=== PATIENT | female | born 1960 | race Two or more races ===

== ENCOUNTER 2020-05-02 11:48 | Outpatient (REF) | payer MEDICAID, SELFPAY ==
--- NOTE | ~2020-05-02 | MM_ITS ---
EXAMINATION: MM SCREENING DIGITAL BREAST TOMOSYNTHESIS, BILATERAL CLINICAL INFORMATION: Screening. Asymptomatic. The lifetime risk of breast cancer based on the Tyrer-Cuzick Model is 3.8%. COMPARISON: Mammography: February 24, 2018 and studies dating back to April 14, 2012 TECHNIQUE: Digital breast tomosynthesis is performed in both the craniocaudal and mediolateral oblique views along with computer-aided detection (CAD). Synthesized 2D images are generated from the tomosynthesis. Additional right exaggerated craniocaudal view performed. FINDINGS: There are scattered areas of fibroglandular density (ACR BI-RADS breast composition Category b). There are no significant masses, abnormal calcifications, or other abnormalities. MM/MM tomosynthesis screening BI IMPRESSION: There are no significant changes from prior study. ASSESSMENT: BI-RADS 1: Negative RECOMMENDATION: Routine annual mammography screening. This patient's information was entered into a reminder system with a target due date for their next mammogram.
== END 2020-05-02 11:49 | disposition home or self-care (01) ==
LOC: HO.MAMMO 11:48
PROVIDERS: PCP Family Medicine; Visit Provider Family Medicine
DX: Z12.31 Encounter for screening mammogram for malignant neoplasm of breast (principal)
CPT/HCPCS: 77063; 77067

== ENCOUNTER 2020-07-04 12:38 | Outpatient (REF) | payer MEDICAID, SELFPAY ==
--- NOTE | ~2020-07-04 | XR_ITS ---
EXAMINATION: XR KNEE, LEFT CLINICAL INFORMATION: Left knee pain COMPARISON: Radiographs left knee 12/11/2011 TECHNIQUE: Four views of the left knee. FINDINGS: There is normal bony mineralization. No fracture, dislocation, destructive process. No focal joint narrowing or erosive change or chondrocalcinosis. No overt effusion appreciated. Bony mineralization is normal. XR/XR knee LT 4V IMPRESSION: Unremarkable left knee.
== END 2020-07-04 12:39 | disposition home or self-care (01) ==
LOC: HO.XRAY 12:38
PROVIDERS: PCP Family Medicine; Visit Provider Family Medicine
DX: M25.562 Pain in left knee (principal)
CPT/HCPCS: 73564

== ENCOUNTER 2021-05-08 14:18 | Outpatient (REF) | payer MEDICAID, SELFPAY ==
--- NOTE | ~2021-05-08 | MM_ITS ---
EXAMINATION: MM SCREENING DIGITAL BREAST TOMOSYNTHESIS, BILATERAL CLINICAL INFORMATION: Screening. Asymptomatic. The lifetime risk of breast cancer based on the Tyrer-Cuzick Model is 3%. COMPARISON: Mammography: 05/02/2020, 02/24/2018, 02/20/2017 TECHNIQUE: Digital breast tomosynthesis is performed in both the craniocaudal and mediolateral oblique views along with computer-aided detection (CAD). Synthesized 2D images are generated from the tomosynthesis. FINDINGS: There are scattered areas of fibroglandular density (ACR BI-RADS breast composition Category b). There are no significant masses, abnormal calcifications, or other abnormalities. No developing density. There are incidental vascular calcifications again seen. MM/MM tomosynthesis screening BI IMPRESSION: No mammographic evidence of malignancy. ASSESSMENT: BI-RADS 1: Negative RECOMMENDATION: Routine annual mammography screening. This patient's information was entered into a reminder system with a target due date for their next mammogram.
== END 2021-05-08 14:19 | disposition home or self-care (01) ==
LOC: HO.MAMMO 14:18
PROVIDERS: PCP Family Medicine; Visit Provider Family Medicine
DX: Z12.31 Encounter for screening mammogram for malignant neoplasm of breast (principal)
CPT/HCPCS: 77063; 77067

== ENCOUNTER 2021-11-19 10:52 | Emergency (ER) | payer MEDICAID, SELFPAY ==
--- NOTE | ~2021-11-19 | CT_ITS ---
EXAMINATION: CT ABDOMEN AND PELVIS WITHOUT CONTRAST CLINICAL INFORMATION: Left-sided flank pain COMPARISON: None TECHNIQUE: Multidetector volumetric imaging was performed from the superior aspect of the liver through the pubic symphysis. Sagittal and coronal reformatted images were obtained on the technologist's workstation. This CT examination was performed using dose optimization techniques as appropriate, variously including the following: *Automated exposure control *Adjustment of mA and/or kV according to patient size (this includes techniques or standardized protocols for targeted exams where dose is matched to indication/reason for exam; i.e. extremities or head) *Use of iterative reconstruction technique DLP: 826 mGy-cm FINDINGS: LUNG BASES: The visualized lung bases are unremarkable. LIVER, GALLBLADDER, AND BILIARY TREE: Moderate hepatic steatosis. Liver is prominent, with the right lobe measuring 20 cm cephalocaudad. No focal masses. No intrahepatic biliary dilatation. The gallbladder is surgically absent. PANCREAS: Unremarkable. SPLEEN: Unremarkable. ADRENAL GLANDS: Unremarkable. KIDNEYS AND URETERS: Right kidney surgically absent. There is a small probable hyperdense cyst off the mid left kidney at 4 mm. There is slight distention of the left collecting system. The left ureter is slightly prominent although an obstructing calculus at this time is not seen. Perhaps the patient has recently passed a stone on the left. There are no perinephric collections. BLADDER: Unremarkable. GASTROINTESTINAL TRACT: There is no bowel obstruction or right or left lower quadrant inflammatory change. ABDOMINAL WALL: Very small fat-containing umbilical hernia. Bowel does not participate. LYMPH NODES: Normal. VASCULAR: Unremarkable. PELVIC VISCERA: Unremarkable. OSSEOUS STRUCTURES: Spondylitic change observed in the lower thoracic spine. CT/CT abdomen pelvis wo IV con IMPRESSION: Slight distention of the left ureter and left collecting system. This may reflect a recently passed stone. Fleischner guidelines were followed.
[2021-11-19 11:27] VITALS: BP 130/79; PULSE 85; RESP 18; TEMP 36.9; O2SAT 98; BMI 49.6
--- NOTE | 2021-11-19 11:52 | ED.ABDPAIN ---
HPI - Abdominal Pain General Chief Complaint: Back Pain/Injury Stated Complaint: lower back pain Time Seen by Provider: 11/19/21 11:47 Source: patient Mode of arrival: ambulatory Limitations: no limitations History of Present Illness HPI narrative: 61 yo female presents to the ER for evaluation of left sided flank pain for the last 1 week. She reports the pain is in her back and intermittently radiates to her left lower quadrant. She reports intermittent nausea but no vomiting or diarrhea. She denies urinary symptoms including frequency, urgency or pain. No blood in her urine. She states she has history of RCC and is s/p right nephrectomy many years ago. She is worried about the pain being in her left kidney. MD elicited complaint: flank pain Pertinent past history: none Onset (ago): week(s) (1) Pain Consistency: constant Location: L flank Severity: moderate Quality: aching Radiation: LLQ Exacerbating factors: movement Relieving factors: nothing Associated symptoms: nausea Related Data Allergies Allergy/AdvReac Type Severity Reaction Status Date / Time chlorthalidone Allergy Unknown Verified 03/24/14 00:00 lisinopril Allergy Unknown Verified 03/24/14 00:00 No Known Allergies Allergy Unverified 12/08/19 17:51 Review of Systems Review of Systems Constitutional: No Fever, No Chills ENT/Mouth: No sore throat, No Rhinorrhea, No Swallowing Difficulty Eyes: No Eye Pain, No Swelling, No Redness Cardiovascular: No Chest Pain, No SOB, No Orthopnea, No Edema Respiratory: No Cough, No Sputum, No Wheezing, No dyspnea Gastrointestinal: + Nausea, No Vomiting, No Diarrhea, + abdominal Pain, No Hematochezia, No Melena Genitourinary: No Dysuria, No Urinary Frequency, No Hematuria Musculoskeletal: No joint pain, No Myalgias Skin: No Skin Lesions, No rash Neuro: No Weakness, No Numbness, No Dizziness, No Headache Psych: + Anxiety/Panic, No Depression Heme/Lymph: No Bruising, No Lymphadenopathy Endocrine: No Polyuria, No Polydipsia PMFSH Social History Social History Advance Directives: No Advance Directives Information Provided: Yes Physical Exam ED Vital Signs: Vital Signs - 24 hr 11/19/21 11:27 11/19/21 14:19 Temperature 98.5 F 97.8 F Pulse Rate 85 83 Respiratory Rate 18 14 Blood Pressure 130/79 141/90 H Pulse Oximetry 98 100 Oxygen Delivery Method Room Air Room Air BMI result Body Mass Index 49.6 Appearance: Alert. Oriented X3. No acute distress. Eyes: Pupils equal, round and reactive to light. ENT: Pharynx normal. Neck: Normal inspection. Neck supple. CVS: Normal heart rate and rhythm. Pulses normal. Respiratory: No respiratory distress. Breath sounds normal. Abdomen: Obese, soft and nontender. + CVA tenderness on the left. +BS x4 Skin: Skin warm and dry. Normal skin color. Normal skin turgor. No rashes. Extremities: 1+ lower extremity edema. Neuro: Oriented X 3. No motor deficit. No sensory deficit. Steady gait Course Course Course Narrative: 61-year-old female with history of nephrectomy in the past presents to the ER with left-sided flank pain for 1 week. Mild nausea but no vomiting or diarrhea. No urinary symptoms. Her U/A is normal. She does have CVA tenderness on examination. She is afebrile. Will get CT scan for further evaluation of her pain. Reevaluation(s) Reevaluation #1: Lab showing mild dilatation of the left collecting system, possibly a recently passed stone. Patient advised of these results with cruise staff member. She was encouraged to increase oral fluids and follow-up with her primary care doctor. She is stable for discharge home. MDM - Abdominal Pain Lab Data Result diagrams: 11/19/21 12:40 11/19/21 12:14 Labs: Lab Results 11/19/21 11/19/21 11/19/21 Range/Units 12:14 12:14 12:40 WBC 6.2 (4.8-10.8) X10*3/uL RBC 5.22 (4.20-5.50) X10*6/uL Hgb 14.4 (12.0-16.0) g/dl Hct 43.5 (37.0-47.0) % MCV 83.3 (80.0-98.0) fL MCH 27.6 (27.0-33.0) pg MCHC 33.1 (31.0-35.0) g/dl RDW 13.7 (11.0-16.0) % Plt Count 263 (160-400) X10*3/uL MPV 9.4 (9.4-12.3) fL Immature Gran % (Auto) 0.7 H (0.0-0.4) % Neut % (Auto) 63.5 (45-73) % Lymph % (Auto) 26.3 (20-40) % [place] % (Auto) 8.1 (2-11) % Eos % (Auto) 1.1 (0-4) % Baso % (Auto) 0.3 (0-2) % Lymph # (Auto) 1.6 (1.2-4.9) X10*3/uL [place] # (Auto) 0.5 (0.1-1.2) X10*3/uL Eos # (Auto) 0.1 (0.0-0.4) X10*3/uL Baso # (Auto) 0.0 (0.0-0.2) X10*3/uL Abs Immat Gran (auto) 0.04 H (0.00-0.03) X10*3/uL Absolute Neuts (auto) 3.9 (2.0-8.3) x10*3/uL Absolute Nucleated RBC 0.000 (0.0-0.012) X10*3/uL Nucleated RBC % (auto) 0.0 (0.0-0.2) /100WBC Sodium 140 (135-145) mmol/L Potassium 4.2 (3.3-5.1) mmol/L Chloride 102 (96-108) mmol/L Carbon Dioxide 30 H (22-29) mmol/L Anion Gap 12 (12-20) BUN 20 H (9-16) mg/dL Creatinine 0.94 (0.5-1.4) mg/dL Estim Creat Clear Calc 74.6 Estimated GFR > 60 Random Glucose 109 (60-115) mg/dL Calcium 9.3 (8.4-10.2) mg/dL Urine Color Yellow Urine Appearance Clear Urine pH 7.5 (5.0-9.0) Ur Specific [place] 1.010 (1.005-1.025) Urine Protein Negative (Neg-Trace) mg/dL Urine Glucose (UA) Negative (Negative) mg/dL Urine Ketones Negative (Negative) mg/dL Urine Blood Negative (Negative) Urine Nitrite Negative (Negative) Ur Leukocyte Esterase Negative (Negative) COVID-19 (MICHAEL) (Negative) COVID-19 Clin Com 11/19/21 Range/Units 13:02 WBC (4.8-10.8) X10*3/uL RBC (4.20-5.50) X10*6/uL Hgb (12.0-16.0) g/dl Hct (37.0-47.0) % MCV (80.0-98.0) fL MCH (27.0-33.0) pg MCHC (31.0-35.0) g/dl RDW (11.0-16.0) % Plt Count (160-400) X10*3/uL MPV (9.4-12.3) fL Immature Gran % (Auto) (0.0-0.4) % Neut % (Auto) (45-73) % Lymph % (Auto) (20-40) % [place] % (Auto) (2-11) % Eos % (Auto) (0-4) % Baso % (Auto) (0-2) % Lymph # (Auto) (1.2-4.9) X10*3/uL [place] # (Auto) (0.1-1.2) X10*3/uL Eos # (Auto) (0.0-0.4) X10*3/uL Baso # (Auto) (0.0-0.2) X10*3/uL Abs Immat Gran (auto) (0.00-0.03) X10*3/uL Absolute Neuts (auto) (2.0-8.3) x10*3/uL Absolute Nucleated RBC (0.0-0.012) X10*3/uL Nucleated RBC % (auto) (0.0-0.2) /100WBC Sodium (135-145) mmol/L Potassium (3.3-5.1) mmol/L Chloride (96-108) mmol/L Carbon Dioxide (22-29) mmol/L Anion Gap (12-20) BUN (9-16) mg/dL Creatinine (0.5-1.4) mg/dL Estim Creat Clear Calc Estimated GFR Random Glucose (60-115) mg/dL Calcium (8.4-10.2) mg/dL Urine Color Urine Appearance Urine pH (5.0-9.0) Ur Specific [place] (1.005-1.025) Urine Protein (Neg-Trace) mg/dL Urine Glucose (UA) (Negative) mg/dL Urine Ketones (Negative) mg/dL Urine Blood (Negative) Urine Nitrite (Negative) Ur Leukocyte Esterase (Negative) COVID-19 (MICHAEL) Negative (Negative) COVID-19 Clin Com See Note Critical Care Time Critical Care Time Critical Care Time: No Discharge Plan Discharge Clinical Impression: Kidney stone Patient Disposition: Home, Self-Care Instructions: Kidney Stones (ED) Additional Instructions: Your lab workup today was normal. You are negative for COVID-19. Your urine test was normal and negative for infection. Your CT scan showed slight distention of the left ureter and left collecting system, this may reflect a recently passed kidney stone. Your pain will get better with time. Recommend taking Tylenol around the clock. Rest and drink plenty of fluids. Follow-up with your doctor. If you develop new or worsening symptoms call 911 or come back to the ER for further evaluation. Interventions: ED Discharge Assessment Last Done: 11/19/21 14:32 Discharge Date/Time: 11/19/21 14:33 Print Language: Chinese
[2021-11-19 12:23] LABS: Appearance Urine Clear; Color Urine Yellow; Glucose Urine UA Negative (Negative); Leukocyte Esterase Urine Negative (Negative); Nitrite Urine Negative (Negative); PH 7.5 (5.0-9.0); Urine Blood Negative (Negative); Urine Ketones Negative (Negative); Urine Protein Negative (Neg-Trace)
[2021-11-19 12:40] LABS: Anion Gap 12 (12-20); Blood Urea Nitrogen 20 mg/dL (9-16); Calcium 9.3 mg/dL (8.4-10.2); Carbon Dioxide 30 mmol/L (22-29); Chloride 102 mmol/L (96-108); Creatinine Clr Calc Pharmacy 74.6; Estimated Glomerular Filt Rate > 60; Glucose Random 109 mg/dL (60-115); Potassium 4.2 mmol/L (3.3-5.1); Sodium 140 mmol/L (135-145)
[2021-11-19 12:46] LABS: MANUAL DIFF FLAG NO
[2021-11-19 12:57] LABS: Basophils Percent Auto 0.3 % (0-2); Eosinophils Absolute Auto 0.1 X10*3/uL (0.0-0.4); Eosinophils Percent Auto 1.1 % (0-4); Hematocrit 43.5 % (37.0-47.0); Hemoglobin 14.4 g/dl (12.0-16.0); Imm Gran Abs Auto 0.04 X10*3/uL (0.00-0.03); Imm Gran Pct Auto 0.7 % (0.0-0.4); Lymphocytes Absolute Auto 1.6 X10*3/uL (1.2-4.9); Lymphocytes Percent Auto 26.3 % (20-40); Mean Corpuscular HGB Conc 33.1 g/dl (31.0-35.0); Mean Corpuscular Hemoglobin 27.6 pg (27.0-33.0); Mean Corpuscular Volume 83.3 fL (80.0-98.0); Mean Platelet Volume 9.4 fL (9.4-12.3); Monocytes Absolute Auto 0.5 X10*3/uL (0.1-1.2); Monocytes Percent Auto 8.1 % (2-11); Neutrophils Absolute Auto 3.9 x10*3/uL (2.0-8.3); Neutrophils Percent Auto 63.5 % (45-73); Platelet Count 263 X10*3/uL (160-400); Red Blood Count 5.22 X10*6/uL (4.20-5.50); Red Cell Distribution Width 13.7 % (11.0-16.0); White Blood Count 6.2 X10*3/uL (4.8-10.8)
[2021-11-19 13:24] LABS: COVID-19 Test Negative (Negative)
[2021-11-19 14:19] VITALS: BP 141/90; PULSE 83; RESP 14; TEMP 36.6; O2SAT 100
== END 2021-11-19 14:33 | disposition home or self-care (01) ==
PROVIDERS: Physician Assistant; Emergency Provider Emergency Medicine; PCP Family Medicine
DX: N20.0 Calculus of kidney (principal); R60.0 Localized edema; Z20.822 Contact with and (suspected) exposure to COVID-19
CPT/HCPCS: 36415; 74176; 80048; 81003; 85025; 87635; 99283; 99284

== ENCOUNTER 2022-02-04 15:51 | Emergency (ER) | payer MEDICAID, SELFPAY ==
--- NOTE | ~2022-02-04 | XR_ITS ---
EXAMINATION: CHEST RADIOGRAPH, RIGHT SHOULDER, LEFT KNEE CLINICAL INFORMATION: Syncope and fall with right shoulder and left knee pain COMPARISON: Chest radiograph 03/14/2014, left knee 07/04/2020 TECHNIQUE: Single view chest, 4 views left knee, 4 views right shoulder FINDINGS: Chest: No significant abnormality is seen involving the heart, lungs, mediastinum or bony thorax. Shoulder: No fracture or dislocation. Some tiny sclerotic changes are present at the greater tubercle which can be seen with chronic rotator cuff disease. Knee: There is mild degenerative changes with some mild narrowing of the medial compartment and some lateral tibial osteophytes. No fractures or dislocations are seen. No chondrocalcinosis. XR/XR chest 1V IMPRESSION: 1. No acute intrathoracic disease. 2. No shoulder fracture or dislocation with possible rotator cuff disease. 3. Mild degenerative changes in the knee.
--- NOTE | ~2022-02-04 | XR_ITS ---
EXAMINATION: CHEST RADIOGRAPH, RIGHT SHOULDER, LEFT KNEE CLINICAL INFORMATION: Syncope and fall with right shoulder and left knee pain COMPARISON: Chest radiograph 03/14/2014, left knee 07/04/2020 TECHNIQUE: Single view chest, 4 views left knee, 4 views right shoulder FINDINGS: Chest: No significant abnormality is seen involving the heart, lungs, mediastinum or bony thorax. Shoulder: No fracture or dislocation. Some tiny sclerotic changes are present at the greater tubercle which can be seen with chronic rotator cuff disease. Knee: There is mild degenerative changes with some mild narrowing of the medial compartment and some lateral tibial osteophytes. No fractures or dislocations are seen. No chondrocalcinosis. XR/XR knee LT 2V IMPRESSION: 1. No acute intrathoracic disease. 2. No shoulder fracture or dislocation with possible rotator cuff disease. 3. Mild degenerative changes in the knee.
--- NOTE | ~2022-02-04 | XR_ITS ---
EXAMINATION: CHEST RADIOGRAPH, RIGHT SHOULDER, LEFT KNEE CLINICAL INFORMATION: Syncope and fall with right shoulder and left knee pain COMPARISON: Chest radiograph 03/14/2014, left knee 07/04/2020 TECHNIQUE: Single view chest, 4 views left knee, 4 views right shoulder FINDINGS: Chest: No significant abnormality is seen involving the heart, lungs, mediastinum or bony thorax. Shoulder: No fracture or dislocation. Some tiny sclerotic changes are present at the greater tubercle which can be seen with chronic rotator cuff disease. Knee: There is mild degenerative changes with some mild narrowing of the medial compartment and some lateral tibial osteophytes. No fractures or dislocations are seen. No chondrocalcinosis. XR/XR shoulder RT min 2V IMPRESSION: 1. No acute intrathoracic disease. 2. No shoulder fracture or dislocation with possible rotator cuff disease. 3. Mild degenerative changes in the knee.
--- NOTE | ~2022-02-04 | CT_ITS ---
EXAMINATION: CT ANGIOGRAM OF THE CHEST WITH AND WITHOUT CONTRAST (CT PULMONARY ANGIOGRAM FOR PE) CLINICAL INFORMATION: Reason for Exam syncope, HX renal/uterine CA not on thinners COMPARISON: Chest radiograph 02/04/2022 TECHNIQUE: Prior to contrast administration, noncontrast localization images were obtained. Subsequently, multidetector volumetric imaging was performed from the thoracic inlet to below the diaphragms following the administration of 65 mL Omnipaque 350 intravenous contrast. No contrast reaction reported Sagittal, coronal, and MIP oblique sagittal reformatted images were obtained on the CT workstation, uploaded to PACS, and reviewed. This CT examination was performed using dose optimization techniques as appropriate, variously including the following: *Automated exposure control *Adjustment of mA and/or kV according to patient size (this includes techniques or standardized protocols for targeted exams where dose is matched to indication/reason for exam; i.e. extremities or head) *Use of iterative reconstruction technique Total exam dose-length product 541 mGy-cm FINDINGS: QUALITY OF STUDY/CONTRAST BOLUS: Satisfactory. PULMONARY ARTERIES: No central or segmental pulmonary emboli. THORACIC AORTA: No aneurysm or dissection. LUNG: No focal consolidation, nodules or masses. The central airways are patent. PLEURA: No pleural effusion or pneumothorax. MEDIASTINUM: Normal heart size. No pericardial effusion. No hilar or mediastinal lymphadenopathy. No evidence of septal bowing or right heart strain. CHEST WALL/AXILLA: No axillary or internal mammary lymphadenopathy. There is a 1 cm nodular density at the right medial chest wall versus the upper inner aspect of the right breast. This could be a sebaceous cyst. OSSEOUS STRUCTURES: No acute or suspicious osseous abnormality. Multilevel degenerative change throughout the spine. UPPER ABDOMEN: Cholecystectomy. No reflux of contrast into the hepatic veins to suggest elevated right heart pressures. CT/CT angio chest PE protocol IMPRESSION: No pulmonary embolism or other acute intrathoracic abnormality. VTE: negative
--- NOTE | ~2022-02-04 | CT_ITS ---
EXAMINATION: CT HEAD WITHOUT CONTRAST CLINICAL INFORMATION: Fall, syncope, hepatic. COMPARISON: CT head 11/05/2013. TECHNIQUE: Contiguous axial imaging was performed from the skull base to vertex without intravenous administration of contrast. This CT examination was performed using dose optimization techniques as appropriate, variously including the following: *Automated exposure control *Adjustment of mA and/or kV according to patient size (this includes techniques or standardized protocols for targeted exams where dose is matched to indication/reason for exam; i.e. extremities or head) *Use of iterative reconstruction technique DLP: 736 mGy-cm FINDINGS: There is no evidence of acute intracranial hemorrhage or edematous territorial infarction. A few foci of hypoattenuation in the periventricular and deep white matter are consistent with mild microangiopathy. Rod-white matter differentiation is preserved. Mineralization of the basal ganglia. The ventricles are normal in size and configuration. No evidence for obstructive hydrocephalus. No abnormal mass effect or midline shift. No extra-axial fluid collections. Right frontal scalp hematoma. No displaced calvarial fracture. Complete opacification of the left sphenoidal sinus. Large mucus retention cyst in the right maxillary sinus. The mastoids and middle ear cavities are clear. CT/CT head/brain wo IV con IMPRESSION: 1. Right frontal scalp hematoma. 2. No acute intracranial abnormality. 3. Paranasal sinus disease. Correlate clinically for acute sinusitis.
[2022-02-04 18:46] VITALS: BP 153/97; PULSE 90; RESP 20; TEMP 36.4; O2SAT 100; BMI 47.6
--- NOTE | 2022-02-04 18:51 | ECG_ITS ---
Test Reason : FALLING Blood Pressure : / mmHG Vent. Rate : 086 BPM Atrial Rate : 086 BPM P-R Int : 154 ms QRS Dur : 066 ms QT Int : 392 ms P-R-T Axes : 029 058 013 degrees QTc Int : 469 ms Normal sinus rhythm Low voltage QRS RSR' or QR pattern in V1 suggests right ventricular conduction delay Borderline ECG When compared with ECG of 27-OCT-2018 12:42, No significant change was found Referred By: Michael Amin Electronically Signed By:VICKY BENJAMIN MD
--- NOTE | 2022-02-04 18:52 | ED_ITS ---
HPI - Syncope General Chief Complaint: Syncope <Michael Amin MD - Last Filed: 02/04/22 18:54> Stated Complaint: Fall/Head and neck pain <Michael Amin MD - Last Filed: 02/04/22 18:54> Time Seen by Provider: 02/05/22 00:06 <Michael Amin MD - Last Filed: 02/04/22 18:54> Source: eye technician <Michael Amin MD - Last Filed: 02/04/22 18:54> patient <Vivien Bower MD - Last Filed: 02/05/22 05:33> Mode of arrival: ambulatory <Vivien Bower MD - Last Filed: 02/05/22 05:33> Limitations: no limitations <Vivien Bower MD - Last Filed: 02/05/22 05:33> History of Present Illness HPI narrative: Patient comes to the emergency room complaining of a syncopal episode. Patient states that she was about to get into the bathtub, she does not remember if she slipped or if she passed out before falling. Patient complaining of pain in her forehead, knee, ribs bilaterally, shoulder, and a large bruise on the left thigh. Patient states that at this time she feels achy, no headache, only localized pain in the forehead. Of note, patient states that she has history of uterine and renal cancer with metastasis. Patient states that 2 years ago she had radiation and chemo and then went into remission. Patient is not on blood thinners. <Vivien Bower MD - Last Filed: 02/05/22 05:33> Related Data Allergies/Adverse Reactions: Allergies Allergy/AdvReac Type Severity Reaction Status Date / Time chlorthalidone Allergy Unknown Verified 03/24/14 00:00 lisinopril Allergy Unknown Verified 03/24/14 00:00 No Known Allergies Allergy Unverified 12/08/19 17:51 <Michael Amin MD - Last Filed: 02/04/22 18:54> Review of Systems Review of Systems: Constitutional : No Weight loss, No Fever, No Chills, No Night Sweats, No Fatigue, No Malaise ENT/Mouth : No Hearing loss, No Ear Pain, No Nasal Congestion, No Sinus Pain, No Hoarseness, No sore throat, No Rhinorrhea, No Swallowing Difficulty Eyes: No Eye Pain, No Swelling, No Redness, No Foreign Body, No Discharge, No Vision Changes Cardiovascular : No Chest Pain, No SOB, No Dyspnea on Exertion, No Orthopnea, No Edema, No Palpitations Respiratory : No Cough, No Sputum, No Wheezing, No Smoke Exposure, No Dyspnea Gastrointestinal : No Nausea, No Vomiting, No Diarrhea, No Constipation, No abdominal Pain, No Hematochezia, No Melena Genitourinary : no irregular bleeding, No Dysuria, No Urinary Frequency, No Hematuria, No Urinary Incontinence, No Urgency, No Flank Pain, No Urinary Flow Changes, No Hesitancy Musculoskeletal : Complaining of pain in the shoulders, knee, left thigh, ribs, forehead Skin : Complaining of ecchymosis in the forehead and left thigh Neuro : No Weakness, No Numbness, No Paresthesias, complaining of syncopal episode Psych : No Anxiety/Panic, No Depression, No SI/HI/AH/VH, No Social Issues, Heme/Lymph: No Bruising, No Bleeding,No Lymphadenopathy Endocrine : No Polyuria, No Polydipsia, No Temperature Intolerance <Vivien Bower MD - Last Filed: 02/05/22 05:33> [facility] Past Medical History Medical History: Medical History Hyperlipidemia Hypertension Hypothyroidism Renal cancer Type 2 diabetes Uterine cancer <Michael Amin MD - Last Filed: 02/04/22 18:54> Social History Social History: Social History Advance Directives: No Advance Directives Information Provided: No <Michael Amin MD - Last Filed: 02/04/22 18:54> Physical Exam Vital Signs: Vital Signs: Last Vital Signs Temp 98.3 F 02/05/22 05:26 Pulse 95 02/05/22 05:26 Resp 16 02/05/22 05:26 BP 107/52 L 02/05/22 05:26 Pulse Ox 98 02/05/22 05:26 O2 Del Method 02/05/22 05:26 BMI result Body Mass Index 47.6 <Michael Amin MD - Last Filed: 02/04/22 18:54> Vital Signs: Last Vital Signs Temp 98.3 F 02/05/22 05:26 Pulse 95 02/05/22 05:26 Resp 16 02/05/22 05:26 BP 107/52 L 02/05/22 05:26 Pulse Ox 98 02/05/22 05:26 O2 Del Method 02/05/22 05:26 BMI result Body Mass Index 47.6 <Vivien Bower MD - Last Filed: 02/05/22 05:33> Const: Other: Appearance: Alert. Oriented X3. No acute distress. Eyes: Pupils equal, round and reactive to light. ENT: Pharynx normal. Neck: Normal inspection. Neck supple. No lymph nodes noted. No crepitus CVS: Normal heart rate and rhythm. Pulses normal. Normal S1 and S2 Respiratory: No respiratory distress. Breath sounds normal. No Wheezing. No rales Abdomen: Soft and nontender. No rigidity. No distention. Skin: Multiple ecchymoses including right side of the forehead, left thigh, shoulders, upper back Extremities: No lower extremity edema. No Lacerations. No Rash Neuro: Oriented X 3. No motor deficit. No sensory deficit. Moving all extremities. No slurred speech. CN 2 through 12 grossly intact Psych: calm, cooperative, normal affect <Vivien Bower MD - Last Filed: 05:33> Course Course Course Narrative: Patient's CT scans and x-rays do not show any acute abnormality. There is a large ecchymosis on the left side of the thigh, does not seem to be expanding Patient has history of uterine and renal cancer. Patient is not on blood thinners. Regardless of the D-dimer level we will go ahead and scan the patient to rule out pulmonary embolism given the history of possible syncopal episode White blood cell count, hemoglobin within normal limits, chemistry/electrolyte are unremarkable, glucose slightly bumped at 125. Urinalysis negative Patient's urine toxicology an ethanol levels are pending. At this time, I do not suspect the patient uses drugs/alcohol D-dimer, CTA to rule out pulmonary embolism pending, orthostatic vital signs pending as well 01:10: I was informed by the CT scan text that the patient is a bit hesitant to get the CT scan done. Patient states that when she has had contrast in the past, she feels a very warm sensation on the inside and feels like she is going to pee on herself. I discussed with the patient that this is normal sensation that a lot of people have when they get contrast. This is not an allergic reaction. Patient remains hesitant, patient states that she has never had any allergic reaction, no hives, no swelling, no difficulty breathing. Patient is agreeable to get the CT scan with contrast if we premedicate her with Solu- Medrol, Pepcid and Benadryl. Dose medications have been ordered. Patient tolerated well the CT scan. CT scan for pulmonary embolism is negative, troponin negative. I discussed with the patient herself, patient will likely benefit from a Holter monitor evaluation. <Vivien Bower MD - Last Filed: 02/05/22 05:33> Reevaluation(s) Reevaluation #1: 61-year-old female came in for evaluation of syncope while she was in the bathroom, had NG complaining of headache complaint ankle ulcer of right shoulder pain and left knee pain with left thigh hematoma. Labs and x-ray and head CT was ordered from triage. <Michael Amin MD - Last Filed: 02/04/22 18:54> Time: 18:54 <Michael Amin MD - Last Filed: 02/04/22 18:54> Medications Administered Discontinued Medications Generic Name Dose Route Start Last Admin Trade Name Manasa PRN Reason Stop Dose Admin Diphenhydramine HCl 50 mg 02/05/22 01:09 02/05/22 01:24 Diphenhydramine Hcl 50 Mg/Ml Vial IVPUSH 02/05/22 01:10 50 mg ONCE ONE Administration Famotidine 20 mg 02/05/22 01:09 02/05/22 01:24 Famotidine/Pf 20 Mg/2 Ml Vial IVPUSH 02/05/22 01:10 20 mg ONCE ONE Administration Iohexol 100 ml 02/05/22 05:03 02/05/22 05:05 Iohexol 350 Mg/Ml 100 Ml Infus..Btl IV 02/05/22 05:04 65 ml ONCE ONE Administration Methylprednisolone Sodium Succinate 125 mg 02/05/22 01:09 02/05/22 01:24 Methylprednisolone Sod Succ 125 Mg/2 Ml Vial IVPUSH 02/05/22 01:10 125 mg ONCE ONE Administration <Michael Amin MD - Last Filed: 02/04/22 18:54> Medications Administered Discontinued Medications Generic Name Dose Route Start Last Admin Trade Name Manasa PRN Reason Stop Dose Admin Diphenhydramine HCl 50 mg 02/05/22 01:09 02/05/22 01:24 Diphenhydramine Hcl 50 Mg/Ml Vial IVPUSH 02/05/22 01:10 50 mg ONCE ONE Administration Famotidine 20 mg 02/05/22 01:09 02/05/22 01:24 Famotidine/Pf 20 Mg/2 Ml Vial IVPUSH 02/05/22 01:10 20 mg ONCE ONE Administration Iohexol 100 ml 02/05/22 05:03 02/05/22 05:05 Iohexol 350 Mg/Ml 100 Ml Infus..Btl IV 02/05/22 05:04 65 ml ONCE ONE Administration Methylprednisolone Sodium Succinate 125 mg 02/05/22 01:09 02/05/22 01:24 Methylprednisolone Sod Succ 125 Mg/2 Ml Vial IVPUSH 02/05/22 01:10 125 mg ONCE ONE Administration <Vivien Bower MD - Last Filed: 02/05/22 05:33> MDM - Syncope Lab Data Result diagrams: : 02/04/22 23:23 02/04/22 23:23 <Michael Amin MD - Last Filed: 02/04/22 18:54> Labs: Lab Results 02/04/22 02/04/22 02/04/22 Range/Units 23:22 23:23 23:23 WBC 6.1 (4.8-10.8) X10*3/uL RBC 5.97 H (4.20-5.50) X10*6/uL Hgb 15.9 (12.0-16.0) g/dl Hct 49.4 H (37.0-47.0) % MCV 82.7 (80.0-98.0) fL MCH 26.6 L (27.0-33.0) pg MCHC 32.2 (31.0-35.0) g/dl RDW 13.3 (11.0-16.0) % Plt Count 245 (160-400) X10*3/uL MPV 9.5 (9.4-12.3) fL Immature Gran % (Auto) 0.3 (0.0-0.4) % Neut % (Auto) 62.0 (45-73) % Lymph % (Auto) 27.3 (20-40) % [place] % (Auto) 8.5 (2-11) % Eos % (Auto) 1.6 (0-4) % Baso % (Auto) 0.3 (0-2) % Lymph # (Auto) 1.7 (1.2-4.9) X10*3/uL [place] # (Auto) 0.5 (0.1-1.2) X10*3/uL Eos # (Auto) 0.1 (0.0-0.4) X10*3/uL Baso # (Auto) 0.0 (0.0-0.2) X10*3/uL Abs Immat Gran (auto) 0.02 (0.00-0.03) X10*3/uL Absolute Neuts (auto) 3.8 (2.0-8.3) x10*3/uL Absolute Nucleated RBC 0.000 (0.0-0.012) X10*3/uL Nucleated RBC % (auto) 0.0 (0.0-0.2) /100WBC Sodium 140 (135-145) mmol/L Potassium 4.2 (3.3-5.1) mmol/L Chloride 102 (96-108) mmol/L Carbon Dioxide 25 (22-29) mmol/L Anion Gap 17 (12-20) BUN 16 (9-16) mg/dL Creatinine 0.88 (0.5-1.4) mg/dL Estim Creat Clear Calc 77.7 Estimated GFR > 60 Random Glucose 125 H (60-115) mg/dL Calcium 9.7 (8.4-10.2) mg/dL Total Bilirubin 0.4 (0.0-1.0) mg/dL Direct Bilirubin 0.2 (0.0-0.5) mg/dL AST 25 (5-31) U/L ALT 33 H (0-31) U/L Alkaline Phosphatase 140 H (39-117) U/L Troponin I High Sens < 3.5 (<3.5-17.0) ng/L Total Protein 7.9 (6.5-8.0) g/dL Albumin 4.5 (3.5-5.0) g/dL Lipase 27 (8-78) U/L Urine Color Urine Appearance Urine pH (5.0-9.0) Ur Specific [place] (1.005-1.025) Urine Protein (Neg-Trace) mg/dL Urine Glucose (UA) (Negative) mg/dL Urine Ketones (Negative) mg/dL Urine Blood (Negative) Urine Nitrite (Negative) Ur Leukocyte Esterase (Negative) Urine Opiates Screen (Not Detect) Urine Fentanyl Screen (Not Detect) Ur Barbiturates Screen (Not Detect) Ur Phencyclidine Scrn (Not Detect) Ur Amphetamines Screen (Not Detect) U Benzodiazepines Scrn (Not Detect) Urine Cocaine Screen (Not Detect) U Marijuana (THC) Screen (Not Detect) Ethyl Alcohol mg/dL COVID-19 (MICHAEL) (Negative) COVID-19 Clin Com 02/05/22 02/05/22 02/05/22 Range/Units 00:02 00:02 00:29 WBC (4.8-10.8) X10*3/uL RBC (4.20-5.50) X10*6/uL Hgb (12.0-16.0) g/dl Hct (37.0-47.0) % MCV (80.0-98.0) fL MCH (27.0-33.0) pg MCHC (31.0-35.0) g/dl RDW (11.0-16.0) % Plt Count (160-400) X10*3/uL MPV (9.4-12.3) fL Immature Gran % (Auto) (0.0-0.4) % Neut % (Auto) (45-73) % Lymph % (Auto) (20-40) % [place] % (Auto) (2-11) % Eos % (Auto) (0-4) % Baso % (Auto) (0-2) % Lymph # (Auto) (1.2-4.9) X10*3/uL [place] # (Auto) (0.1-1.2) X10*3/uL Eos # (Auto) (0.0-0.4) X10*3/uL Baso # (Auto) (0.0-0.2) X10*3/uL Abs Immat Gran (auto) (0.00-0.03) X10*3/uL Absolute Neuts (auto) (2.0-8.3) x10*3/uL Absolute Nucleated RBC (0.0-0.012) X10*3/uL Nucleated RBC % (auto) (0.0-0.2) /100WBC Sodium (135-145) mmol/L Potassium (3.3-5.1) mmol/L Chloride (96-108) mmol/L Carbon Dioxide (22-29) mmol/L Anion Gap (12-20) BUN (9-16) mg/dL Creatinine (0.5-1.4) mg/dL Estim Creat Clear Calc Estimated GFR Random Glucose (60-115) mg/dL Calcium (8.4-10.2) mg/dL Total Bilirubin (0.0-1.0) mg/dL Direct Bilirubin (0.0-0.5) mg/dL AST (5-31) U/L ALT (0-31) U/L Alkaline Phosphatase (39-117) U/L Troponin I High Sens (<3.5-17.0) ng/L Total Protein (6.5-8.0) g/dL Albumin (3.5-5.0) g/dL Lipase (8-78) U/L Urine Color Yellow Urine Appearance Clear Urine pH 7.0 (5.0-9.0) Ur Specific [place] 1.010 (1.005-1.025) Urine Protein Negative (Neg-Trace) mg/dL Urine Glucose (UA) Negative (Negative) mg/dL Urine Ketones Negative (Negative) mg/dL Urine Blood Negative (Negative) Urine Nitrite Negative (Negative) Ur Leukocyte Esterase Negative (Negative) Urine Opiates Screen Not Detected (Not Detect) Urine Fentanyl Screen Not Detected (Not Detect) Ur Barbiturates Screen Not Detected (Not Detect) Ur Phencyclidine Scrn Not Detected (Not Detect) Ur Amphetamines Screen Not Detected (Not Detect) U Benzodiazepines Scrn Not Detected (Not Detect) Urine Cocaine Screen Not Detected (Not Detect) U Marijuana (THC) Screen Not Detected (Not Detect) Ethyl Alcohol mg/dL COVID-19 (MICHAEL) Negative (Negative) COVID-19 Clin Com See Note 02/05/22 Range/Units 01:40 WBC (4.8-10.8) X10*3/uL RBC (4.20-5.50) X10*6/uL Hgb (12.0-16.0) g/dl Hct (37.0-47.0) % MCV (80.0-98.0) fL MCH (27.0-33.0) pg MCHC (31.0-35.0) g/dl RDW (11.0-16.0) % Plt Count (160-400) X10*3/uL MPV (9.4-12.3) fL Immature Gran % (Auto) (0.0-0.4) % Neut % (Auto) (45-73) % Lymph % (Auto) (20-40) % [place] % (Auto) (2-11) % Eos % (Auto) (0-4) % Baso % (Auto) (0-2) % Lymph # (Auto) (1.2-4.9) X10*3/uL [place] # (Auto) (0.1-1.2) X10*3/uL Eos # (Auto) (0.0-0.4) X10*3/uL Baso # (Auto) (0.0-0.2) X10*3/uL Abs Immat Gran (auto) (0.00-0.03) X10*3/uL Absolute Neuts (auto) (2.0-8.3) x10*3/uL Absolute Nucleated RBC (0.0-0.012) X10*3/uL Nucleated RBC % (auto) (0.0-0.2) /100WBC Sodium (135-145) mmol/L Potassium (3.3-5.1) mmol/L Chloride (96-108) mmol/L Carbon Dioxide (22-29) mmol/L Anion Gap (12-20) BUN (9-16) mg/dL Creatinine (0.5-1.4) mg/dL Estim Creat Clear Calc Estimated GFR Random Glucose (60-115) mg/dL Calcium (8.4-10.2) mg/dL Total Bilirubin (0.0-1.0) mg/dL Direct Bilirubin (0.0-0.5) mg/dL AST (5-31) U/L ALT (0-31) U/L Alkaline Phosphatase (39-117) U/L Troponin I High Sens (<3.5-17.0) ng/L Total Protein (6.5-8.0) g/dL Albumin (3.5-5.0) g/dL Lipase (8-78) U/L Urine Color Urine Appearance Urine pH (5.0-9.0) Ur Specific [place] (1.005-1.025) Urine Protein (Neg-Trace) mg/dL Urine Glucose (UA) (Negative) mg/dL Urine Ketones (Negative) mg/dL Urine Blood (Negative) Urine Nitrite (Negative) Ur Leukocyte Esterase (Negative) Urine Opiates Screen (Not Detect) Urine Fentanyl Screen (Not Detect) Ur Barbiturates Screen (Not Detect) Ur Phencyclidine Scrn (Not Detect) Ur Amphetamines Screen (Not Detect) U Benzodiazepines Scrn (Not Detect) Urine Cocaine Screen (Not Detect) U Marijuana (THC) Screen (Not Detect) Ethyl Alcohol < 10 mg/dL COVID-19 (MICHAEL) (Negative) COVID-19 Clin Com <Michael Amin MD - Last Filed: 02/04/22 18:54> Lab Results 02/04/22 02/04/22 02/04/22 Range/Units 23:22 23:23 23:23 WBC 6.1 (4.8-10.8) X10*3/uL RBC 5.97 H (4.20-5.50) X10*6/uL Hgb 15.9 (12.0-16.0) g/dl Hct 49.4 H (37.0-47.0) % MCV 82.7 (80.0-98.0) fL MCH 26.6 L (27.0-33.0) pg MCHC 32.2 (31.0-35.0) g/dl RDW 13.3 (11.0-16.0) % Plt Count 245 (160-400) X10*3/uL MPV 9.5 (9.4-12.3) fL Immature Gran % (Auto) 0.3 (0.0-0.4) % Neut % (Auto) 62.0 (45-73) % Lymph % (Auto) 27.3 (20-40) % [place] % (Auto) 8.5 (2-11) % Eos % (Auto) 1.6 (0-4) % Baso % (Auto) 0.3 (0-2) % Lymph # (Auto) 1.7 (1.2-4.9) X10*3/uL [place] # (Auto) 0.5 (0.1-1.2) X10*3/uL Eos # (Auto) 0.1 (0.0-0.4) X10*3/uL Baso # (Auto) 0.0 (0.0-0.2) X10*3/uL Abs Immat Gran (auto) 0.02 (0.00-0.03) X10*3/uL Absolute Neuts (auto) 3.8 (2.0-8.3) x10*3/uL Absolute Nucleated RBC 0.000 (0.0-0.012) X10*3/uL Nucleated RBC % (auto) 0.0 (0.0-0.2) /100WBC Sodium 140 (135-145) mmol/L Potassium 4.2 (3.3-5.1) mmol/L Chloride 102 (96-108) mmol/L Carbon Dioxide 25 (22-29) mmol/L Anion Gap 17 (12-20) BUN 16 (9-16) mg/dL Creatinine 0.88 (0.5-1.4) mg/dL Estim Creat Clear Calc 77.7 Estimated GFR > 60 Random Glucose 125 H (60-115) mg/dL Calcium 9.7 (8.4-10.2) mg/dL Total Bilirubin 0.4 (0.0-1.0) mg/dL Direct Bilirubin 0.2 (0.0-0.5) mg/dL AST 25 (5-31) U/L ALT 33 H (0-31) U/L Alkaline Phosphatase 140 H (39-117) U/L Troponin I High Sens < 3.5 (<3.5-17.0) ng/L Total Protein 7.9 (6.5-8.0) g/dL Albumin 4.5 (3.5-5.0) g/dL Lipase 27 (8-78) U/L Urine Color Urine Appearance Urine pH (5.0-9.0) Ur Specific [place] (1.005-1.025) Urine Protein (Neg-Trace) mg/dL Urine Glucose (UA) (Negative) mg/dL Urine Ketones (Negative) mg/dL Urine Blood (Negative) Urine Nitrite (Negative) Ur Leukocyte Esterase (Negative) Urine Opiates Screen (Not Detect) Urine Fentanyl Screen (Not Detect) Ur Barbiturates Screen (Not Detect) Ur Phencyclidine Scrn (Not Detect) Ur Amphetamines Screen (Not Detect) U Benzodiazepines Scrn (Not Detect) Urine Cocaine Screen (Not Detect) U Marijuana (THC) Screen (Not Detect) Ethyl Alcohol mg/dL COVID-19 (MICHAEL) (Negative) COVID-19 Clin Com 02/05/22 02/05/22 02/05/22 Range/Units 00:02 00:02 00:29 WBC (4.8-10.8) X10*3/uL RBC (4.20-5.50) X10*6/uL Hgb (12.0-16.0) g/dl Hct (37.0-47.0) % MCV (80.0-98.0) fL MCH (27.0-33.0) pg MCHC (31.0-35.0) g/dl RDW (11.0-16.0) % Plt Count (160-400) X10*3/uL MPV (9.4-12.3) fL Immature Gran % (Auto) (0.0-0.4) % Neut % (Auto) (45-73) % Lymph % (Auto) (20-40) % [place] % (Auto) (2-11) % Eos % (Auto) (0-4) % Baso % (Auto) (0-2) % Lymph # (Auto) (1.2-4.9) X10*3/uL [place] # (Auto) (0.1-1.2) X10*3/uL Eos # (Auto) (0.0-0.4) X10*3/uL Baso # (Auto) (0.0-0.2) X10*3/uL Abs Immat Gran (auto) (0.00-0.03) X10*3/uL Absolute Neuts (auto) (2.0-8.3) x10*3/uL Absolute Nucleated RBC (0.0-0.012) X10*3/uL Nucleated RBC % (auto) (0.0-0.2) /100WBC Sodium (135-145) mmol/L Potassium (3.3-5.1) mmol/L Chloride (96-108) mmol/L Carbon Dioxide (22-29) mmol/L Anion Gap (12-20) BUN (9-16) mg/dL Creatinine (0.5-1.4) mg/dL Estim Creat Clear Calc Estimated GFR Random Glucose (60-115) mg/dL Calcium (8.4-10.2) mg/dL Total Bilirubin (0.0-1.0) mg/dL Direct Bilirubin (0.0-0.5) mg/dL AST (5-31) U/L ALT (0-31) U/L Alkaline Phosphatase (39-117) U/L Troponin I High Sens (<3.5-17.0) ng/L Total Protein (6.5-8.0) g/dL Albumin (3.5-5.0) g/dL Lipase (8-78) U/L Urine Color Yellow Urine Appearance Clear Urine pH 7.0 (5.0-9.0) Ur Specific [place] 1.010 (1.005-1.025) Urine Protein Negative (Neg-Trace) mg/dL Urine Glucose (UA) Negative (Negative) mg/dL Urine Ketones Negative (Negative) mg/dL Urine Blood Negative (Negative) Urine Nitrite Negative (Negative) Ur Leukocyte Esterase Negative (Negative) Urine Opiates Screen Not Detected (Not Detect) Urine Fentanyl Screen Not Detected (Not Detect) Ur Barbiturates Screen Not Detected (Not Detect) Ur Phencyclidine Scrn Not Detected (Not Detect) Ur Amphetamines Screen Not Detected (Not Detect) U Benzodiazepines Scrn Not Detected (Not Detect) Urine Cocaine Screen Not Detected (Not Detect) U Marijuana (THC) Screen Not Detected (Not Detect) Ethyl Alcohol mg/dL COVID-19 (MICHAEL) Negative (Negative) COVID-19 Clin Com See Note 02/05/22 Range/Units 01:40 WBC (4.8-10.8) X10*3/uL RBC (4.20-5.50) X10*6/uL Hgb (12.0-16.0) g/dl Hct (37.0-47.0) % MCV (80.0-98.0) fL MCH (27.0-33.0) pg MCHC (31.0-35.0) g/dl RDW (11.0-16.0) % Plt Count (160-400) X10*3/uL MPV (9.4-12.3) fL Immature Gran % (Auto) (0.0-0.4) % Neut % (Auto) (45-73) % Lymph % (Auto) (20-40) % [place] % (Auto) (2-11) % Eos % (Auto) (0-4) % Baso % (Auto) (0-2) % Lymph # (Auto) (1.2-4.9) X10*3/uL [place] # (Auto) (0.1-1.2) X10*3/uL Eos # (Auto) (0.0-0.4) X10*3/uL Baso # (Auto) (0.0-0.2) X10*3/uL Abs Immat Gran (auto) (0.00-0.03) X10*3/uL Absolute Neuts (auto) (2.0-8.3) x10*3/uL Absolute Nucleated RBC (0.0-0.012) X10*3/uL Nucleated RBC % (auto) (0.0-0.2) /100WBC Sodium (135-145) mmol/L Potassium (3.3-5.1) mmol/L Chloride (96-108) mmol/L Carbon Dioxide (22-29) mmol/L Anion Gap (12-20) BUN (9-16) mg/dL Creatinine (0.5-1.4) mg/dL Estim Creat Clear Calc Estimated GFR Random Glucose (60-115) mg/dL Calcium (8.4-10.2) mg/dL Total Bilirubin (0.0-1.0) mg/dL Direct Bilirubin (0.0-0.5) mg/dL AST (5-31) U/L ALT (0-31) U/L Alkaline Phosphatase (39-117) U/L Troponin I High Sens (<3.5-17.0) ng/L Total Protein (6.5-8.0) g/dL Albumin (3.5-5.0) g/dL Lipase (8-78) U/L Urine Color Urine Appearance Urine pH (5.0-9.0) Ur Specific [place] (1.005-1.025) Urine Protein (Neg-Trace) mg/dL Urine Glucose (UA) (Negative) mg/dL Urine Ketones (Negative) mg/dL Urine Blood (Negative) Urine Nitrite (Negative) Ur Leukocyte Esterase (Negative) Urine Opiates Screen (Not Detect) Urine Fentanyl Screen (Not Detect) Ur Barbiturates Screen (Not Detect) Ur Phencyclidine Scrn (Not Detect) Ur Amphetamines Screen (Not Detect) U Benzodiazepines Scrn (Not Detect) Urine Cocaine Screen (Not Detect) U Marijuana (THC) Screen (Not Detect) Ethyl Alcohol < 10 mg/dL COVID-19 (MICHAEL) (Negative) COVID-19 Clin Com <Vivien Bower MD - Last Filed: 02/05/22 05:33> Imaging Data CTA lungs: Radiologist's impression: FINDINGS: QUALITY OF STUDY/CONTRAST BOLUS: Satisfactory. PULMONARY ARTERIES: No central or segmental pulmonary emboli.? THORACIC AORTA: No aneurysm or dissection. LUNG: No focal consolidation, nodules or masses. The central airways are patent. PLEURA: No pleural effusion or pneumothorax. MEDIASTINUM: Normal heart size.? No pericardial effusion.? No hilar or mediastinal lymphadenopathy.? No evidence of septal bowing or right heart strain. CHEST WALL/AXILLA: No axillary or internal mammary lymphadenopathy. There is a 1 cm nodular density at the right medial chest wall versus the upper inner aspect of the right breast. This could be a sebaceous cyst. OSSEOUS STRUCTURES: No acute or suspicious osseous abnormality. Multilevel degenerative change throughout the spine. UPPER ABDOMEN: Cholecystectomy.? No reflux of contrast into the hepatic veins to suggest elevated right heart pressures. CT/CT angio chest PE protocol IMPRESSION: No pulmonary embolism or other acute intrathoracic abnormality. ? VTE: negative <Vivien Bower MD - Last Filed: 02/05/22 05:33> Discharge Plan Discharge Clinical Impression: Fall, Multiple contusions <Michael Amin MD - Last Filed: 02/04/22 18:54> Patient Disposition: Home, Self-Care <Michael Amin MD - Last Filed: 02/04/22 18:54> Instructions: Fall Prevention (ED), Contusion in Adults (ED) <Michael Amin MD - Last Filed: 02/04/22 18:54> Additional Instructions: Please follow-up with your primary care physician tomorrow. If you have any worsening or new symptoms, please return to the emergency room or call 911 <Michael Amin MD - Last Filed: 02/04/22 18:54>
[2022-02-04 23:34] LABS: MANUAL DIFF FLAG NO
[2022-02-04 23:35] LABS: Basophils Percent Auto 0.3 % (0-2); Eosinophils Absolute Auto 0.1 X10*3/uL (0.0-0.4); Eosinophils Percent Auto 1.6 % (0-4); Hematocrit 49.4 % (37.0-47.0); Hemoglobin 15.9 g/dl (12.0-16.0); Imm Gran Abs Auto 0.02 X10*3/uL (0.00-0.03); Imm Gran Pct Auto 0.3 % (0.0-0.4); Lymphocytes Absolute Auto 1.7 X10*3/uL (1.2-4.9); Lymphocytes Percent Auto 27.3 % (20-40); Mean Corpuscular HGB Conc 32.2 g/dl (31.0-35.0); Mean Corpuscular Hemoglobin 26.6 pg (27.0-33.0); Mean Corpuscular Volume 82.7 fL (80.0-98.0); Mean Platelet Volume 9.5 fL (9.4-12.3); Monocytes Absolute Auto 0.5 X10*3/uL (0.1-1.2); Monocytes Percent Auto 8.5 % (2-11); Neutrophils Absolute Auto 3.8 x10*3/uL (2.0-8.3); Platelet Count 245 X10*3/uL (160-400); Red Blood Count 5.97 X10*6/uL (4.20-5.50); Red Cell Distribution Width 13.3 % (11.0-16.0); White Blood Count 6.1 X10*3/uL (4.8-10.8)
[2022-02-04 23:51] VITALS: BP 140/65; PULSE 90; RESP 16; TEMP 36.5; O2SAT 100
[2022-02-04 23:54] LABS: Troponin-I High Sensitivity < 3.5 ng/L (<3.5-17.0)
[2022-02-05 00:02] LABS: Alanine Aminotransferase 33 U/L (0-31); Albumin Level 4.5 g/dL (3.5-5.0); Alkaline Phosphatase 140 U/L (39-117); Anion Gap 17 (12-20); Aspartate Amino Transferase 25 U/L (5-31); Bilirubin Direct 0.2 mg/dL (0.0-0.5); Bilirubin Total 0.4 mg/dL (0.0-1.0); Blood Urea Nitrogen 16 mg/dL (9-16); Calcium 9.7 mg/dL (8.4-10.2); Carbon Dioxide 25 mmol/L (22-29); Chloride 102 mmol/L (96-108); Creatinine Clr Calc Pharmacy 77.7; Estimated Glomerular Filt Rate > 60; Glucose Random 125 mg/dL (60-115); Lipase 27 U/L (8-78); Potassium 4.2 mmol/L (3.3-5.1); Sodium 140 mmol/L (135-145); Total Protein 7.9 g/dL (6.5-8.0)
[2022-02-05 00:08] LABS: Appearance Urine Clear; Color Urine Yellow; Glucose Urine UA Negative (Negative); Leukocyte Esterase Urine Negative (Negative); Nitrite Urine Negative (Negative); Urine Blood Negative (Negative); Urine Ketones Negative (Negative); Urine Protein Negative (Neg-Trace)
[2022-02-05 00:51] LABS: COVID-19 Test Negative (Negative)
[2022-02-05 01:07] LABS: Amphetamine Screen Urine Not Detected (Not Detect); Barbiturates, Urine Not Detected (Not Detect); Benzodiazepines Screen Urine Not Detected (Not Detect); Cannabinoid Screen Urine Not Detected (Not Detect); Cocaine Screen Urine Not Detected (Not Detect); Fentanyl, urine Not Detected (Not Detect); Opiate Screen Urine Not Detected (Not Detect); Phencyclidine Screen Urine Not Detected (Not Detect)
[2022-02-05 01:11] VITALS: BP 133/68; PULSE 86
[2022-02-05 01:20] VITALS: BP 146/74; PULSE 90
[2022-02-05 01:21] VITALS: BP 164/89; PULSE 93
[2022-02-05] MEDS: methylPREDNISolone Sod Succ 125 MG/2 ML VIAL IVPUSH (01:24)
[2022-02-05] MEDS: diphenhydrAMINE HCL 50 MG/ML VIAL IVPUSH (01:24)
[2022-02-05] MEDS: Famotidine/PF 20 MG/2 ML VIAL IVPUSH (01:24)
[2022-02-05 02:13] LABS: Ethanol < 10 mg/dL
[2022-02-05 02:19] VITALS: BP 123/84; PULSE 99; RESP 14; TEMP 37.1; O2SAT 100
[2022-02-05 04:03] VITALS: BP 139/71; PULSE 89; RESP 17; TEMP 36.8; O2SAT 99
[2022-02-05] MEDS: iohexoL 350 MG/ML 100 ML INFUS..BTL IV (05:05)
[2022-02-05 05:26] VITALS: BP 107/52; PULSE 95; RESP 16; TEMP 36.8; O2SAT 98
[2022-02-05 06:27] LABS: Glucose, Whole Blood 156 mg/dL (60-115)
== END 2022-02-05 06:11 | disposition home or self-care (01) ==
PROVIDERS: Internal Medicine; Emergency Provider Emergency Medicine; PCP Family Medicine
DX: R55 Syncope and collapse (principal); R51.9 Headache, unspecified; M54.2 Cervicalgia; M25.511 Pain in right shoulder; R07.89 Other chest pain; M25.562 Pain in left knee; Z20.822 Contact with and (suspected) exposure to COVID-19; Z79.899 Other long term (current) drug therapy
CPT/HCPCS: 36415; 70450; 71045; 71275; 73030; 73560; 80048; 80076; 80307; 81003; 82077; 82947; 83690; 84484; 85025; 87635; 93005; 96374; 96375; 99285; J1200; J2930; Q9967

== ENCOUNTER 2022-05-13 11:40 | Outpatient (REF) | payer MEDICAID, SELFPAY ==
--- NOTE | ~2022-05-13 | MM_ITS ---
EXAMINATION: MM SCREENING DIGITAL BREAST TOMOSYNTHESIS, BILATERAL CLINICAL INFORMATION: Screening. Asymptomatic. The lifetime risk of breast cancer based on the Tyrer-Cuzick Model is 3.6%. COMPARISON: Mammography: May 08, 2021 and studies dating back to July 10, 2014 TECHNIQUE: Digital breast tomosynthesis is performed in both the craniocaudal and mediolateral oblique views along with computer-aided detection (CAD). Synthesized 2D images are generated from the tomosynthesis. FINDINGS: There are scattered areas of fibroglandular density (ACR BI-RADS breast composition Category b). There are no significant masses, abnormal calcifications, or other abnormalities. MM/MM tomosynthesis screening BI IMPRESSION: No significant changes ASSESSMENT: BI-RADS 1: Negative RECOMMENDATION: Routine annual mammography screening. This patient's information was entered into a reminder system with a target due date for their next mammogram.
== END 2022-05-13 11:41 | disposition home or self-care (01) ==
LOC: HO.MAMMO 11:40
PROVIDERS: PCP Family Medicine; Visit Provider Family Medicine
DX: Z12.31 Encounter for screening mammogram for malignant neoplasm of breast (principal)
CPT/HCPCS: 77063; 77067

== ENCOUNTER 2023-06-03 10:57 | Outpatient (REF) | payer MEDICAID, SELFPAY | END 2023-06-03 10:58 | disposition home or self-care (01) | LOC: HO.MAMMO 10:57 | PROVIDERS: PCP Family Medicine; Visit Provider Family Medicine | DX: Z12.31 Encounter for screening mammogram for malignant neoplasm of breast (principal) | CPT/HCPCS: 77063; 77067 ==

== ENCOUNTER → 2023-06-03 11:00 | Outpatient (BNV) | payer MEDICAID, SELFPAY | PROVIDERS: PCP Family Medicine; Visit Provider Radiology Diagnostic Radiology | DX: Z12.31 Encounter for screening mammogram for malignant neoplasm of breast (principal) | CPT/HCPCS: 77063; 77067 ==

== ENCOUNTER 2023-07-14 12:25 | Outpatient (REF) | payer MEDICAID, SELFPAY ==
[2023-07-14 14:06] LABS: Alanine Aminotransferase 30 U/L (0-31); Albumin Level 4.5 g/dL (3.5-5.0); Alkaline Phosphatase 150 U/L (39-117); Anion Gap 12 (12-20); Aspartate Amino Transferase 22 U/L (5-31); Bilirubin Total 0.3 mg/dL (0.0-1.0); Blood Urea Nitrogen 18 mg/dL (9-16); Calcium 9.7 mg/dL (8.4-10.2); Carbon Dioxide 30 mmol/L (22-29); Chloride 102 mmol/L (96-108); Cholesterol 167 mg/dL (<200); Estimated Glomerular Filt Rate 58; Glucose Random 157 mg/dL (60-115); HDL Cholesterol 50 mg/dL (>40); LDL Cholesterol Calculated 82 mg/dL (<100); Potassium 3.7 mmol/L (3.3-5.1); Sodium 140 mmol/L (135-145); Total Protein 8.1 g/dL (6.5-8.0); Triglycerides 178 mg/dL (<150)
[2023-07-14 14:24] LABS: TSH reflex Free T4 41.61 uIU/mL (0.32-4.0)
[2023-07-14 14:32] LABS: Folate 9.9 ng/mL (> or = 4.0); Vitamin B12 677 pg/mL (200-900)
[2023-07-14 17:19] LABS: Free T4 (Free Thyroxine) 0.88 ng/dL (0.71-1.85)
[2023-07-14 18:56] LABS: Reflex LDLD? No
== END 2023-07-14 12:26 | disposition home or self-care (01) ==
LOC: HO.HHCL 12:25
PROVIDERS: Visit Provider Family Medicine
DX: E11.42 Type 2 diabetes mellitus with diabetic polyneuropathy (principal); E03.2 Hypothyroidism due to medicaments and other exogenous substances
CPT/HCPCS: 36415; 80053; 80061; 82607; 82746; 84439; 84443

== ENCOUNTER 2023-07-23 | Outpatient (REF) | payer MEDICAID, SELFPAY ==
[2023-07-23 14:00] LABS: Creatinine Urine 62.51 mg/dL; Microalbum/Creatinine Ratio Ur 31.9 ug/mg cr (<30)
== END 2023-07-23 00:01 | disposition home or self-care (01) ==
LOC: HO.HHCL
PROVIDERS: Visit Provider Family Medicine
DX: Z13.89 Encounter for screening for other disorder (principal)
CPT/HCPCS: 82043; 82570

== ENCOUNTER 2023-08-11 10:55 | Outpatient (REF) | payer MEDICAID, SELFPAY ==
[2023-08-11 14:16] LABS: Free T4 (Free Thyroxine) 1.43 ng/dL (0.71-1.85); Thyroid Stimulating Hormone 0.58 uIU/mL (0.32-4.0)
== END 2023-08-11 10:56 | disposition home or self-care (01) ==
LOC: HO.HHCL 10:55
PROVIDERS: Visit Provider Family Medicine
DX: E03.2 Hypothyroidism due to medicaments and other exogenous substances (principal)
CPT/HCPCS: 36415; 84439; 84443

== ENCOUNTER 2023-08-12 11:00 | Outpatient (AMB) | payer MEDICAID, SELFPAY ==
--- NOTE | 2023-08-12 11:03 | MHC.OFFVIS ---
Vital Signs 08/12/23 11:10 Height 5 ft 5 in Weight 241 lb 6 oz BMI 40.2 Intake Visit Reasons: Recall colonoscopy screening Intake Note: This patient presents for a recall colonoscopy screening. Patient c/o; reports no rectal bleeding or pain. Last colonoscopy: 10/06/2012 Heating Technician Required: Yes Heating Technician Language: Security Messenger Name: Chava Information Interpreted: non-clinical & clinical Accompanied by: Self / Same As Patient Allergies chlorthalidone Allergy (Unknown, Verified 08/12/23 11:11) Unknown lisinopril Allergy (Unknown, Verified 08/12/23 11:11) Unknown No Known Allergies Allergy (Unverified 08/12/23 11:11) Medication List - Last Reconciled 08/12/23 by Uziel Farmer MD amlodipine 10 mg PO DAILY atorvastatin 20 mg PO BEDTIME ergocalciferol (vitamin D2) 1,250 mcg PO QWEEK levothyroxine 150 mcg PO QAM loratadine 10 mg PO DAILY metformin 500 mg PO QAM omeprazole 20 mg PO DAILY HPI HPI Recall colonoscopy screening: Details: [age] year old female here for a screening colonoscopy. Her last colonoscopy was in 2012. At that time, I was unable to intubate the cecum and I had recommended a follow-up colonoscopy within 5 years. She says she was unable to do this as she was diagnosed to have kidney cancer at that time and needed to have nephrectomy. She also says she had a tumor removed from her brain last year. She denies any significant GI complaints. She denies any family history of colon cancer. She denies GI complaints. [facility] Medical History (Updated 08/12/23 @ 11:25 by Uziel Farmer MD) Morbid obesity Colon cancer screening Hypothyroidism Type 2 diabetes Hyperlipidemia Hypertension Uterine cancer Renal cancer Family History Other Cancer Social History Alcohol intake: never Patient Tobacco Use Status: Never used Tobacco Review of Systems Const Denies chills, Denies fever(s) and Reports weight gain Card Denies chest pain, Denies dyspnea and Denies dyspnea on exertion Resp Denies cough, Denies dyspnea and Denies dyspnea on exertion GI Denies hematochezia and Denies change in bowel habits Denies hematuria Musc Reports back pain, Reports arthralgias and Reports limited range of motion Neuro Denies focal weakness and Denies convulsions Psych Denies depression and Denies mood swings Physical Exam Vital Signs: BMI result Body Mass Index 40.2 Const Other: Morbidly obese General: comfortable and no acute distress Orientation/consciousness: patient oriented x3 Neck Neck: Yes no lymphadenopathy Resp Auscultation: clear to auscultation bilaterally Cardio Rhythm: regular rhythm GI Palpation (GI): Soft to palpation, nontender and no guarding Neuro General: patient oriented x3 Assessment & Plan Assessment & Plan (1) Colon cancer screening: Code(s): Z12.11 - Encounter for screening for malignant neoplasm of colon Category: Medical Plan: I reviewed with the technique of colonoscopy for screening. I explained the risks including but not limited to bleeding, infections, perforation, as well as the benefits and alternatives. She understands what to expect. She has given consent. Coding Level of Care Code New Pt Level 3 (71486) Diagnoses Colon cancer screening Z12.11
[2023-08-12 11:10] VITALS: BMI 40.2
== END 2023-08-12 11:24 | disposition home or self-care (01) ==
PROVIDERS: PCP Family Medicine; Visit Provider Surgery
DX: Z01.818 Encounter for other preprocedural examination (principal); Z12.11 Encounter for screening for malignant neoplasm of colon
CPT/HCPCS: 99203

== ENCOUNTER → 2023-08-12 11:00 | Outpatient (BNVA) | payer MEDICAID, SELFPAY | PROVIDERS: PCP Family Medicine; Visit Provider Surgery | DX: Z12.11 Encounter for screening for malignant neoplasm of colon (principal) | CPT/HCPCS: 99202 ==

== ENCOUNTER 2023-10-12 10:51 | Outpatient (AMB) | payer MEDICAID, SELFPAY ==
--- NOTE | 2023-10-12 10:55 | A.OFFVIS_ITS ---
Vital Signs 10/12/23 10:56 Height 5 ft Intake Visit Reasons: S/P colonoscopy Allergies chlorthalidone Allergy (Intermediate, Verified 09/25/23 14:17) hyperglycemia lisinopril Allergy (Unknown, Verified 08/12/23 11:11) Unknown Medication List - Last Reconciled 10/12/23 by Uziel Farmer MD acetazolamide 250 mg PO TID amlodipine 10 mg PO DAILY atorvastatin 20 mg PO BEDTIME ergocalciferol (vitamin D2) 1,250 mcg PO QWEEK levothyroxine 150 mcg PO QAM loratadine 10 mg PO DAILY metformin 500 mg PO QAM omeprazole 20 mg PO DAILY oxycodone 5 mg PO Q6H PRN sodium,potassium,mag sulfates 17.5-3.13-1.6 gram (Suprep Bowel Prep Kit) DILUTE; drink full amount early evening before AND next morning at least 2 hr before procedure; follow w 960 mL water PO HPI HPI S/P colonoscopy: Details: [age] year old female here for a screening colonoscopy. I had seen her last Jul, 2023 and schedule her for colonoscopy. She was unable to do this as she says she lost her bowel prep. Her last colonoscopy was in 2012. At that time, I was unable to intubate the ce cum and I had recommended a follow-up colonoscopy within 5 years. She says she was unable to do this as she was diagnosed to have kidney cancer at that time and needed to have nephrectomy. She also says she had a tumor removed from her brain last year. She denies any significant GI complaints. She denies any family history of colon cancer. She denies GI complaints. [facility] Medical History (Updated 09/25/23 @ 14:20 by Renata Torres RN) Brain tumor Morbid obesity Colon cancer screening Hypothyroidism Type 2 diabetes Hyperlipidemia Hypertension Uterine cancer Renal cancer Surgical History (Updated 09/25/23 @ 14:24 by Renata Torres RN) History of surgery Hx of craniotomy History of nephrectomy H/O colonoscopy Family History Other Cancer Social History Alcohol intake: never Patient Tobacco Use Status: Never used Tobacco Review of Systems Const Denies chills and Denies fever(s) Card Denies chest pain, Denies dyspnea and Denies dyspnea on exertion Resp Denies cough, Denies dyspnea and Denies dyspnea on exertion GI Denies hematochezia and Denies change in bowel habits Denies hematuria Musc Denies back pain and Denies limited range of motion Neuro Denies focal weakness and Denies convulsions Psych Denies depression and Denies mood swings Physical Exam Const Other: Morbidly obese General: comfortable and no acute distress Orientation/consciousness: patient oriented x3 Neck Neck: Yes no lymphadenopathy Resp Auscultation: clear to auscultation bilaterally Cardio Rhythm: regular rhythm GI Palpation (GI): Soft to palpation, nontender and no guarding Neuro General: patient oriented x3 Assessment & Plan Assessment & Plan (1) Colon cancer screening: Code(s): Z12.11 - Encounter for screening for malignant neoplasm of colon Category: Medical Plan: I reviewed with her the technique of colonoscopy. I explained the risks including but not limited to bleeding and perforation, as well as the benefits and alternatives She understands and we will reschedule for her colonoscopy. I had sent her prescription for bowel prep again. Coding Level of Care Code Est Pt Level 3 (67713) Diagnoses Colon cancer screening Z12.11
== END 2023-10-12 11:06 | disposition home or self-care (01) ==
PROVIDERS: PCP Family Medicine; Visit Provider Surgery
DX: Z01.818 Encounter for other preprocedural examination (principal); Z12.11 Encounter for screening for malignant neoplasm of colon
CPT/HCPCS: 99212

== ENCOUNTER → 2023-10-12 10:51 | Outpatient (BNVA) | payer MEDICAID, SELFPAY | PROVIDERS: PCP Family Medicine; Visit Provider Surgery | DX: Z12.11 Encounter for screening for malignant neoplasm of colon (principal) | CPT/HCPCS: 99212 ==

== ENCOUNTER 2023-10-27 06:19 | Day surgery (SDC) | payer MEDICAID, SELFPAY ==
[2023-09-25 14:13] VITALS: BMI 40.1
--- NOTE | 2023-09-28 10:04 | HO.ANESPROP2 ---
HPI - Anesthesia Eval Consult details Narrative: 63yo F for Colonoscopy,possible Polypectomy PMFSH Active Problems Active Problems: All Active Problems Morbid obesity (Acute) Colon cancer screening (Acute) Past Medical History Medical History (Updated 09/25/23 @ 14:20 by Renata Torres RN) Brain tumor Morbid obesity Colon cancer screening Hypothyroidism Type 2 diabetes Hyperlipidemia Hypertension Uterine cancer Renal cancer Family History Family History Other Cancer Surgical History Surgical History (Updated 09/25/23 @ 14:24 by Renata Torres RN) History of surgery Hx of craniotomy History of nephrectomy H/O colonoscopy Social History Social History Alcohol intake: never Patient Tobacco Use Status: Never used Tobacco Meds Allergies Allergy/AdvReac Type Severity Reaction Status Date / Time chlorthalidone Allergy Intermediate hyperglycem Verified 09/25/23 14:17 ia lisinopril Allergy Unknown Unknown Verified 08/12/23 11:11 Home Medications ?Medication ?Instructions ?Recorded ?Confirmed ?Last Taken ?Type amlodipine 10 mg tablet 10 mg PO DAILY 08/12/23 09/25/23 Unknown History atorvastatin 20 mg tablet 20 mg PO BEDTIME 08/12/23 09/25/23 Unknown History ergocalciferol (vitamin D2) 1,250 1,250 mcg PO QWEEK 08/12/23 09/25/23 Unknown History mcg (50,000 unit) capsule levothyroxine 150 mcg tablet 150 mcg PO QAM 08/12/23 09/25/23 Unknown History loratadine 10 mg tablet 10 mg PO DAILY 08/12/23 09/25/23 Unknown History metformin 500 mg tablet 500 mg PO QAM 08/12/23 09/25/23 Unknown History omeprazole 20 mg capsule,delayed 20 mg PO DAILY 08/12/23 09/25/23 Unknown History release acetazolamide 250 mg tablet 250 mg PO TID 09/25/23 09/25/23 Unknown History oxycodone 5 mg tablet 5 mg PO Q6H PRN pain 09/25/23 09/25/23 Unknown History Exam Height,Weight and Vital Signs: Height 5 ft 5 in Weight 109.316 kg Pertinent Lab Results Pertinent Lab Results: Laboratory Tests 07/14/23 12:26 Sodium 140 Potassium 3.7 Chloride 102 Carbon Dioxide 30 H BUN 18 H Creatinine 0.97 Assessment and Plan Assessment Anesthesia Assessment: Chart Reviewed
[2023-10-20 12:22] VITALS: BMI 39.1
--- NOTE | 2023-10-23 14:37 | HO.ANESPROP2 ---
Documented by User: Tanya Cash NP 10/23/23 14:39 HPI - Anesthesia Eval Consult details Narrative: 63yo F for Colonoscopy,possible Polypectomy hx Meningoencephalocele s/p ENT excision Renal CA s/p nephrectomy Hx chemo PMFSH Active Problems Active Problems: All Active Problems Morbid obesity (Acute) Colon cancer screening (Acute) Past Medical History Medical History GERD (gastroesophageal reflux disease) Anxiety Bilateral knee pain Meningoencephalocele Hx of radiation therapy History of chemotherapy Brain tumor Morbid obesity Colon cancer screening Hypothyroidism Type 2 diabetes Hyperlipidemia Hypertension Uterine cancer Renal cancer Family History Family History Other Cancer Surgical History Surgical History History of surgery Hx of craniotomy History of nephrectomy H/O colonoscopy Social History Social History Are you a primary patient care coordinator to a significant other at home: No Do you presently have visiting nurse or other home services: No Alcohol intake: never Patient Tobacco Use Status: Never used Tobacco Use of substances other than those prescribed or required for medical reasons: No Have you been hit, kicked, punched, or otherwise hurt by someone within the past year? If so, by whom?: No Are you DNR?: No Advance Directives: No Advance Directives Information Provided: Yes Advance Directives on File: No Recently lost weight without trying: No Nutrition Risks: No Nutritional Risk Patient : No : No Poor oral hygiene: Yes (full upper and lower dentures) Meds Allergies Allergy/AdvReac Type Severity Reaction Status Date / Time chlorthalidone Allergy Intermediate hyperglycem Verified 10/27/23 06:39 ia lisinopril Allergy Unknown Unknown Verified 10/27/23 06:39 Home Medications ?Medication ?Instructions ?Recorded ?Confirmed ?Last Taken ?Type amlodipine 10 mg tablet 10 mg PO DAILY 08/12/23 10/12/23 Unknown History atorvastatin 20 mg tablet 20 mg PO BEDTIME 08/12/23 10/12/23 Unknown History ergocalciferol (vitamin D2) 1,250 1,250 mcg PO QWEEK 08/12/23 10/12/23 Unknown History mcg (50,000 unit) capsule levothyroxine 150 mcg tablet 150 mcg PO QAM 08/12/23 10/12/23 Unknown History omeprazole 20 mg capsule,delayed 20 mg PO DAILY 08/12/23 10/12/23 Unknown History release acetazolamide 250 mg tablet 250 mg PO TID 09/25/23 10/12/23 Unknown History oxycodone 5 mg tablet 5 mg PO Q6H PRN pain 09/25/23 10/12/23 Unknown History acetaminophen 500 mg tablet 500 mg PO Q6H PRN Pain 10/20/23 10/20/23 Unknown History biotin 5 mg tablet 5 mg PO DAILY 10/20/23 10/20/23 Unknown History econazole 1 % topical cream 1 appl topical DAILY 10/20/23 10/20/23 Unknown History empagliflozin 10 mg tablet 10 mg PO QAM 10/20/23 10/20/23 Unknown History (Jardiance) famotidine 20 mg tablet 20 mg PO BEDTIME PRN Acid Reflux 10/20/23 10/20/23 Unknown History fluticasone propionate 50 1 spray intranasal DAILY 10/20/23 10/20/23 Unknown History mcg/actuation nasal spray,suspension hydrocortisone 2.5 % topical cream 1 appl topical BID 10/20/23 10/20/23 Unknown History lidocaine 5 % topical patch 1 patch topical DAILY 10/20/23 10/20/23 Unknown History ondansetron HCl 8 mg tablet 8 mg PO Q8H PRN nausea/vomiting 10/20/23 10/20/23 Unknown History polyvinyl alcohol 1.4 % eye drops 1 drp ophthalmic (eye) TID 10/20/23 10/20/23 Unknown History sodium chloride 0.65 % nasal spray 1 spray intranasal BID PRN Allergy 10/20/23 10/20/23 Unknown History aerosol Symptoms Exam Height,Weight and Vital Signs: Height 5 ft 5 in Weight 106.594 kg Pertinent Lab Results Pertinent Lab Results: Laboratory Tests 02/04/22 07/14/23 23:23 12:26 WBC 6.1 Hgb 15.9 Hct 49.4 H Plt Count 245 Sodium 140 Potassium 3.7 Chloride 102 Carbon Dioxide 30 H BUN 18 H Creatinine 0.97 Assessment and Plan Assessment Anesthesia Assessment: Chart Reviewed Documented by User: Michelle Carroll MD 10/27/23 07:28 HPI - Anesthesia Eval Anesthesia Pre-Procedure Meds Is the patient on any of the following meds?: GLP1/DPP4 If yes to any meds - educate patient: Pt education - increased risk of aspiration and/or euvolemic DKA [facility] Past Medical History Medical History GERD (gastroesophageal reflux disease) Anxiety Bilateral knee pain Meningoencephalocele Hx of radiation therapy History of chemotherapy Brain tumor Morbid obesity Colon cancer screening Hypothyroidism Type 2 diabetes Hyperlipidemia Hypertension Uterine cancer Renal cancer Family History Family History Other Cancer Surgical History Surgical History History of surgery Hx of craniotomy History of nephrectomy H/O colonoscopy History of Problems with Anesthesia: No Social History Social History Are you a primary patient care coordinator to a significant other at home: No Do you presently have visiting nurse or other home services: No Alcohol intake: never Patient Tobacco Use Status: Never used Tobacco Use of substances other than those prescribed or required for medical reasons: No Have you been hit, kicked, punched, or otherwise hurt by someone within the past year? If so, by whom?: No Are you DNR?: No Advance Directives: No Advance Directives Information Provided: Yes Advance Directives on File: No Recently lost weight without trying: No Nutrition Risks: No Nutritional Risk Patient : No : No Poor oral hygiene: Yes (full upper and lower dentures) Meds Allergies Allergy/AdvReac Type Severity Reaction Status Date / Time chlorthalidone Allergy Intermediate hyperglycem Verified 10/27/23 06:39 ia lisinopril Allergy Unknown Unknown Verified 10/27/23 06:39 Home Medications ?Medication ?Instructions ?Recorded ?Confirmed ?Last Taken ?Type amlodipine 10 mg tablet 10 mg PO DAILY 08/12/23 10/12/23 Unknown History atorvastatin 20 mg tablet 20 mg PO BEDTIME 08/12/23 10/12/23 Unknown History ergocalciferol (vitamin D2) 1,250 1,250 mcg PO QWEEK 08/12/23 10/12/23 Unknown History mcg (50,000 unit) capsule levothyroxine 150 mcg tablet 150 mcg PO QAM 08/12/23 10/12/23 Unknown History omeprazole 20 mg capsule,delayed 20 mg PO DAILY 08/12/23 10/12/23 Unknown History release acetazolamide 250 mg tablet 250 mg PO TID 09/25/23 10/12/23 Unknown History oxycodone 5 mg tablet 5 mg PO Q6H PRN pain 09/25/23 10/12/23 Unknown History acetaminophen 500 mg tablet 500 mg PO Q6H PRN Pain 10/20/23 10/20/23 Unknown History biotin 5 mg tablet 5 mg PO DAILY 10/20/23 10/20/23 Unknown History econazole 1 % topical cream 1 appl topical DAILY 10/20/23 10/20/23 Unknown History empagliflozin 10 mg tablet 10 mg PO QAM 10/20/23 10/20/23 Unknown History (Jardiance) famotidine 20 mg tablet 20 mg PO BEDTIME PRN Acid Reflux 10/20/23 10/20/23 Unknown History fluticasone propionate 50 1 spray intranasal DAILY 10/20/23 10/20/23 Unknown History mcg/actuation nasal spray,suspension hydrocortisone 2.5 % topical cream 1 appl topical BID 10/20/23 10/20/23 Unknown History lidocaine 5 % topical patch 1 patch topical DAILY 10/20/23 10/20/23 Unknown History ondansetron HCl 8 mg tablet 8 mg PO Q8H PRN nausea/vomiting 10/20/23 10/20/23 Unknown History polyvinyl alcohol 1.4 % eye drops 1 drp ophthalmic (eye) TID 10/20/23 10/20/23 Unknown History sodium chloride 0.65 % nasal spray 1 spray intranasal BID PRN Allergy 10/20/23 10/20/23 Unknown History aerosol Symptoms Exam Airway Mallampati Class: III TM Dist: >3cm Neck ROM: Limited Partial: Upper and Lower Loose/Missing/Broken Teeth: Yes, Upper and Lower Heart: RRR Lungs: CTA Assessment and Plan Assessment Anesthesia Assessment: Anesthesia Plan Discussed Final Anesthetic Review History of Problems with Anesthesia: No NPO: Yes ASA Class: III Final Preanesthetic Review: Meds/Allgs Chart Reviewed, Consent Obtained/Reviewed and Anes Risks/Benef Reviewed Patient Risk: Intermediate Procedure Risk: Low Anesthetic Plan Anesthetic Plan: MAC: Disposition: Standard PACU
[2023-10-27 06:54] VITALS: BP 147/84; PULSE 84; RESP 16; TEMP 36.4; O2SAT 99
[2023-10-27 07:11] LABS: Glucose, Whole Blood 118 mg/dL (60-115)
--- NOTE | 2023-10-27 07:18 | MHC.SHP ---
Pre-Procedural Eval Section A - 24 Hr Update-Section A only Date of Service: 10/27/23 The patient is an INPATIENT: No Changes since office visit: No Cold of Flu in the past 2 weeks, No New Medical Problems, No Changes in Medication and No Patient answered all questions The patient has been examined within 24 hours of the surgical procedure. The History & Physical has been completed within 30 days and I have reviewed it.: Yes Section B - Complete if H&P > 30 days Chief Complaint: screening Allergies: Allergies Allergy/AdvReac Type Severity Reaction Status Date / Time chlorthalidone Allergy Intermediate hyperglycem Verified 10/27/23 06:39 ia lisinopril Allergy Unknown Unknown Verified 10/27/23 06:39 Plan I have reviewed the history and physical and performed a pertinent physical examination on my patient. No changes have occurred unless specified. Time Spent With Patient Time: Total time managing care of this patient today ____ minutes.
[2023-10-27] MEDS: Lactated Ringers 1,000 ML 100 ML IVCONT (07:26)
--- NOTE | 2023-10-27 08:00 | W.PM.OPN ---
Operative Note Operative Note Date of Service: 10/27/23 Narrative: Preop diagnosis: Colon cancer screening Postop diagnosis: Normal colonoscopy findings Procedure: Colonoscopy Surgeon: Uziel Farmer MD The patient is a 63 year old female here for screening colonoscopy. Her last colonoscopy was in 2012. She was supposed to have a follow-up in 5 years because of suboptimal bowel prep. She understood the technique of the planned procedure. She was aware of the risks, benefits, and alternatives. The patient was brought to the operating room and placed in left lateral decubitus position under monitored anesthesia care. A surgical time-out was done. A full digital rectal exam was done and this did not reveal any significant anal lesions. The tip of the Olympus colonoscope was gently introduced through the anal orifice advanced with insufflation all the way to the cecum. The cecum was intubated. The cecum was identified by visualization of the ileocecal valve as well as the appendiceal orifice. The cecal mucosa was unremarkable. The scope was gradually withdrawn with careful examination of the entire colonic mucosa being done with scope withdrawal. The patient had adequate bowel prep so it was unlikely that any lesion may have been missed. The rectum was reached and there were no lesions seen. The anal canal was unremarkable. The scope was then withdrawn completely with desufflation. The patient tolerated the procedure well. There were no immediate complications. Her next colonoscopy may be in the next 10 years.
[2023-10-27 08:07] VITALS: BP 122/65; PULSE 78; RESP 16; TEMP 36.3; O2SAT 100
[2023-10-27 08:22] VITALS: BP 128/70; PULSE 80; RESP 16; TEMP 36.3; O2SAT 100
== END 2023-10-27 09:03 | disposition home or self-care (01) ==
PROVIDERS: PCP Family Medicine; Visit Provider Surgery
PROC: 0DBE8ZZ Excision of Large Intestine, Via Natural or Artificial Opening Endoscopic (ICD-10-PCS; CPT 45378; principal; 2023-10-27 07:30)
DX: Z12.11 Encounter for screening for malignant neoplasm of colon (principal); Z85.528 Personal history of other malignant neoplasm of kidney; Z90.5 Acquired absence of kidney; Z85.42 Personal history of malignant neoplasm of other parts of uterus; Q01.0 Frontal encephalocele; I10 Essential (primary) hypertension; E78.5 Hyperlipidemia, unspecified; E03.9 Hypothyroidism, unspecified; E11.9 Type 2 diabetes mellitus without complications; Z92.21 Personal history of antineoplastic chemotherapy; Z92.3 Personal history of irradiation; Z79.84 Long term (current) use of oral hypoglycemic drugs; Z79.899 Other long term (current) drug therapy; Z88.8 Allergy status to other drugs, medicaments and biological substances; Z98.890 Other specified postprocedural states
CPT/HCPCS: 45378; 82947; J2250; J2704

== ENCOUNTER → 2023-10-27 06:19 | Outpatient (BNV) | payer MEDICAID, SELFPAY | PROVIDERS: PCP Family Medicine; Visit Provider Surgery | DX: Z12.11 Encounter for screening for malignant neoplasm of colon (principal) | CPT/HCPCS: 45378 ==

== ENCOUNTER 2023-11-09 10:29 | Outpatient (AMB) | payer MEDICAID, SELFPAY ==
--- NOTE | 2023-11-09 10:29 | A.OFFVIS_ITS ---
Intake Visit Reasons: S/P colonoscopy Intake Note: S/P colonoscopy. Pt c/o; reports no complaints pertaining to colonoscopy. Torque Tester Required: Yes Torque Tester Language: Transitions Rn Care Coordinator Services: Torque Tester Present Torque Tester Name: AngyJOSÉSarahi Information Interpreted: non-clinical & clinical Accompanied by: Self / Same As Patient Allergies chlorthalidone Allergy (Intermediate, Verified 11/09/23 10:30) hyperglycemia lisinopril Allergy (Unknown, Verified 11/09/23 10:30) Unknown HPI HPI S/P colonoscopy: Details: She underwent colonoscopy for screening last 10/27/2023. She says she tolerated procedure well. She denies any complaints thereafter. [facility] Medical History GERD (gastroesophageal reflux disease) Anxiety Bilateral knee pain Meningoencephalocele Hx of radiation therapy History of chemotherapy Brain tumor Morbid obesity Colon cancer screening Hypothyroidism Type 2 diabetes Hyperlipidemia Hypertension Uterine cancer Renal cancer Surgical History H/O colonoscopy (~10/27/23) History of surgery Hx of craniotomy History of nephrectomy H/O colonoscopy Family History Other Cancer Social History Are you a primary childbirth and infant care teacher to a significant other at home: No Do you presently have visiting nurse or other home services: No Alcohol intake: never Patient Tobacco Use Status: Never used Tobacco Review of Systems Const Denies chills and Denies fever(s) Card Denies chest pain, Denies dyspnea and Denies dyspnea on exertion Resp Denies cough, Denies dyspnea and Denies dyspnea on exertion GI Denies hematochezia and Denies change in bowel habits Denies hematuria Musc Denies back pain and Denies limited range of motion Neuro Denies focal weakness and Denies convulsions Psych Denies depression and Denies mood swings Telehealth Telehealth Telehealth Platform: Telephone Location of provider rendering services: practice address Location of patient: address on file Patient Identification confirmed using: Name, : Yes Telehealth method: voice only Patient verbally consented to treatment: Yes Patient verbally consented to billing insurance company: Yes Patient informed of any privacy concerns related to visit: Yes Assessment & Plan Assessment & Plan (1) Colon cancer screening: Code(s): Z12.11 - Encounter for screening for malignant neoplasm of colon Category: Medical Plan: Status post colonoscopy. I explained to her the findings. I did not find any polyps or any lesions. She had good bowel prep. She is at average risk for colon cancer so her next colonoscopy may be in the next 10 years. She understands the plan well. Coding Level of Care Code Global (84481) Diagnoses Colon cancer screening Z12.11
== END 2023-11-09 10:38 | disposition home or self-care (01) ==
LOC: HO.HGS 10:29
PROVIDERS: PCP Family Medicine; Visit Provider Surgery
DX: Z12.11 Encounter for screening for malignant neoplasm of colon (principal)
CPT/HCPCS: 99024

== ENCOUNTER → 2023-11-09 10:29 | Outpatient (BNVA) | payer MEDICAID, SELFPAY | PROVIDERS: PCP Family Medicine; Visit Provider Surgery | DX: Z01.818 Encounter for other preprocedural examination (principal) | CPT/HCPCS: 99212 ==

== ENCOUNTER 2023-12-16 11:19 | Outpatient (REF) | payer MEDICAID, SELFPAY ==
[2023-12-16 14:09] LABS: Anion Gap 13 (12-20); Blood Urea Nitrogen 23 mg/dL (9-16); Calcium 9.7 mg/dL (8.4-10.2); Carbon Dioxide 29 mmol/L (22-29); Chloride 103 mmol/L (96-108); Estimated Glomerular Filt Rate > 60; Glucose Random 125 mg/dL (60-115); Potassium 4.4 mmol/L (3.3-5.1); Sodium 141 mmol/L (135-145)
== END 2023-12-16 11:20 | disposition home or self-care (01) ==
LOC: HO.HHCL 11:19
PROVIDERS: Visit Provider Family Medicine
DX: I10 Essential (primary) hypertension (principal)
CPT/HCPCS: 36415; 80048

== ENCOUNTER 2024-02-09 12:46 | Outpatient (REF) | payer MEDICAID, SELFPAY ==
--- NOTE | ~2024-02-09 | US_ITS ---
EXAMINATION: US PELVIS CLINICAL INFORMATION: History of renal cancer with metastasis. COMPARISON: None available. TECHNIQUE: Ultrasound of the pelvis is performed using both transabdominal and transvaginal transducers along with Doppler. Transvaginal imaging is performed due to inadequate visualization transabdominally. FINDINGS: Uterus: The uterus is anteverted, anteflexed and measures 1.2 x 2.4 x 3.9 cm. The double wall endometrial thickness is 0.4 cm. The uterus is smooth in contour and has normal myometrial echogenicity. No visible fibroid. There are small nabothian cyst and trace free fluid seen in the cervix. Adnexa: Both ovaries are not visualized. There is no free fluid in the cul-de-sac US/US pelvic and transvaginal IMPRESSION: Unremarkable uterus. Nabothian cysts in the cervix with trace free fluid in cervix as well. Electronically signed by: Jonatan Cruz MD 04/08/2024 11:35 AM [facility]
== END 2024-02-09 12:47 | disposition home or self-care (01) ==
LOC: HO.US 12:46
PROVIDERS: PCP Family Medicine; Visit Provider Family Medicine
DX: R10.2 Pelvic and perineal pain (principal); C79.82 Secondary malignant neoplasm of genital organs
CPT/HCPCS: 76830; 76856

== ENCOUNTER → 2024-02-09 12:48 | Outpatient (BNV) | payer MEDICAID, SELFPAY | PROVIDERS: PCP Family Medicine; Visit Provider Radiology Diagnostic Radiology | DX: N88.8 Other specified noninflammatory disorders of cervix uteri (principal); Z85.528 Personal history of other malignant neoplasm of kidney | CPT/HCPCS: 76830; 76856 ==

== ENCOUNTER → 2024-03-21 13:54 | Outpatient (REF) | payer MEDICAID, SELFPAY | LOC: HO.SL 13:54 | PROVIDERS: PCP Family Medicine; Visit Provider Family Medicine | DX: R53.83 Other fatigue (principal); G47.9 Sleep disorder, unspecified | CPT/HCPCS: 95806 ==

== ENCOUNTER → 2024-03-21 19:00 | Outpatient (BNV) | payer MEDICAID, SELFPAY | PROVIDERS: PCP Family Medicine; Visit Provider Internal Medicine | DX: G47.33 Obstructive sleep apnea (adult) (pediatric) (principal) | CPT/HCPCS: 95806 ==

== ENCOUNTER 2024-04-25 14:14 | Outpatient (REF) | payer MEDICAID, SELFPAY ==
--- OUTSIDE RECORDS SUMMARY | 2024-04-25 15:54 | XMS_ITS | Encounter Summary ---
Author Organization [employer] Address [address] [facility] 7t [place] [address] Care Team Providers Care Jig Bore Tool Maker Name Role Phone Deedee Mc MD Primary Care Provider [phone] Daniel Clancy PharmD Unavailable [phone] Encounter Details Date Type Department Care Team (Late st Contact Info) Description 09/02/2023 Orders Only [facility] [address] [place], [place] [phone] Deedee Mc MD [address] [place], [place] [phone] Social History Tobacco Use Types Packs/Day Years Used Date Smoking Tobacco: Never Alcohol Answer Date Recorded How often do you have a drink containing alcohol ? 0 03/11/2022 How many drinks containing a lcohol do you have on a typical day when you are drinking? 0 03/11/2022 How often do you have six or more drinks on one occasion? 0 03/11/2022 Depression Answer Date Recorded Patient Health Questionnaire-9 Score 12 07/08/2023 Patient Health Questionnaire-9 Score 12 07/08/2023 Last PHQ-9: Questionnaire Data Not on file 0 07/08/2023 Housing Stability Answer Date Recorded What is your housing situation today? I have kunal arredondo 01/08/[address] you li ve. Do you have problems with any of the following? None of the above 01/08/2023 Food Insecurity Answer Date Recorded Within the past 12 months, y ou worried that your food would run out before you got money to buy more: Often true 05/04/2023 Within the past 12 months,th e food you bought just didn't last and you didn't have enough money to get more: Often true 02/2024 Transportation Answer Date Recorded In the past 12 months, has l ack of transportation kept you from medical appts, meetings, work or from getting things needed for daily living? No 01/08/2023 Utilities Answer Date Recorded In the past 12 months, has t he electric, gas, oil or water company threatened to shut off services in your home? No 01/08/2023 Depression Answer Date Recorded Patient Health Questionnaire-2 Score 2 07/08/2023 Comments Unknown Sex and Gender Information Value Date Recorded Sex Assigned at Female 01/20/2022 10:20 AM EDT Legal Sex Female 10:20 AM EDT Gender Identity Choose not to disclose 10:20 AM EDT Sexual Orientation Choose not to disclose 2021 10:20 AM EDT documented as of this encounter Plan of Treatment Upcoming Encounters Date Type Department Care Team (Late st Contact Info) Description 06/15/2024 10:00 AM EDT Medication Management [facility] [address] [place] [phone] Daniel Clancy, PharmD [address] [place] [phone] documented as of this encounter Goals Goal Patient Goal Type Associated Problems Recent Progress Patient-Stated? Author Blood Pressure < 140/90 Blood Pressure 131/82(2024 1:43 PM EST) Benito Kilpatrick Hemoglobin A1c < 7 Result Component 6.6( 1:46 PM EST) No Benito Padron documented as of this encounter Visit Diagnoses Not on filedocumented in this encounter Additional Health Concerns Assessment Noted Time PHQ-9 Depression Total Score: 12 024 11:13 AM EDT documented as of this encounter Care Teams Jig Bore Tool Maker Relationship Specialty Start Date End Date Deedee Mc MD [address] [place] [phone] PCP - General Family Medicine 09/09/19 Daniel Clancy, PharmD [address] [place] [phone] Pharmacist Internal Medicine 10/14/23 documented as of this encounter
--- OUTSIDE RECORDS SUMMARY | 2024-04-25 15:54 | XMS_ITS | Encounter Summary ---
Author Organization [employer] Address 75 [facility] 7t [place] [address] Care Team Providers Care Trucking Manager Name Role Phone Deedee Mc MD Primary Care Provider [phone] Daniel Clancy PharmD Unavailable [phone] Reason for Visit * Reason Comments Med Refill Encounter Details Date Type Department Care Team (Late st Contact Info) Description 10/13/2023 Refill [facility] [address] [place], [place] [phone] Deedee Mc MD [address] [place], [place] [phone] Hypothyroidism due to medication Social History Tobacco Use Types Packs/Day Years [...] Description 06/15/2024 10:00 AM EDT Medication Management [facility] [address] [place] [phone] Daniel Clancy PharmD [address] [place] [phone] documented as of this encounter Goals Goal Patient Goal Type Associated Problems Recent Progress Patient-Stated? Author Blood Pressure < 140/90 Blood Pressure 131/82(2024 1:43 PM EST) No Benito Padron Hemoglobin A1c < 7 Result Component 6.6( 1:46 PM EST) No Benito Padron documented as of this encounter Visit Diagnoses Diagnosis Hypothyroidism due to medication documented in this encounter Additional Health Concerns Assessment Noted Time PHQ-9 Depression Total Score: 12 024 11:13 AM EDT documented as of this encounter Care Teams Trucking Manager Relationship Specialty Start Date End Date Deedee Mc MD [address] [place] [address] PCP - General Family Medicine 09/09/19 Daniel Clancy, PharmD [address] [place] [address] Pharmacist Internal Medicine 10/14/23 documented as of this encounter
--- OUTSIDE RECORDS SUMMARY | 2024-04-25 15:54 | XMS_ITS | Encounter Summary ---
Author Organization [employer] Address 75 [facility] 7t [place] [address] Care Team Providers Care Donor Services Manager Name Role Phone Deedee Mc MD Primary Care Provider [phone] Daniel Clancy PharmD Unavailable [phone] Reason for Visit * Reason Comments Med Refill Encounter Details Date Type Department Care Team (Late st Contact Info) Description 09/24/2023 Refill [facility] [address] [place], [place] [phone] Andrae Murillo MD [address] [place], [place] [phone] Primary hypertension Social History Tobacco Use Types Packs/Day Years [...] Description 06/15/2024 10:00 AM EDT Medication Management [facility] [address] [place] [address] Daniel Clancy PharmD [address] [place] [address] documented as of this encounter Goals Goal Patient Goal Type Associated Problems Recent Progress Patient-Stated? Author Blood Pressure < 140/90 Blood Pressure 131/82(2024 1:43 PM EST) No Benito Padron Hemoglobin A1c < 7 Result Component 6.6( 1:46 PM EST) No Benito Padron documented as of this encounter Visit Diagnoses Diagnosis Primary hypertension Unspecified essential hypertension documented in this encounter Additional Health Concerns Assessment Noted Time PHQ-9 Depression Total Score: 12 024 11:13 AM EDT documented as of this encounter Care Teams Donor Services Manager Relationship Specialty Start Date End Date Deedee Mc MD [address] [place] [address] PCP - General Family Medicine 09/09/19 Daniel Clancy, PharmD [address] [place] [address] Pharmacist Internal Medicine 10/14/23 documented as of this encounter
--- OUTSIDE RECORDS SUMMARY | 2024-04-25 15:54 | XMS_ITS | Encounter Summary ---
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 Please reconcile her medications. She was receiving medications from specialists in [facility] after her head surgery, (Levetiracetam and acetazolamide). Thank you. Encounter Details Date Type Department Care Team (Late st Contact Info) Description 07/14/2023 Orders Only [facility] [address] [place], [place] [phone] Deedee Mc MD [address] [place], [place] [phone] Hypothyroidism due to medication (Primary Dx); Meningoencephalocele (CMS/HCC); Type 2 diabetes mellitus with diabetic polyneuropathy, without long-term current use of insulin (CMS/HCC); Renal cell carcinoma of right kidney (CMS/HCC) Social History Tobacco Use Types Packs/Day Years [...] Description 06/15/2024 10:00 AM EDT Medication Management [facility] [address] [place] [address] Daniel Clancy, PharmD [address] [place] [address] Scheduled Orders Name Type Priority Associated Diagnoses Orde r Schedule TSH Lab Routine Hypothyroidism due to medication Expected: 08/25/2023 (Approximate), Expires: 07/13/2024 Scheduled Referrals Name Type Priority Associated Diagnoses Orde r Schedule Referral to Pharmacy MTM Outpatient Referral Routine 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) Type 2 diabetes mellitus with diabetic polyneuropathy, without long-term current use of insulin (CMS/HCC) Renal cell carcinoma of right kidney (CMS/HCC) Ordered: 07/14/2023 documented as of this encounter Procedures Procedure Name Priority Date/Time Associated Diagnosis Comments T4, FREE Routine 07/14/2023 12:26 PM EDT Hypothyroidism due to medication documented in this encounter Results * T4, Free (07/14/2023 12:26 PM EDT) Free T4 (Free Thyroxine) 0.88 0.71 - 1.85 ng/dL [facility] Blood Venous blood specimen / Unknown 07/14/2023 12:26 PM EDT 07/14/2023 1:10 PM EDT us Deedee Mc MD LAB BLOOD ORDERABLES Final Resul t [facility] [address] [place] [address] [phone] documented in this encounter Visit Diagnoses Diagnosis Hypothyroidism due to medication- Primary Meningoencephalocele (CMS/HCC) 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
--- OUTSIDE RECORDS SUMMARY | 2024-04-25 15:54 | XMS_ITS | Clinical Summary ---
Author Organization [facility] Address [address] [place] [address] Phone Care Team Providers Care Clerk Travel Reservations Name Role Phone Yunier Sprague MD Primary Care Provi kaushik Allergies No known active allergies Medications Medication Sig Dispensed Refills Start Date End Date Status amLODIPine (NORVASC) 10 mg tablet Take 1 tablet (10 mg total) by mouth 1 (one) time each day. Active atorvastatin (LIPITOR) 20 mg tablet Take 1 tablet (20 mg total) by mouth 1 (one) time each day. Active buPROPion (WELLBUTRIN) 100 mg tablet Take 1 tablet (100 mg total) by mouth 2 (two) times a day. Active diclofenac (VOLTAREN) 1 % topical gel Apply 4 g topically 2 (two) times a day. 11/27/2021 Active docusate sodium (COLACE) 100 mg capsule Take 1 capsule (100 mg total) by mouth 2 (two) times a day. Active levothyroxine sodium (TIROSINT) 100 mcg capsule Take by mouth. Activ e metFORMIN (GLUCOPHAGE) 500 mg tablet Take 1 tablet (500 mg total) by mouth 2 (two) times a day with meals. Active omeprazole (PRILOSEC) 20 mg tablet,delayed release (DR/EC) Take by mouth. Activ e ondansetron (ZOFRAN) 8 mg tablet Take 1 tablet (8 mg total) by mouth every 8 (eight) hours if needed. Active traMADoL (ULTRAM) 50 mg tablet Take 1 tablet (50 mg total) by mouth every 6 (six) hours if needed. Active oxyCODONE (OXY-IR) 5 mg immediate release capsule Take 1 capsule (5 mg total) by mouth every 6 (six) hours if needed for severe pain. Max Daily Amount: 20 mg 60 capsule 03/09/2024 Active Active Problems Problem Noted Date Diagnosed Date Acid reflux 12/21/2023 Anemia 12/21/2023 Essential hypertension 12/21/2023 Malignant neoplasm metastatic to bone 12/21/2023 Malignant neoplasm metastatic to liver Renal cell cancer 12/21/2023 Overview (12/21/2023): Last Assessment & Plan: No evidence of recurrent Coal Cager metastatic disease. Will return to Dr. Fleming for follow up imaging and treatment as planned. 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 No other obvious Coal Cager cause by imaging or limited exam today. Rectocele 09/03/2020 Overview (12/21/2023): Last Assessment & Plan: Likely cause of pelvic pressure. Reviewed options for pelvic organ prolapse including observation, as long as not having difficulty emptying or significant discomfort, pessary fitting, vs surgical intervention. Given she is minimally symptomatic and has no difficulty emptying bladder, she desires to observe for now, but will call if she desires pessary fitting in the future. Ventral hernia 10/21/2018 Encounters Date Type Department Care Team Description 02/23/2024 1:00 PM EST Office Visit [facility] Hematology Oncology [address] [place] [phone] Braeden Galarza MD Renal cell carcinoma of right kidney (CMS/HCC) (Primary Dx); Malignant neoplasm metastatic to liver (CMS/HCC); Malignant neoplasm metastatic to bone (CMS/HCC); Thyroid disease; Hypothyroidism due to drugs from Last 3 Months Immunizations Name Administration Dates Next Due [facility] [employer] SARS-CoV-2 COVID -19, vector-nr, [id number], preservative free 06/06/2020 [employer] SARS-CoV-2 COVID-19, mRNA, LNP-S, preservative free 07/31/2021,03/13/2021 Surgical History Surgery Date Site/Laterality Comments NEPHRECTOMY PROCEDURE:NEPHRECTOMY;COMMENT:right kidney HERNIA REPAIR PROCEDURE:HERNIA REPAIR Medical History Medical History Date Comments Malignant neoplasm of right kidney, except renal pelvis (CMS/HCC) DX:Malignant neoplasm of right kidney, except renal pelvis (HCC) Anemia due to chemotherapy DX:An emia due to chemotherapy Anemia in neoplastic disease DX: Anemia in neoplastic disease Bone metastasis DX:Bone metastas is Disease of thyroid gland DX:Dise ase of thyroid gland Social History Tobacco Use Types Packs/Day Years Used Date Smoking Tobacco: Never Smokeless Tobacco: Never Tobacco Cessation:Counseling Given: Not Answered Alcohol Use Standard Drinks/Week Comments No 0 (1 standard drink = 0.6 oz pur e alcohol) Sex and Gender Information Value Date Recorded Sex Assigned at Not on file Gender Identity Not on file Sexual Orientation Not on file Job Start Date Occupation Industry Not on file Not on file Not on file Obstetrics History Last Filed Vital Signs Vital Sign Reading Time Taken Comments Blood Pressure 142/79 02/23/2024 1:07 PM EST Pulse 94 02/23/2024 1:07 PM EST Temperature 36.9 ??C (98.5 ??F) 02/23/2024 1:07 PM ES T Respiratory Rate - - Oxygen Saturation 100% 02/23/2024 1:07 PM EST Inhaled Oxygen Concentration - - Weight 108 kg (237 lb 3.2 oz) 02/23/2024 1:07 PM EST Height 157.5 cm (5' 2 ) 11/17/2023 11:23 AM EDT Body Mass Index 43.38 11/17/2023 11:23 AM EDT Plan of Treatment Upcoming Encounters Date Type Department Care Team (Late st Contact Info) Description 05/23/2024 2:30 PM EST Office Visit [facility] Hematology Oncology [address] [place] [phone] Braeden Galarza MD [address] [place] [phone] Health Maintenance Due Date Last Done Comments Breast Cancer Screening 1962 Diabetes: Annual Foot Exam 1972 Diabetes: Annual Retina Eye Exam 1972 Cholesterol Screening (Lipid Panel) 02/27/2022 Colorectal Cancer Screening: Colonoscopy 02/27/2022 Hepatitis C Screening 02/27/2022 Social Influencers of Health Screening 02/27/2022 Diabetes: Annual Urine Albumin-Creatinine Ratio (uACR) 03/02/2022 Depression Screening 07/07/2024 07/08/2023 Diabetes: Blood Sugar Control Test (HGBA1C) 07/25/2024 01/26/2024 Diabetes: Annual GFR (Glomerular Filtration Rate) 01/28/2025 01/29/2024, 12/16/2023 Hypertension/CHF/CAD Annual BMP Blood Test 01/28/2025 01/29/2024, 12/16/2023 Cervical Cancer Screening: HPV 08/31/2025 08/31/2020 DTaP,Tdap,and Td Vaccines (3 - Td or Tdap) 09/13/2033 09/14/2023, 05/30/2011 MMR Vaccines Aged Out 05/30/2011 No longer eligi ble based on patient's age to complete this topic Hepatitis A Vaccines Completed 12/01/2011, 04/17/19 HIV Screening Completed 08/15/2020 RSV Immunization Patients 60+ Years Old Completed 09/02/2023 Hepatitis B Vaccines Completed 09/14/2023, 05/30/2011, 05/22/2011, Additional history exists Pneumococcal Vaccine: Pediatrics (0 to 5 Years) and At-Risk Patients (6 to 64 Years) Completed 09/14/2023, 03/06/2014 Zoster Vaccines Completed 11/11/2023, 09/02/2023 COVID-19 Vaccine Completed 12/16/2023, 05/2022, 03/11/2022, Additional history exists Influenza Vaccine Completed 12/16/2023, , 03/11/2022, Additional history exists HIB Vaccines Aged Out No longer eligi ble based on patient's age to complete this topic HPV Vaccines Aged Out No longer eligi ble based on patient's age to complete this topic IPV Vaccines Aged Out No longer eligi ble based on patient's age to complete this topic Meningococcal ACWY Vaccine Aged Out N o longer eligible based on patient's age to complete this topic RSV Immunization Patients Under 20 months Aged Out No longer eligible based on patient's age to complete this topic Varicella Vaccines Aged Out No longer eligible based on patient's age to complete this topic Procedures Procedure Name Priority Date/Time Associated Diagnosis Comments CBC WITH AUTO DIFFERENTIAL Routine 01/29/2024 10:47 AM EST Adenocarcinoma, renal cell (CMS/HCC) CBC AND DIFFERENTIAL Routine 01/29/2024 10:47 AM EST Adenocarcinoma, renal cell (CMS/HCC) LACTATE DEHYDROGENASE Routine 01/29/2024 10:47 AM EST Adenocarcinoma, renal cell (CMS/HCC) COMPREHENSIVE METABOLIC PANEL Routine 01/29/2024 10:47 AM EST Adenocarcinoma, renal cell (CMS/HCC) HM HPV Routine 08/31/2020 from Last 3 Months or Most Recently Relevant to Health Maintenance Results * (ABNORMAL) CBC auto differential (01/29/2024 10:47 AM EST) WBC 6.7 4.8 - 10.8 K/mcL LAB HEMETOLOGY METHOD 01/29/2024 11:38 AM [facility] RBC 5.60(H) 3.80 - 4.80 M/mcL LAB HEMETOLOGY METHOD 01/29/2024 11:38 AM [facility] Hemoglobin 15.3 11.5 - 16.0 g/dL LAB HEMETOLOGY METHOD 01/29/2024 11:38 AM [facility] Hematocrit 46.9 35.0 - 47.0 % LAB HEMETOLOGY METHOD 01/29/2024 11:38 AM [facility] MCV 83.2 79.0 - 98.0 FL LAB HEMETOLOGY METHOD 01/29/2024 11:38 AM [facility] MCH 27.1 27.0 - 32.0 pcg LAB HEMETOLOGY METHOD 01/29/2024 11:38 AM [facility] MCHC 32.6 32.0 - 37.0 g/dL LAB HEMETOLOGY METHOD 01/29/2024 11:38 AM [facility] RDW 14.1 11.0 - 15.0 % LAB HEMETOLOGY METHOD 01/29/2024 11:38 AM [facility] Platelets 261 130 - 400 K/mcL LAB HEMETOLOGY METHOD 01/29/2024 11:38 AM [facility] MPV 10.2 7.0 - 11.0 FL LAB HEMETOLOGY METHOD 01/29/2024 11:38 AM [facility] NRBC 0.0 <1.0 % LAB HEMETOLOGY METHOD 01/29/2024 11:38 AM [facility] NRBC Absolute 0.00 <0.10 K/mcL LAB HEMETOLOGY METHOD 01/29/2024 11:38 AM [facility] Neutrophils Relative 68.2 % LAB HEMETOLOGY METHOD 01/29/2024 11:38 AM [facility] Lymphocytes Relative 21.0 % LAB HEMETOLOGY METHOD 01/29/2024 11:38 AM [facility] Monocytes Relative 9.4 % LAB HEMETOLOGY METHOD 01/29/2024 11:38 AM [facility] Eosinophils Relative 0.7 % LAB HEMETOLOGY METHOD 01/29/2024 11:38 AM [facility] Basophils Relative 0.3 % LAB HEMETOLOGY METHOD 01/29/2024 11:38 AM [facility] Immature Granulocytes Relative 0.4 % LAB HEMETOLOGY METHOD 01/29/2024 11:38 AM [facility] Neutrophils Absolute 4.54 1.50 - 7.00 K/mcL LAB HEMETOLOGY METHOD 01/29/2024 11:38 AM [facility] Lymphocytes Absolute 1.40 1.00 - 5.00 K/mcL LAB HEMETOLOGY METHOD 01/29/2024 11:38 AM [facility] Monocytes Absolute 0.63 0.20 - 1.00 K/[facility] LAB HEMETOLOGY METHOD 01/29/2024 11:38 AM EST [facility] Eosinophils Absolute 0.05 0.00 - 0.50 K/[facility] HEMETOLOGY METHOD 01/29/2024 11:38 AM EST [facility] Basophils Absolute 0.02 0.00 - 0.20 K/[facility] HEMETOLOGY METHOD 01/29/2024 11:38 AM EST [facility] Immature Granulocytes Absolute 0.03 0.00 - 0.03 K/[facility] HEMETOLOGY METHOD 01/29/2024 11:38 AM EST [facility] Blood Venous blood specimen / Unknown Venipuncture / Unknown 01/29/2024 10:47 AM EST 01/29/2024 11:27 AM EST Subramalphonso Galarza MD LAB BLOOD O BRUNILDA Performing Organization Address City/[facility]/ZIP Co de Phone Number [facility] [address] [place] [address], [place] [phone] * (ABNORMAL) Lactate dehydrogenase (01/29/2024 10:47 AM EST) Pathologist [facility] LDH 103(L) 120 - 246 unit/L LAB CHEMISTRY METHOD 01/29/2024 12:08 PM EST [facility] Blood Venous blood specimen / Unknown Venipuncture / Unknown 01/29/2024 10:47 AM EST 01/29/2024 11:27 AM EST Subramalphonso Galarza MD LAB BLOOD O BRUNILDA [facility] [address] [place] [address], [place] [phone] * (ABNORMAL) Comprehensive metabolic panel (01/29/2024 10:47 AM EST) Sodium 138 133 - 145 mmol/L LAB CHEMISTRY METHOD 01/29/2024 12:10 PM [facility] Potassium 4.4 3.5 - 5.5 mmol/L LAB CHEMISTRY METHOD 01/29/2024 12:10 PM [facility] Chloride 106 96 - 110 mmol/L LAB CHEMISTRY METHOD 01/29/2024 12:10 PM [facility] CO2 27 21 - 32 mmol/L LAB CHEMISTRY METHOD 01/29/2024 12:10 PM [facility] Anion Gap 5 3 - 11 LAB CHEMISTRY METHOD 01/29/2024 12:10 PM [facility] Glucose 106(H) 70 - 100 mg/dL LAB CHEMISTRY METHOD 01/29/2024 12:10 PM [facility] BUN 18 5 - 25 mg/dL LAB CHEMISTRY METHOD 01/29/2024 12:10 PM [facility] Creatinine 0.96 0.50 - 1.10 mg/dL LAB CHEMISTRY METHOD 01/29/2024 12:10 PM [facility] eGFR 67 >=60 mL/min/1. 73m2 LAB CHEMISTRY METHOD 01/29/2024 12:10 PM [facility] Comment:Calculation based on the??Chronic Kidney Disease Epidemiology Collaboration (CKD-EPI) equation refit??without adjustment for race. BUN/Creatinine Ratio 18.8 LAB CHEMISTRY METHOD 01/29/2024 12:10 PM [facility] Calcium 9.6 8.5 - 10.5 mg/dL LAB CHEMISTRY METHOD 01/29/2024 12:10 PM [facility] AST (SGOT) 24 10 - 42 unit/L LAB CHEMISTRY METHOD 01/29/2024 12:10 PM [facility] ALT (SGPT) 44 10 - 60 unit/L LAB CHEMISTRY METHOD 01/29/2024 12:10 PM [facility] Alkaline Phosphatase 154(H) 42 - 121 unit/L LAB CHEMISTRY METHOD 01/29/2024 12:10 PM EST [facility] Total Protein 7.2 6.0 - 8.0 g/dL LAB CHEMISTRY METHOD 01/29/2024 12:10 PM EST [facility] Albumin 3.8 3.2 - 5.0 g/dL LAB CHEMISTRY METHOD 01/29/2024 12:10 PM EST [facility] Total Bilirubin 0.4 0.0 - 1.4 mg/dL LAB CHEMISTRY METHOD 01/29/2024 12:10 PM EST [facility] Blood Venous blood specimen / Unknown Venipuncture / Unknown 01/29/2024 10:47 AM EST 01/29/2024 11:27 AM EST Subramony Geovanni PONCE LAB BLOOD O RDERABLES [facility] [address] [place] [address], * Cervical Cancer Screening: HPV (08/31/2020) Pathologist [facility] Cervical Cancer Screening: HPV Negative, abstracted Historical Provider MD MEME Allen from Last 3 Months or Most Recently Relevant to Health Maintenance Care Teams Clerk Travel Reservations Relationship Specialty Start Date End Date Yunier Sprague MD [address] [place] [address] [place] [phone] PCP - General Internal Medicine 12/05/13
--- OUTSIDE RECORDS SUMMARY | 2024-04-25 15:54 | XMS_ITS | Encounter Summary ---
Author Organization [employer] Address 75 [facility] 7t [place] [address] Care Team Providers Care Page Technician Name Role Phone Deedee Mc MD Primary Care Provider Daniel Clancy PharmD Unavailable [phone] Encounter Details Date Type Department Care Team (Late st Contact Info) Description 08/03/2023 Orders Only [facility] MEDICINE [address] [place], [place] [phone] Deedee Mc MD 230 [place], [place] [phone] Social History Tobacco Use Types Packs/Day Years [...] Description 06/15/2024 10:00 AM EDT Medication Management [facility] MEDICINE [address] [place] [address] Daniel Clancy, PharmD [address] [place] [address] documented as of this encounter Goals Goal [...] documented as of this encounter Care Teams Page Technician Relationship Specialty Start Date End Date Deedee Mc MD [address] [place] [address] PCP - General Family Medicine 09/09/19 Daniel Clancy, PharmD [address] [place] [address] Pharmacist Internal Medicine 10/14/23 documented as of this encounter
--- OUTSIDE RECORDS SUMMARY | 2024-04-25 15:54 | XMS_ITS | Encounter Summary ---
Author Organization [employer] Address 75 [facility] 7t [place] [address] Care Team Providers Care Ship Loader Name Role Phone Deedee Mc MD Primary Care Provider [phone] Daniel Clancy PharmD Unavailable [phone] Reason for Visit * Reason Comments Med Refill Encounter Details Date Type Department Care Team (Late st Contact Info) Description 04/11/2024 Refill [facility] MEDICINE 230 [place], [place] [phone] Daniel Clancy, PharmD [address] [place], [place] [phone] Type 2 diabetes mellitus with diabetic polyneuropathy, without long-term current use of insulin ([facility]) Social History Tobacco Use Types Packs/Day Years [...] Patient Health Questionnaire-2 Score 2 07/08/2023 Comments No Sex and Gender Information Value Date Recorded Sex Assigned at Female 01/20/2022 10:20 AM EDT Legal Sex Female 10:20 AM EDT Gender Identity Choose not to disclose 10:20 AM EDT Sexual Orientation Choose not to disclose 2021 10:20 AM EDT documented as of this encounter Miscellaneous Notes * Telephone Encounter - Daniel Clancy PharmD - 04/12/2024 3:17 PM EST Pharmacist will renew losartan 25 mg po daily. Last CDTM 03/09/2024. PCP FU scheduled 04/25/24 and CDTM FU in 8 weeks. documented in this encounter Plan of Treatment Upcoming Encounters Date Type Department Care Team (Late st Contact Info) Description 06/15/2024 10:00 AM EDT Medication Management [facility] MEDICINE [address] [place] [address] Daniel Clancy, Tanika [address] [place] [address] documented as of this encounter Goals Goal Patient Goal Type Associated Problems Recent Progress Patient-Stated? Author Blood Pressure < 140/90 Blood Pressure 131/82(2024 1:43 PM EST) Benito Kilpatrick Hemoglobin A1c < 7 Result Component 6.6( 1:46 PM EST) Benito Kilpatrick documented as of this encounter Visit Diagnoses Diagnosis Type 2 diabetes mellitus with diabetic polyneuropathy, without long-term current use of insulin ([facility]) documented in this encounter Additional Health Concerns Assessment Noted Time PHQ-9 Depression Total Score: 12 024 11:13 AM EDT documented as of this encounter Care Teams Ship Loader Relationship Specialty Start Date End Date Deedee Mc MD [address] [place] [address] PCP - General Family Medicine 09/09/19 Daniel Clancy, MassimoD [address] [place] [address] Pharmacist Internal Medicine 10/14/23 documented as of this encounter
--- OUTSIDE RECORDS SUMMARY | 2024-04-25 15:54 | XMS_ITS | Clinical Summary ---
Author Organization [facility] Address [address] [place] [address] Care Team Providers Care School Laboratory Technician Name Role Phone Yunier Sprague MD Primary Care Provide r Allergies No known active allergies Medications Medication Sig Dispensed Refills Start Date End Date Status amLODIPine (NORVASC) tablet 10 mg Take 1 tablet (10 mg total) by mouth daily. 0 Active metFORMIN (GLUCOPHAGE) tablet 500 mg Take 1 tablet (500 mg total) by mouth 2 (two) times a day with meals. 0 Active lidocaine-prilocaine (EMLA) cream Apply topically as needed. 30 g 0 04/07/2018 Active glycerin-hypromellose -PEG (ARTIFICIAL TEARS) 0.2-0.2-1 % SOLN ophthalmic soln Place 1 drop into both eyes as needed. 1 Bottle 3 03/09/2019 Active terbinafine (LamiSIL) 250 MG tablet TAKE 1 TABLET BY MOUTH EVERY DAY FOR 12 WEEKS 0 07/03/2020 Active ondansetron (ZOFRAN-ODT) 8 MG disintegrating tablet Take 1 tablet (8 mg total) by mouth every 8 (eight) hours as needed for nausea. 15 tablet 11 08/28/2021 Active LORazepam (ATIVAN) 0.5 MG tablet Take 1 tablet (0.5 mg total) by mouth every 8 (eight) hours as needed. 60 tablet 2 04/09/2022 Active omeprazole (PriLOSEC) 20 MG capsule TAKE 1 CAPSULE BY MOUTH EVERY DAY 90 capsule 1 11/10/2022 Active acetaZOLAMIDE (DIAMOX) 250 MG tablet Take 1 tablet (250 mg total) by mouth 3 (three) times a day. 0 Active levothyroxine (SYNTHROID) tablet 150 mcg TAKE 1 TABLET (150 MCG TOTAL) BY MOUTH EVERY MORNING. ON AN EMPTY STOMACH 90 tablet 1 03/13/2023 Active loratadine (Claritin) 10 MG tablet Take 1 tablet (10 mg total) by mouth daily. 90 tablet 1 05/20/2023 Active losartan (COZAAR) tablet 25 mg Take 1 tablet (25 mg total) by mouth daily. 0 Active oxyCODONE (ROXICODONE) 5 MG immediate release tablet Take 1 tablet (5 mg total) by mouth every 6 (six) hours as needed for pain. 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 Acute post-traumatic headache, not intractable 1 04/07/2021 Vasovagal syncope 02/05/2022 Intractable pain 12/21/2019 Anxiety 04/06/2019 Other insomnia 04/06/2019 Hernia of anterior abdominal wall 10/06/2018 Gastroesophageal reflux disease with esophagitis 2018 Acute renal failure 06/02/2018 RUQ pain 10/28/2017 Diabetic autonomic neuropath y associated with type 2 diabetes mellitus 07/08/2017 Transaminitis 05/20/2017 Cholecystitis, chronic 04/08/2017 Calculus of gallbladder with out cholecystitis without obstruction 02/25/2017 Renal cell carcinoma of right kidney 01/14/2017 Anemia due to antineoplastic chemotherapy 2016 Malignant neoplasm metastatic to liver 7 Malignant neoplasm metastatic to lung 11/18/2016 Renal cell cancer 09/06/2016 Cancer Staging:Clinical stage from 02/09/2015:Stage IV(M1) - Signed by Braeden Elliott MD on 09/09/2016 Hypothyroidism due to medication 09/06/2016 Essential hypertension 09/06/2016 Non morbid obesity due to excess calories 2016 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 09/06 Anemia 09/06/2016 Social History Tobacco Use Types Packs/Day Years Used Date Smoking Tobacco: Never Smokeless Tobacco: Never Alcohol Use Standard Drinks/Week Comments No 0 (1 standard drink = 0.6 oz pur e alcohol) Sex and Gender Information Value Date Recorded Sex Assigned at Not on file Gender Identity Not on file Sexual Orientation Not on file Job Start Date Occupation Industry Not on file Not on file Not on file Last Filed Vital Signs Vital Sign Reading Time Taken Comments Blood Pressure 139/81 11/17/2023 11:23 AM EDT Pulse 87 11/17/2023 11:23 AM EDT Temperature 36.8 ??C (98.2 ??F) 11/17/2023 1 1:23 AM EDT Respiratory Rate 12 08/24/2019 9:15 AM EDT Oxygen Saturation 100% 11/17/2023 11: 23 AM EDT Inhaled Oxygen Concentration - - Weight 105.1 kg (231 lb 9.6 oz) 024 11:23 AM EDT Height 157.5 cm (5' 2 ) 11/17/2023 11:2 3 AM EDT Body Mass Index 42.36 11/17/2023 11:23 AM EDT Plan of Treatment Health Maintenance Due Date Last Done Comments Hepatitis C Screening 1962 Depression Screening 1974 BMI Counseling 1980 Preventative Health Evaluation 1980 Cervical Cancer Screening (Pap Smear) 06/17/1983 Colon Cancer Screening (Colonoscopy) 06/17/2007 Breast Cancer Screening (Mammogram) 2012 COVID-19 Vaccine ( season) 2023 12/23/2022, 03/11/2022, 07/31/2021, Additional history exists Influenza Vaccine (#1) 2023 , 03/11/2022, 03/13/2021, Additional history exists DTap / Tdap / Td (3 - Td or Tdap) 09/13/2033 09/14/2023, 05/30/2011 RSV Adult > 60+ Yrs or Completed 09/02/2023 Hepatitis B Vaccines Completed 09/14/2023, 05/30/2011, 05/22/2011, Additional history exists Pneumococcal Vaccine Completed 09/14/2023, 03/06/20 14 Shingrix-Zoster Vaccine Completed 11/11/2023, 09/01 RSV Ped < 20 months Aged Out No longe r eligible based on patient's age to complete this topic Care Teams School Laboratory Technician Relationship Specialty Start Date End Date Yunier Sprague MD [address] [place] [phone] PCP - General Internal Medicine 08/14/21
--- OUTSIDE RECORDS SUMMARY | 2024-04-25 15:54 | XMS_ITS | Encounter Summary ---
Author Organization [employer] [facility] Address 75 [facility] 7t [place] [address] Care Team Providers Care Social Service Worker Name Role Phone Deedee Mc MD Primary Care Provider [phone] Daniel Clancy PharmD Unavailable [phone] Reason for Visit * Reason Onset Date Comments Results 06/13/2022 Encounter Details Date Type Department Care Team ([facility] st Contact Info) Description 06/13/2022 Telephone [facility] MEDICINE 230 [place], [place] [phone] Deedee Mc MD 230 [place], [place] [phone] Results Social History Tobacco Use Types Packs/Day Years [...] 03/11/2022 Depression Answer Date Recorded Patient Health Questionnaire-2 Score 0 03/11/2022 Comments Unknown Sex and Gender Information Value Date Recorded Sex Assigned at Female 01/20/2022 10:20 AM EDT Legal Sex Female 10:20 AM EDT Gender Identity Choose not to disclose 10:20 AM EDT Sexual Orientation Choose not to disclose 2021 10:20 AM EDT COVID-19 Exposure Response Date Recorded In the last 10 days, have yo u been in contact with someone who was confirmed or suspected to have Coronavirus/COVID-19? No / Unsure 06/10/2022 1:10 PM EDT documented as of this encounter Miscellaneous Notes * Telephone Encounter - Jenn Cordoba RN - 06/13/2022 9:49 AM EDT Awaiting provider's review. * Telephone Encounter - Stepan Mike - 06/13/2022 9:43 AM EDT Tc from pt requesting results from urine example. Please contact pt st [phone] Bahamian Speaker documented in this encounter Plan of Treatment Upcoming Encounters Date Type Department Care Team (Late st Contact Info) Description 06/15/2024 10:00 AM EDT Medication Management [facility] MEDICINE [address] [place] [address] Daniel Clancy, Tanika [address] [place] [address] documented as of this encounter Visit Diagnoses Not on filedocumented in this encounter Care Teams Social Service Worker Relationship Specialty Start Date End Date Deedee Mc MD [address] [place] [address] PCP - General Family Medicine 09/09/19 Daniel Clancy PharmD [address] [place] [address] Pharmacist Internal Medicine 10/14/23 documented as of this encounter
--- OUTSIDE RECORDS SUMMARY | 2024-04-25 15:54 | XMS_ITS | Encounter Summary ---
Author Organization [employer] Address [address] [facility] 7t [place] [address] Care Team Providers Care Sanitation Supervisor Name Role Phone Deedee Mc MD Primary Care Provider [phone] Daniel Clancy PharmD Unavailable [phone] Reason for Visit * Reason Onset Date Comments Nurse Triage 11/17/2022 Encounter Details Date Type Department Care Team ([facility] st Contact Info) Description 11/17/2022 Telephone [facility] MEDICINE 230 [place], [place] [phone] Deedee Mc MD 230 [place], [place] [phone] Nurse Triage Social History Tobacco Use Types Packs/Day Years [...] encounter Miscellaneous Notes * Telephone Encounter - Sylvia Emerson RN - 11/17/2022 10:58 AM EDT Triage call with Leroy Anesthesiology Teacher [phone] Pt reports has had Covid symptoms for 3 days today is the 4th day. Home tested positive for Covid 11/16/22. Pt reports mild symptoms of cough, chest pain, headache, bodyaches, back pain and fever. Pt wasn't able to measure fever just tactile warmth. Pt denies difficulty breathing. Pt is advised symptoms of chest pain/ pressure, difficulty breathing and or fever over 103 should go to ED for evaluation. Pt agrees but, denies these symptoms. Advised Pt though this is Covid treatment is similar to treatment for the flu. Increase liquids to 6-8 glasses daily especially warm drinks, decaf tea with honey/lemon, broth. Pt advised to use OTC cough suppressant cough syrup for dry cough, cough drops or2 tsp of honey for the cough. Pt is advised to use warm steamy air from hot shower to help coughingspells. Pt is advised to use tylenol 650mg po q4-6hrs and / or ibuprofen 400mg q6-8hrs for body aches, fever, headaches. Wash hands well. isolation for at least 5 days until symptoms better and no fever. Home care reviewed thoroughly. Pt is requesting paxlovid. Tele visit with Dr. Figueredo 11/17/22 @ 1130am Pt is advised to be aware registration call may come first. Pt agrees with disposition and will be ready for tele visit. Protocol Used: COVID-19 - Diagnosed or Suspected (Adult) Protocol-Based Disposition: Home Care Positive Triage Question: * [1] COVID-19 diagnosed by positive lab test (e.g., PCR, rapid self-test kit) AND [2] mild symptoms (e.g., cough, fever, others) AND [3] no complications or SOB * All higher-acuity triage questions were negative Care Advice Discussed: * Reassurance and Education - Positive COVID-19 Lab Test and Mild Symptoms * General Care Advice for COVID-19 Symptoms * Cough Medicines * Cough Syrup With Dextromethorphan * Humidifier * Coughing Spells * Pain and Fever Medicines * Reasons To Call Back - Fever over 103 F (39.4 C) - Fever lasts over 3 days - Fever returns after being gone for 24 hours - You become worse * COVID-19 - How to Protect Others - When You Are Sick With COVID-19 * Telephone Encounter - Angel Luis Tinsley - 11/17/2022 9:39 AM EDT Patient calling to report positive for Covid 3x days, pt is requesting paxlovid. Patient speaks Gambian. Advised triage nurse will call patient back. Please contact at [phone] documented in this encounter Plan of Treatment Upcoming Encounters Date Type Department Care Team (Late st Contact Info) Description 06/15/2024 10:00 AM EDT Medication Management [facility] MEDICINE [address] [place] [address] Daniel Clancy, PharmD [address] [place] [address] documented as of this encounter Goals Goal Patient Goal Type Associated Problems Recent Progress Patient-Stated? Author Blood Pressure < 140/90 Blood Pressure 131/82(2024 1:43 PM EST) No Benito Padron Hemoglobin A1c < 7 Result Component 6.6( 1:46 PM EST) No Benito Padron documented as of this encounter Visit Diagnoses Not on filedocumented in this encounter Care Teams Sanitation Supervisor Relationship Specialty Start Date End Date Deedee Mc MD [address] [place] [address] PCP - General Family Medicine 09/09/19 Daniel Clancy, MassimoD [address] [place] [address] Pharmacist Internal Medicine 10/14/23 documented as of this encounter
--- OUTSIDE RECORDS SUMMARY | 2024-04-25 15:54 | XMS_ITS | Encounter Summary ---
Author Organization [employer] Address 75 [facility] 7t [place] [address] Care Team Providers Care Combine Mechanic Name Role Phone Deedee Mc MD Primary Care Provider [phone] Daniel Clancy PharmD Unavailable [phone] Reason for Visit * Reason Comments Med Refill Encounter Details Date Type Department Care Team (Late st Contact Info) Description 09/14/2023 Refill [facility] MEDICINE 230 [place], [place] [phone] Deedee Mc MD 230 [place], [place] [phone] Social History Tobacco Use Types Packs/Day Years [...] Description 06/15/2024 10:00 AM EDT Medication Management [facility] MEDICINE 230 [place] [address] Daniel Clancy, Tanika [address] [place] [address] documented as of this encounter Goals Goal [...] documented as of this encounter Care Teams Combine Mechanic Relationship Specialty Start Date End Date Deedee Mc MD [address] [place] [address] PCP - General Family Medicine 09/09/19 Daniel Clacny, PharmD [address] [place] [address] Pharmacist Internal Medicine 10/14/23 documented as of this encounter
--- OUTSIDE RECORDS SUMMARY | 2024-04-25 15:54 | XMS_ITS | Encounter Summary ---
Author Organization [employer] Address 75 [facility] 7t [place] [address] Care Team Providers Care Acid Conditioning Worker Name Role Phone Deedee Mc MD Primary Care Provider [phone] Daniel Clancy PharmD Unavailable [phone] Reason for Visit * Reason Comments Pre-visit Planning Pre-visit planning - LVM Encounter Details Date Type Department Care Team ([facility] st Contact Info) Description 04/12/2024 Patient Outreach [facility] MEDICINE [address] [place], [place] [phone] Deedee Mc MD [address] [place], [place] [phone] Pre-visit Planning (Pre-visit planning - LVM ) Social History Tobacco Use Types Packs/Day Years [...] AM EDT documented as of this encounter Progress Notes * Yahaira Ramirez - 04/12/2024 1:06 PM EST ANA Askew placed outbound call to patient to complete pre-visit planning. No answer at this time. Patient name and were not confirmed. CC left voicemail requesting return call. Direct contact information provided. documented in this encounter Plan of Treatment Upcoming Encounters Date Type Department Care Team (Late st Contact Info) Description 06/15/2024 10:00 AM EDT Medication Management [facility] MEDICINE [address] [place] [address] Daniel Clancy, PharmD [address] [place] [address] documented as of this encounter Goals Goal [...] documented as of this encounter Care Teams Acid Conditioning Worker Relationship Specialty Start Date End Date Deedee Mc MD [address] [place] [address] PCP - General Family Medicine 09/09/19 Daniel Clancy, MassimoD [address] [place] [address] Pharmacist Internal Medicine 10/14/23 documented as of this encounter
--- OUTSIDE RECORDS SUMMARY | 2024-04-25 15:54 | XMS_ITS | Clinical Summary ---
Author Organization [employer] Address [address] [facility] [address] [place] [address] Care Team Providers Care Radio/Tv Technician Name Role Phone Deedee Arthur MD Primary Care Provider [phone] Daniel Clancy PharmD Unavailable [phone] Allergies Active Allergy Reactions Criticality Noted Date Comments Chlorthalidone High 07/31/2011 Other reaction(s): Hyperglycemia Other Reaction(s): hyperglycemia Lisinopril Other 07/30/2010 Scratchy/irritated throat Medications * This document contains information received from the source organization and may not represent a complete record from that organization. loratadine (Claritin) 10 MG tabletIndication s:Allergic rhinitis due to other allergic trigger, unspecified seasonality Take 1 tablet (10 mg) by mouth in the morning. 30 tablet 5 03/04/20 22 Active oxyCODONE (Roxicodone) 5 MG immediate release tablet Take 5 mg by mouth every 6 (six) hours if needed. 02/20/20 22 Active econazole nitrate 1 % creamIndications :Palmar erythema,Intertr igo,Onychodystro phy Apply topically in the morning. 85 g 2 03/27/19 24 Active Blood Pressure Monitor kit Check blood pressure once daily and as needed 1 kit 08/03/19 24 Active ergocalciferol (Vitamin D2) 1.25 MG (21517 UT) capsule Take 1 capsule (1.25 mg) by mouth 1 (one) time per week. 12 capsule 3 08/05/19 24 Active polyvinyl alcohol (Liquifilm Tears) 1.4 % ophthalmic solution INSTILL 1 DROP IN EACH EYE 3 TIMES A DAY 30 mL 1 08/05/19 24 Active FreeStyle lancetsIndicatio ns:Diabetic autonomic neuropathy associated with type 2 diabetes mellitus (CMS/HCC) 1 each by Other route before breakfast. TEST BLOOD SUGAR ONCE A DAY 100 each 08/07/19 24 025 Active Blood Glucose Monitoring Suppl (FreeStyle Lite) w/Device kitIndications:D iabetic autonomic neuropathy associated with type 2 diabetes mellitus (CMS/HCC) 1 Dose before breakfast. TEST BLOOD SUGAR ONCE A DAY 1 kit 08/07/19 24 Active glucose blood (FREESTYLE LITE) test stripIndications :Diabetic autonomic neuropathy associated with type 2 diabetes mellitus (CMS/HCC) 1 each by Other route before breakfast. TEST BLOOD SUGAR ONCE A DAY 100 each 11 08/07/19 24 Active empagliflozin (Jardiance) 10 MG Take 1 tablet (10 mg) by mouth Once per day. 30 tablet 09/02/19 24 025 Active topiramate (Topamax) 25 MG tablet Take 1 tablet (25 mg) by mouth Once per day. 90 tablet 3 09/04/19 24 025 Active metFORMIN XR (Glucophage-XR) 500 MG 24 hr tabletIndication s:Type 2 diabetes mellitus with diabetic polyneuropathy, without long-term current use of insulin ([facility]) Take 1 tablet (500 mg) by mouth with evening meal. Do not crush, chew, or split. 90 tablet 3 10/14/19 24 Active omeprazole (PriLOSEC) [address] capsule Take 1 capsule (20 mg) by mouth Once per day. 90 capsule 1 01/26/20 24 Active lidocaine (Lidoderm) 5 % patch APPLY 1 PATCH TOPICALLY TO SKIN, LEAVE ON FOR 12 HOURS AND OFF FOR 12 HOURS DIRECTED 30 patch 1 02/11/20 24 Active famotidine (Pepcid) 20 MG tablet TAKE 1 TABLET BY MOUTH AT BEDTIME (HEARTBURN) 90 tablet 02/16/20 24 Active fluticasone (Flonase) 50 MCG/ACT nasal spray INSTILL 1 SPRAY IN EACH NOSTRIL ONCE DAILY 48 g 02/16/20 24 Active atorvastatin (Lipitor) 20 MG tablet TAKE 1 TABLET BY MOUTH AT BEDTIME 90 tablet 1 03/14/20 24 Active levothyroxine (Synthroid, Levoxyl) 175 MCG tabletIndication s:Hypothyroidism due to medication TAKE 1 TABLET EVERY MORNING 90 tablet 03/15/20 24 Active amLODIPine (Norvasc) 10 MG tabletIndication s:Primary hypertension TAKE 1 TABLET BY MOUTH EVERYDAY AT NOON 90 tablet 03/15/20 24 Active losartan (Cozaar) 25 MG tabletIndication s:Type 2 diabetes mellitus with diabetic polyneuropathy, without long-term current use of insulin (CMS/HCC) TAKE 1 TABLET BY MOUTH EVERY MORNING 90 tablet 1 04/12/19 25 Active losartan (Cozaar) 25 MG tabletIndication s:Type 2 diabetes mellitus with diabetic polyneuropathy, without long-term current use of insulin (CMS/HCC) Take 1 tablet (25 mg) by mouth Once per day. 90 tablet 1 11/11/19 24 025 Discontinued Active Problems Problem Noted Date Diagnosed Date Bilateral knee pain 07/14/2023 Assessment & Plan (07/14/2023 12:13 PM EDT): - patient states she received a steroid injection on the right knee 6 mos. Ago, recommended to contact her orthopedist for left knee evaluation and management Depression 07/09/2023 Dyslipidemia 04/12/2023 Assessment & Plan (04/25/2024 1:43 PM EST): - current medication atorvastatin 20 mg at bedtime - continue working on lifestyle modifications Assessment & Plan (07/19/2023 6:18 PM EDT): - current medication atorvastatin 20 mg at bedtime - continue working on lifestyle modifications Assessment & Plan (04/12/2023 12:38 PM EST): - current medication atorvastatin 20 mg at bedtime - continue working on lifestyle modifications Varicose veins of both lower extremities 023 Assessment & Plan (04/12/2023 12:32 PM EST): - continue compression stocking - elevate legs and adequate physical activity - low sodium diet - follow up with vascular specialist for possible microphlebectomy Assessment & Plan (12/29/2022 5:59 PM EDT): - continue compression stocking - elevate legs and adequate physical activity - low sodium diet - follow up with vascular specialist for possible microphlebectomy Plantar fasciitis 12/23/2022 Assessment & Plan (12/29/2022 6:02 PM EDT): - following with barley steeper - received steroid injection to right heel in October 2022 - continue wearing diabetic footwear - continue stretching exercise 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 Rod [facility] on 12/03/22 - follow the treatment plan per ENT - previously on acetazolamide 250 mg bid (decreased from tid in Jan 2023), for intracranial hypertension. Patient attributed her diarrhea to acetazolamide. It was switched to topiramate. Will confirm with ENT and neurologist for optimal treatment. 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 Rod [facility] on 12/03/22 - follow the treatment plan per ENT - previously on acetazolamide 250 mg bid (decreased from tid in Jan 2023), for intracranial hypertension. Patient attributed her diarrhea to acetazolamide. It was switched to topiramate. Will confirm with ENT and neurologist for optimal treatment. 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 Marcel [facility] on 12/03/22 - follow the treatment plan per ENT - upcoming appt with neurologist and neurosurgeon - continue acetazolamide Assessment & Plan (09/02/2022 4:06 PM EDT): - left lateral sphenoid sinus menignoencephalocele and history of CSF leak - Following with ENT and neurosurgery at [facility] - Scheduled for endonasal repair in Nov 2022 Urinary incontinence 09/02/2022 Assessment & Plan (09/02/2022 4:34 PM EDT): - check UA and Urine culture - Hx Onychomycosis 09/02/2022 Assessment & Plan (04/25/2024 1:43 PM EST): - pt was hesitant to take oral antifungal - continue topical antifungal - referred to Derm clinicl Assessment & Plan (09/09/2022 5:59 PM EDT): - pt was hesitant to take oral antifungal - continue topical antifungal - referred to Derm clinicl Skin lesion of hand 09/02/2022 Assessment & Plan (04/12/2023 12:35 PM EST): - evaluated by Dr. Murillo on 03/27/23 Rx hydrocortisone 2.5 % Chronic bilateral low back pain 06/15/2022 Assessment & Plan (06/15/2022 6:54 AM EDT): Pt requests Lidoderm; will prescribe Encourage home back exercise everyday Judicious use of APAP (pt is receiving opioids from her oncologist) Hypothyroidism 03/11/2022 Assessment & Plan (04/25/2024 1:43 PM EST): Reviewing her record, it is documented that it was due to chemotherapy Current thyroid replacement: levothyroxine 150 mcg daily 08/11/23 TSH 0.58 Periodic lab and adjust accordingly Assessment & Plan (01/26/2024 12:29 PM EST): Reviewing her record, it is documented that it was due to chemotherapy Current thyroid replacement: levothyroxine 150 mcg daily 08/11/23 TSH 0.58 Periodic lab and adjust accordingly Assessment & Plan (07/14/2023 12:09 PM EDT): Reviewing her record, it is documented that it was due to chemotherapy Current thyroid replacement: levothyroxine 150 mcg daily 09/02/22 TSH 3.34 Periodic lab and adjust accordingly -patient has gained weight and her glycemic control is worsening, will check labs Assessment & Plan (04/12/2023 12:35 PM EST): Reviewing her record, it is documented that it was due to chemotherapy Current thyroid replacement: levothyroxine 150 mcg daily 09/02/22 TSH 3.34 Periodic lab and adjust accordingly Assessment & Plan (12/29/2022 6:05 PM EDT): Reviewing her record, it is documented that it was due to chemotherapy Current thyroid replacement: levothyroxine 150 mcg daily 09/02/22 TSH 3.34 Periodic lab and adjust accordingly Assessment & Plan (09/02/2022 4:45 PM EDT): Reviewing her record, it is documented that it was due to chemotherapy Current thyroid replacement: levothyroxine 150 mcg daily Last TSH 0.68 on 08/07/21 Periodic lab and adjust accordingly Assessment & Plan (06/10/2022 2:16 PM EDT): Reviewing her record, it is documented that it was due to chemotherapy Current thyroid replacement: levothyroxine 150 mcg daily Last TSH 0.68 on 08/07/21 Periodic lab and adjust accordingly Assessment & Plan (03/11/2022 2:26 PM EST): Reviewing her record, it is documented that it was due to chemotherapy Current thyroid replacement: levothyroxine 150 mcg daily Last TSH 0.68 on 08/07/21 Periodic lab and adjust accordingly Type 2 diabetes mellitus 03/11/2022 Assessment & Plan (04/25/2024 2:12 PM EST): -A1C 6.4% on 01/26/24. No recent knee steroid injection. -A1C 6.6% on 04/25/24 -Current medication: metformin 500 mg daily, empagliflozin 10 mg daily -Continue SMBG and working on lifestyle modifications -Microalbumin test: 07/23/23 UACR 31.9 -Lipid profile: 07/14/23 TC 167; TG 178; HDL 50; LDL 82 -Comprehensive foot exam: 07/23/21 onychomycosis and decreased sensation; following with barley steeper -Diabetic Dilated Eye Exam: 05/19/23 at [facility] No diabetic retinopathy, age-related cataract, presbyopia, dry eye Assessment & Plan (01/26/2024 10:39 AM EST): -A1C 6.4% on 01/26/24. No recent knee steroid injection. -Current medication: metformin 500 mg daily, empagliflozin 10 mg daily -Continue SMBG and working on lifestyle modifications -Microalbumin test: 07/23/23 UACR 31.9 -Lipid profile: 07/14/23 TC 167; TG 178; HDL 50; LDL 82 -Comprehensive foot exam: 07/23/21 onychomycosis and decreased sensation; following with barley steeper -Diabetic Dilated Eye Exam: 05/19/23 at [facility] No diabetic retinopathy, age-related cataract, presbyopia, dry eye Assessment & Plan (07/19/2023 6:24 PM EDT): -A1C 7.2% on 07/14/23, increased from 6.8%. She has gained weight. No recent knee steroid injection. -Current medication: metformin 500 mg daily, will consider intensifying medication if worsening glycemic control -Continue SMBG and working on lifestyle modifications -Microalbumin test: 08/07/21 UACR 29 -Lipid profile: 09/02/22 TC 190; TG 273; HDL 41; LDL 110 -Comprehensive foot exam: 07/23/21 onychomycosis and decreased sensation; following with barley steeper -Diabetic Dilated Eye Exam: 05/19/23 at [facility] No diabetic retinopathy, age-related cataract, presbyopia, dry eye Assessment & Plan (04/12/2023 12:37 PM EST): -A1C 6.5% on 09/02/22, stable from 6.5% on 03/11/22 -Current medication: metformin 500 mg daily -Continue SMBG and working on lifestyle modifications -Microalbumin test: 08/07/21 UACR 29 -Lipid profile: 09/02/22 TC 190; TG 273; HDL 41; LDL 110 -Comprehensive foot exam: 07/23/21 onychomycosis and decreased sensation; following with barley steeper -Diabetic Dilated Eye Exam: 04/22/22 at [facility] No diabetic retinopathy, age-related cataract, presbyopia, dry eye Assessment & Plan (12/29/2022 6:04 PM EDT): -A1C 6.5% on 09/02/22, stable from 6.5% on 03/11/22 -Current medication: metformin 500 mg daily -Continue SMBG and working on lifestyle modifications -Microalbumin test: 08/07/21 UACR 29 -Lipid profile: 09/02/22 TC 190; TG 273; HDL 41; LDL 110 -Comprehensive foot exam: 07/23/21 onychomycosis and decreased sensation; following with barley steeper -Diabetic Dilated Eye Exam: 04/22/22 at [facility] No diabetic retinopathy, age-related cataract, presbyopia, dry eye Assessment & Plan (09/02/2022 4:47 PM EDT): -A1C 6.5% on 09/02/22, stable from 6.5% on 03/11/22 -Current medication: metformin 500 mg daily -Continue SMBG and working on lifestyle modifications -Microalbumin test: 08/07/21 UACR 29 -Lipid profile: 08/07/21 TC 185; TG 100; HDL 48; LDL 116 -Comprehensive foot exam: 07/23/21 onychomycosis and decreased sensation; following with barley steeper -Diabetic Dilated Eye Exam: 04/22/22 at [facility] No diabetic retinopathy, age-related cataract, presbyopia, dry eye Assessment & Plan (06/15/2022 6:47 AM EDT): -A1C 6.5% on 03/11/22, stable from 6.4% on 11/05/21 -Current medication: metformin 500 mg daily -Continue SMBG and working on lifestyle modifications -Microalbumin test: 08/07/21 UACR 29 -Lipid profile: 08/07/21 TC 185; TG 100; HDL 48; LDL 116 -Comprehensive foot exam: 07/23/21 onychomycosis and decreased sensation; referred to barley steeper -Diabetic Dilated Eye Exam: 04/22/22 at [facility] No diabetic retinopathy, age-related cataract, presbyopia, dry eye Assessment & Plan (03/11/2022 2:17 PM EST): -A1C 6.5% today 03/11/22, stable from 6.4% on 11/05/21 -Current medication: metformin 500 mg daily -Continue SMBG and working on lifestyle modifications -Microalbumin test: 08/07/21 UACR 29 -Lipid profile: 08/07/21 TC 185; TG 100; HDL 48; LDL 116 -Comprehensive foot exam: 07/23/21 onychomycosis and decreased sensation; referred to barley steeper -Diabetic Dilated Eye Exam: 04/27/20 at [facility]; early cataract; requested an appt with [facility] eye care. Chronic rhinosinusitis 03/11/2022 Assessment & Plan (06/15/2022 6:50 AM EDT): Following with ENT, Dr. Brandon Rod, last seen on 06/04/[address] scan available from Dec 2021 shows extensive sinus disease Continue loratadine and fluticasone nasal Consider adding montelukast Recently had CT scan; will request result and call pt about the result Assessment & Plan (03/11/2022 2:24 PM EST): Recent CT scan showed sinus disease Continue omeprazole Follow up with ENT as scheduled Rectocele 09/03/2020 Overview (03/11/2022): Last Assessment & Plan: Likely cause of pelvic pressure. Reviewed options for pelvic organ prolapse including observation, as long as not having difficulty emptying or significant discomfort, pessary fitting, vs surgical intervention. Given she is minimally symptomatic and has no difficulty emptying bladder, she desires to observe for now, but will call if she desires pessary fitting in the future. Generalized anxiety disorder 04/06/2019 Assessment & Plan (07/14/2023 12:12 PM EDT): - patient spoke with behavioral health clinician 07/08/23, patient declined service because she is unable to attend in-person visit, she is willing to have televisit -will request telephone therapy session Hernia of anterior abdominal wall 10/06/2018 Gastroesophageal reflux disease with esophagitis 2018 Diabetic autonomic neuropath y associated with type 2 diabetes mellitus 07/08/2017 Assessment & Plan (06/10/2022 2:18 PM EDT): Seen by barley steeper Diligent foot care Assessment & Plan (03/11/2022 2:16 PM EST): Seen by barley steeper [facility] foot care Transaminitis 05/20/2017 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 Patient did not keep appointment. - will request all the medical records from her previous direct marketing intern and refer her back to gynecology teacher-onc. Assessment & Plan (01/26/2024 12:28 PM EST): - previously referred to gynecology teacher-onc at [facility]. Patient did not keep appointment. - will request all the medical records from her previous direct marketing intern and refer her back to gynecology teacher-onc. Renal cell carcinoma of right kidney 09/06/2016 Overview (07/19/2023): >>OVERVIEW FOR RENAL CELL CANCER (CMS/HCC) WRITTEN ON 03/11/2022 5:22 AM BY DEEDEE ARTHUR MD Last Assessment & Plan: No evidence of recurrent [employer] Actor metastatic disease. Will return to Dr. Fleming for follow up imaging and treatment as planned. Assessment & Plan (04/25/2024 1:42 PM EST): Dx 2014 Oncologist: Dr. 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 Fleming Pt is receiving oxycodone [address] Fleming Assessment & Plan (01/26/2024 10:36 AM EST): Dx 2014 Oncologist: Dr. 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 Fleming Pt is receiving oxycodone [address] Fleming Assessment & Plan (07/19/2023 6:13 PM EDT): >>ASSESSMENT AND PLAN FOR RENAL CELL CANCER (CMS/HCC) WRITTEN ON 09/02/2022 4:46 PM BY SISSY ROA Dx 2013 Oncologist: Dr. 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 Fleming Pt is receiving oxycodone [address] Fleming Assessment & Plan (07/14/2023 11:52 AM EDT): Dx 2013 Oncologist: Dr. 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 Fleming Pt is receiving oxycodone [address] Fleming Assessment & Plan (07/19/2023 6:13 PM EDT): >>ASSESSMENT AND PLAN FOR RENAL CELL CARCINOMA OF RIGHT KIDNEY (CMS/HCC) WRITTEN ON 04/12/2023 12:34 PM BY DEEDEE ARTHUR MD Dx 2013 Oncologist: Dr. 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 Fleming Pt is receiving oxycodone [address] Fleming >>ASSESSMENT AND PLAN FOR RENAL CELL CANCER (CMS/HCC) WRITTEN ON 04/12/2023 12:34 PM BY DEEDEE ARTHUR MD Dx 2013 Oncologist: Dr. 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 Fleming Pt is receiving oxycodone [address] Fleming Assessment & Plan (12/29/2022 6:01 PM EDT): Dx 2013 Oncologist: Dr. 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 Fleming Pt is receiving oxycodone [address] Fleming Assessment & Plan (07/19/2023 6:13 PM EDT): >>ASSESSMENT AND PLAN FOR RENAL CELL CARCINOMA OF RIGHT KIDNEY (CMS/HCC) WRITTEN ON 06/15/2022 6:43 AM BY DEEDEE ARTHUR MD Dx 2013 Oncologist: Dr. 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 Fleming Pt is receiving oxycodone [address] Fleming >>ASSESSMENT AND PLAN FOR RENAL CELL CANCER (CMS/HCC) WRITTEN ON 06/15/2022 6:45 AM BY DEEDEE ARTHUR MD Dx 2013 Oncologist: Dr. 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 Fleming Pt is receiving oxycodone [address] Fleming Assessment & Plan (03/11/2022 2:19 PM EST): Dx 2013 Oncologist: Dr. 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 Fleming Pt is receiving oxycodone [address] Fleming Metastatic renal cell carcinoma 02/21/2015 Assessment & Plan (04/25/2024 1:43 PM EST): Refer to C64.1 Assessment & Plan (01/26/2024 10:39 AM EST): Refer to C64.1 Assessment & Plan (07/19/2023 6:17 PM EDT): Refer to C64.1 Constipation 07/26/2012 Hypertension 09/04/2011 Assessment & Plan (04/25/2024 1:42 PM EST): -Goal BP < 140/90 per JNC-8, <130/80 per ACC/AHA guideline, Tx threshold 130/80 -BP not at goal today, slightly elevated on second BP check -Continue working on lifestyle modification -check home BP -continue amlodipine 10 mg daily -f/u in 3-4 months Assessment & Plan (01/26/2024 12:27 PM EST): -Goal BP < 140/90 per JNC-8, <130/80 per ACC/AHA guideline, Tx threshold 130/80 -BP not at goal today, slightly elevated on second BP check -Continue working on lifestyle modification -check home BP -continue amlodipine 10 mg daily -f/u in 3-4 months Assessment & Plan (07/14/2023 11:51 AM EDT): -Goal BP < 140/90 per JNC-8, <130/80 per ACC/AHA guideline, Tx threshold 130/80 -Continue working on lifestyle modification -check home BP -continue amlodipine 10 mg daily -f/u in 3-4 months Assessment & Plan (04/12/2023 12:32 PM EST): -Goal BP < 140/90 per JNC-8, <130/80 per ACC/AHA guideline, Tx threshold 130/80 -Continue working on lifestyle modification -check home BP -continue amlodipine 10 mg daily -f/u in 3-4 months Assessment & Plan (12/29/2022 6:00 PM EDT): -Goal BP < 140/90 per JNC-8, <130/80 per ACC/AHA guideline, Tx threshold 130/80 -Continue working on lifestyle modification -check home BP -continue amlodipine 10 mg daily -f/u in 3-4 months Assessment & Plan (09/02/2022 4:45 PM EDT): -Goal BP < 140/90 per JNC-8, <130/80 per ACC/AHA guideline, Tx threshold 130/80 -Continue working on lifestyle modification -check home BP -continue amlodipine 10 mg daily -f/u in 3-4 months Assessment & Plan (06/10/2022 2:16 PM EDT): -Goal BP < 140/90 per JNC-8, <130/80 per ACC/AHA guideline, Tx threshold 130/80 -Continue working on lifestyle modification -check home BP -continue amlodipine 10 mg daily -f/u in 3-4 months Assessment & Plan (03/11/2022 2:23 PM EST): -Goal BP < 140/90 per JNC-8, <130/80 per ACC/AHA guideline, Tx threshold 130/80 -Continue working on lifestyle modification -check home BP -continue amlodipine 10 mg daily -f/u in 3-4 months Morbid obesity 09/04/2011 Assessment & Plan (01/26/2024 10:37 AM EST): -Continue working on lifestyle modifications -Consider GLP-1 RA Assessment & Plan (07/19/2023 6:16 PM EDT): -Continue working on lifestyle modifications -Consider GLP-1 RA Assessment & Plan (06/10/2022 2:15 PM EDT): -Continue working on lifestyle modifications Assessment & Plan (03/16/2022 6:03 AM EST): -Continue working on lifestyle modifications Resolved Problems Problem Noted Date Diagnosed Date Resolved Date Gastroesophageal reflux dise ase without esophagitis 03/11/2022 06/15/2022 Acute post-traumatic headach e, not intractable 02/05/2022 03/11/2022 Acute renal failure 06/02/2018 06/16/19 23 Cholecystitis, chronic 04/08/201707/18 Calculus of gallbladder with out cholecystitis without obstruction 02/25/2017 07/19/2023 Anemia due to antineoplastic chemotherapy 11/18/2016 12/23/2022 Malignant neoplasm metastatic to liver 11/18/2016 06/15/2022 Malignant neoplasm metastatic to lung 11/18/2016 06/15/2022 Anemia of chronic disease 12/19/2015 Encounters Date Type Department Care Team Description 04/25/2024 1:15 PM EST Office Visit [address] [address] Deedee Arthur MD 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); Primary hypertension; Renal cell carcinoma of right kidney ([facility]); 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[facility]); Type 2 diabetes mellitus with diabetic polyneuropathy, without long-term current use of insulin ([facility]); Hypothyroidism due to medication; 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 ([facility]); Dyslipidemia; Depression, unspecified depression type; Onychomycosis; Gastroesophageal reflux disease with esophagitis, unspecified whether hemorrhage; Dietary counseling; Exercise counseling; Class 3 severe obesity due to excess calories with serious comorbidity and body mass index (BMI) of 45.0 to 49.9 in adult ([facility]) 04/25/2024 Travel 04/21/2024 Telephone [facility] [address] [place] [phone] Kristal Hurst MA chart prep 04/12/2024 Patient Outreach [facility] [address] [place] [phone] Deedee Arthur MD Pre-visit Planning (Pre-visit planning - LVM ) 04/11/2024 Refill [facility] [address] [place] [phone] Daniel Clancy, PharmD Type 2 diabetes mellitus with diabetic polyneuropathy, without long-term current use of insulin ([facility]) 03/21/2024 Telephone [facility] [address] [place] [phone] Deedee Arthur MD 03/15/2024 Refill [facility] [address] [place] [address] Deedee Arthur MD Hypothyroidism due to medication; Primary hypertension 03/14/2024 Refill [facility] [address] [place] [address] Deedee Arthur MD 03/09/2024 10:00 AM EST Telemedicine [facility] [address] [place] [phone] Daniel Clancy, PharmD Primary hypertension (Primary Dx); Type 2 diabetes mellitus with diabetic polyneuropathy, without long-term current use of insulin ([facility]) 02/15/2024 Refill [facility] [address] [place] [address] Deedee Arthur MD 02/11/2024 Refill [facility] [address] [place] [address] Deedee Arthur MD 02/01/2024 Abstract [facility] [address] [place] [address] Kristal Hurst MA 01/26/2024 10:30 AM EST Office Visit [facility] [address] [place] [address] Deedee Arthur MD 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); Type 2 diabetes mellitus with diabetic polyneuropathy, without long-term current use of insulin (CMS/HCC); Hypothyroidism due to medication; 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 (CMS/HCC); Morbid obesity (CMS/HCC); Primary hypertension; Renal cell carcinoma of right kidney (CMS/HCC); Palpitation; Fatigue, unspecified type; Sleep disturbance; Transaminitis; 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 shavonne fied surface antigen) 12/06/2012,12/01/2011 Influenza, seasonal, injecta ble, preservative free 12/16/2023 Rosa SARS-CoV-2 Vaccination 06/06/2020 MMR 05/30/2011 Pfizer Covid-19 Vaccine 12+ 12/16/2023,1 ,07/31/2021,03/13 Pfizer Covid-19 Vaccine 12+ Bivalent 03/11/2022 Pfizer Covid-19 Vaccine 12+ medina-sucrose (Rod Cap) 07/31/2021 Pneumococcal Conjugate PCV 20 09/14/2023 Pneumococcal Polysaccharide PPSV23 03/06/2014 RSV Bivalent 09/02/2023 Tdap 09/14/2023,05/30/2011 Zoster, Recombinant 11/11/2023,09/02/2023 Family History Medical History Relation Name Comments Cataracts Mother Glaucoma Mother Relation Name Status Comments Mother Social History Tobacco Use Types Packs/Day Years Used Date Smoking Tobacco: Never Tobacco Cessation:Counseling Given: Not Answered Alcohol Answer Date Recorded How often do you have a drink containing alcohol ? 0 03/11/2022 How many drinks containing a lcohol do you have on a typical day when you are drinking? 0 03/11/2022 How often do you have six or more drinks on one occasion? 0 03/11/2022 Depression Answer Date Recorded Patient Health Questionnaire-9 Score 13 04/25/2024 Patient Health Questionnaire-9 Score 13 04/25/2024 Last PHQ-9: Questionnaire Data Not on file 0 04/25/2024 Housing Stability Answer Date Recorded What is [...] Answer Date Recorded Patient Health Questionnaire-2 Score 6 04/25/2024 Comments No Sex and Gender Information Value Date Recorded Sex Assigned at Female 01/20/2022 10:20 AM EDT Legal Sex Female 10:20 AM EDT Gender Identity Choose not to disclose 10:20 AM EDT Sexual Orientation Choose not to disclose 2021 10:20 AM EDT Last Filed Vital Signs Vital Sign Reading Time Taken Comments Blood Pressure 131/82 04/25/2024 1:43 PM EST Pulse 90 04/25/2024 1:43 PM EST Temperature 35.6 ??C (96 ??F) 04/25/2024 1:43 PM EST Respiratory Rate 22 04/25/2024 1:43 PM EST Oxygen Saturation 99% 04/25/2024 1:43 PM EST Inhaled Oxygen Concentration - - Weight 107 kg (235 lb) 04/25/2024 1:43 PM EST Height 152.9 cm (5' 0.19 ) 04/25/2024 1:43 PM ES T Body Mass Index 45.61 04/25/2024 1:43 PM EST Plan of Treatment Upcoming Encounters Date Type Department Care Team (Late st Contact Info) Description 06/15/2024 10:00 AM EDT Medication Management [facility] [address] [place] [phone] Daniel Clancy, PharmD [address] [place] [address] Health Maintenance Due Date Last Done Comments CT Colonography 1962 FIT DNA/Cologuard 1962 FIT 1962 FOBT 1960 Sigmoidoscopy 1960 Derm Melanoma Skin Check 1960 SDOH Screening 05/04/2024 05/04/2023 Lipid Panel 07/13/2024 07/14/2023, 08/21, 08/07/2021, Additional history exists Diabetes: Urine Protein Screening 07/22/2024 07/23/2023, 08/07/2021, 04/11/2020 Depression Monitoring (PHQ-9) 10/23/2024 04/25/2024, 04/25/2024 Diabetes: Hemoglobin A1C 10/23/2024 025, 01/26/2024, 10/14/2023, Additional history exists Alcohol/Substance Use Screening 04/25/2025 04/25/2024 Depression Screening 04/25/2025 04/25/2024, 04/25/19 Diabetes: Foot Exam 04/25/2025 04/25/2024, 04/07/2023, 04/07/2023, Additional history exists Tobacco Screening 04/25/2025 04/25/2024 Eye Exam 05/19/2025 05/19/2023, 04/24, 05/19/2023, Additional history exists Mammogram 06/02/2025 06/03/2023, 04/24, 05/13/2022, Additional history exists Cervical Cancer Screening 08/31/2025 HPV/Cotest 08/31/2025 08/31/2020 Pap Smear 08/31/2025 08/31/2020 DTaP/Tdap/Td Vaccines (3 - Td or Tdap) 09/13/2033 09/14/2023, 05/30/2011 Colonoscopy 11/13/2033 11/14/2023 Colorectal Cancer Screening 11/13/2033 Hepatitis A Vaccines Completed 12/01/2011, 04/17/19 HIV Screening Completed 08/15/2020 Hepatitis C Screening Completed 08/15/2020 RSV Patients and Patients Aged 60 years or older Completed 09/02/2023 Hepatitis B Vaccines Completed 09/14/2023, 05/30/2011, 05/22/2011, Additional history exists Pneumococcal Vaccine: 50+ Years Completed 09/14/2023, 03/06/2014 Zoster Vaccines Completed 11/11/2023, [...] patient's age to complete this topic Meningococcal Vaccine Aged Out No jamie natalya eligible based on patient's age to complete this topic RSV under 20 months Aged Out No longe r eligible based on patient's age to complete this topic Rotavirus Vaccines Aged Out No longer eligible based on patient's age to complete this topic Goals Goal Patient Goal Type Associated Problems Recent Progress Patient-Stated? Author Blood Pressure < 140/90 Blood Pressure 131/82(2024 1:43 PM EST) Benito Kilpatrick Hemoglobin A1c < 7 Result Component 6.6( 1:46 PM EST) No Benito Padron Procedures Procedure Name Priority Date/Time Associated Diagnosis Comments POCT GLUCOSE Routine 04/25/2024 2:13 PM EST Type 2 diabetes mellitus with diabetic polyneuropathy, without long-term current use of insulin (CMS/HCC) POCT GLYCOSYLATED HEMOGLOBIN (HGB A1C) Routine 04/25/2024 1:46 PM EST Type 2 diabetes mellitus with diabetic polyneuropathy, without long-term current use of insulin (CMS/HCC) US PELVIS TRANSVAGINAL Urgent 4 12:53 PM EST 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CMS/HCC) Pelvic pain POCT GLYCATED HEMOGLOBIN, TOTAL Routine 01/26/2024 10:27 AM EST Type 2 diabetes mellitus with diabetic polyneuropathy, without long-term current use of insulin (CMS/HCC) POCT GLUCOSE Routine 01/26/2024 10:26 AM EST Type 2 diabetes mellitus with diabetic polyneuropathy, without long-term current use of insulin (CMS/HCC) HM COLONOSCOPY Routine 11/14/2023 ALBUMIN, RANDOM URINE W/CREATININE Routine 07/23/2023 11:18 AM EDT Type 2 diabetes mellitus with diabetic polyneuropathy, without long-term current use of insulin (CMS/HCC) LIPID PANEL WITH REFLEX TO DIRECT LDL Routine 07/14/2023 12:26 PM EDT Type 2 diabetes mellitus with diabetic polyneuropathy, without long-term current use of insulin (CMS/HCC) BI MAMMOGRAM SCREENING TOMOSYNTHESIS BILATERAL Routine 06/03/2023 11:20 AM EDT HM PAP/HPV Routine 08/31/2020 ZZZ HISTORICAL HEPATITIS C AB W/REFL TO HCV RNA, QN, PCR Routine 08/15/2020 3:03 PM EDT HIV 1/2 ANTIGEN/ANTIBODY, FOURTH GENERATION W/RFL Routine 08/15/2020 3:03 PM EDT from Last 3 Months or Most Recently Relevant to Health Maintenance Results * (ABNORMAL) POCT glucose manually resulted (04/25/2024 2:13 PM EST) Only the most recent of2 resultswithin the time period is included. Glucose Blood, POC 156(A) 60 - 200 mg/dL QC Media Lot # [id number] Lot# Expiration Date Blood Capillary blood specimen / Unknown 04/25/2024 2:13 PM EST us Deedee Arthur MD POINT OF CARE TEST ENTER/EDIT OR DERABLES Final Result * (ABNORMAL) POCT glycosylated hemoglobin (Hgb A1c) (04/25/2024 1:46 PM EST) Hemoglobin A1C 6.6(A) 4.0 - 6.0 % QC Media Lot # [id number] Lot# Expiration Date [id number] Blood Capillary blood specimen / Unknown 04/25/2024 1:46 PM EST us Deedee Arthur MD POINT OF CARE TEST ENTER/EDIT OR DERABLES Final Result * US Pelvis Transvaginal (02/09/2024 12:53 PM EST) Anatomical Region Laterality Modality Pelvis Ultrasound 02/09/2024 12:5 3 PM EST Narrative 04/08/2024 11:38 AM EST ? [facility] ?[address] ?[place] [address] ? Ultrasound Report ? Signed ? Patient: Douglas,Vanessa ?MR#: [id number] ?? 2 ? : 1960 ?Acct:[id number] ? Age/Sex: 63 / F ?ADM Date: 02/09/24 ? Loc: HO.US ? Attending Dr: Deedee Arthur MD ? Ordering Physician: Deedee Arthur MD ?? Date of Service: 02/09/24 ?? Procedure(s): US pelvic and transvaginal ?? Accession Number(s): [id number] ? cc: Deedee Arthur MD ? EXAMINATION: ? US PELVIS ? CLINICAL INFORMATION: ? History of renal cancer with metastasis. ? COMPARISON: ?? None available. ? TECHNIQUE: ?? Ultrasound of the pelvis is performed using both transabdominal and ?? transvaginal transducers along with Doppler. Transvaginal imaging is ?? performed due to inadequate visualization transabdominally. ? FINDINGS: ?? Uterus: ?? The uterus is anteverted, anteflexed and measures 1.2 x 2.4 x 3.9 cm. ? The double wall endometrial thickness is 0.4 cm. ? The uterus is smooth in contour and has normal myometrial echogenicity. ?No visible fibroid. There are small nabothian cyst and trace free ?? fluid seen in the cervix. ? Adnexa: ?? Both ovaries are not visualized. ? There is no free fluid in the cul-de-sac ? US/US pelvic and transvaginal ?? IMPRESSION: ?? Unremarkable uterus. ? Nabothian cysts in the cervix with trace free fluid in cervix as well. ? Electronically signed by: ??Jonatan Cruz MD ??04/08/2024 11:35 AM EST RP ? Dictated By: ?Nancy,Jonatan S MD ? Signed By: ?<Electronically signed by Jonatan S Nancy MD in OV> ?04/08/24 1135 ? DD/ 1253 ? TD/TT: 02/08/ 1302 ? Building Attendant: MSM ? Procedure Note Donotuseinterpreter, Image - 04/08/[address] [address] Ultrasound Report Signed Patient: Mariella Douglas#: [id number] 2 : 1960Acct:[id number] Age/Sex: 63 / FADM Date: 02/09/24 Loc: HO.US Attending Dr: Deedee Arthur MD Ordering Physician: Deedee Arthur MD Date of Service: 02/09/24 Procedure(s): US pelvic and transvaginal Accession Number(s): [id number] cc: Deedee Arthur MD EXAMINATION: US PELVIS CLINICAL INFORMATION: History of renal cancer with metastasis. COMPARISON: None available. TECHNIQUE: Ultrasound of the pelvis is performed using both transabdominal and transvaginal transducers along with Doppler. Transvaginal imaging is performed due to inadequate visualization transabdominally. FINDINGS: Uterus: The uterus is anteverted, anteflexed and measures 1.2 x 2.4 x 3.9 cm. The double wall endometrial thickness is 0.4 cm. The uterus is smooth in contour and has normal myometrial echogenicity. No visible fibroid. There are small nabothian cyst and trace free fluid seen in the cervix. Adnexa: Both ovaries are not visualized. There is no free fluid in the cul-de-sac US/US pelvic and transvaginal IMPRESSION: Unremarkable uterus. Nabothian cysts in the cervix with trace free fluid in cervix as well. Electronically signed by: Jonatan Cruz MD 04/08/2024 11:35 AM EST Dictated By: Jonatan Cruz MD Signed By: <Electronically signed by Jonatan Cruz MD in OV> 04/08/24 1135 DD/ 1253 TD/TT: 02/09/24 1302 Building Attendant: RAHEEM us Deedee Arthur MD IMG US PROCEDURES Edited Result - Final * (ABNORMAL) POCT HGB A1C (01/26/2024 10:27 AM EST) Hemoglobin A1C 6.4(A) 4.0 - 6.0 % QC Media Lot # [id number] Lot# Expiration Date Blood 01/26/2024 10:2 7 AM EST Deedee Arthur MD POINT OF CARE TEST ENTER/EDIT OR DERABLES Final Result * Hm Colonoscopy (11/14/2023) Colonoscopy Normal Normal Minerva Henderson MD HEALTH MAINTENANCE Final Result * (ABNORMAL) Albumin, Random Urine W/Creatinine (07/23/2023 11:18 AM EDT) Creatinine, Urine 62.51 mg/dL [facility] Microalbumin Urine 20.0 mg/L [facility] Microalbum Creatinine Ratio Ur 31.9(H) <30 ug/mg cr [facility] Comment:Albumin/Creatinine R atio Reference Ranges: Normal: < 30 ug/mg creatinine Microalbuminuria: 30 - 300 ug/mg creatinineClinical Albuminuria: > 300 ug/mg creatinine Urine 07/23/2023 11:1 8 AM EDT 07/23/2023 12:59 PM EDT Deedee Arthur MD LAB URINE ORDERABLES Final Resul t [facility] [address] [place] [phone] * (ABNORMAL) Lipid Panel with Reflex to Direct LDL (07/14/2023 12:26 PM EDT) Triglycerides 178(H) <150 mg/dL [facility] Comment:Desirable Triglyceri de: less than 150 mg/dLBorderline High Triglyceride 150-199 mg/dLHigh Triglyceride: 200-499 mg/dLVery High Triglyceride: greater than or equal to 5OO mg/dL Cholesterol 167 <200 mg/dL [facility] Comment:Desirable Cholestero l: less than 200 mg/dLBorderline High Cholesterol: 200-239 mg/dLHigh Cholesterol: greater than 239 mg/dL LDL Cholesterol Calculated 82 <100 mg/dL [facility] Comment:Desirable LDL: less than 100 mg/dLNear Optimal/Above Optimal LDL: 110- 129 mg/dLBorderline High LDL: 130-159 mg/dLHigh LDL: 160-189 mg/dLVery High LDL: greater than or equal to 190 mg/dL HDL Cholesterol 50 >40 mg/dL [facility] Comment:Desirable HDL: great er than 40 mg/dL Note: This HDL assay may give artificially low results in patients with liver disease. Blood 07/14/2023 12:2 6 PM EDT 07/14/2023 1:10 PM EDT us Deedee Arthur MD LAB BLOOD ORDERABLES Final Resul t [facility] [address] [place] [address] [phone] * BI Mammogram Screening Tomosynthesis Bilateral (06/03/2023 11:20 AM EDT) Anatomical Region Laterality Modality Breast Bilateral Mammography 06/03/2023 11:2 0 AM EDT Narrative 06/08/2023 5:56 AM EDT ? [facility] ? [address] ?[place] [address] ? Mammography Report ? Signed ? Patient: Douglas,Vanessa ?MR#: [id number] ?? 2 ? : 1960 ?Acct:[id number] ? Age/Sex: 62 / F ?ADM Date: 03/13/24 ? Loc: HO.MAMMO ? Attending Dr: Deedee Arthur MD ? Ordering Physician: Deedee Arthur MD ?Results: 1Negative ? Date of Service: 06/03/23 ?Follow Up: 1 Year From Orig ?? inal Mammogram ? Procedure(s): MM tomosynthesis screening BI ?? Accession Number(s): [id number] ? cc: Deedee Arthur MD ? EXAMINATION: ?? MM SCREENING DIGITAL BREAST TOMOSYNTHESIS, BILATERAL ? CLINICAL INFORMATION: ? Screening. Asymptomatic. ? COMPARISON: ?? Mammography: This study is compared with prior exams dating back to ?? 2017. ? TECHNIQUE: ?? Digital breast tomosynthesis is performed in both the craniocaudal and ?? mediolateral oblique views along with computer-aided detection (CAD). ?? Synthesized 2D images are generated from the tomosynthesis. ? FINDINGS: ?? There are scattered areas of fibroglandular density (ACR BI-RADS breast ?? composition Category b). ? There are no significant masses, abnormal calcifications, or other ?? abnormalities. ? MM/MM tomosynthesis screening BI ?? IMPRESSION: ?? No mammographic evidence of malignancy. ? ASSESSMENT: ? BI-RADS BI-RADS 1 - Negative ? RECOMMENDATION: ?? Routine annual mammography screening. ? 1 year F/U ? This examination should not preclude the clinical evaluation of a ?? suspicious palpable abnormality. ? This patient's information was entered into a reminder system with a ?? target due date for their next mammogram. ? Dictated By: ?Torie Kilgore MD ? Signed By: ?<Electronically signed by Torie Kilgore MD in OV> ? 06/08/23 0553 ? DD/ 1120 ? TD/TT: ? Building Attendant: ? Procedure Note Donotuseinterpreter, Image - 06/08/2023 [facility] [address] [place] [address] Mammography Report Signed Patient: Mariella Douglas#: [id number] 2 : 1960Acct:[id number] Age/Sex: 62 / FADM Date: 06/03/23 Loc: HO.MAMMO Attending Dr: Deedee Arthur MD Ordering Physician: Deedee Arthuresults: 1Negative Date of Service: 06/03/23Follow Up: 1 Year From Orig inal Mammogram Procedure(s): MM tomosynthesis screening BI Accession Number(s): [id number] cc: Deedee Arthur MD EXAMINATION: MM SCREENING DIGITAL BREAST TOMOSYNTHESIS, BILATERAL CLINICAL INFORMATION: Screening. Asymptomatic. COMPARISON: Mammography: This study is compared with prior exams dating back to 2018. TECHNIQUE: Digital breast tomosynthesis is performed in both the craniocaudal and mediolateral oblique views along with computer-aided detection (CAD). Synthesized 2D images are generated from the tomosynthesis. FINDINGS: There are scattered areas of fibroglandular density (ACR BI-RADS breast composition Category b). There are no significant masses, abnormal calcifications, or other abnormalities. MM/MM tomosynthesis screening BI IMPRESSION: No mammographic evidence of malignancy. ASSESSMENT: BI-RADS BI-RADS 1 - Negative RECOMMENDATION: Routine annual mammography screening. 1 year F/U This examination should not preclude the clinical evaluation of a suspicious palpable abnormality. This patient's information was entered into a reminder system with a target due date for their next mammogram. Dictated By: Torie Kilgore MD Signed By: <Electronically signed by Torie Kilgore MD in OV> 06/08/23 0553 DD/ 1120 TD/TT: Building Attendant: Deedee Arthur MD IMG BI PROCEDURES Final Result * Hm Pap Smear (08/31/2020) Pathologist [facility] Pap Negative for intraephithelial lesion or malignancy Negative for intraephithelial lesion or malignancy, Other HPV Undetected Undetected, Indeterminate, Quantitative, Not Detected Historical Provider MD HEALTH MAINTENANCE Final Result * HEPATITIS C AB W/REFL TO HCV RNA, QN, PCR (08/15/2020 3:03 PM EDT) Pathologist [facility] HEPATITIS C ANTIBODY NON-REACT MALVIN NON-REACT MALVIN [facility] INDEX 0.05 <1.00 [facility] Comment: ?? HCV antibody was non-reactive. There is no laboratory ?? evidence of HCV infection. ?? In most cases, no further action is required. However, if recent HCV exposure is suspected, a test for HCV RNA (test code 72331) is suggested. ?? For additional information please refer to http://education.[employer]/faq/TSX71m5 (This link is being provided for informational/ educational purposes only.) ?? 08/15/2020 3:03 PM EDT [facility] HISTORICAL/NON ORDERABLE LABS Final Result [facility] [address] * HIV 1/2 ANTIGEN/ANTIBODY,FOURTH GENERATION W/RFL (08/15/2020 3:03 PM EDT) Pathologist [facility] HIV-1/2 ANTIGEN AND ANTIBODIES, 4TH GENERATION W/ REFLEX NON-REACT MALVIN NON-REACT MALVIN [facility] Comment: HIV-1 antigen and HIV-1/HIV-2 antibodies were not detected. There is no laboratory evidence of HIV infection. ?? PLEASE NOTE: This information has been disclosed to you from records whose confidentiality may be protected by state law. ??If your state requires such protection, then the state law prohibits you from making any further disclosure of the information without the specific written consent of the person to whom it pertains, or as otherwise permitted by law. A general authorization for the release of medical or other information is NOT sufficient for this purpose. ? For additional information please refer to [email or web address]/JVH892 (This link is being provided for informational/ educational purposes only.) ? The performance of this assay has not been clinically validated in patients less than 2 years old. ?? 08/15/2020 3:03 PM EDT us [facility] [facility] [employer] LAB BLOOD ORDERABLES Final Res ult [facility] [address] from Last 3 Months or Most Recently Relevant to Health Maintenance [facility] Care Teams Radio/Tv Technician Relationship Specialty Start Date End Date Deedee Arthur MD [address] [place] [address] PCP - General Family Medicine 09/09/19 Daniel Clancy, PharmD [address] [place] [address] Pharmacist Internal Medicine 10/14/23
--- OUTSIDE RECORDS SUMMARY | 2024-04-25 15:54 | XMS_ITS | Clinical Summary ---
Author Organization Formerly [facility] Address [address] [place] [address] Care Team Providers Care Licensed Funeral Director And Embalmer Name Role Phone Unavailable Primary Care Provider Unavailabl e Social History Tobacco Use Types Packs/Day Years Used Date Smoking Tobacco: Never Assessed Sex and Gender Information Value Date Recorded Sex Assigned at Not on file Gender Identity Not on file Sexual Orientation Not on file Plan of Treatment Health Maintenance Due Date Last Done Comments Hepatitis C Virus Screening 1962 HIV Screening 06/17/1975 DTaP/Tdap/Td Vaccines (1 - Tdap) 1981 Pneumococcal Vaccines 50+ (1 of 1 - PCV) 2012 Zoster (Shingles) Vaccine (1 of 2) 2012 COVID-19 Vaccine ( - 2023-2 5 season) 2023 RSV Vaccine 60 years and old er and Patients (1 - 1-dose 75+ series) 2037 Hepatitis B Vaccines Aged Out No long er eligible based on patient's age to complete this topic Pneumococcal Vaccine: Pediat karlene (0-5 Years) and At-Risk Patients (6 to 49 Years) Aged Out No longer eligible b ased on patient's age to complete this topic
--- OUTSIDE RECORDS SUMMARY | 2024-04-25 15:54 | XMS_ITS | Encounter Summary ---
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); Type 2 diabetes mellitus with diabetic polyneuropathy, without long-term current use of insulin (CMS/HCC); Hypothyroidism due to medication; 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 (CMS/HCC); Dyslipidemia; Depression, unspecified depression type; Onychomycosis; Gastroesophageal reflux disease with esophagitis, unspecified whether hemorrhage; Dietary counseling; Exercise counseling; Class 3 severe obesity due to excess calories with serious comorbidity and body mass index (BMI) of 45.0 to 49.9 in adult (CMS/HCC) Social History Tobacco Use Types Packs/Day [...] AM EDT documented as of this encounter Last Filed Vital Signs Vital Sign Reading [...] Mass Index 45.61 04/25/2024 1:43 PM EST documented in this encounter Miscellaneous Notes * Assessment & Plan Note - Julien Delgado - 04/25/2024 1:43 PM ESTAssociated Problem(s): Metastatic renal cell carcinoma (CMS/HCC) Refer to C64.1 * Assessment & Plan Note - Julien Delgado - 04/25/2024 1:43 PM ESTAssociated Problem(s): Dyslipidemia - current medication atorvastatin 20 mg at bedtime - continue working on lifestyle modifications * Assessment & Plan Note - Julien Delgado - 04/25/2024 1:43 PM ESTAssociated Problem(s): Type 2 diabetes mellitus (CMS/HCC) -A1C 6.4% on 01/26/24. No recent knee steroid injection. -A1C 6.6% on 04/25/24 -Current medication: metformin 500 mg daily, empagliflozin 10 mg daily -Continue SMBG and working on lifestyle modifications -Microalbumin test: 07/23/23 UACR 31.9 -Lipid profile: 07/14/23 TC 167; TG 178; HDL 50; LDL 82 -Comprehensive foot exam: 07/23/21 onychomycosis and decreased sensation; following with wooden furniture polisher -Diabetic Dilated Eye Exam: 05/19/23 at [facility] No diabetic retinopathy, age-related cataract, presbyopia, dry eye * Assessment & Plan Note - Julien Delgado - 04/25/2024 1:43 PM ESTAssociated Problem(s): Hypothyroidism Reviewing her record, it is documented that it was due to chemotherapy Current thyroid replacement: levothyroxine 150 mcg daily 08/11/23 TSH 0.58 Periodic lab and adjust accordingly * Assessment & Plan Note - Julien Delgado - 04/25/2024 1:43 PM ESTAssociated Problem(s): Onychomycosis - pt was hesitant to take oral antifungal - continue topical antifungal - referred to Derm clinic[facility] * Assessment & Plan Note - Julien Delgado - 04/25/2024 1:42 PM ESTAssociated Problem(s): Renal cell carcinoma of right kidney (CMS/HCC) Dx 2014 Oncologist: Dr. 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 Fleming Pt is receiving oxycodone [address] 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 Patient did not keep appointment. - will request all the medical records from her previous mortgage processing manager and refer her back to end stapler-onc. 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 Rod [facility] on 12/03/22 - follow the treatment plan per ENT - previously on acetazolamide 250 mg bid (decreased from tid in Jan 2023), for intracranial hypertension. Patient attributed her diarrhea to acetazolamide. It was switched to topiramate. Will confirmwith ENT and neurologist for optimal treatment. - continue nasal saline irrigation in the morning - continue applying mupirocin ointment to nose - follow up with ENT as scheduled documented in this encounter Plan of Treatment Upcoming Encounters Date Type Department Care Team (Late st Contact Info) Description 06/15/2024 10:00 AM EDT Medication Management [facility] [address] [place] [address] Daniel Clancy, PharmD [address] [place] [address] Scheduled Orders Name Type Priority Associated Diagnoses Orde r Schedule Lipid Panel with Reflex to Direct LDL Lab Routine Dyslipidemia Ordered: 04/25/2024 documented as of this encounter Goals Goal Patient Goal Type Associated Problems Recent Progress Patient-Stated? Author Blood Pressure < 140/90 Blood Pressure 131/82(2024 1:43 PM EST) No Benito Padron Hemoglobin A1c < 7 Result Component 6.6( 1:46 PM EST) No Benito Padron documented as of this encounter Procedures Procedure Name Priority Date/Time Associated Diagnosis Comments POCT GLUCOSE Routine 04/25/2024 2:13 PM EST Type 2 diabetes mellitus with diabetic polyneuropathy, without long-term current use of insulin ([facility]) POCT GLYCOSYLATED HEMOGLOBIN (HGB A1C) Routine 04/25/2024 1:46 PM EST Type 2 diabetes mellitus with diabetic polyneuropathy, without long-term current use of insulin ([facility]) documented in this encounter Results * (ABNORMAL) POCT glucose manually resulted (04/25/2024 2:13 PM EST) Glucose Blood, POC 156(A) 60 - 200 mg/dL QC Media Lot # [id number] Lot# Expiration Date Blood Capillary blood specimen / Unknown 04/25/2024 2:13 PM EST Deedee Mc MD POINT OF CARE TEST ENTER/EDIT OR DERABLES Final Result * (ABNORMAL) POCT glycosylated hemoglobin (Hgb A1c) (04/25/2024 1:46 PM EST) Hemoglobin A1C 6.6(A) 4.0 - 6.0 % QC Media Lot # [id number] Lot# Expiration Date Blood Capillary blood specimen / Unknown 04/25/2024 1:46 PM EST Result [facility] Deedee Mc MD POINT OF CARE TEST ENTER/EDIT OR DERABLES Final Result documented in this encounter Visit Diagnoses Diagnosis Meningoencephalocele ([facility])- Primary Encephalocele Primary hypertension Unspecified essential hypertension Renal cell carcinoma of right kidney ([facility]) 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[facility]) Type 2 diabetes mellitus with diabetic polyneuropathy, without long-term current use of insulin ([facility]) Hypothyroidism due to medication 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 ([facility]) Dyslipidemia Other and unspecified hyperlipidemia Depression, unspecified depression type Onychomycosis Dermatophytosis of nail Gastroesophageal reflux disease with esophagitis, unspecified whether hemorrhage Dietary counseling Dietary surveillance and counseling Exercise counseling Class 3 severe obesity due to excess calories with serious comorbidity and body mass index (BMI) of 45.0 to 49.9 in adult ([facility]) documented in this encounter Additional Health Concerns Assessment Noted Time PHQ-9 Depression Total Score: 13 025 1:35 PM EST documented as of this encounter Care Teams Damage Assessor Relationship Specialty Start Date End Date Deedee Mc MD [address] [place] [address] PCP - General Family Medicine 09/09/19 Daniel Clancy, MassimoD [address] [place] [address] Pharmacist Internal Medicine 10/14/23 documented as of this encounter
--- OUTSIDE RECORDS SUMMARY | 2024-04-25 15:54 | XMS_ITS | Encounter Summary ---
Author Organization [employer] Address 75 [facility] 7t [place] [address] Care Team Providers Care Oven Stripper Name Role Phone Deedee Mc MD Primary Care Provider [phone] Daniel Clancy PharmD Unavailable [phone] Encounter Details Date Type Department Care Team (Late st Contact Info) Description 09/04/2023 Orders Only [facility] [address] [place], [place] [phone] Deedee Mc MD [address] [place], [place] [phone] Social History Tobacco Use Types Packs/Day Years [...] Description 06/15/2024 10:00 AM EDT Medication Management [facility] [address] [place] [phone] Daniel Clancy, PharmD [address] [place] [address] documented as of this encounter Goals Goal [...] documented as of this encounter Care Teams Oven Stripper Relationship Specialty Start Date End Date Deedee Mc MD [address] [place] [address] PCP - General Family Medicine 09/09/19 Daniel Clancy, PharmD [address] [place] [address] Pharmacist Internal Medicine 10/14/23 documented as of this encounter
--- OUTSIDE RECORDS SUMMARY | 2024-04-25 15:54 | XMS_ITS | Encounter Summary ---
Author Organization [facility] Address [address] [facility] 7t [place] [address] Care Team Providers Care Diesel Stationary Engineer Name Role Phone Deedee Mc MD Primary Care Provider [phone] Daniel Clancy PharmD Unavailable [phone] Encounter Details Date Type Department Care Team ([facility] Contact Info) Description 03/11/2022 Abstract [facility] [address] [place], [place] [phone] Deedee Mc MD [address] [place], [place] [phone] Social History Tobacco Use Types Packs/Day Years Used Date Smoking Tobacco: Never Assessed Alcohol Answer Date Recorded How often do [...] suspected to have Coronavirus/COVID-19? No / Unsure 03/11/2022 1:12 PM EST documented as of this encounter Plan of Treatment Upcoming Encounters Date Type Department Care Team (Late Contact Info) Description 06/15/2024 10:00 AM EDT Medication Management [facility] [address] [place] [address] Daniel Clancy, Tanika [address] [place] [address] documented as of this encounter Visit Diagnoses Not on filedocumented in this encounter Care Teams Diesel Stationary Engineer Relationship Specialty Start Date End Date Deedee Mc MD [address] [place] [address] PCP - General Family Medicine 09/09/19 Daniel Clancy, Tanika [address] [place] [address] Pharmacist Internal Medicine 10/14/23 documented as of this encounter
--- OUTSIDE RECORDS SUMMARY | 2024-04-25 15:54 | XMS_ITS | Encounter Summary ---
Author Organization [employer] Address [address] [facility] 7t [place] [address] Care Team Providers Care Coremaker Floor Name Role Phone Deedee Mc MD Primary Care Provider [phone] Daniel Clancy PharmD Unavailable [phone] Reason for Visit * Reason Onset Date Comments chart prep 04/21/2024 Encounter Details Date Type Department Care Team ([facility] st Contact Info) Description 04/21/2024 Telephone [facility] [address] [place], [place] [phone] Kristal Hurst MA chart prep Social History Tobacco Use Types Packs/Day Years [...] encounter Miscellaneous Notes * Telephone Encounter - Kristal Hurst MA - 04/21/2024 2:12 PM EST .Chart Prep Labs: not done 01/26/24 Images: done Vaccines due: Updated Referrals: Completed Screenings: Not Applicable Overdue care gaps: A1C, Glucose, Sbirt, PHQ-9, and Oral Health documented in this encounter Plan of Treatment Upcoming Encounters Date Type Department Care Team (Late st Contact Info) Description 06/15/2024 10:00 AM EDT Medication Management [facility] [address] [place] [address] Daniel Clancy, PharmD [address] [place] [address] documented as of this encounter Goals Goal [...] documented as of this encounter Care Teams Coremaker Floor Relationship Specialty Start Date End Date eDedee Mc MD [address] [place], [place] [phone] PCP - General Family Medicine 09/09/19 Daniel Clancy, Tanika [address] [place] [address] Pharmacist Internal Medicine 10/14/23 documented as of this encounter
--- OUTSIDE RECORDS SUMMARY | 2024-04-25 15:55 | XMS_ITS | Encounter Summary ---
Author Organization [employer] Address 75 [facility] 7t [place] [address] Care Team Providers Care Tumor Registrar Name Role Phone Deedee Mc MD Primary Care Provider [phone] Daniel Clancy PharmD Unavailable [phone] Encounter Details Date Type Department Care Team (Latest Contact Info) Description 04/25/2024 Travel Social History Tobacco Use Types Packs/Day Years [...] is your housing situation today? I have kunalallen arredondo 01/08/[address] you [...] Description 06/15/2024 10:00 AM EDT Medication Management [facility] [address] [place], [place] [phone] Daniel Clancy, PharmD [address] [place] [address] documented as of this encounter Goals Goal [...] documented as of this encounter Care Teams Tumor Registrar Relationship Specialty Start Date End Date Deedee Mc MD [address] [place] [address] [phone] PCP - General Family Medicine 09/09/19 Daniel Clancy, PharmD [address] [place] [address] [phone] Pharmacist Internal Medicine 10/14/23 documented as of this encounter
[2024-04-25 16:05] LABS: MANUAL DIFF FLAG NO
[2024-04-25 16:08] LABS: Basophils Percent Auto 0.5 % (0-2); Eosinophils Absolute Auto 0.1 X10*3/uL (0.0-0.4); Eosinophils Percent Auto 1.5 % (0-4); Hematocrit 46.4 % (37.0-47.0); Imm Gran Abs Auto 0.04 X10*3/uL (0.00-0.03); Imm Gran Pct Auto 0.6 % (0.0-0.4); Lymphocytes Absolute Auto 1.6 X10*3/uL (1.2-4.9); Lymphocytes Percent Auto 26.2 % (20-40); Mean Corpuscular HGB Conc 32.3 g/dl (31.0-35.0); Mean Corpuscular Hemoglobin 27.4 pg (27.0-33.0); Mean Corpuscular Volume 84.8 fL (80.0-98.0); Mean Platelet Volume 9.9 fL (9.4-12.3); Monocytes Absolute Auto 0.6 X10*3/uL (0.1-1.2); Monocytes Percent Auto 9.7 % (2-11); Neutrophils Absolute Auto 3.8 x10*3/uL (2.0-8.3); Neutrophils Percent Auto 61.5 % (45-73); Platelet Count 266 X10*3/uL (160-400); Red Blood Count 5.47 X10*6/uL (4.20-5.50); Red Cell Distribution Width 14.1 % (11.0-16.0); White Blood Count 6.2 X10*3/uL (4.8-10.8)
[2024-04-25 16:37] LABS: Alanine Aminotransferase 47 U/L (0-31); Alkaline Phosphatase 137 U/L (39-117); Anion Gap 9 (12-20); Aspartate Amino Transferase 27 U/L (5-31); Bilirubin Direct 0.1 mg/dL (0.0-0.5); Bilirubin Total 0.4 mg/dL (0.0-1.0); Blood Urea Nitrogen 13 mg/dL (9-16); Calcium 9.1 mg/dL (8.4-10.2); Carbon Dioxide 28 mmol/L (22-29); Chloride 106 mmol/L (96-108); Cholesterol 187 mg/dL (<200); Estimated Glomerular Filt Rate > 60; Glucose Random 121 mg/dL (60-115); HDL Cholesterol 43 mg/dL (>40); LDL Cholesterol Calculated 117 mg/dL (<100); Potassium 4.3 mmol/L (3.3-5.1); Sodium 139 mmol/L (135-145); Total Protein 7.4 g/dL (6.5-8.0); Triglycerides 135 mg/dL (<150)
[2024-04-25 16:48] LABS: Reflex LDLD? No
[2024-04-25 16:54] LABS: TSH reflex Free T4 0.07 uIU/mL (0.32-4.0)
== END 2024-04-25 14:15 | disposition home or self-care (01) ==
LOC: HO.HHCL 14:14
PROVIDERS: Visit Provider Family Medicine
DX: R74.01 Elevation of levels of liver transaminase levels (principal); I10 Essential (primary) hypertension; E78.5 Hyperlipidemia, unspecified; E03.2 Hypothyroidism due to medicaments and other exogenous substances; R53.83 Other fatigue
CPT/HCPCS: 36415; 80048; 80061; 80076; 84439; 84443; 85025

== ENCOUNTER 2024-06-08 11:02 | Outpatient (REF) | payer MEDICAID, SELFPAY ==
--- OUTSIDE RECORDS SUMMARY | 2024-06-08 13:20 | XMS_ITS | Encounter Summary ---
Author Organization [employer] Address 75 [facility] 7t [place] [address] Care Team Providers Care Splicer Apprentice Name Role Phone Deedee Mc MD Primary Care Provider [phone] Daniel Clancy PharmD Unavailable [phone] Encounter Details Date Type Department Care Team (Late st Contact Info) Description 04/26/2024 Orders Only [facility] [address] [place], [place] [phone] Deedee Mc MD [address] [place], [place] [phone] Social History Tobacco Use Types Packs/Day Years [...] 10:00 AM EDT Medication Management [facility] [address] [place] [address] Daniel Clancy, MassimoD [address] [place] [address] documented as of this encounter Goals Goal [...] documented as of this encounter Care Teams Splicer Apprentice Relationship Specialty Start Date End Date Deedee Mc MD [address] [place] [address] [phone] PCP - General Family Medicine 09/09/19 Daniel Clancy, PharmD [address] [place] [address] [phone] Pharmacist Internal Medicine 10/14/23 documented as of this encounter
--- OUTSIDE RECORDS SUMMARY | 2024-06-08 13:20 | XMS_ITS | Encounter Summary ---
Author Organization [facility] Address [address] [place] [address] Care Team Providers Care Ice Cream Server Name Role Phone Yunier Sprague MD Primary Care [facility] Encounter Details Date Type Department Care Team (Late st Contact Info) Description 05/11/2024 Telephone [facility] Hematology Oncology [address] [place] [phone] Braeden Galarza MD [address] [place] [phone] Social History Tobacco Use Types Packs/Day Years Used Date Smoking Tobacco: Never Smokeless Tobacco: Never Alcohol Use Standard Drinks/Week Comments No 0 (1 standard drink = 0.6 oz pur e alcohol) Comments Unknown Sex and Gender Information Value Date Recorded Sex Assigned at Female 05/24/2024 8:35 AM EST Legal Sex Female 2:19 AM EST Gender Identity Female 05/24/2024 8:35 AM EST Sexual Orientation Straight 05/24/2024 8: 35 AM EST documented as of this encounter Progress Notes * Shari Solis MA - 05/11/2024 12:15 PM EST Patient was contacted regarding results (Irma spoke to pt - pt ukrainian speaking) I faxed note to PCP Deedee Mc with test results. * Irma Jo MA - 05/11/2024 12:10 PM EST Patient advised. * Braeden Galarza MD - 05/11/2024 7:02 AM EST TSH quite low at 0.05 Will need dose reduction of levothyroixine Ask pt to take half tablet ( currently listed 100 mcg) - she can take 50 mcg daily And follow up with PCP Fax results to PCP with this note documented in this encounter Plan of Treatment Upcoming Encounters Date Type Department Care Team (Late st Contact Info) Description 06/28/2024 11:15 AM EDT Appointment [facility] CT Scan [address] [place] [address] 08/02/2024 11:15 AM EDT Office Visit [facility] Hematology Oncology [address] [place] [address] Braeden Galarza MD [address] [place] [address] documented as of this encounter Visit Diagnoses Not on filedocumented in this encounter Care Teams Ice Cream Server Relationship Specialty Start Date End Date Yunier Sprague MD [address] [place] [address] [place] [address] PCP - General Internal Medicine 12/05/13 documented as of this encounter
--- OUTSIDE RECORDS SUMMARY | 2024-06-08 13:20 | XMS_ITS | Encounter Summary ---
Author Organization [facility] Address [address] [place] [address] Care Team Providers Care Teleservices Representative Name Role Phone Yunier Sprague MD Primary Care [facility] Encounter Details Date Type Department Care Team (Late st Contact Info) Description 05/23/2024 Telephone [facility] Hematology Oncology [address] [place] [phone] Irma Jo MA Social History Tobacco Use Types Packs/Day Years [...] as of this encounter Progress Notes * Irma Jo MA - 05/23/2024 2:39 PM EST Patient prefers a Thursday afternoon for ct scan appt. documented in this encounter Plan of Treatment Upcoming Encounters Date Type Department Care Team (Late st Contact Info) Description 06/28/2024 11:15 AM EDT Appointment [facility] CT Scan [address] [place] [phone] 08/02/2024 11:15 AM EDT Office Visit [facility] Hematology Oncology [address] [place] [phone] Radha-Braeden Fleming MD [address] [place] [address] documented as of this encounter Visit Diagnoses Not on filedocumented in this encounter Care Teams Teleservices Representative Relationship Specialty Start Date End Date Yunier Sprague MD [address] [place] [address] [place] [address] PCP - General Internal Medicine 12/05/13 documented as of this encounter
--- OUTSIDE RECORDS SUMMARY | 2024-06-08 13:20 | XMS_ITS | Encounter Summary ---
Author Organization [employer] Address 75 [facility] 7t [place] [address] Care Team Providers Care Corporate Account Executive Name Role Phone Deedee Mc MD Primary Care Provider Daniel Clancy PharmD Unavailable Reason for Visit * Reason Onset Date Comments may recall 05/13/2024 Encounter Details Date Type Department Care Team ([facility] st Contact Info) Description 05/13/2024 Telephone [facility]INE [address] [place], [place] [phone] Kristal Hurst MA may recall Social History Tobacco Use Types Packs/Day Years [...] Telephone Encounter - Kristal Hurst MA - 05/13/2024 11:48 AM EST ..Telephone call to patient to schedule a recall appointment. No answer, unable to leave voicemail (number out of service).. Recall letter sent. Visit type: Follow up Appointment notes: RV DM / HTN / . Month due: July With: Alexandro Please schedule appointment above if patient returns call documented in this encounter Plan of Treatment Upcoming Encounters Date Type Department Care Team (Late st Contact Info) Description 06/15/2024 10:00 AM EDT Medication Management [facility] [address] [place] [address] Daniel Clancy, PharmD [address] [place] [address] documented as of this encounter Goals Goal [...] documented as of this encounter Care Teams Corporate Account Executive Relationship Specialty Start Date End Date Deedee Mc MD [address] [place] [address] PCP - General Family Medicine 09/09/19 Daniel Clancy, MassimoD [address] [place] [address] Pharmacist Internal Medicine 10/14/23 documented as of this encounter
--- OUTSIDE RECORDS SUMMARY | 2024-06-08 13:20 | XMS_ITS | Encounter Summary ---
Author Organization [employer] [facility] Address [address] [place] [address] Care Team Providers Care Gold Letterer Name Role Phone Deedee Mc MD Primary Care Provider Daniel Clancy PharmD Unavailable [phone] Reason for Visit * Reason Onset Date Comments Results 06/13/2022 Encounter Details Date Type Department Care Team ([facility] st Contact Info) Description 06/13/2022 Telephone [facility] MEDICINE [address] [place], [place] [phone] Deedee Mc MD [address] [place], [place] [phone] Results Social History Tobacco Use Types Packs/Day [...] from urine example. Please contact pt st [phone] Hungarian Speaker documented in this encounter Plan of Treatment Upcoming Encounters Date Type Department Care Team (Late st Contact Info) Description 06/15/2024 10:00 AM EDT Medication Management [facility]INE [address] [place] [id number] Daniel Clancy, Tanika [address] [place] [address] documented as of this encounter Visit Diagnoses Not on filedocumented in this encounter Care Teams Gold Letterer Relationship Specialty Start Date End Date Deedee Mc MD [address] [place] [phone] PCP - General Family Medicine 09/09/19 Daniel Clancy PharmD [address] [place] [phone] Pharmacist Internal Medicine 10/14/23 documented as of this encounter
--- OUTSIDE RECORDS SUMMARY | 2024-06-08 13:20 | XMS_ITS | Encounter Summary ---
Author Organization [employer] Address [address] [place] [address] Care Team Providers Care Bilingual Teacher Aide Name Role Phone Deedee Mc MD Primary Care Provider [phone] Daniel Clancy PharmD Unavailable Reason for Visit * Reason Onset Date Comments Nurse Triage 05/11/2024 Encounter Details Date Type Department Care Team ([facility] st Contact Info) Description 05/11/2024 Telephone [facility] MEDICINE [address] [place], [place] [phone] Deedee Mc MD [address] [place], [place] [phone] Nurse Triage Social History Tobacco Use Types [...] encounter Miscellaneous Notes * Telephone Encounter - Geri Rosales RN - 05/12/2024 2:37 PM EST TC placed to pt with BLS interpreter translator Malu #[id number] Mc's instructions regarding Levothyroxine dose. Pt advised to continue on both the 88 and 75 MCG dose of the Levothyroxine andto have thyroid levels checked in six weeks. Pt also educated and advised that the TSH levels will be abnormal for some time and PCP will reassess medications after repeat labs done in six weeks. Pt stated understanding of this plan and had no further questions or concerns. * Telephone Encounter - Geri Rosales RN - 05/11/2024 4:25 PM EST TC placed to pt with BLS interpreter translator Austin #[id number] to inquire about thyroid medication dosage andconcerns related to blood work done yesterday. Pt is currently on Levothyroxine 88 mcg and 75 mcg as ordered and instructed by PCP Dr. Mc. (See call from 04/26/2024). Pt recent blood work ordered by Dr. Bui for TSH came back low at 0.05. Pt is concerned that this may be related to her ongoing dizziness. Pt was advised that if dizziness continues or worsens she can be seen at the [facility] at [facility]. Hours of operation given and pt also advised that the TSH lab results will be reviewed by Dr. Mc and if any medications are adjusted the pt will be contacted. * Telephone Encounter - Demetra Licona RN - 05/11/2024 3:12 PM EST called pt to triage, spoke to pt through [employer]. pt states her Thyroid medicationwas recently adjusted and had the labs done again yesterday. pt states got a call from the team nurse today that her medication dose was too high and her labs showed that her thyroid tests came back too low which means she needs to be adjusted. however, pt states was not told what to do with her dose and i see no notation in the chart of a recent phone call regarding this. the last TC was back on04/26 and was to adjust her thyroid medication to 88+75 mcgs to equal dose of 163 mcgs daily down from 175 mcgs daily. will task to team nurses to follow up per PCP and call pt back with specific instructions. pt understands and agrees with plan. Protocol Used: Medication Question Call (Adult) Protocol-Based Disposition: Home Care Positive Triage Question: * Pharmacy calling with prescription question and triager answers question * All higher-acuity triage questions were negative Care Advice Discussed: * Note to Triager - Answer the Question * Reasons To Call Back - You have any more questions - You become worse * Telephone Encounter - Thuy Duron - 05/11/2024 2:29 PM EST Symptoms: Medication Reaction, Dizziness Outcome: Schedule an urgent appointment (within 1 hour) or talk to a nurse or provider soon Reason: Caller denied all higher acuity questions The caller accepted this outcome. Medication :levothyroxine (Synthroid) 88 MCG tablet Contact pt at [phone] (occitan) documented in this encounter Plan of Treatment Upcoming Encounters Date Type Department Care Team (Late st Contact Info) Description 06/15/2024 10:00 AM EDT Medication Management [facility] MEDICINE [address] [place] [address] Daniel Clancy, MassimoD [address] [place] [address] documented as of this encounter Goals Goal [...] documented as of this encounter Care Teams Bilingual Teacher Aide Relationship Specialty Start Date End Date Deedee Mc MD [address] [place] [id number] PCP - General Family Medicine 09/09/19 Daniel Clancy, PharmD [address] [place] [phone] Pharmacist Internal Medicine 10/14/23 documented as of this encounter
--- OUTSIDE RECORDS SUMMARY | 2024-06-08 13:20 | XMS_ITS | Encounter Summary ---
Author Organization [employer] [facility] Address [address] [place] [address] Care Team Providers Care Supervisor Special Effects Name Role Phone Deedee Mc MD Primary Care Provider [phone] Daniel Clancy PharmD Unavailable [phone] Encounter Details Date Type Department Care Team ([facility] Contact Info) Description 03/11/2022 Abstract [facility] MEDICINE [address] [place], [place] [phone] Deedee Mc MD [address] [place], [place] [phone] Social History Tobacco Use Types Packs/Day Years [...] 10:00 AM EDT Medication Management [facility] MEDICINE [address] [place] [address] Dainel Clancy, Tanika [address] [place] [address] documented as of this encounter Visit Diagnoses Not on filedocumented in this encounter Care Teams Supervisor Special Effects Relationship Specialty Start Date End Date Deedee Mc MD [address] [place] [phone] PCP - General Family Medicine 09/09/19 Daniel Clancy, Tanika [address] [place] [phone] Pharmacist Internal Medicine 10/14/23 documented as of this encounter
--- OUTSIDE RECORDS SUMMARY | 2024-06-08 13:20 | XMS_ITS | Encounter Summary ---
Author Organization [facility] Address [address] [place] [address] Care Team Providers Care Network Consultant Name Role Phone Yunier Sprague MD Primary Care Provi kaushik Reason for Referral * Imaging (Routine) - Authorized Specialty Diagnoses / Procedures Referred By Contac t Referred To Contact Radiology Diagnoses Renal cell carcinoma of right kidney (CMS/HCC) Malignant neoplasm metastatic to liver (CMS/HCC) Procedures CT Chest/Abdomen/Pelvis wo Contrast Braeden Galarza MD [address] [place] [phone] Phone: tel: fax: [address] [phone] Phone: tel: Referral ID Status Reason Start Date Expiration Date V isits Requested Visits Authorized [id number] Authorized 05/23/2024 05/23/2025 1 1 Reason for Visit * Reason Comments Follow-up Encounter Details Date Type Department Care Team (Late st Contact Info) Description 05/23/2024 2:30 PM EST Office Visit [facility] Hematology Oncology [address] [place] [phone] Braeden Galarza MD [address] [place] [phone] Renal cell carcinoma of right kidney (CMS/HCC) (Primary Dx); Malignant neoplasm metastatic to liver (CMS/HCC); Anemia, unspecified type Social History Tobacco Use Types Packs/Day Years [...] AM EST documented as of this encounter Last Filed Vital Signs Vital Sign Reading Time Taken Comments Blood Pressure 156/90 05/23/2024 2:16 PM EST patient has taken BP medication Pulse 76 05/23/2024 2:16 PM EST Temperature 36.4 ??C (97.6 ??F) 05/23/2024 2 :16 PM EST Respiratory Rate - - Oxygen Saturation 100% 05/23/2024 2:1 6 PM EST Inhaled Oxygen Concentration - - Weight 106 kg (233 lb) 05/23/2024 2:16 PM EST Height 157.5 cm (5' 2 ) 05/23/2024 2:16 PM EST Body Mass Index 42.62 05/23/2024 2:16 PM EST documented in this encounter Ordered Prescriptions Prescription Sig Dispense Quantity Refills Last Filled Start Date End Date oxyCODONE (OXY-IR) 5 mg immediate release capsule Take 1 capsule (5 mg total) by mouth every 6 (six) hours if needed for severe pain. Max Daily Amount: 20 mg 90 capsule 05/23/2024 documented in this encounter Progress Notes * Braeden Galarza MD - 05/23/2024 2:30 PM EST CHIEF COMPLAINT: No chief complaint on file. Renal cell carcinoma Latest regimen #[id number]-9/2017-09/2019, stopped due to stable disease surveillance IDENTIFIER:Vanessa Douglas is a 63 y.o. female. HPI: The patient returns for follow up of renal cell carcinoma, on surveillance For details of initial diagnosis and follow up until JAN 22, 2024- please refer to notes from prior [facility] EMR last note dated 11/17/2023 The patient returns for follow up of renal cell carcinoma , Translation by [employer] health and physical education professor on the video phone Patient is currently off systemic therapy with Opdivo, for More than 4.5 years since September 2019 Nearly 18 months ago, she had an appointment at [facility] with neurosurgeon regarding consideration of surgery. left lateral sphenoid sinus menignoencephalocele , surgery completed in November 2022 In 2023, she had normal lymph MRI surveillance, negative for brain mets stasis No evidence of metastatic disease, persistent encephalomalacia, likely secondary to surgery Renal ultrasound did not reveal any solid lesion due for lab work, will monitor She was seen in clinic 3 months previously. Today she returns accompanied by her son, and [id number] who is a physicians assistant produce manager. Patient reports that she is feeling pain in bilateral shoulders and knees. She feels depressed. At the previous visit her thyroid medication dose was decreased todue to concerns for hypothyroidism. Latest TSH level still less than 0.05 She is due for restaging imaging, I will order Other lab work is reviewed, in the normal range The following is copied, reviewed and edited Cancer Staging No matching staging information was found for the patient. Oncology History No history exists. 11/21/2013 Initial Diagnosis Renal cell cancer (HCC) 05/21/2016 - Targeted Therapy nivolumab , 200 MG, every 2 weeks Previous treatments, include Votrient/pazopanib and temsirolimus. 12/05/[address] chest abdomen and pelvis Chest CT: Further interval decrease in size in right lower lobe pulmonary nodule with residual 3 mmnoncalcified nodule. No thoracic lymphadenopathy. 11/2020 - Patient had received imaging and is here for review. Patient reports new onset left-sided flank pain. She has been caring for her mother, who has dementia, and has been lifting and moving her. She had more pain after helping her mother yesterday. Patient has lost about 3 pounds in weight. She denies any nausea. Upper abdominal and flank pain is well controlled with Percocet. she continues on thyroid supplementation She will be due for restaging imaging in 4 to 6 months lab work is reviewed, normal TSH level, due for recheck, will order She had evaluation with decorating instructor on 08/31, Dr. Ramesh, was found to have rectocele, as the likely cause of pelvic pressure. There was no evidence of recurrent gynecological metastatic disease. ROS: GENERAL: No malaise, significant weight loss or fever NECK: No lumps, goiter, pain or significant neck swelling RESPIRATORY: No cough, wheezing or shortness of breath CARDIOVASCULAR: No chest pain, leg swelling or palpitations GI: No abdominal discomfort, blood in stools or black stools MUSCULOSKELETAL: No joint pain or swelling, back pain, or muscle pain. HEMATOLOGY/LYMPHOLOGY No prolonged bleeding, easy bruisability or swollen nodes Other Systems review is non contributory PAST MEDICAL HISTORY: Active Ambulatory Problems Diagnosis Date Noted Acid reflux 12/21/2023 Anemia 12/21/2023 Essential hypertension 12/21/2023 Ventral hernia 10/21/2018 Malignant neoplasm metastatic to bone (CMS/HCC) 12/21/2023 Malignant neoplasm metastatic to liver (CMS/HCC) 12/21/2023 Pelvic pressure in female 09/03/2020 Rectocele 09/03/2020 Renal cell cancer (CMS/HCC) 12/21/2023 Thyroid disease 12/21/2023 Resolved Ambulatory Problems Diagnosis Date Noted No Resolved Ambulatory Problems Past Medical History: Diagnosis Date Anemia due to chemotherapy Anemia in neoplastic disease Bone metastasis Disease of thyroid gland Malignant neoplasm of right kidney, except renal pelvis (CMS/HCC) SOCIAL HISTORY: Social History Tobacco Use Smoking status: Never Smokeless tobacco: Never Substance Use Topics Alcohol use: No FAMILY HISTORY: No family history on file. Current Outpatient Medications: amLODIPine (NORVASC) 10 mg tablet, Take 1 tablet (10 mg total) by mouth 1 (one) time each day., Disp: , Rfl: atorvastatin (LIPITOR) 20 mg tablet, Take 1 tablet (20 mg total) by mouth 1 (one) time each day., Disp: , Rfl: buPROPion (WELLBUTRIN) 100 mg tablet, Take 1 tablet (100 mg total) by mouth 2 (two) times a day., Disp: , Rfl: diclofenac (VOLTAREN) 1 % topical gel, Apply 4 g topically 2 (two) times a day., Disp: , Rfl: docusate sodium (COLACE) 100 mg capsule, Take 1 capsule (100 mg total) by mouth 2 (two) times a day., Disp: , Rfl: levothyroxine sodium (TIROSINT) 100 mcg capsule, Take by mouth., Disp: , Rfl: metFORMIN (GLUCOPHAGE) 500 mg tablet, Take 1 tablet (500 mg total) by mouth 2 (two) times a day with meals., Disp: , Rfl: omeprazole (PRILOSEC) 20 mg tablet,delayed release (DR/EC), Take by mouth., Disp: , Rfl: ondansetron (ZOFRAN) 8 mg tablet, Take 1 tablet (8 mg total) by mouth every 8 (eight) hours if needed., Disp: , Rfl: oxyCODONE (OXY-IR) 5 mg immediate release capsule, Take 1 capsule (5 mg total) by mouth every 6 (six) hours if needed for severe pain. Max Daily Amount: 20 mg, Disp: 60 capsule, Rfl: 0 traMADoL (ULTRAM) 50 mg tablet, Take 1 tablet (50 mg total) by mouth every 6 (six) hours if needed., Disp: , Rfl: No Known Allergies PHYSICAL EXAM: Visit Vitals Smoking Status Never APPEARANCE: Alert and in no acute distress EYES: PERRL, conjunctiva pink and sclera are Normal without icterus ORAL CAVITY: No erythema or exudates NECK: Neck supple, no adenopathy, HEART: RRR with normal S1 and S2, no murmurs, no gallops, no JVD appreciated LUNG: clear to auscultation bilaterally Percussion note normal LYMPH NODES: No palpable superficial adenopathy ABDOMEN: Bowel sounds normoactive, no bruits, soft, non-tender, without organomegaly or palpable masses EXTREMITIES: Extremities warm and well perfused without clubbing, cyanosis, rash or edema NEURO: Oriented X 3, no focal weakness; sensation is normal LABS: Review of Lab results , interpreted Lab Results Component Value Date WBC 5.7 05/10/2024 HGB 14.8 05/10/2024 HCT 46.4 05/10/2024 MCV 85.8 05/10/2024 PLT 244 05/10/2024 Lab Results Component Value Date NA 139 05/10/2024 K 4.0 05/10/2024 CL 106 05/10/2024 CO2 26 05/10/2024 GLUCOSE 103 (H) 05/10/2024 BUN 25 05/10/2024 CREATININE 0.96 05/10/2024 CALCIUM 9.3 05/10/2024 PROT 6.7 05/10/2024 ALBUMIN 3.4 05/10/2024 BILITOT 0.4 05/10/2024 AST 17 05/10/2024 ALT 42 05/10/2024 ALKPHOS 170 (H) 05/10/2024 EGFR 67 05/10/2024 Review of Imaging, interpreted CT Chest WO - 10/16/23 - 1007 Report Status:Signed History: Restaging renal carcinoma. Comparison: 04/08/23 Technique: Helical volumetric imaging of the chest, abdomen and pelvis was performed without intravenous or oral contrast. DLP: 2428.86 mGy/cm Left of the [employer] VCT Iterative reconstruction technique Findings: Chest: The trachea and central bronchial tree remain patent. Diffuse bronchial wall thickening is again seen, reported previously. No airspace consolidations are suspicious developing pulmonary nodules are seen. No pleural or pericardial effusions are identified. Mild atherosclerotic calcification of the thoracic aorta is seen. The heart remains normal in size.The thyroid gland is diminutive. No thoracic lymphadenopathy is seen. Abdomen/pelvis: The unenhanced liver exhibits heterogeneous parenchymal attenuation suggesting geographic fatty infiltration. This limits evaluation for masses. No significant change is seen. Cholecystectomy sequelae are noted. No evidence of biliary obstruction is seen. The spleen, pancreas and adrenal glands are unremarkable. Right nephrectomy sequelae are again noted. No abnormal mass or fluid collection is seen in the nephrectomy bed. The left kidney is normal in position and size. There is no hydronephrosis. An 11 mm circumscribed round mass arises from the posterior interpolar aspect of the left kidney, similar to the most recent study and without significant change dating back to 05/07/22, increased in size from ea rlier studies. Targeted renal ultrasound from 06/18/22 suggests a minimally complicated cyst. No ascites or lymphadenopathy is seen. The uterus and adnexa are grossly unremarkable for age. The urinary bladder appears normal. No evidence of bowel obstruction is seen. The appendix is normal in caliber in the right lower quadrant. No abnormal perienteric or pericolonic fat stranding is identified. Musculoskeletal: No suspicious osseous destructive lesion is identified. Impression: 1. No evidence of metastatic disease in the chest, abdomen and pelvis. 2. Stable 11 mm left renal mass since 05/07/22, possibly a complicated cyst based on prior ultrasound findings. 3. Stable right nephrectomy sequelae. MR BRAIN W WO [facility] Diagnostic Imaging Department [address] [place] [id number] Patient: VANESSA DOUGLAS /Age/Sex: 1960 - 63 - F Unit#: [id number] Location/Status: SPDIMRI/REG CLI Mnemonic/Ordering Site: BRAINWWO/SPMAIN Ordering Physician: BRAEDEN LOVE MD MR Brain W WO - 11/24/23 - Report Status:Signed PROCEDURE: Brain MRI INDICATION: Headaches, left sphenoid encephalocele TECHNIQUE: Multiplanar, multisequence MRI of the brain without and with contrast. 20 mL Dotarem injected intravenously from a 20 mL vial with the remainder discarded COMPARISON: 09/17/2022 FINDINGS: No acute infarct, mass effect, or intracranial hemorrhage. Encephalomalacia and surrounding gliosis in the left anterior temporal lobe is stable compared to prior. Brain parenchyma is otherwise normal in signal. No abnormal intracranial enhancement or susceptibility artifact. Sella and foramen magnum are within normal limits. Ventricles, sulci, and cisterns are normal in size and configuration. No hydrocephalus. Major intracranial arterial flow voids are normal. Major dural venous sinuses enhance normally with contrast. Scattered mucosal thickening seen throughout the sinuses with maxillary sinus retention cysts. Improved aeration of the left sphenoid sinus compared to the prior MRI. Previously visualized left middle cranial fossa meningoencephalocele has resolved. Orbits and extracranial soft tissues are normal. Calvarium is normal. IMPRESSION: No acute findings or abnormal intracranial enhancement. No intracranial metastatic disease. Unchanged encephalomalacia and gliosis in the left anterior temporal lobe with interval repair of left middle cranial fossa meningoencephalocele. Dictating Physician: DARIO ELDER MD Electronically Signed by: DARIO ELDER MD Dic Date/Time: 11/24/23 1218 Sign date/Time: 11/24/23 1229 Review of External Documentation Tests ordered -lab work, every 3 months IMPRESSION: 1. Renal cell carcinoma of right kidney (CMS/HCC) 2. Malignant neoplasm metastatic to liver (CMS/HCC) 3. Anemia, unspecified type PLAN: 63 -year-old lady with renal cell carcinoma currently on active surveillance, with high risk disease with 50% risk of recurrence in the next 3 to 5 years. Initial diagnosis was in 2013, completed 10 years on treatment and surveillance Recent diagnosis of sphenoid encephalocele/encephalomalacia-- completed Surgery Recurrent headache is concerning, will request MRI without and with contrast #1 renal cell carcinoma-- With metastatic disease,in the nephrectomy bed, liver and lung lesions Patient had excellent response to opdivo, completed nearly 3 years of therapy from July 2016 till September 2019 and has been off treatment for nearly 4 years at this time Restaging imaging from September 2023 reviewed-no recurrence of disease, reassured We will plan at 4 to 6-month intervals --reviewed imaging, no metastatic disease, reassured, copy provided Restaging imaging requested at the 6-month interval, CT chest, abdomen, pelvis noncontrast We will continue close clinical surveillance, and imaging and may reinstate immunotherapy if there is any tumor progression. Otherwise TKI therapy with cabozantinib is an option. Also recently in clinical trials there is HIF 1 alpha inhibitors, that may be available in the next couple of years as standard of care patient agrees with plan #2 upper abdominal pain, more on the left side continue oxycodone 5 mg, increase frequency up to 3 times a day, prescription sent in today #3 hypothyroidism, - stable on Levothyroxine 150 mcg, for a long time, however due to patient's concern dose was reduced, previously 100 mcg, latest TSH at 0.05, dose further reduced to 50 mcg daily #4 GERD, continue omeprazole 20 mg daily, new prescription is provided at the last visit #5 history of vaginal meta stasis,-had follow-up with Dr. Ortega Reviewed documentation, no evidence of recurrence of metastasis, #6 memory changes-reviewed MRI negative for metastatic disease, reassured Follow-up in 3 months and sooner if any new issues arise In the interim I will contact her with results of restage imaging. Patient and son agree with this plan [facility] Care Proxy-- her son Jv Braeden Galarza MD Yunier Sprague MD documented in this encounter Plan of Treatment Upcoming Encounters Date Type Department Care Team (Late st Contact Info) Description 06/28/2024 11:15 AM EDT Appointment [facility] CT Scan [address] [place] [phone] 08/02/2024 11:15 AM EDT Office Visit [facility] Hematology Oncology [address] [place] [phone] Braeden Galarza MD [address] [place] [phone] Scheduled Orders Name Type Priority Associated Diagnoses Orde r Schedule CT Chest/Abdomen/Pelvis wo Contrast Imaging Routine Renal cell carcinoma of right kidney (CMS/HCC) Malignant neoplasm metastatic to liver (CMS/HCC) Expected: 06/23/2024, Expires: 05/23/2025 documented as of this encounter Visit Diagnoses Diagnosis Renal cell carcinoma of right kidney (CMS/HCC)- Primary Malignant neoplasm metastatic to liver (CMS/HCC) Anemia, unspecified type documented in this encounter Discontinued Medications Medication Sig Discontinue Reason Start Date End Da te traMADoL (ULTRAM) 50 mg tablet Take 1 tablet (50 mg total) by mouth every 6 (six) hours if needed. 05/23/2024 diclofenac (VOLTAREN) 1 % topical gel Apply 4 g topically 2 (two) times a day. 11/27/2021 05/23/2024 oxyCODONE (OXY-IR) 5 mg immediate release capsule Take 1 capsule (5 mg total) by mouth every 6 (six) hours if needed for severe pain. Max Daily Amount: 20 mg Reorder 05/03/2024 05/23/2024 documented as of this encounter Care Teams Network Consultant Relationship Specialty Start Date End Date Yunier Sprague MD [address] [place] [address] [place] [phone] PCP - General Internal Medicine 12/05/13 documented as of this encounter
--- OUTSIDE RECORDS SUMMARY | 2024-06-08 13:20 | XMS_ITS | Clinical Summary ---
Author Organization [facility] Address [address] [place] [address] Care Team Providers Care Distillery Miller Name Role Phone Unavailable Primary Care Provider [...]
--- OUTSIDE RECORDS SUMMARY | 2024-06-08 13:20 | XMS_ITS | Encounter Summary ---
Author Organization [employer] Address [address] [facility] [address] [place] [address] Care Team Providers Care Supervisor Lending Activities Name Role Phone Deedee Mc MD Primary Care Provider [phone] Daniel Clancy PharmD Unavailable [phone] Encounter Details Date Type Department Care Team (Late st Contact Info) Description 05/12/2024 Orders Only [facility] MEDICINE [address] [place], [place] [phone] Deedee Mc MD [address] [place], [place] [phone] Social History Tobacco Use Types Packs/Day Years [...] Description 06/15/2024 10:00 AM EDT Medication Management [facility] MEDICINE [address] [place] [phone] Daniel Clancy, MassimoD [address] [place] [phone] documented as of this encounter Goals Goal [...] documented as of this encounter Care Teams Supervisor Lending Activities Relationship Specialty Start Date End Date Deedee Mc MD [address] [place] [phone] PCP - General Family Medicine 09/09/19 Daniel Clancy, PharmD [address] [place] [phone] Pharmacist Internal Medicine 10/14/23 documented as of this encounter
--- OUTSIDE RECORDS SUMMARY | 2024-06-08 13:20 | XMS_ITS | Clinical Summary ---
Author Organization [facility] Address [address] [place] [address] Care Team Providers Care Financial Intern Name Role Phone Yunier Sprague MD Primary [...] age to complete this topic Care Teams Financial Intern Relationship Specialty Start Date End Date Yunier Sprague MD [address] [place] [phone] PCP - General Internal Medicine 08/14/21
--- OUTSIDE RECORDS SUMMARY | 2024-06-08 13:20 | XMS_ITS | Encounter Summary ---
Author Organization [facility] Address [address] [facility] [address] [place] [address] Care Team Providers Care Anthropology Professor Name Role Phone Deedee Mc MD Primary Care Provider [phone] Daniel Clancy PharmD Unavailable [phone] Encounter Details Date Type Department Care Team ([facility] st Contact Info) Description 06/03/2024 Population Health Risk Score [facility] (C[facility]) Department [address] [phone] Provider, Population Health Generic Social History Tobacco Use Types Packs/Day Years [...] Description 06/15/2024 10:00 AM EDT Medication Management [facility] MEDICINE [address] [place] [address] Daniel Clancy, Tanika [address] [place] [address] documented as of this encounter Goals Goal [...] documented as of this encounter Care Teams Anthropology Professor Relationship Specialty Start Date End Date Deedee Mc MD [address] [place], [place] [phone] PCP - General Family Medicine 09/09/19 Daniel Clancy, PharmD [address] [place] [phone] Pharmacist Internal Medicine 10/14/23 documented as of this encounter
--- OUTSIDE RECORDS SUMMARY | 2024-06-08 13:21 | XMS_ITS | Clinical Summary ---
Author Organization [employer] Address [address] [facility] [address] [place] [address] Care Team Providers Care Repairer General Name Role Phone Deedee Arthur MD Primary Care Provider [phone] Daniel Clancy PharmD Unavailable [phone] Allergies Active Allergy Reactions Criticality Noted Date Comments Chlorthalidone High 07/31/2011 Other reaction(s): Hyperglycemia Other Reaction(s): hyperglycemia Lisinopril Other 07/30/2010 Scratchy/irritated throat Medications * This document contains information received from the source organization and may not represent a complete record from that organization. loratadine (Claritin) 10 MG tabletIndications :Allergic rhinitis due to other allergic trigger, unspecified seasonality Take 1 tablet (10 mg) by mouth in the morning. 30 tablet 5 2 Active oxyCODONE (Roxicodone) 5 MG immediate release tablet Take 5 mg by mouth every 6 (six) hours if needed. 2 Active econazole nitrate 1 % creamIndications: Palmar erythema,Intertri go,Onychodystroph y Apply topically in the morning. 85 g 2 4 Active Blood Pressure Monitor kit Check blood pressure once daily and as needed 1 kit 4 Active ergocalciferol (Vitamin D2) 1.25 MG (74639 UT) capsule Take 1 capsule (1.25 mg) by mouth 1 (one) time per week. 12 capsule 3 4 Active polyvinyl alcohol (Liquifilm Tears) 1.4 % ophthalmic solution INSTILL 1 DROP IN EACH EYE 3 TIMES A DAY 30 mL 1 4 Active FreeStyle lancetsIndication s:Diabetic autonomic neuropathy associated with type 2 diabetes mellitus (CMS/HCC) 1 each by Other route before breakfast. TEST BLOOD SUGAR ONCE A DAY 100 each 4 08/07/19 25 Active Blood Glucose Monitoring Suppl (FreeStyle Lite) w/Device kitIndications:Di abetic autonomic neuropathy associated with type 2 diabetes mellitus (CMS/HCC) 1 Dose before breakfast. TEST BLOOD SUGAR ONCE A DAY 1 kit 4 Active glucose blood (FREESTYLE LITE) test stripIndications: Diabetic autonomic neuropathy associated with type 2 diabetes mellitus (CMS/HCC) 1 each by Other route before breakfast. TEST BLOOD SUGAR ONCE A DAY 100 each 4 Active empagliflozin (Jardiance) 10 MG Take 1 tablet (10 mg) by mouth Once per day. 30 tablet 11 4 09/02/19 25 Active topiramate (Topamax) 25 MG tablet Take 1 tablet (25 mg) by mouth Once per day. 90 tablet 3 4 09/04/19 25 Active metFORMIN XR (Glucophage-XR) 500 MG 24 hr tabletIndications :Type 2 diabetes mellitus with diabetic polyneuropathy, without long-term current use of insulin (CMS/HCC) Take 1 tablet (500 mg) by mouth with evening meal. Do not crush, chew, or split. 90 tablet 3 4 Active omeprazole (PriLOSEC) [address] capsule Take 1 capsule (20 mg) by mouth Once per day. 90 capsule 1 4 Active lidocaine (Lidoderm) 5 % patch APPLY 1 PATCH TOPICALLY TO SKIN, LEAVE ON FOR 12 HOURS AND OFF FOR 12 HOURS DIRECTED 30 patch 1 4 Active famotidine (Pepcid) 20 MG tablet TAKE 1 TABLET BY MOUTH AT BEDTIME (HEARTBURN) 90 tablet 4 Active fluticasone (Flonase) 50 MCG/ACT nasal spray INSTILL 1 SPRAY IN EACH NOSTRIL ONCE DAILY 48 g 4 Active atorvastatin (Lipitor) 20 MG tablet TAKE 1 TABLET BY MOUTH AT BEDTIME 90 tablet 1 4 Active amLODIPine (Norvasc) 10 MG tabletIndications :Primary hypertension TAKE 1 TABLET BY MOUTH EVERYDAY AT NOON 90 tablet 4 Active losartan (Cozaar) 25 MG tabletIndications :Type 2 diabetes mellitus with diabetic polyneuropathy, without long-term current use of insulin ([facility]) TAKE 1 TABLET BY MOUTH EVERY MORNING 90 tablet 1 5 Active levothyroxine (Synthroid) 88 MCG tablet Take 1 tablet (88 mcg) by mouth before breakfast. Take with 75 mcg daily to make total of 163 mcg daily. 90 tablet 3 5 Active levothyroxine (Synthroid) 75 MCG tablet Take 1 tablet (75 mcg) by mouth before breakfast. 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 Rod [facility] on 12/03/22 - follow the treatment plan [...] via endoscopic transpterygoid approach by Dr. Marcel [facility] on 12/03/22 - follow the treatment plan [...] via endoscopic transpterygoid approach by Dr. Marcel [facility] on 12/03/22 - follow the treatment plan [...] via endoscopic transpterygoid approach by Dr. 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 Rod [facility] on 12/03/22 - follow the treatment plan per ENT - upcoming appt with neurologist and neurosurgeon - continue acetazolamide Assessment & Plan (09/02/2022 4:06 PM EDT): - left lateral sphenoid sinus menignoencephalocele and history of CSF leak - Following with ENT and neurosurgery at [facility] - Scheduled for endonasal repair in Nov [...] 07/23/21 onychomycosis and decreased sensation; following with general superintendent -Diabetic Dilated Eye Exam: 05/19/23 at [facility] No diabetic retinopathy, age-related cataract, presbyopia, [...] 07/23/21 onychomycosis and decreased sensation; following with general superintendent -Diabetic Dilated Eye Exam: 05/19/23 at [facility] No diabetic retinopathy, age-related cataract, presbyopia, [...] 07/23/21 onychomycosis and decreased sensation; following with general superintendent -Diabetic Dilated Eye Exam: 05/19/23 at [facility] No diabetic retinopathy, age-related cataract, presbyopia, [...] 07/23/21 onychomycosis and decreased sensation; following with general superintendent -Diabetic Dilated Eye Exam: 04/22/22 at [facility] No diabetic retinopathy, age-related cataract, presbyopia, [...] 07/23/21 onychomycosis and decreased sensation; following with general superintendent -Diabetic Dilated Eye Exam: 04/22/22 at [facility] No diabetic retinopathy, age-related cataract, presbyopia, [...] 07/23/21 onychomycosis and decreased sensation; following with general superintendent -Diabetic Dilated Eye Exam: 04/22/22 at [facility] No diabetic retinopathy, age-related cataract, presbyopia, [...] 07/23/21 onychomycosis and decreased sensation; referred to general superintendent -Diabetic Dilated Eye Exam: 04/22/22 at [facility] No diabetic retinopathy, age-related cataract, presbyopia, [...] 07/23/21 onychomycosis and decreased sensation; referred to general superintendent -Diabetic Dilated Eye Exam: 04/27/20 at [facility]; early cataract; requested an appt with [facility] eye care. 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 Patient did not keep appointment. 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 Assessment & Plan (01/26/2024 12:28 PM EST): - previously referred to drum sander setter-onc at [facility]. Patient did not keep appointment. 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 Renal cell carcinoma of right kidney 09/06/2016 Overview (07/19/2023): >>OVERVIEW FOR RENAL CELL CANCER (CMS/HCC) WRITTEN ON 03/11/2022 5:22 AM BY DEEDEE ARTHUR MD Last Assessment & Plan: No evidence of recurrent Site Supervisor metastatic disease. Will return to Dr. Fleming for follow up imaging and treatment as planned. Assessment & Plan (04/25/2024 1:42 PM EST): Shi 2013 Oncologist: Dr. 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 Fleming Pt is receiving oxycodone [address] Fleming Assessment & Plan (01/26/2024 10:36 AM EST): Shi 2013 Oncologist: Dr. 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 Recurrence in Nov 2014 s/p chemotherapy (pazomanib, cabzanitnib, nivolumab) and XRT [id number] Recurrence 2017 s/p excision of vaginal metastasis [...] s/p chemotherapy (pazomanib, cabzanitnib, nivolumab) and XRT [id number] Recurrence 2017 s/p excision of vaginal metastasis [...] s/p chemotherapy (pazomanib, cabzanitnib, nivolumab) and XRT [id number] Recurrence 2017 s/p excision of vaginal metastasis [...] s/p chemotherapy (pazomanib, cabzanitnib, nivolumab) and XRT [id number] Recurrence 2017 s/p excision of vaginal metastasis [...] s/p chemotherapy (pazomanib, cabzanitnib, nivolumab) and XRT [id number] Recurrence 2017 s/p excision of vaginal metastasis [...] Encounters Date Type Department Care Team Description 06/03/2024 Population Health Risk Score Community Care [facility] (C[facility]) Department [address] [place] [address] Provider, Population Health Generic 05/13/2024 Telephone [facility] MEDICINE [address] [place] [address] Kristal Hurst MA may recall 05/12/2024 Orders Only [facility] [place] [address] Deedee Arthur MD 05/11/2024 Telephone [facility] [place] [address] Deedee Arthur MD Nurse Triage 04/26/2024 Telephone [facility] [place] [address] Pamela Howard RN 04/26/2024 Orders Only [facility] [place] [address] Deedee Arthur MD 04/25/2024 1:15 PM EST Office Visit [facility] [place] [address] Deedee Arthur MD Meningoencephalocele ([facility]) (Primary Dx); Primary hypertension; Renal cell carcinoma of right kidney ([facility]/HCC); 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[facility]/HCC); Type 2 diabetes mellitus with diabetic polyneuropathy, without long-term current use of insulin ([facility]); Hypothyroidism due to medication; 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 ([facility]/HCC); Dyslipidemia; Depression, unspecified depression type; Onychomycosis; Gastroesophageal reflux disease with esophagitis, unspecified whether hemorrhage; Dietary counseling; Exercise counseling; Class 3 severe obesity due to excess calories with serious comorbidity and body mass index (BMI) of 45.0 to 49.9 in adult ([facility]/HCC) 04/25/2024 Orders Only [facility] MEDICINE [facility] [place] [address] Deedee Arthur MD 04/25/2024 Travel 04/21/2024 Telephone [facility] [place] [address] Kristal Hurst MA chart prep 04/12/2024 Patient Outreach [facility] [place] [address] Deedee Arthur MD Pre-visit Planning (Pre-visit planning - LVM ) 04/11/2024 Refill [facility] [address] [place] [address] Daniel Clancy, PharmD Type 2 diabetes mellitus with diabetic polyneuropathy, without long-term current use of insulin ([facility]) 03/21/2024 Telephone [facility] MEDICINE [address] [place] [address] Deedee Arthur MD 03/15/2024 Refill [facility] [address] [place], [place] [phone] Deedee Arthur MD Hypothyroidism due to medication; Primary hypertension 03/14/2024 Refill [facility] [address] [place], [place] [phone] Deedee Arthur MD from Last 3 Months [...] Description 06/15/2024 10:00 AM EDT Medication Management [facility] MEDICINE [address] [place], [place] [phone] Daniel Clancy, PharmD [address] [place] [address] Health Maintenance Due Date Last Done Comments CT Colonography 1960 FIT DNA/Cologuard 1960 FIT 1960 FOBT 1960 Sigmoidoscopy 1960 Derm Melanoma Skin Check 1960 SDOH Screening 05/04/2024 05/04/2023 Diabetes: Urine Protein Screening 07/22/2024 07/23/2023, 08/07/2021, 04/11/2020 Depression Monitoring (PHQ-9) 10/23/2024 04/25/2024, 04/25/2024 Diabetes: Hemoglobin A1C 10/23/2024 025, 01/26/2024, 10/14/2023, Additional history exists Alcohol/Substance Use Screening 04/25/2025 04/25/2024 Depression Screening 04/25/2025 04/25/2024, 04/25/19 25 Diabetes: Foot Exam 04/25/2025 04/25/2024, 04/07/2023, 04/07/2023, Additional history exists Lipid Panel 04/25/2025 04/25/2024, 06/22, 09/02/2022, Additional history exists Tobacco Screening 04/25/2025 04/25/2024 [...] Date/Time Associated Diagnosis Comments T4, FREE Routine 04/25/2024 2:16 PM EST LIPID PANEL WITH REFLEX TO DIRECT LDL Routine 04/25/2024 2:16 PM EST Dyslipidemia BASIC METABOLIC PANEL Routine 04/25/2024 2:16 PM EST Primary hypertension HEPATIC FUNCTION PANEL Routine 04/25/2024 2:16 PM EST Transaminitis TSH W/REFLEX TO FT4 Routine 04/25/2024 2 :16 PM EST Hypothyroidism due to medication Fatigue, unspecified type CBC WITH AUTO DIFFERENTIAL Routine 04/25/2024 2:16 PM EST Fatigue, unspecified type POCT GLUCOSE Routine 04/25/2024 2:13 PM EST [...] Relevant to Health Maintenance Results * (ABNORMAL) TSH with Reflex to Free T4 (04/25/2024 2:16 PM EST) TSH reflex Free T4 0.07(L) 0.32 - 4.0 uIU/mL [facility] Blood 04/25/2024 2:16 PM EST 04/25/2024 4:00 PM EST Deedee Arthur MD LAB BLOOD ORDERABLES Final Resul t [facility] [address] [place] [phone] * (ABNORMAL) Lipid Panel with Reflex to Direct LDL (04/25/2024 2:16 PM EST) Triglycerides 135 <150 mg/dL [facility] Comment:Desirable Triglyceri de: less than 150 mg/dLBorderline High Triglyceride 150-199 mg/dLHigh Triglyceride: 200-499 mg/dLVery High Triglyceride: greater than or equal to 5OO mg/dL Cholesterol 187 <200 mg/dL [facility] Comment:Desirable Cholestero l: less than 200 mg/dLBorderline High Cholesterol: 200-239 mg/dLHigh Cholesterol: greater than 239 mg/dL LDL Cholesterol Calculated 117(H) <100 mg/dL [facility] Comment:Desirable LDL: less than 100 mg/dLNear Optimal/Above Optimal LDL: 110- 129 mg/dLBorderline High LDL: 130-159 mg/dLHigh LDL: 160-189 mg/dLVery High LDL: greater than or equal to 190 mg/dL HDL Cholesterol 43 >40 mg/dL [facility] Comment:Desirable HDL: great er than 40 mg/dL Note: This HDL assay may give artificially low results in patients with liver disease. Blood 04/25/2024 2:16 PM EST 04/25/2024 4:00 PM EST us Deedee Arthur MD LAB BLOOD ORDERABLES Final Resul t [facility] [address] [place], [place] [phone] * (ABNORMAL) CBC auto differential (04/25/2024 2:16 PM EST) White Blood Count 6.2 4.8 - 10.8 X10*3/uL [facility] Red Blood Count 5.47 4.20 - 5.50 X10*6/uL [facility] Hemoglobin 15.0 12.0 - 16.0 g/dl [facility] Hematocrit 46.4 37.0 - 47.0 % [facility] Mean Corpuscular Volume 84.8 80.0 - 98.0 fL [facility] Mean Corpuscular Hemoglobin 27.4 27.0 - 33.0 pg [facility] Mean Corpuscular HGB Conc 32.3 31.0 - 35.0 g/dl [facility] Red Cell Distribution Width 14.1 11.0 - 16.0 % [facility] Platelet Count 266 160 - 400 X10*3/uL [facility] Mean Platelet Volume 9.9 9.4 - 12.3 fL [facility] Neutrophils Percent Auto 61.5 45 - 73 % [facility] Imm Gran Pct Auto 0.6(H) 0.0 - 0.4 % [facility] Lymphocytes Percent Auto 26.2 20 - 40 % [facility] Monocytes Percent Auto 9.7 2 - 11 % [facility] Eosinophils Percent Auto 1.5 0 - 4 % [facility] Basophils Percent Auto 0.5 0 - 2 % [facility] NRBC Pct Auto 0.0 0.0 - 0.2 /100WBC [facility] Neutrophils Absolute Auto 3.8 2.0 - 8.3 x10*3/uL [facility] Imm Gran Abs Auto 0.04(H) 0.00 - 0.03 X10*3/uL [facility] Lymphocytes Absolute Auto 1.6 1.2 - 4.9 X10*3/uL [facility] Monocytes Absolute Auto 0.6 0.1 - 1.2 X10*3/uL [facility] Eosinophils Absolute Auto 0.1 0.0 - 0.4 X10*3/uL [facility] Basophils Absolute Auto 0.0 0.0 - 0.2 X10*3/uL [facility] NRBC Abs Auto 0.000 0.0 - 0.012 X10*3/uL [facility] Blood Venous blood specimen / Unknown 04/25/2024 2:16 PM EST 04/25/2024 4:00 PM EST us Deedee Arthur MD LAB BLOOD ORDERABLES Final Resul t Performing Organization Address City/[facility]/ZIP Co de Phone Number [facility] [address] [place] [phone] * T4, Free (04/25/2024 2:16 PM EST) Free T4 (Free Thyroxine) 1.50 0.71 - 1.85 ng/dL [facility] 04/25/2024 2:16 PM EST 04/25/2024 4:00 PM EST us Deedee Arthur MD LAB BLOOD ORDERABLES Final Resul t Performing Organization Address City/[facility]/ZIP Co de Phone Number [facility] [address] [place] [phone] * (ABNORMAL) Hepatic Function Panel (04/25/2024 2:16 PM EST) Bilirubin, Total 0.4 0.0 - 1.0 mg/dL [facility] Bilirubin, Direct 0.1 0.0 - 0.5 mg/dL [facility] Aspartate Amino Transferase 27 5 - 31 U/L [facility] Alanine Aminotransferase 47(H) 0 - 31 U/L [facility] Total Protein 7.4 6.5 - 8.0 g/dL [facility] Albumin Level 4.0 3.5 - 5.0 g/dL [facility] Alkaline Phosphatase 137(H) 39 - 117 U/L [facility] Blood Venous blood specimen / Unknown 04/25/2024 2:16 PM EST 04/25/2024 4:00 PM EST us Deedee Arthur MD LAB BLOOD ORDERABLES Final Resul t Performing Organization Address [facility] Co de Phone Number [facility] [address] [place] [phone] * (ABNORMAL) Basic Metabolic Panel (04/25/2024 2:16 PM EST) Sodium 139 135 - 145 mmol/L [facility] Potassium 4.3 3.3 - 5.1 mmol/L [facility] Chloride 106 96 - 108 mmol/L [facility] Carbon Dioxide 28 22 - 29 mmol/L [facility] Anion Gap 9(L) 12 - 20 [facility] Urea Nitrogen (BUN) 13 9 - 16 mg/dL [facility] Creatinine, Serum 0.82 0.5 - 1.4 mg/dL [facility] Estimated Glomerular Filt Rate >60 [facility] Comment:Chronic Kidney Disea se: Estimated GFR < 60 mL/min/[id number] Kidney Disease: Estimated GFR < 15 mL/min/1.73m2 Glucose 121(H) 60 - 115 mg/dL [facility] Calcium 9.1 8.4 - 10.2 mg/dL [facility] Blood Venous blood specimen / Unknown 04/25/2024 2:16 PM EST 04/25/2024 4:00 PM EST us Deedee Arthur MD LAB BLOOD ORDERABLES Final Resul t Performing Organization Address [facility] Co de Phone Number [facility] [address] [place] [phone] * (ABNORMAL) POCT glucose manually resulted (04/25/2024 [...] / Unknown 04/25/2024 1:46 PM EST Result [facility] Deedee Arthur MD POINT OF CARE TEST ENTER/EDIT OR DERABLES Final Result * Hm Colonoscopy (11/14/2023) Colonoscopy Normal Normal Result [facility] Minerva Henderson MD HEALTH MAINTENANCE Final Result * (ABNORMAL) Albumin, Random Urine W/Creatinine (07/23/2023 11:18 AM EDT) Creatinine, Urine 62.51 mg/dL [facility] Microalbumin Urine 20.0 mg/L [facility] Microalbum Creatinine Ratio Ur 31.9(H) <30 ug/mg cr [facility] Comment:Albumin/Creatinine R at Reference Ranges: Normal: < 30 ug/mg creatinine Microalbuminuria: 30 - 300 ug/mg creatinineClinical Albuminuria: > 300 ug/mg creatinine Urine 07/23/2023 11:1 8 AM EDT 07/23/2023 12:59 PM EDT Result [facility] Deedee Arthur MD LAB URINE ORDERABLES Final Resul t [facility] [address] [place] [phone] * BI Mammogram Screening Tomosynthesis Bilateral (06/03/2023 11:20 AM EDT) Anatomical Region Laterality Modality Breast Bilateral Mammography 06/03/2023 11:2 0 AM EDT Narrative 06/08/2023 5:56 AM EDT ? [facility] [place] ? [address] ?[place] [phone] ? Mammography Report ? Signed ? Patient: Douglas,Vanessa ?MR#: [id number] ?? 2 ? : 1960 ?Acct:[id number] ? Age/Sex: 62 / F ?ADM Date: 06/03/23 ? Loc: HO.MAMMO ? Attending Dr: Deedee Arthur MD ? Ordering Physician: Deedee Arthur MD ?Results: 1Negative ? Date of Service: 06/03/23 ?Follow Up: 1 Year From Orig ?? inal Mammogram ? Procedure(s): MM tomosynthesis screening BI ?? Accession Number(s): [id number] ? cc: Deedee Arthur MD ? EXAMINATION: ?? MM SCREENING DIGITAL BREAST TOMOSYNTHESIS, BILATERAL ? CLINICAL INFORMATION: ? Screening. Asymptomatic. ? COMPARISON: ?? Mammography: This study is compared with prior exams dating back to ?? 2018. ? TECHNIQUE: ?? Digital breast tomosynthesis is [...] 0553 ? DD/ 1120 ? TD/TT: ? Automatic Washer Mechanic: ? Procedure Note Aarti, Image - 06/08/2023 Cam[facility] [address] [place] [address] Mammography Report Signed Patient: Mariella Douglas#: [id number] 2 : 1960Acct:[id number] Age/Sex: 62 / FADM Date: 06/03/23 Loc: [facility] Attending Dr: Deedee Arthur MD Ordering Physician: Deedee Arthuresults: 1Negative Date of Service: 06/03/23Follow Up: 1 Year From Orig inal Mammogram Procedure(s): MM tomosynthesis screening BI Accession Number(s): [id number] cc: Sakurai,Deedee MD EXAMINATION: MM SCREENING DIGITAL BREAST TOMOSYNTHESIS, [...] in OV> 06/08/23 0553 DD/ 1120 TD/TT: Automatic Washer Mechanic: Deedee Arthur MD IMG BI PROCEDURES Final Result * Hm Pap Smear (08/31/2020) Pap Negative for intraephithelial lesion or malignancy Negative for intraephithelial lesion or malignancy, Other HPV Undetected Undetected, Indeterminate, Quantitative, Not Detected Historical Provider [facility] Final Result * HEPATITIS C AB W/REFL TO HCV RNA, QN, PCR (08/15/2020 3:03 PM EDT) HEPATITIS C ANTIBODY NON-REACT [facility] NON-REACT [facility] INDEX 0.05 <1.00 [facility] Comment: ?? HCV antibody was non-reactive. There is no laboratory ?? evidence of HCV infection. ?? In most cases, no further action is required. However, if recent HCV exposure is suspected, a test for HCV RNA (test code 73168) is suggested. ?? For additional information please refer to http://education.iPeen/faq/JGH63n4 (This link is being provided for informational/ educational purposes only.) ?? 08/15/2020 3:03 PM EDT [employer] HISTORICAL/NON ORDERABLE LABS Final Result Performing Organization Address [facility] de Phone Number [facility] [address] * HIV 1/2 ANTIGEN/ANTIBODY,FOURTH GENERATION W/RFL (08/15/2020 3:03 PM EDT) HIV-1/2 ANTIGEN AND ANTIBODIES, 4TH GENERATION W/ REFLEX NON-REACT [facility] NON-REACT [facility] Comment: HIV-1 antigen and HIV-1/HIV-2 [...] ? For additional information please refer to http://education.iPeen/faq/LDE123 (This link is being provided for informational/ educational purposes only.) ? The performance of this assay has not been clinically validated in patients less than 2 years old. ?? 08/15/2020 3:03 PM EDT Hiwot Jackie [facility] LAB BLOOD ORDERABLES Final Res ult Performing Organization Address [facility] de Phone Number [facility] [address] from Last 3 Months or Most Recently Relevant to Health Maintenance Insurance [facility] C3 Care Teams Repairer General Relationship Specialty Start Date End Date Deedee Arthur MD [address] [place] [address] PCP - General Family Medicine 09/09/19 Daniel Clancy, MassimoD [address] [place] [address] Pharmacist Internal Medicine 10/14/23
--- OUTSIDE RECORDS SUMMARY | 2024-06-08 13:21 | XMS_ITS | Encounter Summary ---
Author Organization [employer] Address [address] [facility] 7t [place] [address] Care Team Providers Care Merchandiser Retail Representative Name Role Phone Deedee Mc MD Primary Care Provider [phone] Daniel Clancy PharmD Unavailable [phone] Reason for Visit * Reason Comments Med Refill Encounter Details Date Type Department Care Team (Late st Contact Info) Description 10/13/2023 Refill [facility] [address] [place], [place] [phone] Deedee Mc MD [address] [place], [place] [phone] Hypothyroidism due to medication Social History Tobacco [...] Description 06/15/2024 10:00 AM EDT Medication Management [facility] [address] [place] [phone] Daniel Clancy PharmD [address] [place] [address] documented as of this encounter Goals Goal [...] documented as of this encounter Care Teams Merchandiser Retail Representative Relationship Specialty Start Date End Date Deedee Mc MD [address] [place] [phone] PCP - General Family Medicine 09/09/19 Daniel Clancy, PharmD [address] [place] [phone] Pharmacist Internal Medicine 10/14/23 documented as of this encounter
--- OUTSIDE RECORDS SUMMARY | 2024-06-08 13:21 | XMS_ITS | Encounter Summary ---
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 Please reconcile her medications. She was receiving medications from specialists in [place] [facility] after her head surgery, (Levetiracetam and acetazolamide). Thank you. Encounter Details Date Type Department Care Team (Late st Contact Info) Description 07/14/2023 Orders Only [facility] [address] [place], [place] [phone] Deedee Mc MD [address] [place], [place] [phone] Hypothyroidism due to medication (Primary Dx); Meningoencephalocele [...] Description 06/15/2024 10:00 AM EDT Medication Management [facility] [address] [place] [address] Daniel Clancy, PharmD [address] [place] [address] Scheduled Orders Name Type Priority Associated Diagnoses [...] (Free Thyroxine) 0.88 0.71 - 1.85 ng/dL [facility] Blood Venous blood specimen / Unknown 07/14/2023 12:26 PM EDT 07/14/2023 1:10 PM EDT us Deedee Mc MD LAB BLOOD ORDERABLES Final Resul t [facility] [address] [place] [phone] [phone] documented in this encounter Visit Diagnoses Diagnosis Hypothyroidism due to medication- Primary Meningoencephalocele (CMS/HCC) Encephalocele Type 2 diabetes mellitus with diabetic polyneuropathy, without long-term current use of insulin ([facility]/HCC) Renal cell carcinoma of right kidney ([facility]/HCC) documented in this encounter Additional Health Concerns Assessment Noted Time PHQ-9 Depression Total Score: 12 024 11:13 AM EDT documented as of this encounter Care Teams International Account Executive Relationship Specialty Start Date End Date Deedee Mc MD [address] [place] [address] PCP - General Family Medicine 09/09/19 Daniel Clancy, PharmD [address] [place] [address] [place] [address] Pharmacist Internal Medicine 10/14/23 documented as of this encounter
--- OUTSIDE RECORDS SUMMARY | 2024-06-08 13:21 | XMS_ITS | Encounter Summary ---
Author Organization [employer] Address [address] [facility] 7t [place] [address] Care Team Providers Care Lap Grinder Name Role Phone Deedee Mc MD Primary Care Provider [phone] Daniel Clancy PharmD Unavailable [phone] Encounter Details Date Type Department Care Team (Late st Contact Info) Description 08/03/2023 Orders Only [facility] [address] [place], [place] [phone] Deedee Mc MD [address] [place], [place] [phone] Social History Tobacco Use Types Packs/Day Years [...] Description 06/15/2024 10:00 AM EDT Medication Management [facility] [address] [place] [phone] Daniel Clancy, PharmD [address] [place] [phone] documented as of this encounter Goals Goal [...] documented as of this encounter Care Teams Lap Grinder Relationship Specialty Start Date End Date Deedee Mc MD [address] [place] [address] PCP - General Family Medicine 09/09/19 Daniel Clancy, PharmD [address] [place] [address] Pharmacist Internal Medicine 10/14/23 documented as of this encounter
--- OUTSIDE RECORDS SUMMARY | 2024-06-08 13:21 | XMS_ITS | Encounter Summary ---
Author Organization [employer] Address [address] [facility] 7t [place] [address] Care Team Providers Care Radiagraph Operator Name Role Phone Deedee Mc MD Primary Care Provider [phone] Daniel Clancy PharmD Unavailable [phone] Encounter Details Date Type Department Care Team (Late st Contact Info) Description 09/02/2023 Orders Only [facility] [address] [place], [place] [phone] Deedee Mc MD [address] [place], [place] [phone] Social History Tobacco Use Types Packs/Day Years [...] 10:00 AM EDT Medication Management [facility] [address] [place] [phone] Daniel Clancy, PharmD [address] [place] [phone] documented as of this encounter Goals Goal [...] documented as of this encounter Care Teams Radiagraph Operator Relationship Specialty Start Date End Date Deedee Mc MD [address] [place] [address] PCP - General Family Medicine 09/09/19 Daniel Clancy, PharmD [address] [place] [address] Pharmacist Internal Medicine 10/14/23 documented as of this encounter
--- OUTSIDE RECORDS SUMMARY | 2024-06-08 13:21 | XMS_ITS | Encounter Summary ---
Author Organization [employer] Address [address] [facility] 7t [place] [address] Care Team Providers Care Senior Telecommunications Technician Name Role Phone Deedee Mc MD Primary Care Provider [phone] Daniel Clancy PharmD Unavailable [phone] Encounter Details Date Type Department Care Team (Late st Contact Info) Description 09/04/2023 Orders Only [facility] [address] [place], [place] [phone] Deedee Mc MD [address] [place], [place] [phone] Social History Tobacco Use Types Packs/Day Years [...] Description 06/15/2024 10:00 AM EDT Medication Management [facility] [address] [place] [phone] Daniel Clancy, PharmD [address] [place] [address] documented as of this encounter Goals Goal [...] documented as of this encounter Care Teams Senior Telecommunications Technician Relationship Specialty Start Date End Date Deedee Mc MD [address] [place] [address] PCP - General Family Medicine 09/09/19 Daniel Clancy, PharmD [address] [place] [address] Pharmacist Internal Medicine 10/14/23 documented as of this encounter
--- OUTSIDE RECORDS SUMMARY | 2024-06-08 13:21 | XMS_ITS | Encounter Summary ---
Author Organization [employer] Address [address] [facility] 7t [place] [address] Care Team Providers Care Groundman Name Role Phone Deedee Mc MD Primary Care Provider [phone] Daniel Clancy PharmD Unavailable [phone] Reason for Visit * Reason Comments Med Refill Encounter Details Date Type Department Care Team (Late st Contact Info) Description 09/14/2023 Refill [facility] [address] [place], [place] [phone] Deedee Mc MD [address] [place], [place] [phone] Social History Tobacco Use Types Packs/Day Years [...] Description 06/15/2024 10:00 AM EDT Medication Management [facility] [address] [place] [address] Daniel Clancy, Tanika [address] [place] [address] documented as of this encounter Goals Goal [...] documented as of this encounter Care Teams Groundman Relationship Specialty Start Date End Date Deedee Mc MD [address] [place] [address] PCP - General Family Medicine 09/09/19 Daniel Clancy, PharmD [address] [place] [address] Pharmacist Internal Medicine 10/14/23 documented as of this encounter
--- OUTSIDE RECORDS SUMMARY | 2024-06-08 13:21 | XMS_ITS | Encounter Summary ---
Author Organization [employer] Address [address] [facility] 7t [place] [address] Care Team Providers Care Finisher Brush Name Role Phone Deedee Mc MD Primary Care Provider [phone] Daniel Clancy PharmD Unavailable [phone] Reason for Visit * Reason Comments Med Refill Encounter Details Date Type Department Care Team (Late st Contact Info) Description 09/24/2023 Refill [facility] [address] [place], [place] [phone] Andrae Murillo MD [address] [place], [place] [phone] Primary hypertension Social History Tobacco Use Types [...] Description 06/15/2024 10:00 AM EDT Medication Management [facility] [address] [place] [address] Daniel Clancy PharmD [address] [place] [address] documented as of this encounter Goals Goal [...] documented as of this encounter Care Teams Finisher Brush Relationship Specialty Start Date End Date Deedee Mc MD [address] [place] [address] PCP - General Family Medicine 09/09/19 Daniel Clancy, PharmD [address] [place] [address] Pharmacist Internal Medicine 10/14/23 documented as of this encounter
--- OUTSIDE RECORDS SUMMARY | 2024-06-08 13:21 | XMS_ITS | Clinical Summary ---
Author Organization [address] [facility] Address [address] [place] [address] Phone Care Team Providers Care Embroidery Cutter Name Role Phone Yunier Sprague MD Primary Care Provi kaushik Allergies No known active allergies Medications amLODIPine (NORVASC) 10 mg tablet Take 1 tablet (10 mg total) by mouth 1 (one) time each day. Active atorvastatin (LIPITOR) 20 mg tablet Take 1 tablet (20 mg total) by mouth 1 (one) time each day. Active buPROPion (WELLBUTRIN) 100 mg tablet Take 1 tablet (100 mg total) by mouth 2 (two) times a day. Active docusate sodium (COLACE) 100 mg capsule Take 1 capsule (100 mg total) by mouth 2 (two) times a day. Active levothyroxine sodium (TIROSINT) 100 mcg capsule Take 50 mcg by mouth. Taking 1/2 a pill daily Active metFORMIN (GLUCOPHAGE) 500 mg tablet Take 1 tablet (500 mg total) by mouth 2 (two) times a day with meals. Active omeprazole (PRILOSEC) 20 mg tablet,delayed release (DR/EC) Take by mouth. Active ondansetron (ZOFRAN) 8 mg tablet Take 1 tablet (8 mg total) by mouth every 8 (eight) hours if needed. Active oxyCODONE (OXY-IR) 5 mg immediate release capsule Take 1 capsule (5 mg total) by mouth every 6 (six) hours if needed for severe pain. Max Daily Amount: 20 mg 90 capsule 05/24/19 25 Active diclofenac (VOLTAREN) 1 % topical gel Apply 4 g topically 2 (two) times a day. 09/07/20 22 025 Discontinued traMADoL (ULTRAM) 50 mg tablet Take 1 tablet (50 mg total) by mouth every 6 (six) hours if needed. 025 Discontinued oxyCODONE (OXY-IR) 5 mg immediate release capsule Take 1 capsule (5 mg total) by mouth every 6 (six) hours if needed for severe pain. Max Daily Amount: 20 mg 60 capsule 05/03/19 25 025 Discontinued(Re order) Active Problems Problem Noted Date Diagnosed Date Acid reflux 12/21/2023 Anemia 12/21/2023 Essential hypertension 12/21/2023 Malignant neoplasm metastatic to bone 12/21/2023 Malignant neoplasm metastatic to liver Renal cell cancer 12/21/2023 Overview (12/21/2023): Last Assessment & Plan: No evidence of recurrent Night Custodian metastatic disease. Will return to Dr. Fleming for follow up imaging and treatment as planned. 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 No other obvious Night Custodian cause by imaging or limited exam today. [...] Encounters Date Type Department Care Team Description 05/23/2024 2:30 PM EST Office Visit [facility] Hematology Oncology [address] [place] [phone] Braeden Galarza MD Renal cell carcinoma of right kidney (CMS/HCC) (Primary Dx); Malignant neoplasm metastatic to liver (CMS/HCC); Anemia, unspecified type 05/23/2024 Telephone [facility] Hematology Oncology [address] [place] [address] Irma Jo MA 05/11/2024 Telephone [facility] Hematology Oncology [address] [place] [address] Braeden Galarza MD from Last 3 Months Immunizations Name Administration Dates Next Due [facility] SARS-CoV-2 COVID -19, vector-nr, [id number], preservative free 06/06/2020 Pfizer SARS-CoV-2 COVID-19, mRNA, LNP-S, preservative free 07/31/2021,03/13/2021 [...] Orientation Straight 05/24/2024 8: 35 AM EST Obstetrics History Last Filed Vital Signs Vital [...] Mass Index 42.62 05/23/2024 2:16 PM EST Plan of Treatment Upcoming Encounters Date Type Department Care Team (Late st Contact Info) Description 06/28/2024 11:15 AM EDT Appointment [facility] CT Scan [address] [place] [address] 08/02/2024 11:15 AM EDT Office Visit [facility] Hematology Oncology [address] [place] [address] Braeden Galarza MD [address] [place] [address] Health Maintenance Due Date Last Done Comments Breast Cancer Screening 1962 Diabetes: Annual Foot Exam 1972 Diabetes: Annual Retina Eye Exam 1972 Cholesterol Screening (Lipid Panel) 02/27/2022 Colorectal Cancer Screening: Colonoscopy 02/27/2022 Hepatitis C Screening 02/27/2022 Social Influencers of Health Screening 02/27/2022 Diabetes: Annual Urine Albumin-Creatinine Ratio (uACR) 03/02/2022 Diabetes: Blood Sugar Control Test (HGBA1C) 10/23/2024 04/25/2024, 01/26/2024 Depression Screening 04/25/2025 04/25/2024 Diabetes: Annual GFR (Glomerular Filtration Rate) 05/10/2025 05/10/2024, 04/25/2024, 01/29/2024, Additional history exists Hypertension/CHF/CAD Annual BMP Blood Test 05/10/2025 05/10/2024, 04/25/2024, 01/29/2024, Additional history exists Cervical Cancer Screening: HPV 08/31/2025 08/31/2020 DTaP,Tdap,and [...] Pneumococcal Vaccine: 50+ Years Completed 09/14/2023, 03/06/2014 Pneumococcal Vaccine: Pediatrics (0 to 5 Years) [...] patient's age to complete this topic Meningococcal B Vacine Aged Out No lo nger eligible based on patient's age to complete this topic RSV Immunization Patients Under 20 months Aged Out No longer eligible based on patient's age to complete this topic Varicella Vaccines Aged Out No longer eligible based on patient's age to complete this topic Procedures Procedure Name Priority Date/Time Associated Diagnosis Comments CBC WITH AUTO DIFFERENTIAL Routine 05/10/2024 11:59 AM EST Renal cell carcinoma of right kidney (CMS/HCC) CBC AND DIFFERENTIAL Routine 05/10/2024 11:59 AM EST Renal cell carcinoma of right kidney (CMS/HCC) COMPREHENSIVE METABOLIC PANEL Routine 05/10/2024 11:59 AM EST Renal cell carcinoma of right kidney (CMS/HCC) LACTATE DEHYDROGENASE Routine 05/10/2024 11:59 AM EST Renal cell carcinoma of right kidney (CMS/HCC) THYROID STIMULATING HORMONE Routine 05/10/2024 11:59 AM EST Hypothyroidism due to drugs HM HPV Routine 08/31/2020 from Last 3 Months or Most Recently Relevant to Health Maintenance Results * (ABNORMAL) CBC auto differential (05/10/2024 11:59 AM EST) [facility] WBC 5.7 4.8 - 10.8 K/mcL LAB HEMETOLOGY METHOD 05/10/2024 1:51 PM [facility] RBC 5.40(H) 3.80 - 4.80 M/mcL LAB HEMETOLOGY METHOD 05/10/2024 1:51 PM [facility] Hemoglobin 14.8 11.5 - 16.0 g/dL LAB HEMETOLOGY METHOD 05/10/2024 1:51 PM [facility] Hematocrit 46.4 35.0 - 47.0 % LAB HEMETOLOGY METHOD 05/10/2024 1:51 PM [facility] MCV 85.8 79.0 - 98.0 FL LAB HEMETOLOGY METHOD 05/10/2024 1:51 PM [facility] MCH 27.4 27.0 - 32.0 pcg LAB HEMETOLOGY METHOD 05/10/2024 1:51 PM [facility] MCHC 31.9(L) 32.0 - 37.0 g/dL LAB HEMETOLOGY METHOD 05/10/2024 1:51 PM [facility] RDW 14.0 11.0 - 15.0 % LAB HEMETOLOGY METHOD 05/10/2024 1:51 PM [facility] Platelets 244 130 - 400 K/mcL LAB HEMETOLOGY METHOD 05/10/2024 1:51 PM [facility] MPV 10.1 7.0 - 11.0 FL LAB HEMETOLOGY METHOD 05/10/2024 1:51 PM [facility] NRBC 0.0 <1.0 % LAB HEMETOLOGY METHOD 05/10/2024 1:51 PM [facility] NRBC Absolute 0.00 <0.10 K/mcL LAB HEMETOLOGY METHOD 05/10/2024 1:51 PM [facility] Neutrophils Relative 63.5 % LAB HEMETOLOGY METHOD 05/10/2024 1:51 PM [facility] Lymphocytes Relative 25.1 % LAB HEMETOLOGY METHOD 05/10/2024 1:51 PM [facility] Monocytes Relative 8.8 % LAB HEMETOLOGY METHOD 05/10/2024 1:51 PM [facility] Eosinophils Relative 1.4 % LAB HEMETOLOGY METHOD 05/10/2024 1:51 PM [facility] Basophils Relative 0.5 % LAB HEMETOLOGY METHOD 05/10/2024 1:51 PM [facility] Immature Granulocytes Relative 0.7 % LAB HEMETOLOGY METHOD 05/10/2024 1:51 PM [facility] Neutrophils Absolute 3.61 1.50 - 7.00 K/mcL LAB HEMETOLOGY METHOD 05/10/2024 1:51 PM [facility] Lymphocytes Absolute 1.43 1.00 - 5.00 K/mcL LAB HEMETOLOGY METHOD 05/10/2024 1:51 PM [facility] Monocytes Absolute 0.50 0.20 - 1.00 K/mcL LAB HEMETOLOGY METHOD 05/10/2024 1:51 PM [facility] Eosinophils Absolute 0.08 0.00 - 0.50 K/mcL LAB HEMETOLOGY METHOD 05/10/2024 1:51 PM [facility] Basophils Absolute 0.03 0.00 - 0.20 K/mcL LAB HEMETOLOGY METHOD 05/10/2024 1:51 PM [facility] Immature Granulocytes Absolute 0.04(H) 0.00 - 0.03 K/mcL LAB HEMETOLOGY METHOD 05/10/2024 1:51 PM EST [facility] Blood Venous blood specimen / Unknown Venipuncture / Unknown 05/10/2024 11:59 AM EST 05/10/2024 1:39 PM EST us Braeden Galarza MD LAB BLOOD ORDERABLE S Final Result Performing Organization Address [facility]/ZIP Co de Phone Number [facility] [address] [place] [address], [place] [phone] * (ABNORMAL) Thyroid stimulating hormone (05/10/2024 11:59 AM EST) TSH <0.05(L) 0.40 - 4.00 mcIU/mL LAB CHEMISTRY METHOD 05/10/2024 2:20 PM EST [facility] Blood Venous blood specimen / Unknown Venipuncture / Unknown 05/10/2024 11:59 AM EST 05/10/2024 1:39 PM EST us Braeden Galarza MD LAB BLOOD ORDERABLE S Final Result Performing Organization Address [facility] Co de Phone Number [facility] [address] [place] [address], [place] [phone] * (ABNORMAL) Lactate dehydrogenase (05/10/2024 11:59 AM EST) LDH 85(L) 120 - 246 unit/L LAB CHEMISTRY METHOD 05/10/2024 2:39 PM EST [facility] Blood Venous blood specimen / Unknown Venipuncture / Unknown 05/10/2024 11:59 AM EST 05/10/2024 1:39 PM EST us Braeden Galarza MD LAB BLOOD ORDERABLE S Final Result Performing Organization Address City/[facility]/ZIP Co de Phone Number [facility] [address] [place] [address], [place] [phone] * (ABNORMAL) Comprehensive metabolic panel (05/10/2024 11:59 AM EST) Sodium 139 133 - 145 mmol/L LAB CHEMISTRY METHOD 05/10/2024 2:39 PM [facility] Potassium 4.0 3.5 - 5.5 mmol/L LAB CHEMISTRY METHOD 05/10/2024 2:39 PM [facility] Chloride 106 96 - 110 mmol/L LAB CHEMISTRY METHOD 05/10/2024 2:39 PM [facility] CO2 26 21 - 32 mmol/L LAB CHEMISTRY METHOD 05/10/2024 2:39 PM [facility] Anion Gap 7 3 - 11 LAB CHEMISTRY METHOD 05/10/2024 2:39 PM [facility] Glucose 103(H) 70 - 100 mg/dL LAB CHEMISTRY METHOD 05/10/2024 2:39 PM [facility] BUN 25 5 - 25 mg/dL LAB CHEMISTRY METHOD 05/10/2024 2:39 PM [facility] Creatinine 0.96 0.50 - 1.10 mg/dL LAB CHEMISTRY METHOD 05/10/2024 2:39 PM [facility] eGFR 67 >=60 mL/min/1. 73m2 LAB CHEMISTRY METHOD 05/10/2024 2:39 PM [facility] Comment:Calculation based on the??Chronic Kidney Disease Epidemiology Collaboration (CKD-EPI) equation refit??without adjustment for race. BUN/Creatinine Ratio 26.0 LAB CHEMISTRY METHOD 05/10/2024 2:39 PM [facility] Calcium 9.3 8.5 - 10.5 mg/dL LAB CHEMISTRY METHOD 05/10/2024 2:39 PM [facility] AST (SGOT) 17 10 - 42 unit/L LAB CHEMISTRY METHOD 05/10/2024 2:39 PM [facility] ALT (SGPT) 42 10 - 60 unit/L LAB CHEMISTRY METHOD 05/10/2024 2:39 PM EST [facility] Alkaline Phosphatase 170(H) 42 - 121 unit/L LAB CHEMISTRY METHOD 05/10/2024 2:39 PM EST [facility] Total Protein 6.7 6.0 - 8.0 g/dL LAB CHEMISTRY METHOD 05/10/2024 2:39 PM EST [facility] Albumin 3.4 3.2 - 5.0 g/dL LAB CHEMISTRY METHOD 05/10/2024 2:39 PM [facility] Total Bilirubin 0.4 0.0 - 1.4 mg/dL LAB CHEMISTRY METHOD 05/10/2024 2:39 PM [facility] Blood Venous blood specimen / Unknown Venipuncture / Unknown 05/10/2024 11:59 AM EST 05/10/2024 1:39 PM EST Ruthramalphonso Galarza MD LAB BLOOD ORDERABLE S Final Result [facility] [address] [place] [address], * Cervical Cancer Screening: HPV (08/31/2020) Pathologist [facility] Cervical Cancer Screening: HPV Negative, abstracted Historical Provider HEALTH MAINTENANCE Final Result from Last 3 Months or Most Recently Relevant to Health Maintenance Insurance MEDICAID - [place] Care Teams Embroidery Cutter Relationship Specialty Start Date End Date Yunier Sprague MD [address] [place] [address] PCP - General Internal Medicine 12/05/13
== END 2024-06-08 11:03 | disposition home or self-care (01) ==
LOC: HO.MAMMO 11:02
PROVIDERS: PCP Family Medicine; Visit Provider Family Medicine
DX: Z12.31 Encounter for screening mammogram for malignant neoplasm of breast (principal)
CPT/HCPCS: 77063; 77067

== ENCOUNTER → 2024-06-08 11:15 | Outpatient (BNV) | payer MEDICAID, SELFPAY | PROVIDERS: PCP Family Medicine; Visit Provider Internal Medicine | DX: Z12.31 Encounter for screening mammogram for malignant neoplasm of breast (principal) | CPT/HCPCS: 77063; 77067 ==

== ENCOUNTER 2024-06-21 10:21 | Outpatient (REF) | payer MEDICAID, SELFPAY ==
[2024-06-21 11:50] LABS: Appearance Urine Clear; Color Urine Yellow; Glucose Urine UA Negative (Negative); Leukocyte Esterase Urine Negative (Negative); Nitrite Urine Negative (Negative); Urine Blood Negative (Negative); Urine Ketones Negative (Negative); Urine Protein Negative (Neg-Trace)
[2024-06-21 11:50] LABS: Anion Gap 11 (12-20); Blood Urea Nitrogen 16 mg/dL (9-16); Calcium 9.5 mg/dL (8.4-10.2); Carbon Dioxide 26 mmol/L (22-29); Chloride 107 mmol/L (96-108); Estimated Glomerular Filt Rate > 60; Glucose Random 183 mg/dL (60-115); Potassium 4.1 mmol/L (3.3-5.1); Sodium 140 mmol/L (135-145)
[2024-06-21 11:52] LABS: Bacteria Urine None Seen (None Seen); Hyaline Casts Urine 0-2 /LPF (0-2); RBC Urine 0-2 /HPF (0-2); WBC Urine 0-5 /HPF (0-5)
[2024-06-21 12:06] LABS: TSH reflex Free T4 0.04 uIU/mL (0.32-4.0)
--- OUTSIDE RECORDS SUMMARY | 2024-06-21 12:14 | XMS_ITS | Encounter Summary ---
Author Organization [employer] Address [address] [facility] 7t [place] [address] Care Team Providers Care Supervisor Audit Clerks Name Role Phone Deedee Mc MD Primary Care Provider [phone] Daniel Clancy PharmD Unavailable [phone] Reason for Visit * Reason Onset Date Comments Nurse Triage 06/17/2024 Encounter Details Date Type Department Care Team ([facility] st Contact Info) Description 06/17/2024 Telephone [facility] MEDIC[facility] [address] [place], [place] [phone] Deedee Mc MD [address] [place], [place] [phone] Nurse Triage Social History Tobacco Use Types [...] Telephone Encounter - Geri Rosales RN - 06/17/2024 2:28 PM EDT TC placed to pt with S respiratory therapy instructor Nica #[id number] to inform of Urinalysis and Culture ordered by PCP. Pt instructed that she can have this done at the lab here at [facility] or [facility] sometime next week. Pt could not recall who she saw in urology but informed that if UA comes back abnormal that PCP will place a new referral to urology. Pt agreeable to this plan of care and stated understanding of the instructions. * Telephone Encounter - Lanny Diaz LPN - 06/17/2024 12:00 PM EDT Triage call returned with BLS # [id number] Claudia. Patient reports concern of several days of slight burning with urination and dark colored urine. Patient with previous history or renal CA and is concerned with renal status. Patient reports headaches and fatigue and thyroid concerns as well. Patient reports that she completed labs ordered on 06/15/24 no results noted in chart at time of call. Patient wants to see PCP to address concerns. No apptsavailable to book per Triage protocol. Disposition reviewed with patient in agreement with plan. NoPCP or Team appts. Available at time of call. [facility] hours and availability provided for patient evaluation. Triage nurse informed the patient may have a wait of 1-2 hours because [facility] may have delays due to patient volume or symptom acuity. Insurance verified as active. Forwarded to PCP and team as FYI to follow up PRN Protocol Used: Urinary Symptoms (Adult) Protocol-Based Disposition: See in Office or Video Visit within 2 Weeks Positive Triage Question: * All other urine symptoms * All higher-acuity triage questions were negative Care Advice Discussed: * Reasons To Call Back - Fever occurs - Pain or burning with urination - Unable to urinate and bladder feels full - You become worse * Telephone Encounter - Alysa Wren - 06/17/2024 11:39 AM EDT Symptoms: Abdominal Pain - Female - Not , Urine Symptoms Outcome: Schedule an urgent appointment (within 4 hours) or talk to a nurse or provider soon Reason: Started within the past 3 days The caller accepted this outcome. [phone] pitcairn islander documented in this encounter Plan of Treatment Upcoming Encounters Date Type Department Care Team (Late st Contact Info) Description 07/20/2024 10:00 AM EDT Medication Management [facility] [address] [place] [address] Daniel Clancy, PharmD [address] [place] [address] documented as of this encounter Goals Goal Patient Goal Type Associated Problems Recent Progress Patient-Stated? Author Blood Pressure < 140/90 Blood Pressure 140/70(2024 10:27 AM EDT) Benito Kilpatrick Hemoglobin A1c < 7 Result Component 6.6( 1:46 PM EST) No Benito Padron documented as of this encounter Visit Diagnoses Not on filedocumented in this encounter Additional Health Concerns Assessment Noted Time PHQ-9 Depression Total Score: 13 025 1:35 PM EST documented as of this encounter Care Teams Supervisor Audit Clerks Relationship Specialty Start Date End Date Deedee Mc MD [address] [place] [address] PCP - General Family Medicine 09/09/19 Daniel Clancy PharmD [address] [place] [address] Pharmacist Internal Medicine 10/14/23 documented as of this encounter
--- OUTSIDE RECORDS SUMMARY | 2024-06-21 12:14 | XMS_ITS | Encounter Summary ---
Author Organization [facility] Address [address] [facility] 7t [place] [address] Care Team Providers Care Environmental Education Specialist Name Role Phone Deedee Mc MD Primary Care Provider [phone] Daniel Clancy PharmD Unavailable [phone] Reason for Visit * Reason Onset Date Comments Results 06/13/2022 Encounter Details Date Type Department Care Team ([facility] st Contact Info) Description 06/13/2022 Telephone [facility] [address] [place], [place] [phone] Deedee Mc MD [address] [place], [place] [phone] Results Social History Tobacco Use Types Packs/Day [...] from urine example. Please contact pt st [phone] Turkmen Speaker documented in this encounter Plan of Treatment Upcoming Encounters Date Type Department Care Team (Late st Contact Info) Description 07/20/2024 10:00 AM EDT Medication Management [facility] [address] [place] [phone] Daniel Clancy, Tanika [address] [place] [address] documented as of this encounter Visit Diagnoses Not on filedocumented in this encounter Care Teams Environmental Education Specialist Relationship Specialty Start Date End Date Deedee Mc MD [address] [place] [phone] PCP - General Family Medicine 09/09/19 Daniel Clancy PharmD [address] [place] [phone] Pharmacist Internal Medicine 10/14/23 documented as of this encounter
--- OUTSIDE RECORDS SUMMARY | 2024-06-21 12:14 | XMS_ITS | Clinical Summary ---
Author Organization [facility] Address [address] [place] [address] Care Team Providers Care Broth Mixer Name Role Phone Yunier Sprague MD Primary [...] age to complete this topic Care Teams Broth Mixer Relationship Specialty Start Date End Date Yunier Sprague MD [address] [place] [phone] PCP - General Internal Medicine 08/14/21
--- OUTSIDE RECORDS SUMMARY | 2024-06-21 12:14 | XMS_ITS | Encounter Summary ---
Author Organization [employer] Address [address] [facility] 7t [place] [address] Care Team Providers Care Automatic Nailing Machine Feeder Name Role Phone Deedee Mc MD Primary Care Provider [phone] Daniel Clancy PharmD Unavailable [phone] Encounter Details Date Type Department Care Team (Late st Contact Info) Description 06/13/[address] [facility] [address] [place], [place] [phone] Deedee Mc MD [address] [place], [place] [phone] Social History Tobacco Use Types Packs/Day Years [...] Description 07/20/2024 10:00 AM EDT Medication Management [facility] [address] [place] [phone] Daniel Clancy, PharmD [address] [place] [phone] documented as of this encounter Goals Goal Patient Goal Type Associated Problems Recent Progress Patient-Stated? Author Blood Pressure < 140/90 Blood Pressure 140/70(2024 10:27 AM EDT) No Benito Padron Hemoglobin A1c < 7 Result Component 6.6( 1:46 PM EST) No Benito Padron documented as of this encounter Visit Diagnoses Not on filedocumented in this encounter Additional Health Concerns Assessment Noted Time PHQ-9 Depression Total Score: 13 025 1:35 PM EST documented as of this encounter Care Teams Automatic Nailing Machine Feeder Relationship Specialty Start Date End Date Deedee Mc MD [address] [place] [phone] PCP - General Family Medicine 09/09/19 Daniel Clancy, PharmD [address] [place] [phone] Pharmacist Internal Medicine 10/14/23 documented as of this encounter
--- OUTSIDE RECORDS SUMMARY | 2024-06-21 12:14 | XMS_ITS | Encounter Summary ---
Author Organization [employer] Address [address] [facility] 7t [place] [address] Care Team Providers Care Melter Helper Name Role Phone Deedee Mc MD Primary Care Provider [phone] Daniel Clancy PharmD Unavailable [phone] Reason for Visit * Reason Comments Med Refill Encounter Details Date Type Department Care Team ([facility] st Contact Info) Description 2024 Refill [facility] [address] [place], [place] [phone] Deedee Mc MD [address] [place] [address] Primary hypertension Social History Tobacco Use Types [...] Description 07/20/2024 10:00 AM EDT Medication Management [facility] [address] [place] [address] Dnaiel Clancy PharmD [address] [place] [address] documented as of this encounter Goals Goal [...] documented as of this encounter Care Teams Melter Helper Relationship Specialty Start Date End Date Deedee Mc MD [address] [place] [address] PCP - General Family Medicine 09/09/19 Daniel Clancy, PharmD [address] [place] [address] Pharmacist Internal Medicine 10/14/23 documented as of this encounter
--- OUTSIDE RECORDS SUMMARY | 2024-06-21 12:14 | XMS_ITS | Encounter Summary ---
Author Organization [employer] Address [address] [facility] 7t [place] [address] Care Team Providers Care Lead Cytogenetic Technologist Name Role Phone Deedee Mc MD Primary Care Provider [phone] Daniel Clancy PharmD Unavailable [phone] Encounter Details Date Type Department Care Team (Late st Contact Info) Description 05/12/2024 Orders Only [facility] MEDICINE [address] [place], [place] [phone] Deedee Mc MD [address] [place], [place] [phone] Social History Tobacco Use Types Packs/Day Years [...] 07/20/2024 10:00 AM EDT Medication Management [facility] MEDICINE [address] [place] [address] Daniel Clancy, PharmD [address] [place] [address] documented as of this encounter Goals Goal Patient Goal Type Associated Problems Recent Progress Patient-Stated? Author Blood Pressure < 140/90 Blood Pressure 140/70(2024 10:27 AM EDT) No Benito Padron Hemoglobin A1c < 7 Result Component 6.6( 1:46 PM EST) No Benito Padron documented as of this encounter Procedures Procedure Name Priority Date/Time Associated Diagnosis Comments BI MAMMOGRAM SCREENING TOMOSYNTHESIS BILATERAL Routine 06/08/2024 11:30 AM EDT documented in this encounter Results * BI Mammogram Screening Tomosynthesis Bilateral (06/08/2024 11:30 AM EDT) Anatomical Region Laterality Modality Breast Bilateral Mammography 06/08/2024 11:3 0 AM EDT Narrative 06/14/2024 5:18 PM EDT ? [facility] ? [address] ?[place] [address] ?[phone] ? Mammography Report ? Signed ? Patient: Douglas,Vanessa ?MR#: [id number] ?? 2 ? : 1960 ?Acct:[id number] ? Age/Sex: 63 / F ?ADM Date: 06/08/24 ? Loc: HO.MAMMO ? Attending Dr: Deedee Mc MD ? Ordering Physician: Deedee Mc MD ?Results: 1Negative ? Date of Service: 06/08/24 ?Follow Up: 1 Year From Orig ?? inal Mammogram ? Procedure(s): MM tomosynthesis screening BI ?? Accession Number(s): [id number] ? cc: Deedee Mc MD ? EXAMINATION: ?? MM SCREENING DIGITAL BREAST TOMOSYNTHESIS, BILATERAL ? CLINICAL INFORMATION: ? Screening. Asymptomatic. ? COMPARISON: ?? Mammography: Comparison is made with available priors ? TECHNIQUE: ?? Digital breast mammography with tomosynthesis is performed in both the ?? craniocaudal and mediolateral oblique views along with computer-aided ?? detection (CAD). ? FINDINGS: ?? There are scattered areas [...] due date for their next mammogram. ? Electronically signed by: ??Vianey Chambers DO ??06/14/2024 05:16 PM EDT ? Dictated By: ?Vianey Chambers DO ? Signed By: ?<Electronically signed by Vianey Chambers, DO in OV> ? 06/14/24 1716 ? DD/ 1130 ? TD/TT: 06/08/24 1156 ? Filer Repairer: ? Procedure Note Donotuseinterpreter, Image - [facility]/14/[facility] [address] [place] [address] Mammography Report Signed Patient: Mariella Douglas#: [id number] 2 : 1960Acct:[id number] Age/Sex: 63 / FADM Date: 06/08/24 Loc: [facility] Attending Dr: Deedee Mc MD Ordering Physician: Deedee Mc MDResults: 1Negative Date of Service: 06/08/24Follow Up: 1 Year From Orig ina Mammogram Procedure(s): MM tomosynthesis screening BI Accession Number(s): [id number] cc: Deedee Mc MD EXAMINATION: MM SCREENING DIGITAL BREAST TOMOSYNTHESIS, BILATERAL CLINICAL INFORMATION: Screening. Asymptomatic. COMPARISON: Mammography: Comparison is made with available priors TECHNIQUE: Digital breast mammography with tomosynthesis is performed in both the craniocaudal and mediolateral oblique views along with computer-aided detection (CAD). FINDINGS: There are scattered areas of fibroglandular [...] target due date for their next mammogram. Electronically signed by: Vianey Chambers DO 06/14/2024 05:16 PM EDT RP Dictated By: Vianey Chambers DO Signed By: <Electronically signed by Vianey Chambers DO in OV> 06/14/24 1716 DD/ 1130 TD/TT: 06/08/24 1156 Filer Repairer: Deedee Mc MD IMG BI PROCEDURES Edited Result - Final documented in this encounter Visit Diagnoses Not on filedocumented in this encounter Additional Health Concerns Assessment Noted Time PHQ-9 Depression Total Score: 13 025 1:35 PM EST documented as of this encounter Care Teams Lead Cytogenetic Technologist Relationship Specialty Start Date End Date Deedee Mc MD [address] [place] [address] PCP - General Family Medicine 09/09/19 Daniel Clancy, Tanika [address] [place] [address] Pharmacist Internal Medicine 10/14/23 documented as of this encounter
--- OUTSIDE RECORDS SUMMARY | 2024-06-21 12:14 | XMS_ITS | Clinical Summary ---
Author Organization [facility]ly [facility] Address [address] [place] [address] Care Team Providers Care Bakery Manager Name Role Phone Unavailable Primary Care Provider [...]
--- OUTSIDE RECORDS SUMMARY | 2024-06-21 12:14 | XMS_ITS | Encounter Summary ---
Author Organization [employer] Address 75 [facility] 7t [place] [address] Care Team Providers Care Financial Service Rep Name Role Phone Deedee Mc MD Primary Care Provider [phone] Daniel Clancy PharmD Unavailable [phone] Encounter Details Date Type Department Care Team (Late st Contact Info) Description 04/26/2024 Orders Only [facility] MEDICINE [address] [place], [place] [phone] Deedee Mc MD 230 [place], [place] [phone] Social History Tobacco Use Types Packs/Day Years [...] 07/20/2024 10:00 AM EDT Medication Management [facility] MEDICINE [address] [place] [address] Daniel Clancy, PharmD [address] [place] [address] documented as of this encounter Goals Goal [...] documented as of this encounter Care Teams Financial Service Rep Relationship Specialty Start Date End Date Deedee Mc MD [address] [place] [address] PCP - General Family Medicine 09/09/19 Daniel Clancy, PharmD [address] [place] [address] Pharmacist Internal Medicine 10/14/23 documented as of this encounter
--- OUTSIDE RECORDS SUMMARY | 2024-06-21 12:14 | XMS_ITS | Encounter Summary ---
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 Gonorrhoeae RNA, TMA, Urogenitial Microbiology Routine Hematuria, unspecified type Family history of renal cancer Expected: 06/17/2024 (Approximate), Expires: 06/17/2025 documented as of this encounter Goals Goal Patient Goal Type Associated Problems Recent Progress Patient-Stated? Author Blood Pressure < 140/90 Blood Pressure 140/70(2024 10:27 AM EDT) No Benito Padron Hemoglobin A1c < 7 Result Component 6.6( 1:46 PM EST) No Benito Padron documented as of this encounter Procedures Procedure Name Priority Date/Time Associated Diagnosis Comments URINALYSIS, COMPLETE, WITH REFLEX TO CULTURE Routine 06/21/2024 10:42 AM EDT Hematuria, unspecified type Family history of renal cancer TSH W/REFLEX TO FT4 Routine 06/21/2024 1 0:24 AM EDT Hypothyroidism due to medication documented in this encounter Results * Urinalysis, Complete, with Reflex to Culture (06/21/2024 10:42 AM EDT) Color Urine Yellow [facility] Appearance Urine Clear [facility] PH 7.0 5.0 - 9.0 [facility] Glucose Urine UA Negative Negative mg/dL [facility] Urine Blood Negative Negative [facility] Specific [place] - Urine 1.010 1.005 - 1.025 [facility] Urine Protein Negative Neg-Trace mg/dL [facility] Urine Ketones Negative Negative mg/dL [facility] Nitrite Urine Negative Negative [facility] Leukocyte Esterase Urine Negative Negative [facility] RBC Urine 0-2 0 - 2 /HPF [facility] Urine WBC 0-5 0 - 5 /HPF [facility] Urine Squamous Epithelial Cell 6-10 0 - 2 /HPF [facility] Urine Bacteria None Seen None Seen [facility] Hyaline Casts, Urine 0-2 0 - 2 /LPF [facility] Urine 06/21/2024 10:4 2 AM EDT 06/21/2024 11:13 AM EDT Narrative [facility] - 06/21/2024 11:55 AM EDT Urine, Clean Catch us Deedee Mc MD LAB URINE ORDERABLES Final Resul t [facility] [address] [place], [place] [phone] * (ABNORMAL) TSH with Reflex to Free T4 (06/21/2024 10:24 AM EDT) TSH reflex Free T4 0.04(L) 0.32 - 4.0 uIU/mL [facility] Blood 06/21/2024 10:2 4 AM EDT 06/21/2024 11:17 AM EDT us Deedee Mc MD LAB BLOOD ORDERABLES Final Resul t [facility] [address] [place] [address] [phone] documented in this encounter Visit Diagnoses Diagnosis Hypothyroidism due to medication- Primary Hematuria, unspecified type Family history of renal cancer Family history of malignant neoplasm of kidney documented in this encounter Additional Health Concerns Assessment Noted Time PHQ-9 Depression Total Score: 13 025 1:35 PM EST documented as of this encounter Care Teams Maple Products Supervisor Relationship Specialty Start Date End Date Deedee Mc MD [address] [place] [address] PCP - General Family Medicine 09/09/19 Daniel Clancy, PharmD [address] [place] [address] Pharmacist Internal Medicine 10/14/23 documented as of this encounter
--- OUTSIDE RECORDS SUMMARY | 2024-06-21 12:15 | XMS_ITS | Encounter Summary ---
Author Organization [employer] Address [address] [facility] 7t [place] [address] Care Team Providers Care Venetian Blind Tape Cutter Name Role Phone Deedee Mc MD Primary Care Provider [phone] Daniel Clancy PharmD Unavailable [phone] Encounter Details Date Type Department Care Team (Late st Contact Info) Description 08/03/2023 Orders Only [facility] MEDICINE [address] [place], [place] [phone] Deedee Mc MD [address] [place], [place] [phone] Social History Tobacco Use Types Packs/Day Years [...] Description 07/20/2024 10:00 AM EDT Medication Management [facility] MEDICINE [address] [place] [address] Daniel Clancy, MassimoD [address] [place] [address] documented as of this encounter Goals Goal [...] documented as of this encounter Care Teams Venetian Blind Tape Cutter Relationship Specialty Start Date End Date Deedee Mc MD [address] [place] [address] PCP - General Family Medicine 09/09/19 Daniel Clancy, PharmD [address] [place] [address] Pharmacist Internal Medicine 10/14/23 documented as of this encounter
--- OUTSIDE RECORDS SUMMARY | 2024-06-21 12:15 | XMS_ITS | Encounter Summary ---
Author Organization [email or web address] Address [address] [facility] 7t [place] [address] Care Team Providers Care Community Cultural Development Officer Name Role Phone Deedee Mc MD Primary Care Provider [phone] Daniel Clancy PharmD Unavailable [phone] Encounter Details Date Type Department Care Team (Late st Contact Info) Description 06/21/2024 Orders Only [facility] MEDICINE [address] [place], [place] [phone] Deedee Mc MD [address] [place], [place] [phone] Social History Tobacco Use Types Packs/Day Years [...] Description 07/20/2024 10:00 AM EDT Medication Management [facility] MEDICINE [address] [place] [address] Daniel Clancy, PharmD [address] [place] [address] documented as of this encounter Goals Goal Patient Goal Type Associated Problems Recent Progress Patient-Stated? Author Blood Pressure < 140/90 Blood Pressure 140/70(2024 10:27 AM EDT) No Benito Padron Hemoglobin A1c < 7 Result Component 6.6( 1:46 PM EST) No Benito Padron documented as of this encounter Procedures Procedure Name Priority Date/Time Associated Diagnosis Comments BASIC METABOLIC PANEL Routine 06/21/2024 10:24 AM EDT documented in this encounter Results * (ABNORMAL) Basic Metabolic Panel (06/21/2024 10:24 AM EDT) Sodium 140 135 - 145 mmol/L [facility] Potassium 4.1 3.3 - 5.1 mmol/L [facility] Chloride 107 96 - 108 mmol/L [facility] Carbon Dioxide 26 22 - 29 mmol/L [facility] Anion Gap 11(L) 12 - 20 [facility] Urea Nitrogen (BUN) 16 9 - 16 mg/dL [facility] Creatinine, Serum 0.81 0.5 - 1.4 mg/dL [facility] Estimated Glomerular Filt Rate >60 [facility] Comment:Chronic Kidney Disea se: Estimated GFR < 60 mL/min/1.22d1Tdhuuf Kidney Disease: Estimated GFR < 15 mL/min/1.73m2 Glucose 183(H) 60 - 115 mg/dL [facility] Calcium 9.5 8.4 - 10.2 mg/dL [facility] 06/21/2024 10:2 4 AM EDT 06/21/2024 11:17 AM EDT us Deedee Mc MD LAB BLOOD ORDERABLES Final Resul t [facility] [address] [place] [address] [phone] documented in this encounter Visit Diagnoses Not on filedocumented in this encounter Additional Health Concerns Assessment Noted Time PHQ-9 Depression Total Score: 13 04/25/ 025 1:35 PM EST documented as of this encounter Care Teams Community Cultural Development Officer Relationship Specialty Start Date End Date Deedee Mc MD [address] [place] [address] PCP - General Family Medicine 09/09/19 Daniel Clancy, MassimoD [address] [place] [address] Pharmacist Internal Medicine 10/14/23 documented as of this encounter
--- OUTSIDE RECORDS SUMMARY | 2024-06-21 12:15 | XMS_ITS | Encounter Summary ---
Author Organization [employer] Address 75 [facility] 7t [place] [address] Care Team Providers Care Maintenance Controller Name Role Phone Deedee Mc MD Primary Care Provider [phone] Daniel Clancy PharmD Unavailable [phone] Encounter Details Date Type Department Care Team (Late st Contact Info) Description 09/02/2023 Orders Only [facility] MEDICINE [address] [place], [place] [phone] Deedee Mc MD [address] [place], [place] [phone] Social History Tobacco Use Types Packs/Day Years [...] Description 07/20/2024 10:00 AM EDT Medication Management [facility] MEDICINE [address] [place] [address] Daniel Clancy, MassimoD [address] [place] [address] documented as of this encounter Goals Goal [...] documented as of this encounter Care Teams Maintenance Controller Relationship Specialty Start Date End Date Deedee Mc MD [address] [place] [address] PCP - General Family Medicine 09/09/19 Daniel Clancy, PharmD [address] [place] [address] Pharmacist Internal Medicine 10/14/23 documented as of this encounter
--- OUTSIDE RECORDS SUMMARY | 2024-06-21 12:15 | XMS_ITS | Encounter Summary ---
Author Organization [employer] Address 75 [facility] 7t [place] [address] Care Team Providers Care Repack Room Worker Name Role Phone Deedee Mc MD Primary Care Provider [phone] Daniel Clancy PharmD Unavailable [phone] Encounter Details Date Type Department Care Team (Late st Contact Info) Description 09/04/2023 Orders Only [facility] MEDICINE [address] [place], [place] [phone] Deedee Mc MD [address] [place], [place] [phone] Social History Tobacco Use Types Packs/Day Years [...] Description 07/20/2024 10:00 AM EDT Medication Management [facility] MEDICINE [address] [place] [address] Daniel Clancy, MassimoD [address] [place] [address] documented as of this encounter Goals Goal [...] documented as of this encounter Care Teams Repack Room Worker Relationship Specialty Start Date End Date Deedee Mc MD [address] [place] [address] PCP - General Family Medicine 09/09/19 Daniel Clancy, PharmD [address] [place] [address] Pharmacist Internal Medicine 10/14/23 documented as of this encounter
--- OUTSIDE RECORDS SUMMARY | 2024-06-21 12:15 | XMS_ITS | Encounter Summary ---
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 Please reconcile her medications. She was receiving medications from specialists in [place] [facility] after her head surgery, (Levetiracetam and acetazolamide). Thank you. Encounter Details Date Type Department Care Team (Late st Contact Info) Description 07/14/2023 Orders Only [facility] MEDICINE [address] [place], [place] [phone] Deedee Mc MD [address] [place], [place] [phone] Hypothyroidism due to medication (Primary Dx); Meningoencephalocele [...] Description 07/20/2024 10:00 AM EDT Medication Management [facility] MEDICINE [address] [place] [address] Daniel Clancy, PharmD [address] [place] [address] Scheduled Orders Name Type Priority Associated Diagnoses [...] (Free Thyroxine) 0.88 0.71 - 1.85 ng/dL [facility] Blood Venous blood specimen / Unknown 07/14/2023 12:26 PM EDT 07/14/2023 1:10 PM EDT us Deedee Mc MD LAB BLOOD ORDERABLES Final Resul t [facility] [address] [place] [address] [phone] documented in this encounter Visit Diagnoses Diagnosis Hypothyroidism due to medication- Primary Meningoencephalocele (CMS/HCC) 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
--- OUTSIDE RECORDS SUMMARY | 2024-06-21 12:15 | XMS_ITS | Encounter Summary ---
Author Organization [employer] [facility] Address 75 [facility] 7t [place] [address] Care Team Providers Care Beach Expert Name Role Phone Deedee Mc MD Primary Care Provider [phone] Daniel Clancy PharmD Unavailable [phone] Encounter Details Date Type Department Care Team ([facility] Contact Info) Description 03/11/2022 Abstract [facility] MEDICINE [address] [place], [place] [phone] Deedee Mc MD [address] [place], [place] [phone] Social History Tobacco Use Types Packs/Day Years [...] Department Care Team (Late Contact Info) Description 07/20/2024 10:00 AM EDT Medication Management [facility] MEDICINE [address] [place] [address] Daniel Clancy, Tanika [address] [place] [address] documented as of this encounter Visit Diagnoses Not on filedocumented in this encounter Care Teams Beach Expert Relationship Specialty Start Date End Date Deedee Mc MD [address] [place] [address] PCP - General Family Medicine 09/09/19 Daniel Clancy, Tanika [address] [place] [address] Pharmacist Internal Medicine 10/14/23 documented as of this encounter
--- OUTSIDE RECORDS SUMMARY | 2024-06-21 12:15 | XMS_ITS | Encounter Summary ---
Author Organization [employer] Address 75 [facility] 7t [place] [address] Care Team Providers Care Scalp Specialist Name Role Phone Deedee Mc MD Primary Care Provider [phone] Daniel Clancy PharmD Unavailable [phone] Reason for Visit * Reason Onset Date Comments Appointment Request 06/20/2024 Encounter Details Date Type Department Care Team ([facility] st Contact Info) Description 06/20/[address] [facility] MEDICINE [address] [place], [place] [phone] Deedee Mc MD [address] [place], [place] [phone] Appointment Request Social History Tobacco Use Types Packs/Day Years [...] encounter Miscellaneous Notes * Telephone Encounter - Thuy Duron - 06/20/2024 2:12 PM EDT Tc from pt hemodialysis patient care specialist Ariana requesting to schedule follow up appointment (July recall). Pt can only come in on Tuesdays or Wednesdays. No availability. Regional Sales Engineer advise will send a message. Contact pt at [phone] (dutch) documented in this encounter Plan of Treatment Upcoming Encounters Date Type Department Care Team ([facility] st Contact Info) Description 07/20/2024 10:00 AM EDT Medication Management [facility] MEDICINE [address] [place] [address] Daniel Clancy, PharmD [address] [place] [address] documented as of this encounter Goals Goal [...] documented as of this encounter Care Teams Scalp Specialist Relationship Specialty Start Date End Date Deedee Mc MD [address] [place] [address] PCP - General Family Medicine 09/09/19 Daniel Clancy, MassimoD [address] [place] [address] Pharmacist Internal Medicine 10/14/23 documented as of this encounter
--- OUTSIDE RECORDS SUMMARY | 2024-06-21 12:15 | XMS_ITS | Encounter Summary ---
Author Organization [employer] Address 75 [facility] 7t [place] [address] Care Team Providers Care Copier Technician Name Role Phone Deedee Mc MD Primary Care Provider [phone] Daniel Clancy PharmD Unavailable [phone] Reason for Visit * Reason Comments Med Refill Encounter Details Date Type Department Care Team (Late st Contact Info) Description 09/14/2023 Refill [facility] MEDICINE [address] [place], [place] [phone] Deedee Mc MD [address] [place], [place] [phone] Social History Tobacco Use Types Packs/Day Years [...] Description 07/20/2024 10:00 AM EDT Medication Management [facility] MEDICINE [address] [place] [address] Daniel Clancy, Tanika [address] [place] [address] documented as of this encounter Goals Goal [...] documented as of this encounter Care Teams Copier Technician Relationship Specialty Start Date End Date Deedee Mc MD [address] [place] [address] PCP - General Family Medicine 09/09/19 Daniel Clancy, PharmD [address] [place] [address], [place] [address] Pharmacist Internal Medicine 10/14/23 documented as of this encounter
--- OUTSIDE RECORDS SUMMARY | 2024-06-21 12:15 | XMS_ITS | Clinical Summary ---
Author Organization [facility] Address [address] [place] [address] Phone Care Team Providers Care Asphalt Screed Operator Name Role Phone Yunier Sprague MD Primary [...] Assessment & Plan: No evidence of recurrent Geriatric Physician metastatic disease. Will return to Dr. Fleming for follow up imaging and treatment as planned. 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 No other obvious Geriatric Physician cause by imaging or limited exam today. [...] Description 05/23/2024 2:30 PM EST Office Visit [facility] [address] [place] [phone] Braeden Galarza MD Renal cell carcinoma of right kidney (CMS/HCC) (Primary Dx); Malignant neoplasm metastatic to liver (CMS/HCC); Anemia, unspecified type 05/23/2024 Telephone [facility] [address] [place] [address] Irma Jo MA 05/11/2024 Telephone [facility] [address] [place] [address] Braeden Galarza MD from Last 3 Months Immunizations Name Administration Dates Next Due Little Bird/meevl SARS-CoV-2 COVID -19, vector-nr, [id number], preservative free 06/06/2020 Pfizer SARS-CoV-2 COVID-19, mRNA, LNP-S, preservative free 07/31/2021,03/13/2021 Surgical History Surgery Date Site/Laterality Comments NEPHRECTOMY PROCEDURE:NEPHRECTOMY;COMMENT:right kidney HERNIA REPAIR PROCEDURE:HERNIA REPAIR Medical History Medical History Date Comments Malignant neoplasm of right kidney, except renal pelvis DX:Malignant neoplasm of rig ht kidney, except renal pelvis (HCC) Anemia due [...] Info) Description 06/28/2024 11:15 AM EDT Appointment [facility] CT Scan [address] [place] [phone] 08/02/2024 11:15 AM EDT Office Visit [facility] [address] [place] [phone] Braeden Galarza MD [address] [place] [phone] Health Maintenance Due Date Last Done Comments [...] CBC auto differential (05/10/2024 11:59 AM EST) [facility] WBC 5.7 4.8 - 10.8 K/mcL LAB HEMETOLOGY METHOD 05/10/2024 1:51 PM [facility] RBC 5.40(H) 3.80 - 4.80 M/mcL LAB HEMETOLOGY METHOD 05/10/2024 1:51 PM [facility] Hemoglobin 14.8 11.5 - 16.0 g/dL LAB HEMETOLOGY METHOD 05/10/2024 1:51 PM [facility] Hematocrit 46.4 35.0 - 47.0 % LAB HEMETOLOGY METHOD 05/10/2024 1:51 PM [facility] MCV 85.8 79.0 - 98.0 FL LAB HEMETOLOGY METHOD 05/10/2024 1:51 PM [facility] MCH 27.4 27.0 - 32.0 pcg LAB HEMETOLOGY METHOD 05/10/2024 1:51 PM [facility] MCHC 31.9(L) 32.0 - 37.0 g/dL LAB HEMETOLOGY METHOD 05/10/2024 1:51 PM [facility] RDW 14.0 11.0 - 15.0 % LAB HEMETOLOGY METHOD 05/10/2024 1:51 PM [facility] Platelets 244 130 - 400 K/mcL LAB HEMETOLOGY METHOD 05/10/2024 1:51 PM [facility] MPV 10.1 7.0 - 11.0 FL LAB HEMETOLOGY METHOD 05/10/2024 1:51 PM [facility] NRBC 0.0 <1.0 % LAB HEMETOLOGY METHOD 05/10/2024 1:51 PM [facility] NRBC Absolute 0.00 <0.10 K/mcL LAB HEMETOLOGY METHOD 05/10/2024 1:51 PM [facility] Neutrophils Relative 63.5 % LAB HEMETOLOGY METHOD 05/10/2024 1:51 PM [facility] Lymphocytes Relative 25.1 % LAB HEMETOLOGY METHOD 05/10/2024 1:51 PM [facility] Monocytes Relative 8.8 % LAB HEMETOLOGY METHOD 05/10/2024 1:51 PM [facility] Eosinophils Relative 1.4 % LAB HEMETOLOGY METHOD 05/10/2024 1:51 PM [facility] Basophils Relative 0.5 % LAB HEMETOLOGY METHOD 05/10/2024 1:51 PM [facility] Immature Granulocytes Relative 0.7 % LAB HEMETOLOGY METHOD 05/10/2024 1:51 PM [facility] Neutrophils Absolute 3.61 1.50 - 7.00 K/mcL LAB HEMETOLOGY METHOD 05/10/2024 1:51 PM [facility] Lymphocytes Absolute 1.43 1.00 - 5.00 K/mcL LAB HEMETOLOGY METHOD 05/10/2024 1:51 PM [facility] Monocytes Absolute 0.50 0.20 - 1.00 K/mcL LAB HEMETOLOGY METHOD 05/10/2024 1:51 PM [facility] Eosinophils Absolute 0.08 0.00 - 0.50 K/mcL LAB HEMETOLOGY METHOD 05/10/2024 1:51 PM [facility] Basophils Absolute 0.03 0.00 - 0.20 K/mcL LAB HEMETOLOGY METHOD 05/10/2024 1:51 PM [facility] Immature Granulocytes Absolute 0.04(H) 0.00 - 0.03 K/mcL LAB HEMETOLOGY METHOD 05/10/2024 1:51 PM [facility] Blood Venous blood specimen / Unknown Venipuncture / Unknown 05/10/2024 11:59 AM EST 05/10/2024 1:39 PM EST us Braeden Galarza MD LAB BLOOD ORDERABLE S Final Result Performing Organization Address [facility]/ZIP Co de Phone Number [facility] [address] [place] [address], [place] [phone] * (ABNORMAL) Thyroid stimulating hormone (05/10/2024 11:59 AM EST) TSH <0.05(L) 0.40 - 4.00 mcIU/mL LAB CHEMISTRY METHOD 05/10/2024 2:20 PM EST [facility] Blood Venous blood specimen / Unknown Venipuncture / Unknown 05/10/2024 11:59 AM EST 05/10/2024 1:39 PM EST us Braeden Galarza MD LAB BLOOD ORDERABLE S Final Result Performing Organization Address [facility] de Phone Number [facility] [address] [place] [address], [place] [phone] * (ABNORMAL) Lactate dehydrogenase (05/10/2024 11:59 AM EST) LDH 85(L) 120 - 246 unit/L LAB CHEMISTRY METHOD 05/10/2024 2:39 PM EST [facility] Blood Venous blood specimen / Unknown Venipuncture / Unknown 05/10/2024 11:59 AM EST 05/10/2024 1:39 PM EST us Braeden Galarza MD LAB BLOOD ORDERABLE S Final Result Performing Organization Address [facility]/ZIP Co de Phone Number [facility] [address] [place] [address], [place] [phone] * (ABNORMAL) Comprehensive metabolic panel (05/10/2024 11:59 AM EST) Sodium 139 133 - 145 mmol/L LAB CHEMISTRY METHOD 05/10/2024 2:39 PM [facility] Potassium 4.0 3.5 - 5.5 mmol/L LAB CHEMISTRY METHOD 05/10/2024 2:39 PM [facility] Chloride 106 96 - 110 mmol/L LAB CHEMISTRY METHOD 05/10/2024 2:39 PM [facility] CO2 26 21 - 32 mmol/L LAB CHEMISTRY METHOD 05/10/2024 2:39 PM [facility] Anion Gap 7 3 - 11 LAB CHEMISTRY METHOD 05/10/2024 2:39 PM [facility] Glucose 103(H) 70 - 100 mg/dL LAB CHEMISTRY METHOD 05/10/2024 2:39 PM [facility] BUN 25 5 - 25 mg/dL LAB CHEMISTRY METHOD 05/10/2024 2:39 PM [facility] Creatinine 0.96 0.50 - 1.10 mg/dL LAB CHEMISTRY METHOD 05/10/2024 2:39 PM [facility] eGFR 67 >=60 mL/min/1. 73m2 LAB CHEMISTRY METHOD 05/10/2024 2:39 PM [facility] Comment:Calculation based on the??Chronic Kidney Disease Epidemiology Collaboration (CKD-EPI) equation refit??without adjustment for race. BUN/Creatinine Ratio 26.0 LAB CHEMISTRY METHOD 05/10/2024 2:39 PM [facility] Calcium 9.3 8.5 - 10.5 mg/dL LAB CHEMISTRY METHOD 05/10/2024 2:39 PM [facility] AST (SGOT) 17 10 - 42 unit/L LAB CHEMISTRY METHOD 05/10/2024 2:39 PM [facility] ALT (SGPT) 42 10 - 60 unit/L LAB CHEMISTRY METHOD 05/10/2024 2:39 PM EST [facility] Alkaline Phosphatase 170(H) 42 - 121 unit/L LAB CHEMISTRY METHOD 05/10/2024 2:39 PM EST [facility] Total Protein 6.7 6.0 - 8.0 g/dL LAB CHEMISTRY METHOD 05/10/2024 2:39 PM EST [facility] Albumin 3.4 3.2 - 5.0 g/dL LAB CHEMISTRY METHOD 05/10/2024 2:39 PM EST [facility] Total Bilirubin 0.4 0.0 - 1.4 mg/dL LAB CHEMISTRY METHOD 05/10/2024 2:39 PM [facility] Blood Venous blood specimen / Unknown Venipuncture / Unknown 05/10/2024 11:59 AM EST 05/10/2024 1:39 PM EST Ruthramalphonso Galarza MD LAB BLOOD ORDERABLE S Final Result [facility] [address] [place] [address], * Cervical Cancer Screening: HPV (08/31/2020) Pathologist [facility] Cervical Cancer Screening: HPV Negative, abstracted Historical Provider HEALTH MAINTENANCE Final Result from Last 3 Months or Most Recently Relevant to Health Maintenance Insurance MEDICAID - [place] Care Teams Asphalt Screed Operator Relationship Specialty Start Date End Date Yunier Sprague MD [address] [place] [address] [place] [address] PCP - General Internal Medicine 12/05/13
--- OUTSIDE RECORDS SUMMARY | 2024-06-21 12:15 | XMS_ITS | Encounter Summary ---
Author Organization [employer] Address [address] [facility] [address] [place] [address] Care Team Providers Care Pattern Grader Name Role Phone Deedee Mc MD Primary Care Provider [phone] Daniel Clancy PharmD Unavailable [phone] Reason for Visit * Reason Comments Med Refill Encounter Details Date Type Department Care Team (Late st Contact Info) Description 09/24/2023 Refill [facility] [address] [place], [place] [phone] Andrae Murillo MD [address] [place], [place] [phone] Primary hypertension Social History Tobacco Use Types [...] 07/20/2024 10:00 AM EDT Medication Management [facility] [address] [place] [phone] Daniel Clancy PharmD [address] [place] [address] documented as of this encounter Goals Goal [...] documented as of this encounter Care Teams Pattern Grader Relationship Specialty Start Date End Date Deedee Mc MD [address] [place] [address] PCP - General Family Medicine 09/09/19 Daniel Clancy, PharmD [address] [facility] [place] [address] Pharmacist Internal Medicine 10/14/23 documented as of this encounter
--- OUTSIDE RECORDS SUMMARY | 2024-06-21 12:15 | XMS_ITS | Clinical Summary ---
Author Organization [employer] Address [address] [facility] [address] [place] [address] Care Team Providers Care Neuropsychology Director Name Role Phone Deedee Arthur MD Primary Care Provider [phone] Daniel Clancy PharmD Unavailable [phone] Allergies Active Allergy Reactions Criticality Noted Date Comments Chlorthalidone High 07/31/2011 Other reaction(s): Hyperglycemia Other Reaction(s): hyperglycemia Lisinopril Other 07/30/2010 Scratchy/irritated throat Medications * This document contains information received from the source organization and may not represent a complete record from that organization. loratadine (Claritin) 10 MG tabletIndicatio ns:Allergic rhinitis due to other allergic trigger, unspecified seasonality Take 1 tablet (10 mg) by mouth in the morning. 30 tablet 5 03/04/20 22 Active oxyCODONE (Roxicodone) 5 MG immediate release tablet Take 5 mg by mouth every 6 (six) hours if needed. 02/20/20 22 Active econazole nitrate 1 % creamIndication s:Palmar erythema,Intert camila,Onychodyst rophy Apply topically in the morning. 85 g 2 03/27/19 24 Active Blood Pressure Monitor kit Check blood pressure once daily and as needed 1 kit 08/03/19 24 Active ergocalciferol (Vitamin D2) 1.25 MG (27176 UT) capsule Take 1 capsule (1.25 mg) by mouth 1 (one) time per week. 12 capsule 3 08/05/19 24 Active polyvinyl alcohol (Liquifilm Tears) 1.4 % ophthalmic solution INSTILL 1 DROP IN EACH EYE 3 TIMES A DAY 30 mL 1 08/05/19 24 Active FreeStyle lancetsIndicati ons:Diabetic autonomic neuropathy associated with type 2 diabetes mellitus (CMS/HCC) 1 each by Other route before breakfast. TEST BLOOD SUGAR ONCE A DAY 100 each 08/07/19 24 025 Active Blood Glucose Monitoring Suppl (FreeStyle Lite) w/Device kitIndications: Diabetic autonomic neuropathy associated with type 2 diabetes mellitus (CMS/HCC) 1 Dose before breakfast. TEST BLOOD SUGAR ONCE A DAY 1 kit 08/07/19 24 Active glucose blood (FREESTYLE LITE) test stripIndication s:Diabetic autonomic neuropathy associated with type 2 [...] metFORMIN XR (Glucophage-XR) 500 MG 24 hr tabletIndicatio ns:Type 2 diabetes mellitus with diabetic polyneuropathy, without [...] 90 tablet 1 03/14/20 24 Active levothyroxine (Synthroid) 88 MCG tablet Take 1 tablet (88 mcg) by mouth before breakfast. Take with 75 mcg daily to make total of 163 mcg daily. 90 tablet 3 04/26/19 25 Active levothyroxine (Synthroid) 75 MCG tablet Take 1 tablet (75 mcg) by mouth before breakfast. Take with 88 mcg daily to make total of 163 mcg daily 90 tablet 3 04/26/19 25 026 Active losartan (Cozaar) 50 MG tabletIndicatio ns:Primary hypertension Take 1 tablet (50 mg) by mouth Once per day. 30 tablet 11 06/16/19 25 026 Active amLODIPine (Norvasc) 10 MG tabletIndicatio ns:Primary hypertension TAKE 1 TABLET BY MOUTH EVERYDAY AT NOON 90 tablet 1 06/17/19 25 Active amLODIPine (Norvasc) 10 MG tabletIndicatio ns:Primary hypertension TAKE 1 TABLET BY MOUTH EVERYDAY AT NOON 90 tablet 03/15/20 24 025 Discontinued losartan (Cozaar) 25 MG tabletIndicatio ns:Type 2 diabetes mellitus with diabetic polyneuropathy, without long-term current use of insulin ([facility]) TAKE 1 TABLET BY MOUTH EVERY MORNING 90 tablet 1 04/12/19 25 025 Discontinued(Do se adjustment) Active Problems Problem Noted Date Diagnosed Date [...] (12/29/2022 6:02 PM EDT): - following with industrial mechanic - received steroid injection to right heel in October 2022 - continue wearing diabetic footwear - continue stretching exercise 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 Rod [facility] [place] on 12/03/22 - follow the treatment [...] via endoscopic transpterygoid approach by Dr. Rod [facility] [place] on 12/03/22 - follow the treatment [...] via endoscopic transpterygoid approach by Dr. Marcel [facility] on 12/03/22 - follow the treatment [...] via endoscopic transpterygoid approach by Dr. 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 Marcel [facility] on 12/03/22 - follow the treatment plan per ENT - upcoming appt with neurologist and neurosurgeon - continue acetazolamide Assessment & Plan (09/02/2022 4:06 PM EDT): - left lateral sphenoid sinus menignoencephalocele and history of CSF leak - Following with ENT and neurosurgery at [facility] - Scheduled for endonasal repair in Nov [...] 07/23/21 onychomycosis and decreased sensation; following with industrial mechanic -Diabetic Dilated Eye Exam: 05/19/23 at [facility] No diabetic retinopathy, age-related cataract, presbyopia, [...] 07/23/21 onychomycosis and decreased sensation; following with industrial mechanic -Diabetic Dilated Eye Exam: 05/19/23 at [facility] No diabetic retinopathy, age-related cataract, presbyopia, [...] 07/23/21 onychomycosis and decreased sensation; following with industrial mechanic -Diabetic Dilated Eye Exam: 05/19/23 at [facility] No diabetic retinopathy, age-related cataract, presbyopia, [...] 07/23/21 onychomycosis and decreased sensation; following with industrial mechanic -Diabetic Dilated Eye Exam: 04/22/22 at [facility] No diabetic retinopathy, age-related cataract, presbyopia, [...] 07/23/21 onychomycosis and decreased sensation; following with industrial mechanic -Diabetic Dilated Eye Exam: 04/22/22 at [facility] No diabetic retinopathy, age-related cataract, presbyopia, [...] 07/23/21 onychomycosis and decreased sensation; following with industrial mechanic -Diabetic Dilated Eye Exam: 04/22/22 at [facility] No diabetic retinopathy, age-related cataract, presbyopia, [...] 07/23/21 onychomycosis and decreased sensation; referred to industrial mechanic -Diabetic Dilated Eye Exam: 04/22/22 at [facility] No diabetic retinopathy, age-related cataract, presbyopia, [...] 07/23/21 onychomycosis and decreased sensation; referred to industrial mechanic -Diabetic Dilated Eye Exam: 04/27/20 at [facility]; early cataract; requested an appt with [facility] eye care. 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 Patient did not keep appointment. - will request all the medical records from her previous medical oncology physician and refer her back to gynecology teacher-onc. Assessment & Plan (01/26/2024 12:28 PM EST): - previously referred to gynecology teacher-onc at [facility]. Patient did not keep appointment. - will request all the medical records from her previous medical oncology physician and refer her back to gynecology teacher-onc. Renal cell carcinoma of right kidney 09/06/2016 Overview (07/19/2023): >>OVERVIEW FOR RENAL CELL CANCER (CMS/HCC) WRITTEN ON 03/11/2022 5:22 AM BY DEEDEE ARTHUR MD Last Assessment & Plan: No evidence of recurrent Payroll Assistant metastatic disease. Will return to Dr. Fleming for follow up imaging and treatment as planned. Assessment & Plan (04/25/2024 1:42 PM EST): Shi 2014 Oncologist: Dr. 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 Fleming Pt is receiving oxycodone [address] Fleming Assessment & Plan (01/26/2024 10:36 AM EST): Shi 2014 Oncologist: Dr. 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 Recurrence in Nov 2014 s/p chemotherapy (pazomanib, cabzanitnib, nivolumab) and XRT [id number] Recurrence 2017 s/p excision of vaginal metastasis [...] s/p chemotherapy (pazomanib, cabzanitnib, nivolumab) and XRT [id number] Recurrence 2017 s/p excision of vaginal metastasis [...] s/p chemotherapy (pazomanib, cabzanitnib, nivolumab) and XRT [id number] Recurrence 2017 s/p excision of vaginal metastasis [...] s/p chemotherapy (pazomanib, cabzanitnib, nivolumab) and XRT [id number] Recurrence 2017 s/p excision of vaginal metastasis [...] s/p chemotherapy (pazomanib, cabzanitnib, nivolumab) and XRT [id number] Recurrence 2017 s/p excision of vaginal metastasis on 07/14/16 Voltrient in 2016 most recent chest / abd / pelvis CT in Oct 2021 showed no recurrence or metastasis Continue following with oncologist, Dr. Fleming Pt is receiving oxycodone [address] Fleming Assessment & Plan (12/29/2022 6:01 PM EDT): Dx 2014 Oncologist: Dr. 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 Fleming Pt is receiving oxycodone [address] Fleming Assessment & Plan (03/11/2022 2:19 PM EST): Dx 2014 Oncologist: Dr. 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 Recurrence in Nov 2014 s/p chemotherapy (pazomanib, cabzanitnib, nivolumab) and XRT [id number] Recurrence 2017 s/p excision of vaginal metastasis [...] 02/05/2022 03/11/2022 Acute renal failure 06/02/2018 06/16/19 Cholecystitis, chronic 04/08/201707/18 Calculus of gallbladder with out cholecystitis without obstruction 02/25/2017 07/19/2023 Anemia due to antineoplastic chemotherapy 11/18/2016 12/23/2022 Malignant neoplasm metastatic to liver 11/18/2016 06/15/2022 Malignant neoplasm metastatic to lung 11/18/2016 06/15/2022 Anemia of chronic disease 12/19/2015 Encounters Date Type Department Care Team Description 06/21/2024 Orders Only [facility] [place] [address] Deedee Arthur MD 06/20/2024 Telephone [facility] [place] [address] Deedee Arthur MD Appointment Request 06/17/2024 Telephone [facility] [place] [place] [address] Deedee Arthur MD Nurse Triage 2024 Refill [facility] [address] [place] [address] Deedee Arthur MD Primary hypertension 06/15/2024 Orders Only [facility] [place] [address] Deedee Arthur MD Hypothyroidism due to medication (Primary Dx); Hematuria, unspecified type; Family history of renal cancer 06/15/2024 Travel 06/14/2024 Telephone [facility] [place] [address] Cami Price, senior pl sql developer Orders 06/13/2024 Orders Only [facility] [place] [address] Deedee Arthur MD 06/03/2024 Population Health Risk Score [facility] ([facility] Department [address] [phone] Provider, Population Health Generic 05/13/2024 Telephone [facility] [place] [address] Kristal Hurst MA may recall 05/12/2024 Orders Only [facility] [place] [address] Deedee Arthur MD 05/11/2024 Telephone [facility] [place] [address] Deedee Arthur MD Nurse Triage 04/26/[address] [address] Pamela Howard RN 04/26/2024 Orders Only [address] [address] Deedee Arthur MD 04/25/2024 1:15 PM EST Office Visit [address] [address] Deedee Arthur MD Meningoencephalocele ([facility]/HCC) (Primary Dx); Primary hypertension; Renal cell carcinoma of right kidney ([facility]/HCC); 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[facility]/HCC); Type 2 diabetes mellitus with diabetic polyneuropathy, without long-term current use of insulin ([facility]); Hypothyroidism due to medication; 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 ([facility]/HCC); Dyslipidemia; Depression, unspecified depression type; Onychomycosis; Gastroesophageal reflux disease with esophagitis, unspecified whether hemorrhage; Dietary counseling; Exercise counseling; Class 3 severe obesity due to excess calories with serious comorbidity and body mass index (BMI) of 45.0 to 49.9 in adult ([facility]) 04/25/2024 Orders Only [address] [address] Deedee Arthur MD 04/25/2024 Travel 04/21/[address] [address] Kristal Hurst MA chart prep 04/12/2024 Patient Outreach [address] [address] Deedee Arthur MD Pre-visit Planning (Pre-visit planning - LVM ) 04/11/[address] [address] Daniel Clancy, PharmD Type 2 diabetes mellitus with diabetic polyneuropathy, without long-term current use of insulin ([facility]) from Last 3 Months Immunizations Name Administration [...] the past 12 months, has t he [place], gas, oil or water [employer] threatened to shut off services in your [...] Sign Reading Time Taken Comments Blood Pressure 140/70 06/15/2024 10:27 AM EDT Pulse 93 06/15/2024 10:27 AM EDT Temperature 35.6 ??C (96 ??F) 04/25/2024 1:43 [...] Description 07/20/2024 10:00 AM EDT Medication Management [facility] [address] [place] [address] Daniel Clancy, PharmD [address] [place] [address] Health Maintenance Due Date Last Done Comments [...] 05/19/2025 05/19/2023, 04/24, 05/19/2023, Additional history exists Cervical Cancer Screening 08/31/2025 HPV/Cotest 08/31/2025 08/31/2020 Pap Smear 08/31/2025 08/31/2020 Mammogram 06/08/2026 06/08/2024, 05/21, 05/13/2022, Additional history exists DTaP/Tdap/Td Vaccines (3 - Td or Tdap) [...] unspecified type Family history of renal cancer BASIC METABOLIC PANEL Routine 06/21/2024 10:24 AM EDT TSH W/REFLEX TO FT4 Routine 06/21/2024 1 0:24 AM EDT Hypothyroidism due to medication BI MAMMOGRAM SCREENING TOMOSYNTHESIS BILATERAL Routine 06/08/2024 11:30 AM EDT T4, FREE Routine 04/25/2024 2:16 PM EST [...] without long-term current use of insulin (CMS/HCC) COLONOSCOPY Routine 11/14/2023 ALBUMIN, RANDOM URINE W/CREATININE Routine 07/23/2023 11:18 AM EDT Type 2 diabetes mellitus with diabetic polyneuropathy, without long-term current use of insulin (CMS/HCC) PAP/HPV Routine 08/31/2020 ZZZ HISTORICAL HEPATITIS C AB W/REFL TO HCV RNA, QN, PCR Routine 08/15/2020 3:03 PM EDT HIV 1/2 ANTIGEN/ANTIBODY, FOURTH GENERATION W/RFL Routine 08/15/2020 3:03 PM EDT from Last 3 Months or Most Recently Relevant to Health Maintenance Results * Urinalysis, Complete, with Reflex to Culture (06/21/2024 10:42 AM EDT) Color Urine Yellow [facility] Appearance Urine Clear [facility] PH 7.0 5.0 - 9.0 [facility] Glucose Urine UA Negative Negative mg/dL [facility] Urine Blood Negative Negative [facility] Specific Marshall - Urine 1.010 1.005 - 1.025 [facility] Urine Protein Negative Neg-Trace mg/dL [facility] Urine Ketones Negative Negative mg/dL [facility] Nitrite Urine Negative Negative [facility] Leukocyte Esterase Urine Negative Negative [facility] RBC Urine 0-2 0 - 2 /HPF [facility] Urine WBC 0-5 0 - 5 /HPF [facility] Urine Squamous Epithelial Cell 6-10 0 - 2 /HPF [facility] Urine Bacteria None Seen None Seen [facility] Hyaline Casts, Urine 0-2 0 - 2 /LPF [facility] Urine 06/21/2024 10:4 2 AM EDT 06/21/2024 11:13 AM EDT Narrative [facility] - 06/21/2024 11:55 AM EDT Urine, Clean Catch Deedee Arthur MD LAB URINE ORDERABLES Final Resul t Performing Organization Address [facility] Co de Phone Number [facility] [address] [place] [phone] * (ABNORMAL) TSH with Reflex to Free T4 (06/21/2024 10:24 AM EDT) Only the most recent of2 resultswithin the time period is included. TSH reflex Free T4 0.04(L) 0.32 - 4.0 uIU/mL [facility] Blood 06/21/2024 10:2 4 AM EDT 06/21/2024 11:17 AM EDT Deedee Arthur MD LAB BLOOD ORDERABLES Final Resul t Performing Organization Address City/[facility] Co de Phone Number [facility] [address] [place] [phone] * (ABNORMAL) Basic Metabolic Panel (06/21/2024 10:24 AM EDT) Only the most recent of2 resultswithin the time period is included. Sodium 140 135 - 145 mmol/L [facility] Potassium 4.1 3.3 - 5.1 mmol/L [facility] Chloride 107 96 - 108 mmol/L [facility] Carbon Dioxide 26 22 - 29 mmol/L [facility] Anion Gap 11(L) 12 - 20 [facility] Urea Nitrogen (BUN) 16 9 - 16 mg/dL [facility] Creatinine, Serum 0.81 0.5 - 1.4 mg/dL [facility] Estimated Glomerular Filt Rate >60 [facility] Comment:Chronic Kidney Disea se: Estimated GFR < 60 mL/min/[id number] Kidney Disease: Estimated GFR < 15 mL/min/1.73m2 Glucose 183(H) 60 - 115 mg/dL [facility] Calcium 9.5 8.4 - 10.2 mg/dL [facility] 06/21/2024 10:2 4 AM EDT 06/21/2024 11:17 AM EDT us Deedee Arthur MD LAB BLOOD ORDERABLES Final Resul t Performing Organization Address City/State/[facility] Co de Phone Number [facility] [address] [place] [phone] * BI Mammogram Screening Tomosynthesis Bilateral (06/08/2024 11:30 AM EDT) Anatomical Region Laterality Modality Breast Bilateral Mammography 06/08/2024 11:3 0 AM EDT Narrative 06/14/2024 5:18 PM EDT ? [facility] [place] ? [address] ?[place] [address] ?[phone] ? Mammography Report ? Signed ? Patient: Douglas,Vanessa ?MR#: [id number] ?? 2 ? : 1960 ?Acct:[id number] ? Age/Sex: 63 / F ?ADM Date: 03/19/25 ? Loc: HO.MAMMO ? Attending Dr: Deedee Arthur MD ? Ordering Physician: Deedee Arthur MD ?Results: 1Negative ? Date of Service: 06/08/24 ?Follow Up: 1 Year From Orig ?? inal Mammogram ? Procedure(s): MM tomosynthesis screening BI ?? Accession Number(s): [id number] ? cc: Deedee Arthur MD ? EXAMINATION: [...] DD/ 1130 ? TD/TT: 06/08/24 1156 ? Ship Design Teacher: ? Procedure Note Dondavidter, Image - [facility] [address] [place] [address] Mammography Report Signed Patient: Mariella Douglas#: [id number] 2 : 1960Acct:[id number] Age/Sex: 63 / FADM Date: 06/08/24 Loc: [facility] Attending Dr: Deedee Arthur MD Ordering Physician: eDedee Arthur MDResults: 1Negative Date of Service: 06/08/24Follow Up: 1 Year From Orig ina Mammogram Procedure(s): MM tomosynthesis screening BI Accession Number(s): [id number] cc: Deedee Arthur MD EXAMINATION: MM SCREENING [...] Vianey Chambers DO 06/14/2024 05:16 PM EDT Dictated By: Vianey Chambers DO Signed By: <Electronically signed by Vianey Chambers DO in OV> 06/14/24 1716 DD/ 1130 TD/TT: 06/08/24 1156 Ship Design Teacher: Deedee Arthur MD IMG BI PROCEDURES Edited Result - Final * (ABNORMAL) Lipid Panel with Reflex to Direct LDL (04/25/2024 2:16 PM EST) Triglycerides 135 <150 mg/dL [facility] Comment:Desirable Triglyceri de: less than 150 mg/dLBorderline High Triglyceride 150-199 mg/dLHigh Triglyceride: 200-499 mg/dLVery High Triglyceride: greater than or equal to 5OO mg/dL Cholesterol 187 <200 mg/dL [facility] Comment:Desirable Cholestero l: less than 200 mg/dLBorderline High Cholesterol: 200-239 mg/dLHigh Cholesterol: greater than 239 mg/dL LDL Cholesterol Calculated 117(H) <100 mg/dL [facility] Comment:Desirable LDL: less than 100 mg/dLNear Optimal/Above Optimal LDL: 110- 129 mg/dLBorderline High LDL: 130-159 mg/dLHigh LDL: 160-189 mg/dLVery High LDL: greater than or equal to 190 mg/dL HDL Cholesterol 43 >40 mg/dL [facility] Comment:Desirable HDL: great er than 40 mg/dL Note: This HDL assay may give artificially low results in patients with liver disease. Blood 04/25/2024 2:16 PM EST 04/25/2024 4:00 PM EST Deedee Arthur MD LAB BLOOD ORDERABLES Final Resul t [facility] [address] [place] [phone] * (ABNORMAL) CBC auto differential (04/25/2024 2:16 PM EST) White Blood Count 6.2 4.8 - 10.8 X10*3/uL [facility] Red Blood Count 5.47 4.20 - 5.50 X10*6/uL [facility] Hemoglobin 15.0 12.0 - 16.0 g/dl [facility] Hematocrit 46.4 37.0 - 47.0 % [facility] Mean Corpuscular Volume 84.8 80.0 - 98.0 fL [facility] Mean Corpuscular Hemoglobin 27.4 27.0 - 33.0 pg [facility] Mean Corpuscular HGB Conc 32.3 31.0 - 35.0 g/dl [facility] Red Cell Distribution Width 14.1 11.0 - 16.0 % [facility] Platelet Count 266 160 - 400 X10*3/uL [facility] Mean Platelet Volume 9.9 9.4 - 12.3 fL [facility] Neutrophils Percent Auto 61.5 45 - 73 % [facility] Imm Gran Pct Auto 0.6(H) 0.0 - 0.4 % [facility] Lymphocytes Percent Auto 26.2 20 - 40 % [facility] Monocytes Percent Auto 9.7 2 - 11 % [facility] Eosinophils Percent Auto 1.5 0 - 4 % [facility] Basophils Percent Auto 0.5 0 - 2 % [facility] NRBC Pct Auto 0.0 0.0 - 0.2 /100WBC [facility] Neutrophils Absolute Auto 3.8 2.0 - 8.3 x10*3/uL [facility] Imm Gran Abs Auto 0.04(H) 0.00 - 0.03 X10*3/uL [facility] Lymphocytes Absolute Auto 1.6 1.2 - 4.9 X10*3/uL [facility] Monocytes Absolute Auto 0.6 0.1 - 1.2 X10*3/uL [facility] Eosinophils Absolute Auto 0.1 0.0 - 0.4 X10*3/uL [facility] Basophils Absolute Auto 0.0 0.0 - 0.2 X10*3/uL [facility] NRBC Abs Auto 0.000 0.0 - 0.012 X10*3/uL [facility] Blood Venous blood specimen / Unknown 04/25/2024 2:16 PM EST 04/25/2024 4:00 PM EST Deedee Arthur MD LAB BLOOD ORDERABLES Final Resul t Performing Organization Address City/[facility]/ZIP Co de Phone Number [facility] [address] [place] [phone] * T4, Free (04/25/2024 2:16 PM EST) Free T4 (Free Thyroxine) 1.50 0.71 - 1.85 ng/dL [facility] 04/25/2024 2:16 PM EST 04/25/2024 4:00 PM EST Deedee Arthur MD LAB BLOOD ORDERABLES Final Resul t Performing Organization Address City/[facility] Co de Phone Number [facility] [address] [place] [phone] * (ABNORMAL) Hepatic Function Panel (04/25/2024 2:16 PM EST) Bilirubin, Total 0.4 0.0 - 1.0 mg/dL [facility] Bilirubin, Direct 0.1 0.0 - 0.5 mg/dL [facility] Aspartate Amino Transferase 27 5 - 31 U/L [facility] Alanine Aminotransferase 47(H) 0 - 31 U/L [facility] Total Protein 7.4 6.5 - 8.0 g/dL [facility] Albumin Level 4.0 3.5 - 5.0 g/dL [facility] Alkaline Phosphatase 137(H) 39 - 117 U/L [facility] Blood Venous blood specimen / Unknown 04/25/2024 2:16 PM EST 04/25/2024 4:00 PM EST us Deedee Arthur MD LAB BLOOD ORDERABLES Final Resul t [facility] [address] [place] [address] [phone] * (ABNORMAL) POCT glucose manually resulted (04/25/2024 2:13 PM EST) Glucose Blood, POC 156(A) 60 - 200 mg/dL QC Media Lot # [id number] Lot# Expiration Date Blood Capillary blood specimen / Unknown 04/25/2024 2:13 PM EST Deedee Arthur MD POINT OF CARE TEST ENTER/EDIT OR DERABLES Final Result * (ABNORMAL) POCT glycosylated hemoglobin (Hgb A1c) (04/25/2024 1:46 PM EST) Hemoglobin A1C 6.6(A) 4.0 - 6.0 % QC Media Lot # [id number] Lot# Expiration Date ,671 Blood Capillary blood specimen / Unknown 04/25/2024 1:46 PM EST Deedee Arthur MD POINT OF CARE TEST ENTER/EDIT OR DERABLES Final Result * Hm Colonoscopy (11/14/2023) Colonoscopy Normal Normal Minerva Henderson MD HEALTH MAINTENANCE Final Result * (ABNORMAL) Albumin, Random Urine W/Creatinine (07/23/2023 11:18 AM EDT) Creatinine, Urine 62.51 mg/dL [facility] Microalbumin Urine 20.0 mg/L [facility] Microalbum Creatinine Ratio Ur 31.9(H) <30 ug/mg cr [facility] Comment:Albumin/Creatinine R atio Reference Ranges: Normal: < 30 ug/mg creatinine Microalbuminuria: 30 - 300 ug/mg creatinineClinical Albuminuria: > 300 ug/mg creatinine Urine 07/23/2023 11:1 8 AM EDT 07/23/2023 12:59 PM EDT Deedee Arthur MD LAB URINE ORDERABLES Final Resul t Performing Organization Address City/[facility]/ZIP Co de Phone Number [facility] [address] [place] [address] [phone] * Hm Pap Smear (08/31/2020) Pathologist [facility] Pap Negative for intraephithelial lesion or malignancy Negative for intraephithelial lesion or malignancy, Other HPV Undetected Undetected, Indeterminate, Quantitative, Not Detected Historical Provider HEALTH MAINTENANCE Final Result * HEPATITIS C AB W/REFL TO HCV RNA, QN, PCR (08/15/2020 3:03 PM EDT) Pathologist [facility] HEPATITIS C ANTIBODY NON-REACT [facility] NON-REACT [facility] INDEX 0.05 <1.00 [facility] Comment: ?? HCV antibody was non-reactive. There is no laboratory ?? evidence of HCV infection. ?? In most cases, no further action is required. However, if recent HCV exposure is suspected, a test for HCV RNA (test code 38466) is suggested. ?? For additional information please refer to http://education.[employer].ManageIQ/faq/LMS55r5 (This link is being provided for informational/ educational purposes only.) ?? 08/15/2020 3:03 PM EDT [facility] [facility] HISTORICAL/NON ORDERABLE LABS Final Result Performing Organization Address City/[facility]/ZIP Co de Phone Number [facility] [address] * HIV 1/2 ANTIGEN/ANTIBODY,FOURTH GENERATION W/RFL (08/15/2020 3:03 PM EDT) Pathologist [facility] HIV-1/2 ANTIGEN AND ANTIBODIES, 4TH GENERATION W/ REFLEX NON-REACT [facility] NON-REACT [facility] Comment: HIV-1 antigen and [...] ? For additional information please refer to http://education.[employer]/faq/RSH225 (This link is being provided for informational/ educational purposes only.) ? The performance of this assay has not been clinically validated in patients less than 2 years old. ?? 08/15/2020 3:03 PM EDT us [facility] LAB BLOOD ORDERABLES Final Res ult [facility] [address] from Last 3 Months or Most Recently Relevant to Health Maintenance [place] [address] [place] [address] C3 Care Teams Neuropsychology Director Relationship Specialty Start Date End Date Deedee Arthur MD [address] [place] [phone] PCP - General Family Medicine 09/09/19 Daniel Clancy, PharmD [address] [place] [phone] Pharmacist Internal Medicine 10/14/23
--- OUTSIDE RECORDS SUMMARY | 2024-06-21 12:15 | XMS_ITS | Encounter Summary ---
Author Organization [employer] Address [address] [facility] [address] [place] [address] Care Team Providers Care Resident Physician Name Role Phone Deedee Mc MD Primary Care Provider [phone] Daniel Clancy PharmD Unavailable Reason for Visit * Reason Comments Med Refill Encounter Details Date Type Department Care Team (Late st Contact Info) Description 10/13/2023 Refill [facility] [address] [place], [place] [phone] Deedee Mc MD [address] [place], [place] [phone] Hypothyroidism due to medication Social History Tobacco [...] 07/20/2024 10:00 AM EDT Medication Management [facility] [address] [place] [phone] Daniel Clancy PharmD [address] [place] [address] documented as of this encounter Goals Goal Patient Goal Type Associated Problems Recent Progress Patient-Stated? Author Blood Pressure < 140/90 Blood Pressure 140/70(2024 10:27 AM EDT) No Beniot Padron Hemoglobin A1c < 7 Result Component 6.6( 1:46 PM EST) No Benito Padron documented as of this encounter Visit Diagnoses Diagnosis Hypothyroidism due to medication documented in this encounter Additional Health Concerns Assessment Noted Time PHQ-9 Depression Total Score: 12 024 11:13 AM EDT documented as of this encounter Care Teams Resident Physician Relationship Specialty Start Date End Date Deedee Mc MD [address] [place] [phone] PCP - General Family Medicine 09/09/19 Daniel Clancy, PharmD [address] [place] [phone] Pharmacist Internal Medicine 10/14/23 documented as of this encounter
[2024-06-21 13:06] LABS: Free T4 (Free Thyroxine) 1.48 ng/dL (0.71-1.85)
[2024-06-21 14:17] LABS: CT PCR NOT DETECTED (Not Detect.); NG PCR NOT DETECTED (Not Detect.)
== END 2024-06-21 10:22 | disposition home or self-care (01) ==
LOC: HO.HHCL 10:21
PROVIDERS: Visit Provider Family Medicine
DX: E03.2 Hypothyroidism due to medicaments and other exogenous substances (principal); R31.9 Hematuria, unspecified; Z80.51 Family history of malignant neoplasm of kidney; I10 Essential (primary) hypertension
CPT/HCPCS: 80048; 81001; 84439; 84443; 87491; 87591

== ENCOUNTER 2024-09-26 15:10 | Outpatient (REF) | payer MEDICAID, SELFPAY ==
--- OUTSIDE RECORDS SUMMARY | 2024-09-26 15:33 | XMS_ITS | Encounter Summary ---
Author Organization [employer] Address [address] [facility] 7[address] [place] [address] Care Team Providers Care Skiver Blockers Name Role Phone Deedee Mc MD Primary Care Provider [phone] Daniel Clancy PharmD Unavailable [phone] Encounter Details Date Type Department Care Team (Late st Contact Info) Description 04/26/2024 Orders Only [facility] [address] [place], [place] [phone] Deedee Mc MD [address] [place], [place] [phone] Social History Tobacco Use Types Packs/Day Years [...] Care Team (Late st Contact Info) Description 11/16/2024 2:00 PM EDT Office Visit [facility] OPTOMETRY [address] [place] [address] Clayton, Janell, OD [address] [place] [address] 12/14/2024 10:00 AM EDT Medication Management [facility] [address] [place] [phone] Daniel Clancy, PharmD [address] [place] [phone] documented as of this encounter Goals Goal Patient Goal Type Associated Problems Recent Progress Patient-Stated? Author Blood Pressure < 140/90 Blood Pressure 134/70(2024 10:20 AM EDT) No Benito Padron Hemoglobin A1c < 7 Result Component 6.5( 10:38 AM EDT) No Benito Padron documented as of this encounter Visit Diagnoses Not on filedocumented in this encounter Additional Health Concerns Assessment Noted Time PHQ-9 Depression Total Score: 13 025 1:35 PM EST documented as of this encounter Care Teams Skiver Blockers Relationship Specialty Start Date End Date Deedee Mc MD [address] [place] [address] PCP - General Family Medicine 09/09/19 Daniel Clancy, MassimoD [address] [place] [address] Pharmacist Internal Medicine 10/14/23 documented as of this encounter
--- OUTSIDE RECORDS SUMMARY | 2024-09-26 15:33 | XMS_ITS | Clinical Summary ---
Author Organization [facility] Address [address] [place] [address] Care Team Providers Care Analytical Scientist Name Role Phone Unavailable Primary Care Provider Unavailabl e Social History Tobacco Use Types Packs/Day Years Used Date Smoking Tobacco: Never Assessed Comments Unknown Sex and Gender Information Value Date Recorded Sex Assigned at Not on file Legal Sex Female 6:15 PM EST Gender Identity Not on file [...]
--- OUTSIDE RECORDS SUMMARY | 2024-09-26 15:33 | XMS_ITS | Clinical Summary ---
Author Organization [facility] Address [address] [place] [phone] Care Team Providers Care Bureau Chief Name Role Phone Yunier Sprague MD Primary [...] 87 11/17/2023 11:23 AM EDT Temperature 36.8 C (98.2 F) 11/17/2023 11:23 AM EDT Respiratory Rate 12 08/24/2019 9:15 [...] 07/31/2021, Additional history exists Influenza Vaccine (#1) 2024 , 03/11/2022, 03/13/2021, Additional history exists DTap [...] age to complete this topic Care Teams Bureau Chief Relationship Specialty Start Date End Date Yunier Sprague MD [address] [place] [phone] PCP - General Internal Medicine 08/14/21
--- OUTSIDE RECORDS SUMMARY | 2024-09-26 15:33 | XMS_ITS | Clinical Summary ---
Author Organization [address] [place] [address] Address [address] [place] [address] Phone Care Team Providers Care [employer] Rolling [employer] Operator Name Role Phone Yunier Sprague MD [...] Max Daily Amount: 20 mg 90 capsule 5 Active oxyCODONE (OXY-IR) 5 mg immediate release capsule Take 1 capsule (5 mg total) by mouth every 6 (six) hours if needed for severe pain. Max Daily Amount: 20 mg 90 capsule 09/09/19 25 Discontinu ed(Reorder ) Active Problems Problem Noted Date Diagnosed Date Acid reflux 12/21/2023 Anemia 12/21/2023 Essential hypertension 12/21/2023 Malignant neoplasm metastati c to bone (CMS/HCC V24, CMS/HCC V28) 12/21/2023 Malignant neoplasm metastati c to liver (CMS/HCC V24, CMS/HCC V28) 12/21/2023 Renal cell cancer (CMS/HCC V24, CMS/HCC V28) Overview (12/21/2023): Last Assessment & Plan: No evidence of recurrent [employer] metastatic disease. Will return to Dr. Fleming for follow up imaging and treatment as planned. 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 No other obvious [employer] cause by imaging or limited exam today. [...] Encounters Date Type Department Care Team Description 08/02/2024 11:15 AM EDT Office Visit [facility] Hematology Oncology [address] [place] [address] Braeden Rizvi MD Renal cell carcinoma of right kidney (CMS/HCC V24, CMS/HCC V28) (Primary Dx); Malignant neoplasm metastatic to bone (CMS/HCC V24, CMS/HCC V28); Malignant neoplasm metastatic to liver (CMS/HCC V24, CMS/HCC V28); Thyroid disease; Anemia, unspecified type 07/01/2024 Telephone [facility] Hematology Oncology [address] [place] [address] Shari Solis MA 06/28/2024 10:55 AM EDT - 06/28/2024 11:59 PM EDT Hospital Encounter [facility] CT Scan [address] [place] [address] Renal cell carcinoma of right kidney ([facility] V24, [facility] V28) Discharge Disposition: Home or Self Care from Last 3 Months Immunizations Name Administration Dates Next Due [employer] SARS-CoV-2 COVID -19, vector-nr, [id number], preservative free 06/06/2020 Pfizer SARS-CoV-2 COVID-19, mRNA, LNP-S, preservative free 07/31/2021,03/13/2021 Surgical History Surgery Date Site/Laterality Comments NEPHRECTOMY PROCEDURE:NEPHRECTOMY;COMMENT:right kidney HERNIA REPAIR PROCEDURE:HERNIA REPAIR Medical History Medical History Date Comments Malignant neoplasm of right kidney, except renal pelvis ([facility] V24, [facility] V28) DX:Malignant neoplasm of rig ht kidney, except [...] Sign Reading Time Taken Comments Blood Pressure 155/83 08/02/2024 11:21 AM EDT Pulse 87 08/02/2024 11:21 AM EDT Temperature 36.7 C (98.1 F) 08/02/2024 11:21 AM EDT Respiratory Rate 18 06/22/2024 7:10 AM EDT Oxygen Saturation 100% 08/02/2024 11:21 AM EDT Inhaled Oxygen Concentration - - Weight 108 kg (238 lb) 08/02/2024 11:21 AM EDT Height 154.9 cm (5' 1 ) 08/02/2024 11:21 AM EDT Body Mass Index 44.97 08/02/2024 11:21 AM EDT Plan of Treatment Upcoming Encounters Date Type Department Care Team (Late st Contact Info) Description 11/02/2024 11:30 AM EDT Office Visit [facility] Hematology Oncology [address] [place] [address] Braeden Galarza MD [address] [place] [address] Health Maintenance Due Date Last Done Comments Breast Cancer Screening 1962 Diabetes: Annual Foot Exam 1972 Diabetes: Annual Retina Eye Exam 1972 Cholesterol Screening (Lipid Panel) 02/27/2022 Colorectal Cancer Screening: Colonoscopy 02/27/2022 Hepatitis C Screening 02/27/2022 Social Influencers of Health Screening 02/27/2022 Diabetes: Annual Urine Albumin-Creatinine Ratio (uACR) 03/02/2022 COVID-19 Vaccine ( season) 2024 12/16/2023, 12/23/2022, 03/11/2022, Additional history exists Diabetes: Blood Sugar Control Test (HGBA1C) 10/23/2024 04/25/2024, 01/26/2024 Influenza Vaccine (#1) 2024 , 12/23/2022, 03/11/2022, Additional history exists Depression Screening 04/25/2025 04/25/2024 Diabetes: Annual GFR (Glomerular Filtration Rate) 08/01/2025 08/01/2024, 06/22/2024, 06/21/2024, Additional history exists Hypertension/CHF/CAD Annual BMP Blood Test 08/01/2025 08/01/2024, 06/22/2024, 06/21/2024, Additional history exists Cervical Cancer Screening: HPV 08/31/2025 08/31/2020 DTaP,Tdap,and Td Vaccines (3 - Td or Tdap) 09/13/2033 09/14/2023, 05/30/2011 MMR Vaccines Aged Out 05/30/2011 No longer eligi ble based on patient's age to complete this topic Hepatitis A Vaccines Completed 12/01/2011, 04/17/19 HIV Screening Completed 08/15/2020 RSV Immunization Adult Patients Completed 09/02/2023 Hepatitis B Vaccines Completed 09/14/2023, 05/30/2011, 05/22/2011, Additional history exists Pneumococcal Vaccine: 50+ Years Completed 09/14/2023, 03/06/2014 Pneumococcal Vaccine: Pediatrics (0 to 5 Years) and At-Risk Patients (6 to 49 Years) Completed 09/14/2023, 03/06/2014 Zoster Vaccines Completed 11/11/2023, 09/02/2023 HIB Vaccines Aged Out No longer eligi [...] age to complete this topic Meningococcal B Vaccine Aged Out No l onger eligible based on patient's age to complete this topic RSV Immunization Patients Under 20 months Aged Out No longer eligible based on patient's age to complete this topic Varicella Vaccines Aged Out No longer eligible based on patient's age to complete this topic Procedures Procedure Name Priority Date/Time Associated Diagnosis Comments CBC WITH AUTO DIFFERENTIAL Routine 08/01/2024 10:07 AM EDT Renal cell carcinoma of right kidney ([facility] V24, [facility] V28) CBC AND DIFFERENTIAL Routine 08/01/2024 10:07 AM EDT Renal cell carcinoma of right kidney ([facility] V24, [facility] V28) COMPREHENSIVE METABOLIC PANEL Routine 08/01/2024 10:07 AM EDT Renal cell carcinoma of right kidney ([facility] V24, [facility] V28) LACTATE DEHYDROGENASE Routine 08/01/2024 10:07 AM EDT Renal cell carcinoma of right kidney (CMS/HCC V24, CMS/HCC V28) THYROID STIMULATING HORMONE Routine 08/01/2024 10:07 AM EDT Hypothyroidism due to drugs CT CHEST WO CONTRAST Routine 06/28/2024 11:01 AM EDT Renal cell carcinoma of right kidney (CMS/HCC V24, CMS/HCC V28) HM HPV Routine 08/31/2020 from Last 3 Months or Most Recently Relevant to Health Maintenance Results * (ABNORMAL) CBC auto differential (08/01/2024 10:07 AM EDT) WBC 6.0 4.8 - 10.8 K/mcL LAB HEMETOLOGY METHOD 08/01/2024 12:26 PM EDT [facility] RBC 5.40(H) 3.80 - 4.80 M/mcL LAB HEMETOLOGY METHOD [facility] Hemoglobin 15.2 11.5 - 16.0 g/dL LAB HEMETOLOGY METHOD 08/01/2024 12:[facility] Hematocrit 45.9 35.0 - 47.0 % LAB HEMETOLOGY METHOD 08/01/2024 12:[facility] MCV 85.5 79.0 - 98.0 FL LAB HEMETOLOGY METHOD 08/01/2024 12:26 PM EDT [facility] MCH 28.3 27.0 - 32.0 pcg LAB HEMETOLOGY METHOD 08/01/2024 12:[facility] MCHC 33.1 32.0 - 37.0 g/dL LAB HEMETOLOGY METHOD 08/01/2024 12:26 PM [facility] RDW 13.8 11.0 - 15.0 % LAB HEMETOLOGY METHOD 08/01/2024 12:26 PM [facility] Platelets 228 130 - 400 K/mcL LAB HEMETOLOGY METHOD 08/01/2024 12:26 PM [facility] MPV 10.3 7.0 - 11.0 FL LAB HEMETOLOGY METHOD 08/01/2024 12:26 PM [facility] NRBC 0.0 <1.0 % LAB HEMETOLOGY METHOD 08/01/2024 12:26 PM [facility] NRBC Absolute 0.00 <0.10 K/mcL LAB HEMETOLOGY METHOD 08/01/2024 12:26 PM [facility] Neutrophils Relative 64.9 % LAB HEMETOLOGY METHOD 08/01/2024 12:26 PM [facility] Lymphocytes Relative 24.7 % LAB HEMETOLOGY METHOD 08/01/2024 12:26 PM [facility] Monocytes Relative 8.1 % LAB HEMETOLOGY METHOD 08/01/2024 12:26 PM [facility] Eosinophils Relative 1.5 % LAB HEMETOLOGY METHOD 08/01/2024 12:26 PM [facility] Basophils Relative 0.3 % LAB HEMETOLOGY METHOD 08/01/2024 12:26 PM [facility] Immature Granulocytes Relative 0.5 % LAB HEMETOLOGY METHOD 08/01/2024 12:26 PM [facility] Neutrophils Absolute 3.91 1.50 - 7.00 K/mcL LAB HEMETOLOGY METHOD 08/01/2024 12:26 PM [facility] Lymphocytes Absolute 1.49 1.00 - 5.00 K/mcL LAB HEMETOLOGY METHOD 08/01/2024 12:26 PM [facility] Monocytes Absolute 0.49 0.20 - 1.00 K/mcL LAB HEMETOLOGY METHOD 08/01/2024 12:26 PM EDT [facility] Eosinophils Absolute 0.09 0.00 - 0.50 K/[facility] LAB HEMETOLOGY METHOD 08/01/2024 12:26 PM EDT [facility] Basophils Absolute 0.02 0.00 - 0.20 K/[facility] LAB HEMETOLOGY METHOD 08/01/2024 12:26 PM EDT [facility] Immature Granulocytes Absolute 0.03 0.00 - 0.03 K/[facility] LAB HEMETOLOGY METHOD 08/01/2024 12:26 PM EDT [facility] Blood Venous blood specimen / Unknown Venipuncture / Unknown 08/01/2024 10:07 AM EDT 08/01/2024 11:37 AM EDT Submaxim Galarza MD LAB BLOOD ORDERABLE S Final Result Performing Organization Address [facility]/ZIP Co de Phone Number [facility] [address] [place] [address], [place] [phone] * Thyroid stimulating hormone (08/01/2024 10:07 AM EDT) [facility] TSH 3.81 0.40 - 4.00 mcIU/mL LAB CHEMISTRY METHOD 08/01/2024 2:15 PM EDT [facility] Blood Venous blood specimen / Unknown Venipuncture / Unknown 08/01/2024 10:07 AM EDT 08/01/2024 11:39 AM EDT Submaxim Galarza MD LAB BLOOD ORDERABLE S Final Result Performing Organization Address City/[facility]/ZIP Co de Phone Number [facility] [address] [place] [address], [place] [phone] * (ABNORMAL) Lactate dehydrogenase (08/01/2024 10:07 AM EDT) [facility] LDH 76(L) 120 - 246 unit/L LAB CHEMISTRY METHOD 08/01/2024 1:54 PM [facility] Blood Venous blood specimen / Unknown Venipuncture / Unknown 08/01/2024 10:07 AM EDT 08/01/2024 11:39 AM EDT Braeden Galarza MD LAB BLOOD ORDERABLE S Final Result [facility] [address] [place] [address], * (ABNORMAL) Comprehensive metabolic panel (08/01/2024 10:07 AM EDT) Sodium 138 133 - 145 mmol/L LAB CHEMISTRY METHOD 08/01/2024 1:54 PM [facility] Potassium 4.1 3.5 - 5.5 mmol/L LAB CHEMISTRY METHOD 08/01/2024 1:54 PM [facility] Chloride 104 96 - 110 mmol/L LAB CHEMISTRY METHOD 08/01/2024 1:54 PM [facility] CO2 26 21 - 32 mmol/L LAB CHEMISTRY METHOD 08/01/2024 1:54 PM [facility] Anion Gap 8 3 - 11 LAB CHEMISTRY METHOD 08/01/2024 1:54 PM [facility] Glucose 96 70 - 100 mg/dL LAB CHEMISTRY METHOD 08/01/2024 1:54 PM [facility] BUN 23 5 - 25 mg/dL LAB CHEMISTRY METHOD 08/01/2024 1:54 PM [facility] Creatinine 1.03 0.50 - 1.10 mg/dL LAB CHEMISTRY METHOD 08/01/2024 1:54 PM [facility] eGFR 62 >=60 mL/min/1. 73m2 LAB CHEMISTRY METHOD 08/01/2024 1:54 PM [facility] Comment:Calculation based on the Chronic Kidney Disease Epidemiology Collaboration (CKD-EPI) equation refit without adjustment for race. BUN/Creatinine Ratio 22.3 LAB CHEMISTRY METHOD 08/01/2024 1:54 PM EDT [facility] Calcium 9.2 8.5 - 10.5 mg/dL LAB CHEMISTRY METHOD 08/01/2024 1:54 PM [facility] AST (SGOT) 15 10 - 42 unit/L LAB CHEMISTRY METHOD 08/01/2024 1:54 PM T [facility] ALT (SGPT) 33 10 - 60 unit/L LAB CHEMISTRY METHOD 08/01/2024 1:54 PM T [facility] Alkaline Phosphatase 173(H) 42 - 121 unit/L LAB CHEMISTRY METHOD 08/01/2024 1:54 PM T [facility] Total Protein 7.0 6.0 - 8.0 g/dL LAB CHEMISTRY METHOD 08/01/2024 1:54 PM EDT [facility] Albumin 3.5 3.2 - 5.0 g/dL LAB CHEMISTRY METHOD 08/01/2024 1:54 PM T [facility] Total Bilirubin 0.4 0.0 - 1.4 mg/dL LAB CHEMISTRY METHOD 08/01/2024 1:54 PM T [facility] Blood Venous blood specimen / Unknown Venipuncture / Unknown 08/01/2024 10:07 AM EDT 08/01/2024 11:39 AM EDT us Subramony Geovanni PONCE LAB BLOOD ORDERABLE S Final Result [facility] [address] [place] [address], [place] [phone] * CT Chest wo Contrast (06/28/2024 11:01 AM EDT) Anatomical Region Laterality Modality Body Computed Tomogra phy 06/30/2024 2:50 PM EDT Impressions 06/30/2024 3:04 PM EDT No evidence of active neoplastic disease in the chest. -------- FINAL REPORT -------- Dictated By: Eric Fang Dictated Date: 06/30/2024 14:50 ET Assigned Physician: Eric Fang Reviewed and Electronically Signed By: Eric Fang Signed Date: 06/30/2024 15:04 ET Workstation ID: [id number] Transcribed By: Self Edit Transcribed Date: 06/30/2024 14:50 ET Narrative 06/30/2024 3:04 PM EDT PROCEDURE: CT of the chest without intravenous contrast. TECHNIQUE: CT of the chest without intravenous contrast administration. Coronal and sagittal reformats and MIP reconstructions were created. Dose length product: 800 mGy-cm. HISTORY: Kidney cancer lung metastasis restaging COMPARISON: 10/20/2023. FINDINGS: LUNGS/PLEURA: The central airways are clear and normal in caliber. Lungs are clear. No suspicious pulmonary nodule. No pleural effusion or pneumothorax. MEDIASTINUM/KUNAL: Small thyroid gland. No mediastinal mass or lymphadenopathy. No appreciable hilar lymphadenopathy on limited noncontrast evaluation. VASCULATURE: Normal caliber pulmonary arteries. Mild atherosclerotic calcifications of the aorta. CARDIAC: Normal heart size. Minimal coronary artery calcification. CHEST WALL: No axillary or supraclavicular lymphadenopathy. LIMITED ABDOMEN: Cholecystectomy. BONES: Degenerative changes and findings of DISH in the spine. Procedure Note Eric Fang MD - 06/30/2024 PROCEDURE: CT of the chest without intravenous contrast. TECHNIQUE: CT of the chest without intravenous contrast administration.Coronal and sagittal reformats and MIP reconstructions were created. Dose length product: 800 mGy-cm. HISTORY: Kidney cancer lung metastasis restaging COMPARISON: 10/20/2023. FINDINGS: LUNGS/PLEURA: The central airways are clear and normal in caliber. Lungsare clear. No suspicious pulmonary nodule. No pleural effusion orpneumothorax. MEDIASTINUM/KUNAL: Small thyroid gland. No mediastinal mass orlymphadenopathy. No appreciable hilar lymphadenopathy on limitednoncontrast evaluation. VASCULATURE: Normal caliber pulmonary arteries. Mild atheroscleroticcalcifications of the aorta. CARDIAC: Normal heart size. Minimal coronary artery calcification. CHEST WALL: No axillary or supraclavicular lymphadenopathy. LIMITED ABDOMEN: Cholecystectomy. BONES: Degenerative changes and findings of DISH in the spine. IMPRESSION: No evidence of active neoplastic disease in the chest. -------- FINAL REPORT -------- Dictated By: Eric Fang Dictated Date: 06/30/2024 14:50 ET Assigned Physician: Eric Fang Reviewed and Electronically Signed By: Eric Fang Signed Date: 06/30/2024 15:04 ET Workstation ID: [id number] Transcribed By: Self Edit Transcribed Date: 06/30/2024 14:50 ET Subramony Geovanni PONCE IMRaul CT PROCEDURES F inal Result * Cervical Cancer Screening: HPV (08/31/2020) Cervical Cancer Screening: HPV Negative, abstracted Historical Provider HEALTH MAINTENANCE Final Result from Last 3 Months or Most Recently Relevant to Health Maintenance Insurance MEDICAID - [place] Care Teams [employer] Operator Relationship Specialty Start Date End Date Yunier Sprague MD [address] [place] [address] [place] [phone] PCP - General Internal Medicine 12/05/13
[2024-09-26 17:30] LABS: Anion Gap 14 (12-20); Blood Urea Nitrogen 23 mg/dL (9-16); Calcium 9.9 mg/dL (8.4-10.2); Carbon Dioxide 28 mmol/L (22-29); Chloride 102 mmol/L (96-108); Estimated Glomerular Filt Rate 51; Potassium 4.8 mmol/L (3.3-5.1); Sodium 139 mmol/L (135-145)
[2024-09-29 10:57] LABS: Alanine Aminotransferase 56 U/L (0-31); Albumin Level 4.4 g/dL (3.5-5.0); Alkaline Phosphatase 138 U/L (39-117); Aspartate Amino Transferase 27 U/L (5-31); Cholesterol 142 mg/dL (<200); HDL Cholesterol 47 mg/dL (>40); Total Protein 7.2 g/dL (6.5-8.0); Triglycerides 174 mg/dL (<150)
== END 2024-09-26 15:11 | disposition home or self-care (01) ==
LOC: HO.HHCL 15:10
PROVIDERS: PCP Family Medicine; Visit Provider Family Medicine
DX: E11.42 Type 2 diabetes mellitus with diabetic polyneuropathy (principal); E03.2 Hypothyroidism due to medicaments and other exogenous substances
CPT/HCPCS: 36415; 80048; 80061; 80076; 84443

== ENCOUNTER 2025-01-03 11:52 | Outpatient (REF) | payer MEDICAID, SELFPAY ==
[2025-01-03 14:09] LABS: Alanine Aminotransferase 39 U/L (0-31); Albumin Level 4.3 g/dL (3.5-5.0); Alkaline Phosphatase 130 U/L (39-117); Anion Gap 12 (12-20); Aspartate Amino Transferase 33 U/L (5-31); Blood Urea Nitrogen 16 mg/dL (9-16); Calcium 9.8 mg/dL (8.4-10.2); Carbon Dioxide 28 mmol/L (22-29); Chloride 106 mmol/L (96-108); Cholesterol 148 mg/dL (<200); Estimated Glomerular Filt Rate 59; HDL Cholesterol 40 mg/dL (>40); Potassium 4.6 mmol/L (3.3-5.1); Sodium 141 mmol/L (135-145); Total Protein 7.2 g/dL (6.5-8.0); Triglycerides 178 mg/dL (<150)
== END 2025-01-03 11:53 | disposition home or self-care (01) ==
LOC: HO.HHCL 11:52
PROVIDERS: PCP Family Medicine; Visit Provider Family Medicine
DX: Z13.89 Encounter for screening for other disorder (principal)
CPT/HCPCS: 36415; 80048; 80061; 80076

== ENCOUNTER 2025-02-07 14:55 | Outpatient (REF) | payer MEDICAID, SELFPAY ==
--- NOTE | ~2025-02-07 | US_ITS ---
EXAMINATION: US RETROPERITONEAL COMPLETE (RENAL) CLINICAL INFORMATION: DECREASED RENAL FUNCTION, S/P RIGHT NEPHRECTOMY. COMPARISON: Abdomen/pelvis CT on November 19, 2021. TECHNIQUE: Real-time imaging of the kidneys and bladder. FINDINGS: RIGHT KIDNEY: Status post right nephrectomy. There is an approximately 4.6 x 2.2 x 4.3 cm ill-defined nonvascular hypoechoic area inferior to the right hepatic lobe, at expected location of the right nephrectomy area. LEFT KIDNEY: 11.8 cm in sagittal length. Normal echogenicity. Cyst in the midpole of the kidney measures 0.9 x 0.6 x 0.7 cm. Hypoechoic exophytic lesion in the midpole measures 1.2 x 0.6 x 0.9 cm. No hydronephrosis or shadowing stones. BLADDER: Partially distended. Bilateral ureteral jets are not demonstrated. Prevoid bladder volume is 279.9 ml. Postvoid bladder volume is 0 ml. US/US retroperitoneal comp IMPRESSION: 1. Status post right nephrectomy. Ill-defined hypoechoic area measuring approximately 4.6 cm at the expected location of the nephrectomy. 2. Incompletely characterized exophytic left renal lesion measuring 1.2 cm. 3. No left hydronephrosis. CT or MR is recommended for further characterization of the above findings. Electronically signed by: Nilda Dunham MD 02/08/2025 07:15 AM JIM
--- NOTE | ~2025-02-07 | US_ITS ---
EXAMINATION: US THYROID HISTORY: SUBTHERAPEUTIC TSH TECHNIQUE: Real-time grayscale ultrasound imaging was performed and images were reviewed. Exam is limited due to body habitus. COMPARISON: There are no prior studies available for comparison. FINDINGS: SIZE: The right thyroid lobe measures 4.8 x 1.3 x 1.3 cm. The left thyroid lobe is small and measures 3.4 x 1.2 x 1 cm. The isthmus measures 4 mm. FLOW: Flow to the gland is normal. ECHOGENICITY: The echotexture of the gland is heterogeneous. NODULES: No focal nodule. Normal appearing left level 3 lymph node measuring 1 x 0.4 x 0.6 cm. Normal appearing right level 3 lymph node measuring 1.5 x 0.4 x 0.8 cm. US/US thyroid IMPRESSION: Limited exam due to body habitus. Heterogeneous thyroid gland. Left lobe is a small. No focal nodule seen. Electronically signed by: Michelle Oconnor MD 02/07/2025 04:43 PM [facility]
== END 2025-02-07 14:56 | disposition home or self-care (01) ==
LOC: HO.US 14:55
PROVIDERS: PCP Family Medicine; Visit Provider Family Medicine
DX: R74.01 Elevation of levels of liver transaminase levels (principal); N28.9 Disorder of kidney and ureter, unspecified
CPT/HCPCS: 76536; 76770

== ENCOUNTER → 2025-02-07 14:59 | Outpatient (BNV) | payer MEDICAID, SELFPAY | PROVIDERS: PCP Family Medicine; Visit Provider Radiology Diagnostic Radiology | DX: R94.6 Abnormal results of thyroid function studies (principal) | CPT/HCPCS: 76536 ==

== ENCOUNTER 2025-02-08 14:09 | Outpatient (REF) | payer MEDICAID, SELFPAY ==
--- OUTSIDE RECORDS SUMMARY | 2022-03-20 | XMS_ITS | Encounter Summary ---
Author Organization [facility] Address [address] [employer] [facility] [address] [place] [phone] Phone Care Team Providers Care Artistic Associate Name Role Phone Braeden Galarza MD Unavailable + [phone] Precious Lai MD Primary Care Provider + [phone] Ammy Casas MD Unavailable + [phone] Encounter Details Date Type Department Care Team (Late st Contact Info) Description 03/20/2022 Hospital Encounter [facility] [address] [place] [address] Tiffany Rod MD [address] [place] [address] [email or web address] Social History Tobacco Use Types Packs/Day Years Used Date Smoking Tobacco: Never Smokeless Tobacco: Never Alcohol Use Standard Drinks/Week Comments Never 0 (1 standard drink = 0.6 oz pur e alcohol) Education Answer Date Recorded Are you interested in more education? Not on alissa e 07/18/2022 Are you concerned about learning? Not on file 07/18/2022 No 07/18/2022 No 07/18/2022 Digital Access Answer Date Recorded No 08/12/2022 No 08/12/2022 Reliable internet access at home? Not on file 08/12/2022 Device with a working camera? Not on file Intimate Partner Violence Answer Date R ecorded Are you denied basic needs s uch as food, clothing, or medical care? Deferred 12/02/2022 In the past 12 months have y ou been in a relationship with a person who hurts, threatens, or tries to control you? Deferred 12/02/2022 Are you denied basic needs s uch as food, clothing, or medical care? Deferred 12/02/2022 In the past 12 months have y ou been in a relationship with a person who hurts, threatens, or tries to control you? Deferred 12/02/2022 Comments No Sex and Gender Information Value Date Recorded Sex Assigned at Not on file Legal Sex Female 1:54 PM EST Gender Identity Not on file Sexual Orientation Not on file documented as of this encounter Functional Status * Calculated C-SSRS Risk Score (Lifetime/Recent) Answer Date of Assessment Author No Risk Indicated 12/02/2022 5:00 PM EDT Shannon Valladares RN * Bates Suicide Severity Rating Scale (Screener/Recent Self-Report) Question Answer Date of Assessment Author 1. Wish to be (Past 1 Month) No 12/02/2022 5:00 PM EDT Amado Seals RN 2. Non-Specific Active Suicidal Thoughts (Past 1 Month) No 12/02/2022 5:00 PM EDT Amado Seals RN 6. Suicidal Behavior (Lifetime) No 12/02/2022 5:00 PM EDT Amado Seals RN documented as of this encounter Plan of Treatment Upcoming Encounters Date Type Department Care Team (Late st Contact Info) Description 03/20/2025 3:30 PM EST Office Visit [facility] General Neurology [address] [facility], [address] [place] [address] Mario Cheng MD [address] [place] [address] [address] [place] [address] [email or web address] 11/29/2025 10:00 AM EDT Office Visit [facility] [address] [facility] 9th [place] [address] Tiffany Rod MD [address] [place] [phone] [email or web address] documented as of this encounter Procedures Procedure Name Priority Date/Time Associated Diagnosis Comments CT FACE OUTSIDE WITH INTERPRETATION OR CONSULT Routine 03/20/2022 12:00 AM EST documented in this encounter Results * CT Face Outside With Interpretation Or Consult (03/20/2022 12:00 AM EST) 06/10/2022 2:37 PM EDT Narrative [facility] - 06/10/2022 2:[address] FACE OUTSIDE WITH INTERPRETATION OR CONSULT Interpretation of outside CT scan of the face performed on 03/20/2022 and submitted to [facility] for interpretation on 06/04/2022 TECHNIQUE: Outside CT images of the face. This outside examination cannot be read because: A more recent study has been interpreted. Procedure Note Denilson Long MD, PhD - 06/10/2022 CT FACE OUTSIDE WITH INTERPRETATION OR CONSULT Interpretation of outside CT scan of the face performed on 03/20/2022 andsubmitted to [facility] for interpretation on 06/04/2022 TECHNIQUE: Outside CT images of the face. This outside examination cannot be read because: A more recent study hasbeen interpreted. us Tiffany Rod MD IMG OUTSIDE IMAGING W/ INTER PRETATION Final Result Performing Organization Address City/State/[facility] Co de Phone Number [address] [address] documented in this encounter Visit Diagnoses Not on filedocumented in this encounter Care Teams Artistic Associate Relationship Specialty Start Date End Date Precious Lai MD [address] [address] PCP - General 02/25/16 05/26/22 Braeden Galarza MD [address] [place] [phone] [email or web address] Referring Physician Internal Medicine 02/25/16 Ammy Casas MD [address] [place] [address] [email or web address] Primary Oncologist Pulmonary Disease 02/25/16 documented as of this encounter Additional Source Comments The information contained in this document represents components of the legal health record. It is not the complete legal health record.[facility]
--- OUTSIDE RECORDS SUMMARY | 2022-05-12 00:05 | XMS_ITS | Encounter Summary ---
Author Organization [facility] Address [address] [facility] [address] [place] [address] Phone Care Team Providers Care Shipbuilding Draftsperson Name Role Phone Braeden Galarza MD Unavailable + [phone] Precious Lai MD Primary Care Provider + [phone] Ammy Casas MD Unavailable + [phone] Encounter Details Date Type Department Care Team (Late st Contact Info) Description 05/12/2022 12:05 AM [facility] Hospital Encounter [facility] [address] [place] [address] Tiffany Rod MD [address] [place] [address] [email or web address] Social History Tobacco Use Types Packs/Day [...] 5:00 PM EDT Shannon Valladares RN * Senatobia Suicide Severity Rating Scale (Screener/Recent Self-Report) Question [...] Description 03/20/2025 3:30 PM EST Office Visit [facility] [address] [facility], [address] [place] [address] Mario Cheng MD [address] [facility] [address] [place] [address] [email or web address] 11/29/2025 10:00 AM EDT Office Visit [facility] [address] [facility] 9th [place] [address] Tiffany Rod MD [address] [place] [address] [email or web address] documented as of this encounter Procedures Procedure Name Priority Date/Time Associated Diagnosis Comments MRI BRAIN OUTSIDE WITH INTERPRETATION OR CONSULT Routine 05/12/2022 12:05 AM EST Chronic sinusitis documented in this encounter Results * MRI Brain Outside With Interpretation Or Consult (05/12/2022 12:05 AM EST) 06/10/2022 6:21 PM EDT Narrative [facility] - 06/10/2022 6:23 PM EDT MRI BRAIN OUTSIDE WITH INTERPRETATION OR CONSULT TECHNIQUE: Outside MR images of the brain This outside examination cannot be read because: A more recent study has been interpreted. Procedure Note Denilson Long MD, PhD - 06/10/2022 MRI BRAIN OUTSIDE WITH INTERPRETATION OR CONSULT TECHNIQUE: Outside MR images of the brain This outside examination cannot be read because: A more recent study hasbeen interpreted. us Tiffany Rod MD IMG OUTSIDE IMAGING W/ INTER PRETATION Final Result [address] [address] documented in this encounter Visit Diagnoses Diagnosis Chronic sinusitis Unspecified sinusitis (chronic) documented in this encounter Care Teams Shipbuilding Draftsperson Relationship Specialty Start Date End Date Precious Lai MD [address] [place] [address] PCP - General 02/25/16 05/26/22 Braeden Galarza MD [address] [place] [phone] [email or web address] Referring Physician Internal Medicine 02/25/16 Ammy Casas MD [address] [place] [phone] (work) [email or web address] Primary Oncologist Pulmonary Disease 02/25/16 documented as of this encounter Additional Source Comments The information contained in this document represents components of the legal health record. It is not the complete legal health record.[facility]
--- OUTSIDE RECORDS SUMMARY | 2022-06-04 08:40 | XMS_ITS | Encounter Summary ---
Author Organization [facility] Address [address] [facility] [address] [place] [address] Phone Care Team Providers Care Nursery Hand Name Role Phone Braeden Galarza MD Unavailable [phone] Ammy Casas MD Unavailable + [phone] Deedee Mc MD Primary Care Provider [phone] Encounter Details Date Type Department Care Team (Late st Contact Info) Description 06/04/2022 9:40 AM EDT Hospital Encounter [facility] [address] [place] [address] Tiffany Rod MD [address] [place] [address] [email or web address] Social History Tobacco Use Types Packs/Day Years [...] 5:00 PM EDT Shannon Valladares RN * [place] Suicide Severity Rating Scale (Screener/Recent Self-Report) Question [...] EST [facility] [address] [facility], [address] [place] [address] Mario Cheng MD [address] [facility] [address] [place] [address] [email or web address] 11/29/2025 10:00 AM EDT Office Visit [facility] [address] [facility] 9th [place] [address] Tiffany Rod MD 243 [place] [address] [email or web address] documented as of this encounter Procedures Procedure Name Priority Date/Time Associated Diagnosis Comments MRI BRAIN OUTSIDE WITH INTERPRETATION OR CONSULT Routine 06/04/2022 9:40 AM EDT Chronic sinusitis documented in this encounter Results * MRI Brain Outside With Interpretation Or Consult (06/04/2022 9:40 AM EDT) 06/10/2022 2:34 PM EDT Impressions [facility] - 06/22/2022 6:35 PM EDT 1. Small 6 mm defect in the anterolateral inferior left sphenoid sinus wall with herniation of a small portion of the medial left anterior temporal lobe, consistent with a meningoencephalocele. Compared to the MR study from January 21, 2016, considerable interval enlargement of the meningocele component, and unchanged encephalocele component. 2. Arachnoid granulation in the left greater sphenoid wing with herniation of a portion of the left anterior temporal lobe, consistent with a second smaller meningoencephalocele, similar to the MR study from January 21, 2016. Narrative [facility] - 06/22/2022 6:35 PM EDT MRI BRAIN OUTSIDE WITH INTERPRETATION OR CONSULT Interpretation of outside MR scan of the brain performed at [facility] on 05/12/2022 and submitted to [facility] for interpretation on 06/04/2022 TECHNIQUE: Multi-sequence, multi-planar MRI of the brain was performed with and without intravenous contrast. COMPARISON: MRI brain January 21, 2016; CT face March 20, 2022 STUDY ACQUISITION DATE: Dictate date and time study was acquired as per image header in PACS. FINDINGS: Brain Parenchyma: There is no evidence of acute infarction, intracranial hemorrhage or mass lesion. There is no abnormal intracranial enhancement. Best appreciated on the T2 CISS sequence, there is a 7 mm defect in the posterior cortex of the left greater sphenoid wing, most in keeping with an arachnoid granulation (series 10, image 29). There is herniation of a portion of the anterior left temporal pole and left temporal horn into this defect (series 10, image 29), consistent with a meningoencephalocele. This finding is similar in appearance from the MR study on January 21, 2016. There is a 6 mm defect in the anterolateral inferior aspect of the left sphenoid sinus wall with herniation of a small portion of the medial left temporal pole through this defect, similar to the MR study on January 21, 2016 and consistent with a meningoencephalocele. There is encephalomalacia in the left temporal pole with passive dilatation of the left temporal horn, unchanged from prior. There is now complete T2 hyperintense fluid signal in the left sphenoid sinus that demonstrates signal suppression on the T2/FLAIR sequence, increased from the prior MR study and consistent with an enlarging meningocele component. There is an additional 6 mm defect in the anterolateral inferior aspect of the left sphenoid sinus wall (series 10, image 35), resulting in communication with the inferior left middle cranial fossa. Ventricular System and Extra-Axial Spaces: There is no evidence of midline shift or hydrocephalus. Extracranial Structures: Arterial flow voids in the skull base are present. There is mild mucosal thickening in the maxillary sinuses and a mucous retention cyst in the right inferior maxillary sinus. Both orbits and the remainder of the extracranial soft tissues are unremarkable. Procedure Note Denilson Long MD, PhD - 06/22/2022 MRI BRAIN OUTSIDE WITH INTERPRETATION OR CONSULT Interpretation of outside MR scan of the brain performed at [facility] on 05/12/2022 and submitted to [facility] for interpretation on06/04/2022 TECHNIQUE: Multi-sequence, multi-planar MRI of the brain was performed with andwithout intravenous contrast. COMPARISON: MRI brain January 21, 2016; CT face March 20, 2022 STUDY ACQUISITION DATE: Dictate date and time study was acquired as perimage header in PACS. FINDINGS: Brain Parenchyma: There is no evidence of acute infarction, intracranialhemorrhage or mass lesion. There is no abnormal intracranialenhancement. Best appreciated on the T2 CISS sequence, there is a 7 mm defect in theposterior cortex of the left greater sphenoid wing, most in keeping withan arachnoid granulation (series 10, image 29). There is herniation of aportion of the anterior left temporal pole and left temporal horn intothis defect (series 10, image 29), consistent with a meningoencephalocele.This finding is similar in appearance from the MR study on December. There is a 6 mm defect in the anterolateral inferior aspect of the leftsphenoid sinus wall with herniation of a small portion of the medial lefttemporal pole through this defect, similar to the MR study on December and consistent with a meningoencephalocele. There is encephalomalaciain the left temporal pole with passive dilatation of the left temporalhorn, unchanged from prior. There is now complete T2 hyperintense fluidsignal in the left sphenoid sinus that demonstrates signal suppression onthe T2/FLAIR sequence, increased from the prior MR study and consistentwith an enlarging meningocele component. There is an additional 6 mm defect in the anterolateral inferior aspect ofthe left sphenoid sinus wall (series 10, image 35), resulting incommunication with the inferior left middle cranial fossa. Ventricular System and Extra-Axial Spaces: There is no evidence of midlineshift or hydrocephalus. Extracranial Structures: Arterial flow voids in the skull base arepresent. There is mild mucosal thickening in the maxillary sinuses and amucous retention cyst in the right inferior maxillary sinus. Both orbitsand the remainder of the extracranial soft tissues are unremarkable. IMPRESSION: 1. Small 6 mm defect in the anterolateral inferior left sphenoid sinuswall with herniation of a small portion of the medial left anteriortemporal lobe, consistent with a meningoencephalocele. Compared to the MRstudy from January 21, 2016, considerable interval enlargement of themeningocele component, and unchanged encephalocele component. 2. Arachnoid granulation in the left greater sphenoid wing withherniation of a portion of the left anterior temporal lobe, consistentwith a second smaller meningoencephalocele, similar to the MR study fromJanuary 21, 2016. Tiffany Rod MD IMG OUTSIDE IMAGING W/ INTER PRETATION Final Result [address] [address] documented in this encounter Visit Diagnoses Diagnosis Chronic sinusitis Unspecified sinusitis (chronic) documented in this encounter Care Teams Nursery Hand Relationship Specialty Start Date End Date Deedee Mc MD [address] [place] [address] PCP - General Family Medicine 05/27/22 Subram[place]-Braeden Fleming MD [address] [place] [phone] [email or web address] Referring Physician Internal Medicine 02/25/16 Ammy Casas MD [address] [place] [address] [email or web address] Primary Oncologist Pulmonary Disease 02/25/16 documented as of this encounter Additional Source Comments The information contained in this document represents components of the legal health record. It is not the complete legal health record.[facility]
--- OUTSIDE RECORDS SUMMARY | 2025-02-07 11:15 | XMS_ITS | Encounter Summary ---
Author Organization [employer] Address [address] [facility] [facility] [address] [place] [address] Care Team Providers Care Mastic Man Name Role Phone Deedee Mc MD Primary Care Provider [phone] Encounter Details Date Type Department Care Team (Late st Contact Info) Description 02/07/2025 11:15 AM EST Office Visit [facility] [address], [place] [phone] Deedee Mc MD [address] [place], [place] [phone] Primary hypertension (Primary Dx); Type 2 diabetes mellitus with diabetic polyneuropathy, without long-term current use of insulin (HCC); Dyslipidemia; Hypothyroidism due to medication; Renal cell carcinoma of right kidney (CMS/HCC) (HCC); 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 (HCC); Meningoencephalocele (CMS/HCC) (HCC); Chronic right shoulder pain; Chronic pain of left knee Social History Tobacco Use Types Packs/Day Years Used Date Smoking Tobacco: Never Passive Smoke Exposure: Never Alcohol Answer Date Recorded How often do you have a drink containing alcohol ? 0 03/11/2022 How many drinks containing a lcohol do you have on a typical day when you are drinking? 0 03/11/2022 How often do you have six or more drinks on one occasion? 0 03/11/2022 Depression Answer Date Recorded Patient Health Questionnaire-9 Score 9 02/07/2025 Patient Health Questionnaire-9 Score 9 02/07/2025 Last PHQ-9: Questionnaire Data Not on file 1 04/09/2024 Housing Stability Answer Date Recorded What is your housing situation today? I have kunal arredondo 08/03/[address] you li ve. Do you have problems with any of the following? None of the above 08/03/2024 Food Insecurity Answer Date Recorded Within the past 12 months, y ou worried that your food would run out before you got money to buy more: Never True 08/03/2024 Within the past 12 months,th e food you bought just didn't last and you didn't have enough money to get more: Never True Transportation Answer Date Recorded In the past 12 months, has l ack of transportation kept you from medical appts, meetings, work or from getting things needed for daily living? No 08/03/2024 Utilities Answer Date Recorded In the past 12 months, has t he electric, gas, oil or water company threatened to shut off services in your home? No 08/03/2024 Depression Answer Date Recorded Patient Health Questionnaire-2 Score 4 02/07/2025 Internet Access Answer Date Recorded Internet Access Q1 Yes 08/03/2024 Internet Access Q2 Not on file 08/03/2024 Comments No Sex and Gender Information Value Date Recorded Sex Assigned at Female 01/20/2022 10:20 AM EDT Legal Sex Female 10:20 AM EDT Gender Identity Choose not to disclose 10:20 AM EDT Sexual Orientation Choose not to disclose 2021 10:20 AM EDT documented as of this encounter Last Filed Vital Signs Vital Sign Reading Time Taken Comments Blood Pressure 140/80 02/07/2025 11:15 AM EST Pulse 105 02/07/2025 11:15 AM EST Temperature 36 C (96.8 F) 02/07/2025 11:15 AM EST Respiratory Rate 17 02/07/2025 11:15 AM EST Oxygen Saturation 99% 02/07/2025 11:15 AM EST Inhaled Oxygen Concentration - - Weight 106 kg (233 lb 6.4 oz) 02/07/2025 11:15 A M EST Height 152.4 cm (5') 02/07/2025 11:15 AM EST Body Mass Index 45.58 02/07/2025 11:15 AM EST documented in this encounter Functional Status * Over the past 2 weeks, how often have you been bothered by any of the following problems? Question Answer Date of Assessment Author Patient Health Questionnaire -2 Score 4 02/07/2025 12:01 PM Chelsea Bernstein MA * Little interest or pleasure in doing things Answer Date of Assessment Author Several days 02/07/2025 12:01 PM Kristal Bernstein MA * Feeling down, depressed, or hopeless Answer Date of Assessment Author Nearly every day 02/07/2025 12:01 PM Kristal Bernstein MA * Trouble falling or staying asleep, or sleeping too much Answer Date of Assessment Author Not at all 02/07/2025 12:01 PM Kristal Bernstein MA * Feeling tired or having little energy Answer Date of Assessment Author Several days 02/07/2025 12:01 PM Kristal Bernstein MA * Poor appetite or overeating Answer Date of Assessment Author More than half the days 02/07/2025 12:01 PM Kristal Bernstein MA * Feeling bad about yourself - or that you are a failure or have let yourself or your family down Answer Date of Assessment Author More than half the days 02/07/2025 12:01 PM Kristal Bernstein MA * Trouble concentrating on things, such as reading the newspaper or watching television Answer Date of Assessment Author Not at all 02/07/2025 12:01 PM Kristal Bernstein MA * Moving or speaking so slowly that other people could have noticed? Or the opposite - being so fidgety or restless that you have been moving around a lot more than usual. Answer Date of Assessment Author Not at all 02/07/2025 12:01 PM Kristal Bernstein MA * Thoughts that you would be better off or hurting yourself in some way Answer Date of Assessment Author Not at all 02/07/2025 12:01 PM Kristal Bernstein MA * Patient Health Questionnaire-9 Score Answer Date of Assessment Author 9 02/07/2025 12:01 PM Kristal Bernstein MA documented as of this encounter Plan of Treatment Upcoming Encounters Date Type Department Care Team (Late st Contact Info) Description 05/31/2025 11:00 AM EDT Office Visit [facility] [address] [place] [address] Janell Arnold, OD [address] [place] [address] documented as of this encounter Goals Goal Patient Goal Type Associated Problems Recent Progress Patient-Stated? Author Blood Pressure < 140/90 Blood Pressure 140/80(2024 11:15 AM EST) Benito Kilpatrick Hemoglobin A1c < 7 Result Component 6.7( 11:17 AM EST) Benito Kilpatrick Help patients manage their type 2 diabetes Care Plan Help patients manage their type 2 diabetes No Kristal Hurst MA Weekly blood pressure task Care Plan Weekly blood pressure task No Kristal Hurst MA Help patients manage their type 2 diabetes Care Plan Help patients manage their type 2 diabetes Kristal Florez MA Patient has chronic kidney disease Care Plan Patient has chronic kidney disease No Kristal Hurst MA Weekly blood pressure task Care Plan Weekly blood pressure task No Kristal Hurst MA Patient has chronic kidney disease Care Plan Patient has chronic kidney disease No Kristal Hurst MA Weekly blood pressure task Care Plan Weekly blood pressure task No Kristal Hurst MA Weekly blood pressure task Care Plan Weekly blood pressure task No Kristal Hurst MA Patient has chronic kidney disease Care Plan Patient has chronic kidney disease No Kristal Hurst MA Patient has chronic kidney disease Care Plan Patient has chronic kidney disease No Kristal Hurst MA documented as of this encounter Procedures Procedure Name Priority Date/Time Associated Diagnosis Comments XR KNEE 3 VIEWS LEFT Routine 02/08/2025 3:33 PM EST Chronic pain of left knee TSH W/REFLEX TO FT4 Routine 02/08/2025 3 :29 PM EST Hypothyroidism due to medication ALBUMIN, RANDOM URINE W/CREATININE Routine 02/08/2025 3:29 PM EST Type 2 diabetes mellitus with diabetic polyneuropathy, without long-term current use of insulin (HCC) COMPREHENSIVE METABOLIC PANEL Routine 02/08/2025 3:29 PM EST Primary hypertension XR SHOULDER 2+ VIEWS RIGHT Routine 02/08/2025 3:28 PM EST Chronic right shoulder pain POCT GLYCOSYLATED HEMOGLOBIN (HGB A1C) Routine 02/07/2025 11:17 AM EST Type 2 diabetes mellitus with diabetic polyneuropathy, without long-term current use of insulin (HCC) POCT GLUCOSE Routine 02/07/2025 11:16 AM EST Type 2 diabetes mellitus with diabetic polyneuropathy, without long-term current use of insulin (HCC) documented in this encounter Results * XR Knee 3 Views Left (02/08/2025 3:33 PM EST) Anatomical Region Laterality Modality Lower Extremities, Knee Left [facility] 02/08/2025 3:33 PM EST Narrative 02/08/2025 3:42 PM EST [address] [address] XRay Report Signed Patient: Vanessa Douglas MR#: [id number] 2 : 1960 Acct:[id number] Age/Sex: 64 / F ADM Date: 02/08/25 Loc: HO.HHCX Attending Dr: Deedee Mc MD Ordering Physician: Deedee Mc MD Date of Service: 02/08/25 Procedure(s): XR knee LT 3V Accession Number(s): [id number] cc: Deedee Mc MD Reason for Exam: left knee pain, lateral side. +crepitus. EXAMINATION: XR SHOULDER, RIGHT CLINICAL INFORMATION: right shoulder pain, limited ROM, equivocal impingement syndrome COMPARISON: Correlated to chest x-ray dated February 04, 2022. TECHNIQUE: AP view in neutral internal rotation and Y-view projections of the right shoulder. FINDINGS: Subchondral cyst formation and the greater tuberosity right humerus. Sclerosis along the reticular surface and subchondral cyst formation and the acromial with joint space narrowing. No acute cortical disruption or malalignment XR/XR knee LT 3V IMPRESSION: Degenerative changes without acute fracture or dislocation. EXAMINATION: XR KNEE, LEFT CLINICAL INFORMATION: Chronic left knee pain. Lateral positive crepitus COMPARISON: February 04, 2022 TECHNIQUE: AP oblique and lateral views of the left knee. FINDINGS: Joint space narrowing involving the medial compartment with sclerosis along the articular surface. Small marginal osteophyte formation and medial femoral condyle and medial tibial plateau. Small marginal osteophyte formation in the posterior superior and posterior inferior patella. No soft tissue calcifications. No subcutaneous emphysema. No lytic or blastic lesions. No gross joint effusion. IMPRESSION: Medial compartment osteoarthrosis/osteoarthritis without acute fracture or dislocation. Electronically signed by: Boom Montiel MD 02/08/2025 03:39 PM EST Dictated By: Boom Bender MD Signed By: <Electronically signed by Boom Price MD in OV> 02/08/25 1539 DD/ 153 TD/TT: 02/08/25 153 Steep Tender: Procedure Note Donotuseinterpreter, Image - 02/08/2025 [place] [address] XRay Report Signed Patient: Mariella Douglas#: [id number] 2 : 1960Acct:[id number] Age/Sex: 64 / FADM Date: 02/08/25 Loc: HO.HHCX Attending Dr: Deedee Mc MD Ordering Physician: Deedee Mc MD Date of Service: 02/08/25 Procedure(s): XR knee LT 3V Accession Number(s): [id number] cc: Deedee Mc MD Reason for Exam: left knee pain, lateral side. +crepitus. EXAMINATION: XR SHOULDER, RIGHT CLINICAL INFORMATION: right shoulder pain, limited ROM, equivocal impingement syndrome COMPARISON: Correlated to chest x-ray dated February 04, 2022. TECHNIQUE: AP view in neutral internal rotation and Y-view projections of the right shoulder. FINDINGS: Subchondral cyst formation and the greater tuberosity right humerus. Sclerosis along the reticular surface and subchondral cyst formation and the acromial with joint space narrowing. No acute cortical disruption or malalignment XR/XR knee LT 3V IMPRESSION: Degenerative changes without acute fracture or dislocation. EXAMINATION: XR KNEE, LEFT CLINICAL INFORMATION: Chronic left knee pain. Lateral positive crepitus COMPARISON: February 04, 2022 TECHNIQUE: AP oblique and lateral views of the left knee. FINDINGS: Joint space narrowing involving the medial compartment with sclerosis along the articular surface. Small marginal osteophyte formation and medial femoral condyle and medial tibial plateau. Small marginal osteophyte formation in the posterior superior and posterior inferior patella. No soft tissue calcifications. No subcutaneous emphysema. No lytic or blastic lesions. No gross joint effusion. IMPRESSION: Medial compartment osteoarthrosis/osteoarthritis without acute fracture or dislocation. Electronically signed by: Boom Montiel MD 02/08/2025 03:39 PM EST Dictated By: Boom Bender MD Signed By: <Electronically signed by Boom Price MDin OV> 02/08/25 1539 DD/ 32 TD/TT: 02/08/251532 Steep Tender: Deedee Mc MD IMG XR PROCEDURES Final Result * (ABNORMAL) Comprehensive Metabolic Panel (02/08/2025 3:29 PM EST) Sodium 139 135 - 145 mmol/L [facility] Potassium 4.0 3.3 - 5.1 mmol/L [facility] Chloride 100 96 - 108 mmol/L [facility] Carbon Dioxide 27 22 - 29 mmol/L [facility] Anion Gap 16 12 - 20 [facility] Urea Nitrogen (BUN) 18(H) 9 - 16 mg/dL [facility] Creatinine, Serum 1.05 0.5 - 1.4 mg/dL [facility] Estimated Glomerular Filt Rate 53 [facility] Comment:Chronic Kidney Disea se: Estimated GFR < 60 mL/min/1.44a0Etmtnw Kidney Disease: Estimated GFR < 15 mL/min/1.73m2 Glucose 118(H) 60 - 115 mg/dL [facility] Calcium 9.8 8.4 - 10.2 mg/dL [facility] Bilirubin, Total 0.4 0.0 - 1.0 mg/dL [facility] Aspartate Amino Transferase 28 5 - 31 U/L [facility] Alanine Aminotransferase 55(H) 0 - 31 U/L [facility] Total Protein 7.8 6.5 - 8.0 g/dL [facility] Albumin Level 4.6 3.5 - 5.0 g/dL [facility] Alkaline Phosphatase 166(H) 39 - 117 U/L [facility] Blood Venous blood specimen / Unknown 02/08/2025 3:29 PM EST 02/08/2025 6:04 PM EST us Deedee Mc MD LAB BLOOD ORDERABLES Final Resul t Performing Organization Address City/[facility] Co de Phone Number [facility] [address] [place] [phone] * (ABNORMAL) TSH with Reflex to Free T4 (02/08/2025 3:29 PM EST) TSH reflex Free T4 0.06(L) 0.32 - 4.0 uIU/mL [facility] Blood 02/08/2025 3:29 PM EST 02/08/2025 6:04 PM EST us Deedee Mc MD LAB BLOOD ORDERABLES Final Resul t Performing Organization Address [facility] de Phone Number [facility] [address] [place] [phone] * Albumin, Random Urine W/Creatinine (02/08/2025 3:29 PM EST) Creatinine, Urine 40.08 mg/dL [facility] Microalbumin Urine 6.0 mg/L [facility] Microalbum Creatinine Ratio Ur 14.9 <30 ug/mg cr [facility] Comment:Albumin/Creatinine R atio Reference Ranges: Normal: < 30 ug/mg creatinine Microalbuminuria: 30 - 300 ug/mg creatinineClinical Albuminuria: > 300 ug/mg creatinine Urine 02/08/2025 3:29 PM EST 02/08/2025 3:58 PM EST Deedee Mc MD LAB URINE ORDERABLES Final Resul t [facility] [address] [place] [address] [phone] * XR Shoulder 2+ Views Right (02/08/2025 3:28 PM EST) Anatomical Region Laterality Modality Upper Extremities, Shoulder Right Radi ographic Imaging 02/08/2025 3:28 PM EST Narrative 02/08/2025 3:42 PM EST [facility] [address] [place] [address] XRay Report Signed Patient: Vanesas Douglas MR#: [id number] 2 : 1960 Acct:[id number] Age/Sex: 64 / F ADM Date: 02/08/25 Loc: HO.HHCX Attending Dr: Deedee Mc MD Ordering Physician: Deedee Mc MD Date of Service: 02/08/25 Procedure(s): XR shoulder RT min 2V Accession Number(s): [id number] cc: Deedee Mc MD Reason for Exam: right shoulder pain, limited ROM, equivocal impingement syndrome EXAMINATION: XR SHOULDER, RIGHT CLINICAL INFORMATION: right shoulder pain, limited ROM, equivocal impingement syndrome COMPARISON: Correlated to chest x-ray dated February 04, 2022. TECHNIQUE: AP view in neutral internal rotation and Y-view projections of the right shoulder. FINDINGS: Subchondral cyst formation and the greater tuberosity right humerus. Sclerosis along the reticular surface and subchondral cyst formation and the acromial with joint space narrowing. No acute cortical disruption or malalignment XR/XR shoulder RT min 2V IMPRESSION: Degenerative changes without acute fracture or dislocation. EXAMINATION: XR KNEE, LEFT CLINICAL INFORMATION: Chronic left knee pain. Lateral positive crepitus COMPARISON: February 04, 2022 TECHNIQUE: AP oblique and lateral views of the left knee. FINDINGS: Joint space narrowing involving the medial compartment with sclerosis along the articular surface. Small marginal osteophyte formation and medial femoral condyle and medial tibial plateau. Small marginal osteophyte formation in the posterior superior and posterior inferior patella. No soft tissue calcifications. No subcutaneous emphysema. No lytic or blastic lesions. No gross joint effusion. IMPRESSION: Medial compartment osteoarthrosis/osteoarthritis without acute fracture or dislocation. Electronically signed by: Boom Montiel MD 02/08/2025 03:39 PM EST Dictated By: Boom Bender MD Signed By: <Electronically signed by Boom Price MD in OV> 02/08/25 1539 DD/ 1528 TD/TT: 02/08/25 1533 Steep Tender: Procedure Note Donotuseinterpreter, Image - 02/08/[address] [address] XRay Report Signed Patient: Mariella Douglas#: [id number] 2 : 1960Acct:[id number] Age/Sex: 64 / FADM Date: 02/08/25 Loc: HO.HHCX Attending Dr: Deedee Mc MD Ordering Physician: Deedee Mc MD Date of Service: 02/08/25 Procedure(s): XR shoulder RT min 2V Accession Number(s): [id number] cc: Deedee Mc MD Reason for Exam: right shoulder pain, limited ROM, equivocal impingementsyndrome EXAMINATION: XR SHOULDER, RIGHT CLINICAL INFORMATION: right shoulder pain, limited ROM, equivocal impingement syndrome COMPARISON: Correlated to chest x-ray dated February 04, 2022. TECHNIQUE: AP view in neutral internal rotation and Y-view projections of the right shoulder. FINDINGS: Subchondral cyst formation and the greater tuberosity right humerus. Sclerosis along the reticular surface and subchondral cyst formation and the acromial with joint space narrowing. No acute cortical disruption or malalignment XR/XR shoulder RT min 2V IMPRESSION: Degenerative changes without acute fracture or dislocation. EXAMINATION: XR KNEE, LEFT CLINICAL INFORMATION: Chronic left knee pain. Lateral positive crepitus COMPARISON: February 04, 2022 TECHNIQUE: AP oblique and lateral views of the left knee. FINDINGS: Joint space narrowing involving the medial compartment with sclerosis along the articular surface. Small marginal osteophyte formation and medial femoral condyle and medial tibial plateau. Small marginal osteophyte formation in the posterior superior and posterior inferior patella. No soft tissue calcifications. No subcutaneous emphysema. No lytic or blastic lesions. No gross joint effusion. IMPRESSION: Medial compartment osteoarthrosis/osteoarthritis without acute fracture or dislocation. Electronically signed by: Boom Montiel MD 02/08/2025 03:39 PM EST Dictated By: Boom Bender MD Signed By: <Electronically signed by Boom Price MDin OV> 02/08/25 1539 DD/ 1528 TD/TT: 02/08/25 1533 Steep Tender: Deedee Mc MD IMG XR PROCEDURES Final Result * (ABNORMAL) POCT glycosylated hemoglobin (Hgb A1c) (02/07/2025 11:17 AM EST) Hemoglobin A1C 6.7(A) 4.0 - 5.7 % QC Media Lot # [id number] Lot# Expiration Date 5, Blood Capillary blood specimen / Unknown 02/07/2025 11:17 AM EST Deedee Mc MD POINT OF CARE TEST ENTER/EDIT OR DERABLES Final Result * (ABNORMAL) POCT glucose manually resulted (02/07/2025 11:16 AM EST) Glucose Blood, POC 218(A) 60 - 200 mg/dL QC Media Lot # [id number] Lot# Expiration Date 222 Blood Capillary blood specimen / Unknown 02/07/2025 11:16 AM EST Deedee Mc MD POINT OF CARE TEST ENTER/EDIT OR DERABLES Final Result documented in this encounter Visit Diagnoses Diagnosis Primary hypertension- Primary Unspecified essential hypertension Type 2 diabetes mellitus with diabetic polyneuropathy, without long-term current use of insulin (HCC) Dyslipidemia Other and unspecified hyperlipidemia Hypothyroidism due to medication Renal cell carcinoma of right kidney (CMS/HCC) (HCC) 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 (HCC) Meningoencephalocele (CMS/HCC) (HCC) Encephalocele Chronic right shoulder pain Pain in joint, shoulder region Chronic pain of left knee documented in this encounter Additional Health Concerns Active Problems Noted Date Diagnosed Date Help patients manage their type 2 diabetes 02/06 Weekly blood pressure task 02/06/2025 Help patients manage their type 2 diabetes 02/06 Patient has chronic kidney disease 02/06/2025 Weekly blood pressure task 02/06/2025 Patient has chronic kidney disease 02/06/2025 Weekly blood pressure task 02/06/2025 Weekly blood pressure task 02/06/2025 Patient has chronic kidney disease 02/06/2025 Patient has chronic kidney disease 02/06/2025 Assessment Noted Time PHQ-9 Depression Total Score: 9 02/08/20 25 12:01 PM EST documented as of this encounter Care Teams Mastic Man Relationship Specialty Start Date End Date Deedee Mc MD [address] [place] [phone] PCP - General Family Medicine 09/09/19 documented as of this encounter
--- NOTE | ~2025-02-08 | XR_ITS ---
EXAMINATION: XR SHOULDER, RIGHT CLINICAL INFORMATION: right shoulder pain, limited ROM, equivocal impingement syndrome COMPARISON: Correlated to chest x-ray dated February 04, 2022. TECHNIQUE: AP view in neutral internal rotation and Y-view projections of the right shoulder. FINDINGS: Subchondral cyst formation and the greater tuberosity right humerus. Sclerosis along the reticular surface and subchondral cyst formation and the acromial with joint space narrowing. No acute cortical disruption or malalignment XR/XR knee LT 3V IMPRESSION: Degenerative changes without acute fracture or dislocation. EXAMINATION: XR KNEE, LEFT CLINICAL INFORMATION: Chronic left knee pain. Lateral positive crepitus COMPARISON: February 04, 2022 TECHNIQUE: AP oblique and lateral views of the left knee. FINDINGS: Joint space narrowing involving the medial compartment with sclerosis along the articular surface. Small marginal osteophyte formation and medial femoral condyle and medial tibial plateau. Small marginal osteophyte formation in the posterior superior and posterior inferior patella. No soft tissue calcifications. No subcutaneous emphysema. No lytic or blastic lesions. No gross joint effusion. IMPRESSION: Medial compartment osteoarthrosis/osteoarthritis without acute fracture or dislocation. Electronically signed by: Boom Montiel MD 02/08/2025 03:39 PM JIM JUNG
--- NOTE | ~2025-02-08 | XR_ITS ---
EXAMINATION: XR SHOULDER, RIGHT CLINICAL INFORMATION: right shoulder pain, limited ROM, equivocal impingement syndrome COMPARISON: Correlated to chest x-ray dated February 04, 2022. TECHNIQUE: AP view in neutral internal rotation and Y-view projections of the right shoulder. FINDINGS: Subchondral cyst formation and the greater tuberosity right humerus. Sclerosis along the reticular surface and subchondral cyst formation and the acromial with joint space narrowing. No acute cortical disruption or malalignment XR/XR shoulder RT min 2V IMPRESSION: Degenerative changes without acute fracture or dislocation. EXAMINATION: XR KNEE, LEFT CLINICAL INFORMATION: Chronic left knee pain. Lateral positive crepitus COMPARISON: February 04, 2022 TECHNIQUE: AP oblique and lateral views of the left knee. FINDINGS: Joint space narrowing involving the medial compartment with sclerosis along the articular surface. Small marginal osteophyte formation and medial femoral condyle and medial tibial plateau. Small marginal osteophyte formation in the posterior superior and posterior inferior patella. No soft tissue calcifications. No subcutaneous emphysema. No lytic or blastic lesions. No gross joint effusion. IMPRESSION: Medial compartment osteoarthrosis/osteoarthritis without acute fracture or dislocation. Electronically signed by: Boom Montiel MD 02/08/2025 03:39 PM JIM
[2025-02-08 16:55] LABS: Microalbum/Creatinine Ratio Ur 14.9 ug/mg cr (<30)
[2025-02-08 18:51] LABS: Alanine Aminotransferase 55 U/L (0-31); Albumin Level 4.6 g/dL (3.5-5.0); Alkaline Phosphatase 166 U/L (39-117); Anion Gap 16 (12-20); Aspartate Amino Transferase 28 U/L (5-31); Blood Urea Nitrogen 18 mg/dL (9-16); Calcium 9.8 mg/dL (8.4-10.2); Carbon Dioxide 27 mmol/L (22-29); Chloride 100 mmol/L (96-108); Estimated Glomerular Filt Rate 53; Potassium 4.0 mmol/L (3.3-5.1); Sodium 139 mmol/L (135-145); Total Protein 7.8 g/dL (6.5-8.0)
[2025-02-08 21:29] LABS: Free T4 (Free Thyroxine) 1.32 ng/dL (0.71-1.85)
--- OUTSIDE RECORDS SUMMARY | 2025-02-09 02:37 | XMS_ITS | Encounter Summary ---
Author Organization [employer] Address 75 [facility] 7t [place] [address] Care Team Providers Care Heating Equipment Installer Name Role Phone Deedee Mc MD Primary Care Provider [phone] Daniel Clancy PharmD Unavailable [phone] Encounter Details Date Type Department Care Team (Late st Contact Info) Description 04/26/2024 Orders Only [facility] MEDICINE 230 [place], [place] [phone] Deedee Mc MD 230 [place], [place] [phone] Social History Tobacco Use Types Packs/Day Years [...] Description 05/31/2025 11:00 AM EDT Office Visit [facility] OPTOMETRY [address] [place], [place] [phone] Janell Arnold, OD 230 [place] [address] documented as of this encounter Goals Goal Patient Goal Type Associated Problems Recent Progress Patient-Stated? Author Blood Pressure < 140/90 Blood Pressure 140/80(2024 11:15 AM EST) No Benito Padron Hemoglobin A1c < 7 Result Component 6.7( 11:17 AM EST) No Benito Padron documented as of this encounter Visit Diagnoses Not on filedocumented in this encounter Additional Health Concerns Assessment Noted Time PHQ-9 Depression Total Score: 13 025 1:35 PM EST documented as of this encounter Care Teams Heating Equipment Installer Relationship Specialty Start Date End Date Deedee Mc MD 230 [place], [place] [phone] PCP - General Family Medicine 09/09/19 Daniel Clancy, MassimoD [address] [place] [address] Pharmacist Internal Medicine 10/14/23 12/13/24 documented as of this encounter
--- OUTSIDE RECORDS SUMMARY | 2025-02-09 02:37 | XMS_ITS | Encounter Summary ---
Author Organization [employer] Address 75 [facility] 7t [place] [address] Care Team Providers Care Case Resolution Specialist Name Role Phone Deedee Mc MD Primary Care Provider [phone] Daniel Clancy PharmD Unavailable [phone] Encounter Details Date Type Department Care Team (Late st Contact Info) Description 05/12/2024 Orders Only [facility] MEDICINE 230 [place], [place] [phone] Deedee Mc MD 230 [place], [place] [phone] Social History Tobacco Use Types Packs/Day Years [...] Description 05/31/2025 11:00 AM EDT Office Visit [facility] OPTOMETRY [address] [place] [address] Clayton, Janell, OD [address] [place] [address] documented as of this encounter Goals Goal [...] AM EDT Narrative 06/14/2024 5:18 PM EDT [facility] [address] [place] [address] Mammography Report Signed Patient: Vanessa Douglas MR#: [id number] 2 : 1960 Acct:[id number] Age/Sex: 63 / F ADM Date: 06/08/24 Loc: HO.MAMMO Attending Dr: Deedee Mc MD Ordering Physician: Deedee Mc MD Results: 1Negative Date of Service: 06/08/24 Follow Up: 1 Year From Orig ina Mammogram Procedure(s): MM tomosynthesis screening BI Accession Number(s): [id number] cc: Deedee Mc MD EXAMINATION: MM SCREENING [...] 06/14/24 1716 DD/ 1130 TD/TT: 06/08/24 1156 Transportation Manager: Procedure Note Donotuseinterpreter, Image - 06/14/[address] [facility] [address] [place] [address] Mammography Report Signed Patient: Grace DouglasR#: [id number] 2 : 1960Acct:[id number] Age/Sex: 63 / FADM Date: 06/08/24 Loc: HO.MAMMO Attending Dr: Deedee Mc MD Ordering Physician: Deedee Mc MDResults: 1Negative Date of Service: 06/08/24Follow Up: 1 Year From [facility] Mammogram Procedure(s): MM tomosynthesis screening BI Accession Number(s): [id number] cc: Deedee Mc MD EXAMINATION: MM SCREENING [...] 06/14/24 1716 DD/ 1130 TD/TT: 06/08/24 1156 Transportation Manager: us Deedee Mc MD IMG BI PROCEDURES Edited Result - Final documented in this encounter Visit Diagnoses Not on filedocumented in this encounter Additional Health Concerns Assessment Noted Time PHQ-9 Depression Total Score: 13 04/25/ 025 1:35 PM EST documented as of this encounter Care Teams Case Resolution Specialist Relationship Specialty Start Date End Date Deedee Mc MD [address] [place] [address] PCP - General Family Medicine 09/09/19 Daniel Clancy, PharmD [address] [place] [address] Pharmacist Internal Medicine 10/14/23 12/13/24 documented as of this encounter
--- OUTSIDE RECORDS SUMMARY | 2025-02-09 02:37 | XMS_ITS | Clinical Summary ---
Author Organization [facility] Address [address] [place] [address] Care Team Providers Care Cold Storage Superintendent Name Role Phone Yunier Sprague MD Primary [...] Screening (Mammogram) 2012 COVID-19 Vaccine ( season) 2024 12/23/2022, 03/11/2022, 07/31/2021, Additional history exists Influenza [...] age to complete this topic Care Teams Cold Storage Superintendent Relationship Specialty Start Date End Date Yunier Sprague MD [address] [place] [address] PCP - General Internal Medicine 08/14/21
--- OUTSIDE RECORDS SUMMARY | 2025-02-09 02:37 | XMS_ITS | Encounter Summary ---
Author Organization [employer] Address 75 [facility] 7 [place] [address] Care Team Providers Care Food Service Steward Name Role Phone Deedee Mc MD Primary Care Provider [phone] Reason for Visit * Reason Onset Date Comments chart prep 02/06/2025 Encounter Details Date Type Department Care Team ([facility] st Contact Info) Description 02/06/2025 Telephone [facility] 230 [place], [place] [phone] Deedee Mc MD 230 [place], [place] [phone] chart prep Social History Tobacco Use Types [...] Telephone Encounter - Kristal Hurst MA - 02/06/2025 9:34 AM EST ..Chart Prep Labs: not applicable Images: ultra sound 02/07 Vaccines due: Covid Due Referrals: Not Applicable Screenings: Not Applicable Overdue care gaps: A1C, Glucose, and PHQ9 documented in this encounter Plan of Treatment Upcoming Encounters Date Type Department Care Team (Late st Contact Info) Description 05/31/2025 11:00 AM EDT Office Visit [facility] OPTOMETRY [address] [place] [address] Janell Arnold, OD [address] [place] [address] documented as of this encounter Goals Goal [...] type 2 diabetes No Kristal Hurst MA Patient has chronic [...] Hurst MA documented as of this encounter Visit Diagnoses Not on filedocumented in this encounter Additional Health Concerns Active [...] documented as of this encounter Care Teams Food Service Steward Relationship Specialty Start Date End Date Deedee Mc MD [address] [place] [address] PCP - General Family Medicine 09/09/19 documented as of this encounter
--- OUTSIDE RECORDS SUMMARY | 2025-02-09 02:37 | XMS_ITS | Encounter Summary ---
Author Organization [facility] Address [address] [facility] [address] [place] [address] Phone Care Team Providers Care Circulation Tender Name Role Phone Braeden Galarza MD Unavailable [phone] Ammy Casas MD Unavailable + [phone] Deedee Mc MD Primary Care Provider [phone] Encounter Details Date Type Department Care Team (Late st Contact Info) Description 05/29/2022 Procedure Pass [facility] [address] [place] [address] Social History Tobacco Use Types Packs/Day Years Used Date Smoking Tobacco: Never Assessed Comments Unknown Sex and Gender Information Value Date Recorded Sex Assigned at Not on file Legal Sex Female 1:54 PM EST Gender Identity Not on file Sexual Orientation Not on file documented as of this encounter Plan of Treatment Upcoming Encounters Date Type Department Care Team (Late st Contact Info) Description 03/20/2025 3:30 PM EST Office Visit [facility] Neurology [address] [facility], [address] [place] [address] Mario Cheng MD [address] [place] [phone] [email or web address] 11/29/2025 10:00 AM EDT Office Visit [facility] [address] [facility] [address], [place] [address] Tiffany Rod MD [address] [place] [address] [email or web address] documented as of this encounter Visit Diagnoses Not on filedocumented in this encounter Care Teams Circulation Tender Relationship Specialty Start Date End Date Deedee Mc MD [address] [place] [address] PCP - General Family Medicine 05/27/22 Braeden Galarza MD [address] [place] [address] [phone] [email or web address] Referring Physician Internal Medicine 02/25/16 Ammy Casas MD [address] [place] [address] [email or web address] Primary Oncologist Pulmonary Disease 02/25/16 documented as of this encounter Additional Source Comments The information contained in this document represents components of the legal health record. It is not the complete legal health record.[facility]
--- OUTSIDE RECORDS SUMMARY | 2025-02-09 02:37 | XMS_ITS | Encounter Summary ---
Author Organization [employer] Address 75 [facility] 7t [place] [address] Care Team Providers Care Tire Recapper Name Role Phone Deedee Mc MD Primary Care Provider [phone] Daniel Clancy PharmD Unavailable [phone] Reason for Visit * Reason Onset Date Comments Results 06/13/2022 Encounter Details Date Type Department Care Team ([facility] st Contact Info) Description 06/13/2022 Telephone [facility] MEDICINE 230 [place], [place] [phone] Deedee Mc MD 230 [place], [place] [phone] Results Social History Tobacco Use Types Packs/Day [...] from urine example. Please contact pt st [phone] Icelandic Speaker documented in this encounter Plan of Treatment Upcoming Encounters Date Type Department Care Team (Late st Contact Info) Description 05/31/2025 11:00 AM EDT Office Visit [facility] OPTOMETRY 267 [place] [address] Janell Arnold, OD 230 [place] [address] documented as of this encounter Visit Diagnoses Not on filedocumented in this encounter Care Teams Tire Recapper Relationship Specialty Start Date End Date Deedee Mc MD 230 [place] [address] PCP - General Family Medicine 09/09/19 Daniel Clancy, Tanika [address] [place] [address] Pharmacist Internal Medicine 10/14/23 12/13/24 documented as of this encounter
--- OUTSIDE RECORDS SUMMARY | 2025-02-09 02:38 | XMS_ITS | Encounter Summary ---
Author Organization [employer] Address 75 [facility] 7t [place] [address] Care Team Providers Care Loading Machine Operator Helper Name Role Phone Deedee Mc MD Primary Care Provider [phone] Daniel Clancy PharmD Unavailable [phone] Encounter Details Date Type Department Care Team ([facility] st Contact Info) Description 06/13/2024 Orders Only [facility] MEDICINE 230 [place], [place] [phone] Deedee Mc MD 230 [place], [place] [phone] Social History Tobacco Use Types Packs/Day Years [...] Description 05/31/2025 11:00 AM EDT Office Visit [facility] OPTOMETRY [address] [place], [place] [phone] Janell Arnold, OD 230 [place] [address] documented as of this encounter Goals Goal [...] documented as of this encounter Care Teams Loading Machine Operator Helper Relationship Specialty Start Date End Date Deedee Mc MD 230 [place], [place] [phone] PCP - General Family Medicine 09/09/19 Daniel Clancy, MassimoD [address] [place] [phone] Pharmacist Internal Medicine 10/14/23 12/13/24 documented as of this encounter
--- OUTSIDE RECORDS SUMMARY | 2025-02-09 02:38 | XMS_ITS | Encounter Summary ---
Author Organization [employer] Address 75 [facility] 7t [place] [address] Care Team Providers Care Finish Carpenter Name Role Phone Deedee Mc MD Primary Care Provider [phone] Encounter Details Date Type Department Care Team (Late st Contact Info) Description 02/08/2025 Orders Only [facility] MEDICINE 230 [place], [place] [phone] Deedee Mc MD 230 [place], [place] [phone] Social History Tobacco Use Types Packs/Day Years [...] 11:00 AM EDT Office Visit [facility] OPTOMETRY [address] [place] [address] Clayton, Janell, OD [address] [place] [address] documented as of this encounter Goals Goal Patient Goal Type Associated Problems Recent Progress Patient-Stated? Author Blood Pressure < 140/90 Blood Pressure 140/80(2024 11:15 AM EST) Benito Kilpatrick Hemoglobin A1c < 7 Result Component 6.7( 11:17 AM EST) No Benito Padron Help patients manage their type 2 diabetes [...] Date/Time Associated Diagnosis Comments T4, FREE Routine 02/08/2025 3:29 PM EST documented in this encounter Results * T4, Free (02/08/2025 3:29 PM EST) Free T4 (Free Thyroxine) 1.32 0.71 - 1.85 ng/dL [facility] 02/08/2025 3:29 PM EST 02/08/2025 6:04 PM EST Deedee Mc MD LAB BLOOD ORDERABLES Final Resul t Performing Organization Address City/State/[facility] Co de Phone Number [facility] [address] [place] [phone] documented in this encounter Visit Diagnoses [...] documented as of this encounter Care Teams Finish Carpenter Relationship Specialty Start Date End Date Deedee Mc MD [address] [place] [address] PCP - General Family Medicine 09/09/19 documented as of this encounter
--- OUTSIDE RECORDS SUMMARY | 2025-02-09 02:38 | XMS_ITS | Encounter Summary ---
Author Organization [employer] Address 75 [facility] 7t [place] [address] Care Team Providers Care General Manager Farm Name Role Phone Deedee Mc MD Primary Care Provider [phone] Encounter Details Date Type Department Care Team (Latest Contact Info) Description 02/07/2025 Travel Social History Tobacco Use Types Packs/Day [...] housing situation today? I have kunalallen arredondo 08/03/[address] you [...] AM EDT documented as of this encounter Functional Status * Over the [...] Description 05/31/2025 11:00 AM EDT Office Visit [facility] OPTOMETRY [address] [place], [place] [phone] Janell Arnold, OD [address] [place] [address] documented as of this encounter Goals Goal Patient Goal Type Associated Problems Recent Progress Patient-Stated? Author Blood Pressure < 140/90 Blood Pressure 140/80(2024 11:15 AM EST) Benito Kilpatrick Hemoglobin A1c < 7 Result Component 6.7( 11:17 AM EST) Benito Kilpatrick Help patients manage their type 2 diabetes Care Plan Help patients manage their type 2 diabetes Kristal Florez MA Weekly blood pressure task Care Plan Weekly blood pressure task No Kristal Hurst MA Help patients manage their type 2 diabetes Care Plan Help patients manage their type 2 diabetes No Kristal Hurst MA Patient has chronic kidney disease Care Plan Patient has chronic kidney disease Kristal Florez MA Weekly blood pressure task Care Plan Weekly blood pressure task No Kristal Hurst MA Patient has chronic kidney disease Care Plan Patient has chronic kidney disease Kristal Florez MA Weekly blood pressure task Care Plan Weekly blood pressure task No Kristal Hurst MA Weekly blood pressure task Care Plan Weekly blood pressure task No Kristal Hurst MA Patient has chronic kidney disease Care Plan Patient has chronic kidney disease Kristal Florez MA Patient has chronic kidney [...] documented as of this encounter Care Teams General Manager Farm Relationship Specialty Start Date End Date Deedee Mc MD [address] [place] [address] PCP - General Family Medicine 09/09/19 documented as of this encounter
--- OUTSIDE RECORDS SUMMARY | 2025-02-09 02:38 | XMS_ITS | Encounter Summary ---
Author Organization [facility] Address [address] [facility] [address] [place] [address] Phone Care Team Providers Care Gis Specialist Name Role Phone Braeden Galarza MD Unavailable [phone] Ammy Casas MD Unavailable [phone] Deedee Mc MD Primary Care Provider [phone] Encounter Details Date Type Department Care Team (Late st Contact Info) Description 08/11/2022 Procedure Pass [facility], Ct Scan - [address] [address] Social History Tobacco Use Types Packs/Day Years [...] with a working camera? Not on file Comments No Sex and Gender Information Value Date Recorded Sex Assigned at Not on file Legal Sex Female 1:54 PM EST Gender Identity Not on file Sexual Orientation Not on file documented as of this encounter Plan of Treatment Upcoming Encounters Date Type Department Care Team (Late st Contact Info) Description 03/20/2025 3:30 PM EST Office Visit [facility] [address] [facility], [address] [place] [address] Mario Cheng MD 55 [facility] 720 [place] [address] [email or web address] 11/29/2025 10:00 AM EDT Office Visit [facility] [address] [facility] 9th [place] [address] Tiffany Rod MD 243 [place] [address] [email or web address] documented as of this encounter Visit Diagnoses Not on filedocumented in this encounter Care Teams Gis Specialist Relationship Specialty Start Date End Date Deedee Mc MD 230 [place] [address] PCP - General Family Medicine 05/27/22 Braeden Galarza MD [address] [place] [phone] [email or web address] Referring Physician Internal Medicine 02/25/16 Ammy Casas MD [address] [place] [phone] [email or web address] Primary Oncologist Pulmonary Disease 02/25/16 documented as of this encounter Additional Source Comments The information contained in this document represents components of the legal health record. It is not the complete legal health record.[facility]
--- OUTSIDE RECORDS SUMMARY | 2025-02-09 02:38 | XMS_ITS | Encounter Summary ---
Author Organization [facility] Address [address] [facility] [address] [place] [address] Phone Care Team Providers Care Nurse Researcher Name Role Phone Braeden Galarza MD Unavailable + [phone] Precious Lai MD Primary Care Provider [phone] Ammy Casas MD Unavailable + [phone] Deedee Mc MD Primary Care Provider [phone] Encounter Details Date Type Department Care Team (Late st Contact Info) Description 03/03/2016 Procedure Pass [facility] [address] [place] [address] Social History Tobacco Use Types Packs/Day Years [...] Description 03/20/2025 3:30 PM EST Office Visit [facility] Neu[facility] [address] [facility], [address] [place] [address] Mario Cheng MD [address] [place] [phone] [email or web address] 11/29/2025 10:00 AM EDT Office Visit [facility] [address] [facility] 9th [place] [address] Tiffany Rod MD [address] [place] [phone] [email or web address] documented as of this encounter Visit Diagnoses Not on filedocumented in this encounter Care Teams Nurse Researcher Relationship Specialty Start Date End Date Precious Lai MD 230 [facility] 1 [place] [address] PCP - General 02/25/16 05/26/22 Deedee Mc MD 230 [place] [address] PCP - General Family Medicine 05/27/22 Braeden Galarza MD [address] [place] [phone] [email or web address] Referring Physician Internal Medicine 02/25/16 Ammy Casas MD [address] [place] [address] [email or web address] Primary Oncologist Pulmonary Disease 02/25/16 documented as of this encounter Additional Source Comments The information contained in this document represents components of the legal health record. It is not the complete legal health record.[facility]
--- OUTSIDE RECORDS SUMMARY | 2025-02-09 02:38 | XMS_ITS | Encounter Summary ---
Author Organization [employer] Address [address] [facility] 7 [place] [address] Care Team Providers Care Cook Chili Name Role Phone Deedee Mc MD Primary Care Provider [phone] Encounter Details Date Type Department Care Team (Late st Contact Info) Description 12/20/2024 Orders Only [facility] [address] [place], [place] [phone] Provider, MD Minerva Social History Tobacco Use Types Packs/Day Years [...] Recorded Patient Health Questionnaire-2 Score 6 04/25/2024 Internet Access Answer Date Recorded Internet Access [...] Description 05/31/2025 11:00 AM EDT Office Visit [facility] [address] [place] [address] Clayton, Janell, OD [address] [place] [address] documented as of this encounter Goals Goal Patient Goal Type Associated Problems Recent Progress Patient-Stated? Author Blood Pressure < 140/90 Blood Pressure 140/80(2024 11:15 AM EST) No Benito Padron Hemoglobin A1c < 7 Result Component 6.7( 11:17 AM EST) No Benito Padron documented as of this encounter Procedures Procedure Name Priority Date/Time Associated Diagnosis Comments CT ABDOMEN PELVIS WO CONTRAST Routine 12/13/2024 3:20 PM EDT documented in this encounter Results * CT Abdomen Pelvis w/o Contrast (12/13/2024 3:20 PM EDT) Anatomical Region Laterality Modality Body, Pelvis, Abdomen Computed T omography us Historical Provider MD SEGURA CT PROCEDURES Final R esult documented in this encounter Visit Diagnoses Not on filedocumented in this encounter Additional Health Concerns Assessment Noted Time PHQ-9 Depression Total Score: 13 025 1:35 PM EST documented as of this encounter Care Teams Cook Chili Relationship Specialty Start Date End Date Deedee Mc MD [address] [place] [phone] PCP - General Family Medicine 09/09/19 documented as of this encounter
--- OUTSIDE RECORDS SUMMARY | 2025-02-09 02:38 | XMS_ITS | Encounter Summary ---
Author Organization [employer] Address [address] [facility] [address] [place] [address] Care Team Providers Care Transmitter Chief Name Role Phone Deedee Mc MD Primary Care Provider [phone] Daniel Clancy PharmD Unavailable [phone] Reason for Visit * Reason Comments Med Refill Encounter Details Date Type Department Care Team ([facility] st Contact Info) Description 10/11/2024 Refill [facility] [address] [place], [place] [phone] Deedee Mc MD [address] [place] [address] Diabetic autonomic neuropathy associated with type 2 diabetes mellitus (CMS/HCC) Social History Tobacco Use Types Packs/Day [...] 11:00 AM EDT Office Visit [facility] [address] [place] [address] Clayton, Janell, OD [address] [place] [address] documented as of this encounter Goals Goal Patient Goal Type Associated Problems Recent Progress Patient-Stated? Author Blood Pressure < 140/90 Blood Pressure 140/80(2024 11:15 AM EST) No Benito Padron Hemoglobin A1c < 7 Result Component 6.7( 11:17 AM EST) No Benito Padron documented as of this encounter Visit Diagnoses Diagnosis Diabetic autonomic neuropathy associated with type 2 diabetes mellitus (HCC) Type II or unspecified type diabetes mellitus with neurological manifestations, not stated as uncontrolled documented in this encounter Additional Health Concerns Assessment Noted Time PHQ-9 Depression Total Score: 13 025 1:35 PM EST documented as of this encounter Care Teams Transmitter Chief Relationship Specialty Start Date End Date Deedee Mc MD [address] [place] [address] PCP - General Family Medicine 09/09/19 Daniel Clancy, Tanika [address] [place] [address] Pharmacist Internal Medicine 10/14/23 12/13/24 documented as of this encounter
--- OUTSIDE RECORDS SUMMARY | 2025-02-09 02:38 | XMS_ITS | Encounter Summary ---
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 Author Blood Pressure < 140/90 Blood Pressure 140/80(2024 11:15 AM EST) No Benito Padron Hemoglobin A1c < 7 Result Component 6.7( 11:17 AM EST) No Benito Padron documented as of this encounter Procedures Procedure Name Priority Date/Time Associated Diagnosis Comments TSH W/REFLEX TO FT4 Routine 09/26/2024 3 :12 PM EDT Hypothyroidism due to medication T4, FREE Routine 06/21/2024 10:24 AM EDT Hypothyroidism due to medication documented in this encounter Results * TSH with Reflex to Free T4 (09/26/2024 3:12 PM EDT) TSH reflex Free T4 0.79 0.32 - 4.0 uIU/mL [facility] Blood 09/26/2024 3:12 PM EDT 09/26/2024 5:05 PM EDT us Deedee Mc MD LAB BLOOD ORDERABLES Final Resul t Performing Organization Address [facility] Co de Phone Number [facility] [address] [place] [phone] * T4, Free (06/21/2024 10:24 AM EDT) Free T4 (Free Thyroxine) 1.48 0.71 - 1.85 ng/dL [facility] 06/21/2024 10:2 4 AM EDT 06/21/2024 11:17 AM EDT us Deedee Mc MD LAB BLOOD ORDERABLES Final Resul t Performing Organization Address [facility] Co de Phone Number [facility] [address] [place] [phone] documented in this encounter Visit Diagnoses Diagnosis Hypothyroidism due to medication- Primary documented in this encounter Additional Health Concerns Assessment Noted Time PHQ-9 Depression Total Score: 13 02/ 025 1:35 PM EST documented as of this encounter Care Teams Disc Recordist Relationship Specialty Start Date End Date Deedee Mc MD [address] [place] [address] PCP - General Family Medicine 09/09/19 Daniel Clancy, Tanika [address] [place] [address] Pharmacist Internal Medicine 10/14/23 12/13/24 documented as of this encounter
--- OUTSIDE RECORDS SUMMARY | 2025-02-09 02:39 | XMS_ITS | Clinical Summary ---
Author Organization [employer] Address [address] 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 30 tablet 5 03/04/20 22 Active econazole nitrate 1 % creamIndication s:Palmar erythema,Intert camila,Onychodyst rophy Apply topically in the morning. 85 g 2 03/27/19 24 Active Blood Pressure Monitor kit Check blood pressure once daily and as needed 1 kit 08/03/19 24 Active polyvinyl alcohol (Liquifilm Tears) 1.4 % ophthalmic solution INSTILL 1 DROP IN EACH EYE 3 TIMES A DAY 30 mL 1 08/05/19 24 Active Blood Glucose Monitoring Suppl (FreeStyle Lite) w/Device kitIndications: Diabetic autonomic neuropathy associated with type 2 diabetes mellitus (HCC) 1 Dose before breakfast. TEST BLOOD SUGAR ONCE A DAY 1 kit 08/07/19 24 Active levothyroxine (Synthroid) 150 MCG tablet Take 1 tablet (150 mcg) by mouth before breakfast. 30 tablet 11 06/22/19 25 026 Active ergocalciferol (Vitamin D2) 1.25 MG (13231 UT) capsule TAKE 1 CAPSULE BY MOUTH ONCE WEEKLY ON THURSDAY AT NOON 12 capsule 3 07/01/19 25 Active losartan (Cozaar) 100 MG tabletIndicatio ns:Primary hypertension Take 1 tablet (100 mg) by mouth Once per day. 30 tablet 11 5 2:01 PM EST 08/04/19 25 026 Active topiramate (Topamax) 25 MG tablet TAKE 1 TABLET BY MOUTH AT BEDTIME 90 tablet 3 5 2:01 PM EST 08/11/19 25 Active Jardiance 10 MG TAKE 1 TABLET BY MOUTH EVERY MORNING 30 tablet 11 5 2:01 PM EST 09/10/19 25 Active TRUEplus Lancets 33G misc TEST BLOOD SUGAR ONCE A DAY 100 each 11 5 2:01 PM EST 10/12/19 25 Active glucose blood (FREESTYLE LITE) test stripIndication s:Diabetic autonomic neuropathy associated with type 2 diabetes mellitus (HCC) TEST BLOOD SUGAR ONCE A DAY 100 each 11 5 2:01 PM EST 10/12/19 25 Active levothyroxine (Tirosint) 13 MCG capsule Take 1 capsule by mouth once daily with 150 mcg, total 168 mcg, daily 90 capsule 3 11/10/19 25 Active amLODIPine (Norvasc) 10 MG tabletIndicatio ns:Primary hypertension TAKE 1 TABLET BY MOUTH EVERYDAY AT NOON 90 tablet 1 12/02/19 25 Active oxyCODONE (Oxy-IR) 5 MG immediate release capsule TAKE 1 CAPSULE (5 MG) BY MOUTH EVERY 6 HOURS IF NEEDED FOR SEVERE PAIN. MAX DAILY AMOUNT: 20 MG 11/24/19 25 Active atorvastatin (Lipitor) 80 MG tabletIndicatio ns:Type 2 diabetes mellitus with diabetic polyneuropathy, without long-term current use of insulin (HCC) Take 1 tablet (80 mg) by mouth Once per day. 12/15/19 25 Active metFORMIN XR (Glucophage-XR) 500 MG 24 hr tabletIndicatio ns:Type 2 diabetes mellitus with diabetic polyneuropathy, without long-term current use of insulin (HCC) Take 1 tablet (500 mg) by mouth with evening meal. Do not crush, chew, or split. 12/15/19 25 Active fluticasone (Flonase) 50 MCG/ACT nasal spray INSTILL 1 SPRAY IN EACH NOSTRIL ONCE DAILY 48 g 12/31/19 25 Active omeprazole (PriLOSEC) [address] capsule Take 1 capsule (20 mg) by mouth Once per day. Do not crush or chew. 90 capsule 1 12/31/19 25 Active famotidine (Pepcid) 20 MG tablet Take 1 tablet (20 mg) by mouth at bedtime. 90 tablet 12/31/19 25 Active lidocaine (Lidoderm) 5 % patch APPLY 1 PATCH TOPICALLY TO SKIN, LEAVE ON FOR 12 HOURS AND OFF FOR 12 HOURS DIRECTED 30 patch 1 5 2:42 PM EST 02/08/20 25 Active Diclofenac Sodium 1 % gel Apply to affected area once or twice daily as needed 150 g 3 5 2:42 PM EST 02/08/20 25 Active buPROPion XL (Wellbutrin XL) 150 MG 24 hr tablet Take 1 tablet (150 mg) by mouth Once per day. Do not crush, chew, or split. 90 tablet 3 5 2:42 PM EST 02/08/20 25 026 Active lidocaine (Lidoderm) 5 % patch APPLY 1 PATCH TOPICALLY TO SKIN, LEAVE ON FOR 12 HOURS AND OFF FOR 12 HOURS DIRECTED 30 patch 1 12/27/19 25 025 Discontinued(Re order (will not trigger notification to Pharmacy)) Active Problems Problem Noted Date Diagnosed Date Bilateral knee pain 07/14/2023 Assessment & Plan (07/14/2023 12:13 PM EDT): - patient states she received a steroid injection on the right knee 6 mos. Ago, recommended to contact her orthopedist for left knee evaluation and management Depression 07/09/2023 Dyslipidemia 04/12/2023 Assessment & Plan (11/20/2024 10:32 AM EDT): - current medication atorvastatin 80 mg at bedtime - continue working on lifestyle modifications Assessment & Plan (08/12/2024 10:46 AM EDT): - current medication atorvastatin 20 mg at bedtime. Consider increasing dose. 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 Marcel [facility] on 12/03/22 - follow the treatment plan [...] via endoscopic transpterygoid approach by Dr. Marcel [facility] on 12/03/22 - follow the treatment plan [...] via endoscopic transpterygoid approach by Dr. Marcel [facility] on 12/03/22 - follow the treatment plan [...] via endoscopic transpterygoid approach by Dr. 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 Rod [facility] on 12/03/22 - follow the treatment plan per ENT - upcoming appt with neurologist and neurosurgeon - continue acetazolamide Assessment & Plan (09/02/2022 4:06 PM EDT): - left lateral sphenoid sinus menignoencephalocele and history of CSF leak - Following with ENT and neurosurgery at [facility] - Scheduled for endonasal repair in Nov [...] her oncologist) Hypothyroidism 03/11/2022 Assessment & Plan (11/20/2024 10:38 AM EDT): - Reviewing her record, it is documented that it was due to chemotherapy - Current thyroid replacement: levothyroxine 150 mcg daily - last thyroid function test: TSH 0.79 on 08/01/24 - Periodic lab and adjust accordingly - fluctuating TSH level, needing higher dose lately - check thyroid US Assessment & Plan (08/03/2024 12:14 PM EDT): Reviewing her record, it is documented that it was due to chemotherapy Current thyroid replacement: levothyroxine 150 mcg daily 08/01/24 TSH 3.81 Periodic lab and adjust accordingly Assessment & Plan (04/25/2024 1:43 PM EST): [...] 2 diabetes mellitus 03/11/2022 Assessment & Plan (11/20/2024 10:33 AM EDT): - A1c 6.4% on 11/09/24, stable for > 1 year -Current medication: metformin 500 mg daily, empagliflozin 10 mg daily -Continue SMBG and working on lifestyle modifications -Microalbumin test: 07/23/23 UACR 31.9 -Lipid profile: 09/26/24 TC 142; TG 174; HDL 47; LDL 61 -Comprehensive foot exam: 07/23/21 onychomycosis and decreased sensation; following with infrastructure architect -Diabetic Dilated Eye Exam: 05/19/23 at [facility] No diabetic retinopathy, age-related cataract, presbyopia, dry eye. Up coming appointment on 11/16/24 Assessment & Plan (08/03/2024 12:12 PM EDT): - A1c 6.5% on 08/03/24 -A1C 6.4% on 01/26/24. No recent knee steroid injection. -A1C 6.6% on 04/25/24 -Current medication: metformin 500 mg daily, empagliflozin 10 mg daily -Continue SMBG and working on lifestyle modifications -Microalbumin test: 07/23/23 UACR 31.9 -Lipid profile: 04/25/24 TC 187; TG 135; HDL 43; LDL 117 -Comprehensive foot exam: 07/23/21 onychomycosis and decreased sensation; following with infrastructure architect -Diabetic Dilated Eye Exam: 05/19/23 at [facility] No diabetic retinopathy, age-related cataract, presbyopia, dry eye. Up coming appointment on 11/16/24 Assessment & Plan (04/25/2024 2:12 PM EST): -A1C 6.4% on 01/26/24. No recent knee steroid injection. -A1C 6.6% on 04/25/24 -Current medication: metformin 500 mg daily, empagliflozin 10 mg daily -Continue SMBG and working on lifestyle modifications -Microalbumin test: 07/23/23 UACR 31.9 -Lipid profile: 07/14/23 TC 167; TG 178; HDL 50; LDL 82 -Comprehensive foot exam: 07/23/21 onychomycosis and decreased sensation; following with infrastructure architect -Diabetic Dilated Eye Exam: 05/19/23 at [facility] No diabetic retinopathy, age-related cataract, presbyopia, dry [...] 07/23/21 onychomycosis and decreased sensation; following with infrastructure architect -Diabetic Dilated Eye Exam: 05/19/23 at [facility] No diabetic retinopathy, age-related cataract, presbyopia, dry [...] 07/23/21 onychomycosis and decreased sensation; following with infrastructure architect -Diabetic Dilated Eye Exam: 05/19/23 at [facility] No diabetic retinopathy, age-related cataract, presbyopia, dry eye Assessment & Plan (04/12/2023 12:37 PM EST): -A1C 6.5% on 09/02/22, stable from 6.5% on 03/11/22 -Current medication: metformin 500 mg daily -Continue SMBG and working on lifestyle modifications -Microalbumin test: 08/07/21 UACR 29 -Lipid profile: 09/02/22 TC 190; TG 273; HDL 41; LDL 110 -Comprehensive foot exam: 07/23/21 onychomycosis and decreased sensation; following with infrastructure architect -Diabetic Dilated Eye Exam: 04/22/22 at [facility] No diabetic retinopathy, age-related cataract, presbyopia, dry eye Assessment & Plan (12/29/2022 6:04 PM EDT): -A1C 6.5% on 09/02/22, stable from 6.5% on 03/11/22 -Current medication: metformin 500 mg daily -Continue SMBG and working on lifestyle modifications -Microalbumin test: 08/07/21 UACR 29 -Lipid profile: 09/02/22 TC 190; TG 273; HDL 41; LDL 110 -Comprehensive foot exam: 07/23/21 onychomycosis and decreased sensation; following with infrastructure architect -Diabetic Dilated Eye Exam: 04/22/22 at [facility] No diabetic retinopathy, age-related cataract, presbyopia, dry eye Assessment & Plan (09/02/2022 4:47 PM EDT): -A1C 6.5% on 09/02/22, stable from 6.5% on 03/11/22 -Current medication: metformin 500 mg daily -Continue SMBG and working on lifestyle modifications -Microalbumin test: 08/07/21 UACR 29 -Lipid profile: 08/07/21 TC 185; TG 100; HDL 48; LDL 116 -Comprehensive foot exam: 07/23/21 onychomycosis and decreased sensation; following with infrastructure architect -Diabetic Dilated Eye Exam: 04/22/22 at [facility] No diabetic retinopathy, age-related cataract, presbyopia, dry eye Assessment & Plan (06/15/2022 6:47 AM EDT): -A1C 6.5% on 03/11/22, stable from 6.4% on 11/05/21 -Current medication: metformin 500 mg daily -Continue SMBG and working on lifestyle modifications -Microalbumin test: 08/07/21 UACR 29 -Lipid profile: 08/07/21 TC 185; TG 100; HDL 48; LDL 116 -Comprehensive foot exam: 07/23/21 onychomycosis and decreased sensation; referred to infrastructure architect -Diabetic Dilated Eye Exam: 04/22/22 at [facility] No diabetic retinopathy, age-related cataract, presbyopia, dry eye Assessment & Plan (03/11/2022 2:17 PM EST): -A1C 6.5% today 03/11/22, stable from 6.4% on 11/05/21 -Current medication: metformin 500 mg daily -Continue SMBG and working on lifestyle modifications -Microalbumin test: 08/07/21 UACR 29 -Lipid profile: 08/07/21 TC 185; TG 100; HDL 48; LDL 116 -Comprehensive foot exam: 07/23/21 onychomycosis and decreased sensation; referred to infrastructure architect -Diabetic Dilated Eye Exam: 04/27/20 at [facility]; early cataract; requested an appt with [facility] eye care. 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 Fleming. Will consider assessing her depression, anxiety, and memory problem at next visit. 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 Patient did not keep appointment. - will request all the medical records from her previous recycling director and refer her back to submarine element coordinator-onc. Assessment & Plan (01/26/2024 12:28 PM EST): - previously referred to submarine element coordinator-onc at [facility]. Patient did not keep appointment. - will request all the medical records from her previous recycling director and refer her back to submarine element coordinator-onc. Renal cell carcinoma of right kidney (CMS/HCC) 0 09/06/2016 Overview (07/19/2023): >>OVERVIEW FOR RENAL CELL CANCER (CMS/HCC) WRITTEN ON 03/11/2022 5:22 AM BY DEEDEE ARTHUR MD Last Assessment & Plan: No evidence of recurrent Ob Nurse metastatic disease. Will return to Dr. Fleming for follow up imaging and treatment as planned. Assessment & Plan (11/09/2024 12:14 PM EDT): - Dx 2013 - Oncologist: Dr. 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 Fleming - Pt is receiving oxycodone [address] Fleming Assessment & Plan (08/12/2024 10:45 AM EDT): Dx 2013 Oncologist: Dr. 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 Fleming Pt is receiving oxycodone [address] Fleming Assessment & Plan (04/25/2024 1:42 PM EST): Dx 2013 Oncologist: Dr. 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 Fleming Pt is receiving oxycodone [address] Fleming Assessment & Plan (01/26/2024 10:36 AM EST): Dx 2013 Oncologist: Dr. 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 Recurrence in Nov 2014 s/p chemotherapy (pazomanib, cabzanitnib, nivolumab) and XRT [id number] Recurrence 2017 s/p excision of vaginal metastasis [...] s/p chemotherapy (pazomanib, cabzanitnib, nivolumab) and XRT [id number] Recurrence 2017 s/p excision of vaginal metastasis [...] s/p chemotherapy (pazomanib, cabzanitnib, nivolumab) and XRT [id number] Recurrence 2017 s/p excision of vaginal metastasis [...] s/p chemotherapy (pazomanib, cabzanitnib, nivolumab) and XRT [id number] Recurrence 2017 s/p excision of vaginal metastasis [...] s/p chemotherapy (pazomanib, cabzanitnib, nivolumab) and XRT [id number] Recurrence 2017 s/p excision of vaginal metastasis [...] s/p chemotherapy (pazomanib, cabzanitnib, nivolumab) and XRT [id number] Recurrence 2017 s/p excision of vaginal metastasis [...] s/p chemotherapy (pazomanib, cabzanitnib, nivolumab) and XRT [id number] Recurrence 2017 s/p excision of vaginal metastasis [...] s/p chemotherapy (pazomanib, cabzanitnib, nivolumab) and XRT [id number] Recurrence 2017 s/p excision of vaginal metastasis [...] s/p chemotherapy (pazomanib, cabzanitnib, nivolumab) and XRT [id number] Recurrence 2017 s/p excision of vaginal metastasis on 07/14/16 Voltrient in 2016 most recent chest / abd / pelvis CT in Oct 2021 showed no recurrence or metastasis Continue following with oncologist, Dr. Fleming Pt is receiving oxycodone [address] Fleming Metastatic renal cell carcinoma 02/21/2015 Assessment & Plan (08/12/2024 10:34 AM EDT): Refer to C64.1 Assessment & Plan (04/25/2024 1:43 PM EST): Refer to C64.1 Assessment & Plan (01/26/2024 10:39 AM EST): Refer to C64.1 Assessment & Plan (07/19/2023 6:17 PM EDT): Refer to C64.1 Constipation 07/26/2012 Hypertension 09/04/2011 Assessment & Plan (11/09/2024 4:50 AM EDT): - Goal BP <130/80 per ACC/AHA guideline, Tx threshold 130/80 - BP not at goal today, slightly elevated on second BP check - Continue working on lifestyle modification - Continue monitoring home BP - Continue amlodipine 10 mg daily - Continue 100 mg daily Assessment & Plan (08/03/2024 12:13 PM EDT): -Goal BP < 140/90 per JNC-8, <130/80 per ACC/AHA guideline, Tx threshold 130/80 -BP not at goal today, slightly elevated on second BP check -Continue working on lifestyle modification -check home BP -continue amlodipine 10 mg daily -Increase losartan to 100 mg daily -f/u in 3-4 months Assessment & Plan (04/25/2024 1:42 PM EST): [...] daily -f/u in 3-4 months Morbid obesity (CMS/HCC) 09/04/2011 Assessment & Plan (11/20/2024 10:33 AM EDT): -Continue working on lifestyle modifications -Considered GLP-1 RA; however, patient does not have excessive appetite or calorie intake Assessment & Plan (01/26/2024 10:37 AM EST): [...] Encounters Date Type Department Care Team Description 02/08/2025 Orders Only [address] [address] Deedee Arthur MD 02/07/2025 11:15 AM EST Office Visit [address] [address] Deedee Arthur MD Primary hypertension (Primary Dx); Type 2 diabetes mellitus with diabetic polyneuropathy, without long-term current use of insulin (HCC); Dyslipidemia; Hypothyroidism due to medication; Renal cell carcinoma of right kidney (CMS/HCC) (HCC); 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 (HCC); Meningoencephalocele (CMS/HCC) (HCC); Chronic right shoulder pain; Chronic pain of left knee 02/07/2025 Travel 02/06/[address] [address] Deedee Arthur MD chart prep 01/27/2025 Travel 01/03/2025 Orders Only [address] [address] Deedee Arthur MD 12/30/[address] [address] Deedee Arthur MD 12/25/2024 Refill [facility] [address] [place] [address] Katlyn Steele MD 12/20/2024 Orders Only [facility] [address] [place], [place] [phone] Minerva Henderson MD 12/14/2024 Travel 12/09/2024 Telephone [facility] [address] [place] [address] [phone] Deedee Arthur MD Medication Question 12/01/2024 Refill [facility] [address] [place], [place] [phone] Deedee Arthur MD Primary hypertension 11/09/2024 10:15 AM EDT Office Visit [facility] [address] [place] [address] [phone] Deedee Arthur MD Primary hypertension (Primary Dx); Type 2 diabetes mellitus with diabetic polyneuropathy, without long-term current use of insulin ([facility]); Hypothyroidism due to medication; Renal cell carcinoma of right kidney ([facility]); Depression, unspecified depression type; Generalized anxiety disorder; Pelvic pain; Decreased renal function; Dyslipidemia; Morbid obesity ([facility]); Transaminitis 11/09/2024 Telephone [facility] [address] [place] [address] [phone] Deedee Arthur MD Care Coordination 11/09/2024 Travel from Last 3 Months Immunizations Immunization Administration Dates Next Due Hep A, Adult 12/01/2011,04/17/2011 Hep B, adult 09/14/2023, 2,05/22/2011,04/17 Influenza injectable quadriv alent IIV4 with preservative 02/23/2017,12/14/2015,02/21/2015 Influenza injectable quadriv alent preservative free 12/23/2022,03/11/2022,03/13/2021,01/03 Influenza, IIV3, injectable 12/15/2013, 1 Influenza, Split (incl. shavonne fied surface antigen) 12/06/2012,12/01/2011 Influenza, seasonal, injecta ble, preservative free 12/14/2024,12/16/2023 Rosa SARS-CoV-2 Vaccination 06/06/2020 MMR 05/30/2011 Pfizer [...] Smoking Tobacco: Never Passive Smoke Exposure: Never Tobacco Cessation:Counseling Given: Not Answered Alcohol [...] Mass Index 45.58 02/07/2025 11:15 AM EST Plan of Treatment Upcoming Encounters Date Type Department Care Team (Late st Contact Info) Description 05/31/2025 11:00 AM EDT Office Visit [facility] OPTOMETRY [address] [place] [address] Clayton, Janell, OD [address] [place] [address] Health Maintenance Due Date Last Done Comments CT Colonography 1962 FIT DNA/Cologuard 1962 FIT 1962 FOBT 1962 Sigmoidoscopy 1962 Derm Melanoma Skin Check 1962 COVID-19 Vaccine ( season) 2024 12/16/2023, 12/23/2022, 03/11/2022, Additional history exists Alcohol/Substance Use Screening 04/25/2025 04/25/2024 Diabetes: Foot Exam 04/25/2025 04/25/2024, 04/07/2023, 04/07/2023, Additional history exists Diabetes: Hemoglobin A1C 05/10/2025 025, 11/09/2024, 08/03/2024, Additional history exists Eye Exam 05/19/2025 05/19/2023, 04/24, 05/19/2023, Additional history exists Disability Screening 08/03/2025 08/03/2024 SDOH Screening 08/03/2025 08/03/2024 Depression Monitoring 08/07/2025 02/07/2025, 025 Cervical Cancer Screening 08/31/2025 HPV/Cotest 08/31/2025 08/31/2020 Pap Smear 08/31/2025 08/31/2020 Lipid Panel 01/03/2026 01/03/2025, 07/0 09/2024, 04/25/2024, Additional history exists Tobacco Screening 02/07/2026 02/07/2025 Diabetes: Urine Protein Screening 02/08/2026 02/08/2025, 07/23/2023, 07/23/2023, Additional history exists Mammogram 06/08/2026 06/08/2024, 05/21, 05/13/2022, Additional history exists DTaP/Tdap/Td Vaccines (3 - Td or Tdap) 09/13/2033 09/14/2023, 05/30/2011 Colonoscopy 11/13/2033 11/14/2023, 10/27/2023 Colorectal Cancer Screening 11/13/2033 Hepatitis A Vaccines Completed 12/01/2011, 04/17/19 HIV Screening Completed 08/15/2020 Hepatitis C Screening Completed 08/15/2020 RSV Patients and Patients Aged 60 years or older Completed 09/02/2023 Hepatitis B Vaccines Completed 09/14/2023, 05/30/2011, 05/22/2011, Additional history exists Pneumococcal Vaccine: 50+ Years Completed 09/14/2023, 03/06/2014 Zoster Vaccines Completed 11/11/2023, 09/02/2023 Influenza Vaccine Completed 12/14/2024, , 12/23/2022, Additional history exists HIB Vaccines Aged Out [...] chronic kidney disease No Kristal Hurst MA Procedures Procedure Name Priority Date/Time Associated Diagnosis Comments XR KNEE 3 VIEWS LEFT Routine 02/08/2025 3:33 PM EST Chronic pain of left knee T4, FREE Routine 02/08/2025 3:29 PM EST COMPREHENSIVE METABOLIC PANEL Routine 02/08/2025 3:29 PM EST Primary hypertension TSH W/REFLEX TO FT4 Routine 02/08/2025 3 :29 PM EST Hypothyroidism due to medication ALBUMIN, RANDOM URINE W/CREATININE Routine 02/08/2025 3:29 PM EST Type 2 diabetes mellitus with diabetic polyneuropathy, without long-term current use of insulin (HCC) XR SHOULDER 2+ VIEWS RIGHT Routine 02/08/2025 3:28 PM EST Chronic right shoulder pain US THYROID Routine 02/07/2025 3:48 PM EST Transaminitis US RETROPERITONEAL COMPLETE Routine 02/07/2025 3:19 PM EST POCT GLYCOSYLATED HEMOGLOBIN (HGB A1C) Routine 02/07/2025 11:17 AM EST Type 2 diabetes mellitus with diabetic polyneuropathy, without long-term current use of insulin ([facility]) POCT GLUCOSE Routine 02/07/2025 11:16 AM EST Type 2 diabetes mellitus with diabetic polyneuropathy, without long-term current use of insulin ([facility]) LIPID PANEL, STANDARD Routine 01/03/2025 12:05 PM EDT BASIC METABOLIC PANEL Routine 01/03/2025 12:05 PM EDT HEPATIC FUNCTION PANEL Routine 12:[address] ABDOMEN PELVIS WO CONTRAST Routine 12/13/2024 3:20 PM EDT POCT GLYCOSYLATED HEMOGLOBIN (HGB A1C) Routine 11/09/2024 10:33 AM EDT Type 2 diabetes mellitus with diabetic polyneuropathy, without long-term current use of insulin ([facility]/HCC) POCT GLUCOSE Routine 11/09/2024 10:32 AM EDT Type 2 diabetes mellitus with diabetic polyneuropathy, without long-term current use of insulin (CMS/HCC) BI MAMMOGRAM SCREENING TOMOSYNTHESIS BILATERAL Routine 06/08/2024 11:30 AM EDT HM COLONOSCOPY Routine 11/14/2023 HM PAP/HPV Routine 08/31/2020 ZZZ HISTORICAL HEPATITIS C AB W/REFL TO HCV RNA, QN, PCR Routine 08/15/2020 3:03 PM EDT HIV 1/2 ANTIGEN/ANTIBODY, FOURTH GENERATION W/RFL Routine 08/15/2020 3:03 PM EDT from Last 3 Months or Most Recently Relevant to Health Maintenance Results * XR Knee 3 Views Left (02/08/2025 3:33 PM EST) Anatomical Region Laterality Modality Lower Extremities, Knee Left [facility] 02/08/2025 3:33 PM EST Narrative 02/08/2025 3:42 [place] [address] XRay Report Signed Patient: Vanessa Douglas MR#: [id number] 2 : 1960 Acct:[id number] Age/Sex: 64 / F ADM Date: 02/08/25 Loc: HO.HHCX Attending Dr: Deedee Arthur MD Ordering Physician: Deedee Arthur MD Date of Service: 02/08/25 Procedure(s): XR knee LT 3V Accession Number(s): [id number] cc: Deedee Arthur MD Reason for Exam: left knee pain, [...] Price MD in OV> 02/08/25 1539 DD/ 1533 TD/TT: 02/08/25 1533 Agent Producer: Procedure Note Donotuseinterpreter, Image - 02/08/2025 [place] [address] XRay Report Signed Patient: Mariella Douglas#: [id number] 2 : 1960Acct:[id number] Age/Sex: 64 / FADM Date: 02/08/25 Loc: HO.HHCX Attending Dr: Deedee Arthur MD Ordering Physician: Deedee Arthur MD Date of Service: 02/08/25 Procedure(s): XR knee LT 3V Accession Number(s): [id number] cc: Deedee Arthur MD Reason for Exam: left knee pain, [...] Boom Montiel MD 02/08/2025 03:39 PM EST RP Dictated By: Boom Bender MD Signed By: <Electronically signed by Boom Price MDin OV> 02/08/25 1539 DD/ 1533 TD/TT: 02/08/25 1533 Agent Producer: Deedee Arthur MD IMG XR PROCEDURES Final Result * (ABNORMAL) TSH with Reflex to Free T4 (02/08/2025 3:29 PM EST) TSH reflex Free T4 0.06(L) 0.32 - 4.0 uIU/mL [facility] Blood 02/08/2025 3:29 PM EST 02/08/2025 6:04 PM EST Deedee Arthur MD LAB BLOOD ORDERABLES Final Resul t [facility] [address] [place] [phone] * Albumin, Random Urine W/Creatinine (02/08/2025 3:29 PM EST) Creatinine, Urine 40.08 mg/dL [facility] Microalbumin Urine 6.0 mg/L [facility] Microalbum Creatinine Ratio Ur 14.9 <30 ug/mg cr [facility] Comment:Albumin/Creatinine R atio Reference Ranges: Normal: < 30 ug/mg creatinine Microalbuminuria: 30 - 300 ug/mg creatinineClinical Albuminuria: > 300 ug/mg creatinine Urine 02/08/2025 3:29 PM EST 02/08/2025 3:58 PM EST us Deedee Arthur MD LAB URINE ORDERABLES Final Resul t Performing Organization Address [facility] de Phone Number [facility] [address] [place] [phone] * T4, Free (02/08/2025 3:29 PM EST) Free T4 (Free Thyroxine) 1.32 0.71 - 1.85 ng/dL [facility] 02/08/2025 3:29 PM EST 02/08/2025 6:04 PM EST us Deedee Arthur MD LAB BLOOD ORDERABLES Final Resul t Performing Organization Address [facility] de Phone Number [facility] [address] [place] [phone] * (ABNORMAL) Comprehensive Metabolic Panel (02/08/2025 3:29 PM EST) Sodium 139 135 - 145 mmol/L [facility] Potassium 4.0 3.3 - 5.1 mmol/L [facility] Chloride 100 96 - 108 mmol/L [facility] Carbon Dioxide 27 22 - 29 mmol/L [facility] Anion Gap 16 12 - 20 [facility] Urea Nitrogen (BUN) 18(H) 9 - 16 mg/dL [facility] Creatinine, Serum 1.05 0.5 - 1.4 mg/dL [facility] Estimated Glomerular Filt Rate 53 [facility] Comment:Chronic Kidney Disea se: Estimated GFR < 60 mL/min/1.30y1Pubpzc Kidney Disease: Estimated GFR < 15 mL/min/1.73m2 Glucose 118(H) 60 - 115 mg/dL [facility] Calcium 9.8 8.4 - 10.2 mg/dL [facility] Bilirubin, Total 0.4 0.0 - 1.0 mg/dL [facility] Aspartate Amino Transferase 28 5 - 31 U/L [facility] Alanine Aminotransferase 55(H) 0 - 31 U/L [facility] Total Protein 7.8 6.5 - 8.0 g/dL [facility] Albumin Level 4.6 3.5 - 5.0 g/dL [facility] Alkaline Phosphatase 166(H) 39 - 117 U/L [facility] Blood Venous blood specimen / Unknown 02/08/2025 3:29 PM EST 02/08/2025 6:04 PM EST us Deedee Arthur MD LAB BLOOD ORDERABLES Final Resul t [facility] [address] [place] [phone] * XR Shoulder 2+ Views Right (02/08/2025 3:28 PM EST) Anatomical Region Laterality Modality Upper Extremities, Shoulder Right Radi ographic Imaging 02/08/2025 3:28 PM EST Narrative 02/08/2025 3:42 PM EST [facility] [address] [place] [address] XRay Report Signed Patient: Vanessa Douglas MR#: [id number] 2 : 1960 Acct:[id number] Age/Sex: 64 / F ADM Date: 02/08/25 Loc: HO.HHCX Attending Dr: Deedee Arthur MD Ordering Physician: Deedee Arthur MD Date of Service: 02/08/25 Procedure(s): XR shoulder RT min 2V Accession Number(s): [id number] cc: Deedee Arthur MD Reason for Exam: right shoulder pain, [...] 02/08/25 1539 DD/ 1528 TD/TT: 02/08/25 1533 Agent Producer: Procedure Note Donotuseinterpreter, Image - 02/08/[address] [address] XRay Report Signed Patient: Mariella Douglas#: [id number] 2 : 1960Acct:[id number] Age/Sex: 64 / FADM Date: 02/08/25 Loc: HO.HHCX Attending Dr: Deedee Arthur MD Ordering Physician: Deedee Arthur MD Date of Service: 02/08/25 Procedure(s): XR shoulder RT min 2V Accession Number(s): [id number] cc: Deedee Arthur MD Reason for Exam: right shoulder pain, [...] 02/08/25 1539 DD/ 1528 TD/TT: 02/08/25 1533 Agent Producer: us Deedee Arthur MD IMG XR PROCEDURES Final Result * US Thyroid (02/07/2025 3:48 PM EST) Anatomical Region Laterality Modality Head, Neck Ultrasound 02/07/2025 3:48 PM EST Narrative 02/07/2025 4:46 PM EST [address] [address] Ultrasound Report Signed Patient: Vanessa Douglas MR#: [id number] 2 : 1960 Acct:[id number] Age/Sex: 64 / F ADM Date: 02/07/25 Loc: HO.US Attending Dr: Deedee Arthur MD Ordering Physician: Deedee Arthur MD Date of Service: 02/07/25 Procedure(s): US thyroid Accession Number(s): [id number] cc: Deedee Arthur MD Reason for Exam: SUBTHERAPEUTIC TSH EXAMINATION: US THYROID HISTORY: SUBTHERAPEUTIC TSH TECHNIQUE: Real-time grayscale ultrasound imaging was performed and images were reviewed. Exam is limited due to body habitus. COMPARISON: There are no prior studies available for comparison. FINDINGS: SIZE: The right thyroid lobe measures 4.8 x 1.3 x 1.3 cm. The left thyroid lobe is small and measures 3.4 x 1.2 x 1 cm. The isthmus measures 4 mm. FLOW: Flow to the gland is normal. ECHOGENICITY: The echotexture of the gland is heterogeneous. NODULES: No focal nodule. Normal appearing left level 3 lymph node measuring 1 x 0.4 x 0.6 cm. Normal appearing right level 3 lymph node measuring 1.5 x 0.4 x 0.8 cm. US/US thyroid IMPRESSION: Limited exam due to body habitus. Heterogeneous thyroid gland. Left lobe is a small. No focal nodule seen. Electronically signed by: Michelle Oconnor MD 02/07/2025 04:43 PM [facility] Dictated By: Michelle Oconnor MD Signed By: <Electronically signed by Michelle Oconnor MD in OV> 02/07/25 1643 DD/ 1548 TD/TT: 02/07/25 1557 Agent Producer: CONCHA Procedure Note Donotuseinterpreter, Image - 02/07/2025 [place] [address] Ultrasound Report Signed Patient: Mariella Douglas#: [id number] 2 : 1960Acct:[id number] Age/Sex: 64 / FADM Date: 02/07/25 Loc: HO.US Attending Dr: Deedee Arthur MD Ordering Physician: Deedee Arthur MD Date of Service: 02/07/25 Procedure(s): US thyroid Accession Number(s): [id number] cc: Deedee Arthur MD Reason for Exam: SUBTHERAPEUTIC TSH EXAMINATION: US THYROID HISTORY: SUBTHERAPEUTIC TSH TECHNIQUE: Real-time grayscale ultrasound imaging was performed and images were reviewed. Exam is limited due to body habitus. COMPARISON: There are no prior studies available for comparison. FINDINGS: SIZE: The right thyroid lobe measures 4.8 x 1.3 x 1.3 cm. The left thyroid lobe is small and measures 3.4 x 1.2 x 1 cm. The isthmus measures 4 mm. FLOW: Flow to the gland is normal. ECHOGENICITY: The echotexture of the gland is heterogeneous. NODULES: No focal nodule. Normal appearing left level 3 lymph node measuring 1 x 0.4 x 0.6 cm. Normal appearing right level 3 lymph node measuring 1.5 x 0.4 x 0.8 cm. US/US thyroid IMPRESSION: Limited exam due to body habitus. Heterogeneous thyroid gland. Left lobe is a small. No focal nodule seen. Electronically signed by: Michelle Oconnor MD 02/07/2025 04:43 PM EST Dictated By: Michelle Oconnor MD Signed By: <Electronically signed by Michelle Oconnor MD in OV> 02/07/25 1643 DD/ 1548 TD/TT: 02/07/25 1557 Agent Producer: CONCHA us Deedee Arthur MD IMG US PROCEDURES Final Result * US Retroperitoneal Complete (02/07/2025 3:19 PM EST) Anatomical Region Laterality Modality Ultrasound 02/07/2025 3:19 PM EST Narrative 02/08/2025 7:18 AM EST [address] [address] Ultrasound Report Signed Patient: Vanessa Douglas MR#: [id number] 2 : 1960 Acct:[id number] Age/Sex: 64 / F ADM Date: 02/07/25 Loc: HO.US Attending Dr: Deedee Arthur MD Ordering Physician: Deedee Arthur MD Date of Service: 02/07/25 Procedure(s): US retroperitoneal comp Accession Number(s): [id number] cc: Deedee Arthur MD Reason for Exam: DECREASED RENAL FUNCTION, S/P RIGHT NEPHRECTOMY EXAMINATION: US RETROPERITONEAL COMPLETE (RENAL) CLINICAL INFORMATION: DECREASED RENAL FUNCTION, S/P RIGHT NEPHRECTOMY. COMPARISON: Abdomen/pelvis CT on November 19, 2021. TECHNIQUE: Real-time imaging of the kidneys and bladder. FINDINGS: RIGHT KIDNEY: Status post right nephrectomy. There is an approximately 4.6 x 2.2 x 4.3 cm ill-defined nonvascular hypoechoic area inferior to the right hepatic lobe, at expected location of the right nephrectomy area. LEFT KIDNEY: 11.8 cm in sagittal length. Normal echogenicity. Cyst in the midpole of the kidney measures 0.9 x 0.6 x 0.7 cm. Hypoechoic exophytic lesion in the midpole measures 1.2 x 0.6 x 0.9 cm. No hydronephrosis or shadowing stones. BLADDER: Partially distended. Bilateral ureteral jets are not demonstrated. Prevoid bladder volume is 279.9 ml. Postvoid bladder volume is 0 ml. US/US retroperitoneal comp IMPRESSION: 1. Status post right nephrectomy. Ill-defined hypoechoic area measuring approximately 4.6 cm at the expected location of the nephrectomy. 2. Incompletely characterized exophytic left renal lesion measuring 1.2 cm. 3. No left hydronephrosis. CT or MR is recommended for further characterization of the above findings. Electronically signed by: Nilda Dunham MD 02/08/2025 07:15 AM EST Dictated By: Nilda Dunham MD Signed By: <Electronically signed by Nilda Dunham MD in OV> 02/08/25 0715 DD/ 1519 TD/TT: 02/07/25 1545 Agent Producer: Procedure Note Donotuseinterpreter, Image - 02/08/[address] [address] Ultrasound Report Signed Patient: Mariella Douglas#: [id number] 2 : 1960Acct:[id number] Age/Sex: 64 / FADM Date: 02/07/25 Loc: HO.US Attending Dr: Deedee Arthur MD Ordering Physician: Deedee Arthur MD Date of Service: 02/07/25 Procedure(s): US retroperitoneal comp Accession Number(s): [id number] cc: Deedee Arthur MD Reason for Exam: DECREASED RENAL FUNCTION, S/P RIGHT NEPHRECTOMY EXAMINATION: US RETROPERITONEAL COMPLETE (RENAL) CLINICAL INFORMATION: DECREASED RENAL FUNCTION, S/P RIGHT NEPHRECTOMY. COMPARISON: Abdomen/pelvis CT on November 19, 2021. TECHNIQUE: Real-time imaging of the kidneys and bladder. FINDINGS: RIGHT KIDNEY: Status post right nephrectomy. There is an approximately 4.6 x 2.2 x 4.3 cm ill-defined nonvascular hypoechoic area inferior to the right hepatic lobe, at expected location of the right nephrectomy area. LEFT KIDNEY: 11.8 cm in sagittal length. Normal echogenicity. Cyst in the midpole of the kidney measures 0.9 x 0.6 x 0.7 cm. Hypoechoic exophytic lesion in the midpole measures 1.2 x 0.6 x 0.9 cm. No hydronephrosis or shadowing stones. BLADDER: Partially distended. Bilateral ureteral jets are not demonstrated. Prevoid bladder volume is 279.9 ml. Postvoid bladder volume is 0 ml. US/US retroperitoneal comp IMPRESSION: 1. Status post right nephrectomy. Ill-defined hypoechoic area measuring approximately 4.6 cm at the expected location of the nephrectomy. 2. Incompletely characterized exophytic left renal lesion measuring 1.2 cm. 3. No left hydronephrosis. CT or MR is recommended for further characterization of the above findings. Electronically signed by: Nilda Dunham MD 02/08/2025 07:15 AM EST Dictated By: Nilda Dunham MD Signed By: <Electronically signed by Nilda Dunham MD in OV> 02/08/25 0715 DD/ 1519 TD/TT: 02/07/25 1545 Agent Producer: Deedee Arthur MD IMG US PROCEDURES Final Result * (ABNORMAL) POCT glycosylated hemoglobin (Hgb A1c) (02/07/2025 11:17 AM EST) Only the most recent of2 resultswithin the time period is included. Hemoglobin A1C 6.7(A) 4.0 - 5.7 % QC Media Lot # [id number] Lot# Expiration Date , Blood Capillary blood specimen / Unknown 02/07/2025 11:17 AM EST Deedee Arthur MD POINT OF CARE TEST ENTER/EDIT OR DERABLES Final Result * (ABNORMAL) POCT glucose manually resulted (02/07/2025 11:16 AM EST) Only the most recent of2 resultswithin the time period is included. Glucose Blood, POC 218(A) 60 - 200 mg/dL QC Media Lot # [id number] Lot# Expiration Date , Blood Capillary blood specimen / Unknown 02/07/2025 11:16 AM EST Deedee Arthur MD POINT OF CARE TEST ENTER/EDIT OR DERABLES Final Result * (ABNORMAL) Hepatic Function Panel (01/03/2025 12:05 PM EDT) Bilirubin, Total 0.4 0.0 - 1.0 mg/dL [facility] Bilirubin, Direct 0.2 0.0 - 0.5 mg/dL [facility] Aspartate Amino Transferase 33(H) 5 - 31 U/L [facility] Alanine Aminotransferase 39(H) 0 - 31 U/L [facility] Total Protein 7.2 6.5 - 8.0 g/dL [facility] Albumin Level 4.3 3.5 - 5.0 g/dL [facility] Alkaline Phosphatase 130(H) 39 - 117 U/L [facility] 01/03/2025 12:0 5 PM EDT 01/03/2025 1:14 PM EDT Deedee Arthur MD LAB BLOOD ORDERABLES Final Resul t [facility] [address] [place], [place] [phone] * (ABNORMAL) Lipid Panel, Standard (01/03/2025 12:05 PM EDT) Triglycerides 178(H) <150 mg/dL [facility] Comment:Desirable Triglyceri de: less than 150 mg/dLBorderline High Triglyceride 150-199 mg/dLHigh Triglyceride: 200-499 mg/dLVery High Triglyceride: greater than or equal to 5OO mg/dL Cholesterol 148 <200 mg/dL [facility] Comment:Desirable Cholestero l: less than 200 mg/dLBorderline High Cholesterol: 200-239 mg/dLHigh Cholesterol: greater than 239 mg/dL LDL Cholesterol Calculated 73 <100 mg/dL [facility] Comment:Desirable LDL: less than 100 mg/dLNear Optimal/Above Optimal LDL: 110- 129 mg/dLBorderline High LDL: 130-159 mg/dLHigh LDL: 160-189 mg/dLVery High LDL: greater than or equal to 190 mg/dL HDL Cholesterol 40(L) >40 mg/dL [facility] Comment:Desirable HDL: great er than 40 mg/dL Note: This HDL assay may give artificially low results in patients with liver disease. 01/03/2025 12:0 5 PM EDT 01/03/2025 1:14 PM EDT Deedee Arthur MD LAB BLOOD ORDERABLES Final Resul t Performing Organization Address [facility] Co de Phone Number [facility] [address] [place] [phone] * Basic Metabolic Panel (01/03/2025 12:05 PM EDT) Sodium 141 135 - 145 mmol/L [facility] Potassium 4.6 3.3 - 5.1 mmol/L [facility] Chloride 106 96 - 108 mmol/L [facility] Carbon Dioxide 28 22 - 29 mmol/L [facility] Anion Gap 12 12 - 20 [facility] Urea Nitrogen (BUN) 16 9 - 16 mg/dL [facility] Creatinine, Serum 0.96 0.5 - 1.4 mg/dL [facility] Estimated Glomerular Filt Rate 59 [facility] Comment:Chronic Kidney Disea se: Estimated GFR < 60 mL/min/1.01y7Xtavdb Kidney Disease: Estimated GFR < 15 mL/min/1.73m2 Glucose 102 60 - 115 mg/dL [facility] Calcium 9.8 8.4 - 10.2 mg/dL [facility] 01/03/2025 12:0 5 PM EDT 01/03/2025 1:14 PM EDT us Deedee Arthur MD LAB BLOOD ORDERABLES Final Resul t Performing Organization Address [facility] Co de Phone Number [facility] [address] [place] [phone] * CT Abdomen Pelvis w/o Contrast (12/13/2024 3:20 PM EDT) Anatomical Region Laterality Modality Body, Pelvis, Abdomen Computed T omography us Historical Provider IMG CT PROCEDURES Final R esult * BI Mammogram Screening Tomosynthesis Bilateral (06/08/2024 11:30 AM EDT) Anatomical Region Laterality Modality Breast Bilateral Mammography 06/08/2024 11:3 0 AM EDT Narrative 06/14/2024 5:18 PM EDT [address] [place] [address] Mammography Report Signed Patient: Vanessa Douglas MR#: [id number] 2 : 1960 Acct:[id number] Age/Sex: 63 / F ADM Date: 06/08/24 Loc: HO.MAMMO Attending Dr: Deedee Arthur MD Ordering Physician: Deedee Arthur MD Results: 1Negative Date of Service: 06/08/24 Follow Up: 1 Year From Orig inal Mammogram Procedure(s): MM tomosynthesis screening BI Accession Number(s): [id number] cc: Deedee Arthur MD EXAMINATION: MM SCREENING [...] 06/14/24 1716 DD/ 1130 TD/TT: 06/08/24 1156 Agent Producer: Procedure Note Donotuseinterpreter, Image - 06/14/[address] [place] [address] Mammography Report Signed Patient: Mariella Douglas#: [id number] 2 : 1960Acct:[id number] Age/Sex: 63 / FADM Date: 06/08/24 Loc: HO.MAMMO Attending Dr: Deedee Arthur MD Ordering Physician: Deedee Arthur MDResults: 1Negative Date of Service: 06/08/24Follow Up: 1 Year From [facility] ina Mammogram Procedure(s): MM tomosynthesis screening BI Accession Number(s): [id number] cc: Deedee Arthur MD EXAMINATION: MM SCREENING [...] 06/14/24 1716 DD/ 1130 TD/TT: 06/08/24 1156 Agent Producer: Deedee Arthur MD IM BI PROCEDURES Edited Result - Final * Hm Colonoscopy (11/14/2023) Colonoscopy Normal Normal Historical Provider [facility] Final Result * Hm Pap Smear (08/31/2020) Pathologist [facility] Pap Negative for intraephithelial lesion or malignancy Negative for intraephithelial lesion or malignancy, Other HPV Undetected Undetected, Indeterminate, Quantitative, Not Detected Historical Provider MD [facility]NANCE Final Result * HEPATITIS C AB W/REFL TO HCV RNA, QN, PCR (08/15/2020 3:03 PM EDT) Pathologist [facility] HEPATITIS C ANTIBODY NON-REACT MALVIN NON-REACT MALVIN [facility] INDEX 0.05 <1.00 [facility] Comment: HCV antibody was non-reactive. There is no laboratory evidence of HCV infection. In most cases, no further action is required. However, if recent HCV exposure is suspected, a test for HCV RNA (test code 98745) is suggested. For additional information please refer to http://Optimitive.Buzzwire/faq/EBD31n9 (This link is being provided for informational/ educational purposes only.) 08/15/2020 3:03 PM EDT [employer] [facility]DP HISTORICAL/NON ORDERABLE LABS Final Result [facility] [address] * HIV 1/2 ANTIGEN/ANTIBODY,FOURTH GENERATION W/RFL (08/15/2020 3:03 PM EDT) Pathologist [facility] HIV-1/2 ANTIGEN AND ANTIBODIES, 4TH GENERATION W/ REFLEX NON-REACT MALVIN NON-REACT MALVIN [facility] Comment: HIV-1 antigen and HIV-1/HIV-2 antibodies were not detected. There is no laboratory evidence of HIV infection. PLEASE NOTE: This information has been disclosed to you from records whose confidentiality may be protected by state law. If your state requires such protection, then the state law prohibits you from making any further disclosure of the information without the specific written consent of the person to whom it pertains, or as otherwise permitted by law. A general authorization for the release of medical or other information is NOT sufficient for this purpose. For additional information please refer to http://education.CargoSense.DIVINE BOOKS/faq/XTE173 (This link is being provided for informational/ educational purposes only.) The performance of this assay has not been clinically validated in patients less than 2 years old. 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
--- OUTSIDE RECORDS SUMMARY | 2025-02-09 02:39 | XMS_ITS | Encounter Summary ---
Author Organization [employer] Address [address] [facility] 7t [place] [address] Care Team Providers Care Brim Ironer Hand Name Role Phone Deedee Mc MD Primary Care Provider [phone] Daniel Clancy PharmD Unavailable [phone] Encounter Details Date Type Department Care Team (Late st Contact Info) Description 09/02/2023 Orders Only [facility] [address] [place], [place] [phone] Deedee Mc MD 230 [place], [place] [phone] Social History Tobacco Use Types Packs/Day Years [...] 11:00 AM EDT Office Visit [facility] OPT[facility]RY [address] [place] [address] Janell Arnold, OD 230 [place] [address] documented as of this encounter Goals Goal [...] documented as of this encounter Care Teams Brim Ironer Hand Relationship Specialty Start Date End Date Deedee Mc MD [address] [place] [address] [phone] PCP - General Family Medicine 09/09/19 Daniel Clancy, PharmD [address] [place] [address] [phone] Pharmacist Internal Medicine 10/14/23 12/13/24 documented as of this encounter
--- OUTSIDE RECORDS SUMMARY | 2025-02-09 02:39 | XMS_ITS | Encounter Summary ---
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 GONORRHOEAE RNA, TMA, UROGENITAL Routine 06/21/2024 10:42 AM EDT Hematuria, unspecified type Family history of renal cancer TSH W/REFLEX TO FT4 Routine 06/21/2024 1 0:24 AM EDT Hypothyroidism due to medication documented in this encounter Results * Urinalysis, Complete, with Reflex to Culture (06/21/2024 10:42 AM EDT) Color Urine Yellow [facility] Appearance Urine Clear [facility] PH 7.0 5.0 - 9.0 [facility] Glucose Urine UA Negative Negative mg/dL [facility] Urine Blood Negative Negative [facility] Specific [place] - Urine 1.010 1.005 - 1.025 [facility] Urine Protein Negative Neg-Trace mg/dL [facility] Urine Ketones Negative Negative mg/dL [facility] Nitrite Urine Negative Negative [facility] Leukocyte Esterase Urine Negative Negative [facility] RBC Urine 0-2 0 - 2 /HPF [facility] Urine WBC 0-5 0 - 5 /HPF [facility] Urine Squamous Epithelial Cell 6-10 0 - 2 /HPF [facility] Urine Bacteria None Seen None Seen [facility] [place] Hyaline Casts, Urine 0-2 0 - 2 /LPF [facility] Urine 06/21/2024 10:4 2 AM EDT 06/21/2024 11:13 AM EDT Narrative [facility] - 06/21/2024 11:55 AM EDT Urine, Clean Catch us Deedee Mc MD LAB URINE ORDERABLES Final Resul t [facility] [address] [place] [address] [phone] * Chlamydia/N. Gonorrhoeae RNA, TMA, Urogenitial (06/21/2024 10:42 AM EDT) CT PCR NOT DETECTED Not Detect. [facility] Comment:A not detected test result does not exclude the possibilityof infection because test results can be affected byimproper specimen collection, concurrent antibiotic therapy,or the number of organisms in the specimen which may bebelow the sensitivity of the test. As with many diagnostictests, results from the Xpert CT/NG assay should beinterpreted in conjunction with other laboratory andclinical data available to the clinician.Xpert CT/NG performance has not been evaluated in patientsless than 14 years of age. The assay should not be used forthe evaluationof suspected sexual abuse or for other medico-legalindications. Additional testing is recommended in anycircumstance when false positive or false negative resultscould lead to adverse medical, social or psychologicalconsequences. NG PCR NOT DETECTED Not Detect. [facility] Comment:A not detected test result does not exclude the possibilityof infection because test results can be affected byimproper specimen collection, concurrent antibiotic therapy,or the number of organisms in the specimen which may bebelow the sensitivity of the test. As with many diagnostictests, results from the Xpert CT/NG assay should beinterpreted in conjunction with other laboratory andclinical data available to the clinician.Xpert CT/NG performance has not been evaluated in patientsless than 14 years of age. The assay should not be used forthe evaluationof suspected sexual abuse or for other medico-legalindications. Additional testing is recommended in anycircumstance when false positive or false negative resultscould lead to adverse medical, social or psychologicalconsequences. Urine (Urine, Random) 06/21/2024 10:42 AM EDT 06/21/2024 11:13 AM EDT Narrative [facility] - 06/21/2024 2:17 PM EDT Urine us Deedee Mc MD LAB MICROBIOLOGY - GENERAL ORDER KIKI Final Result [facility] [address] [place], [place] [phone] * (ABNORMAL) TSH with Reflex to Free T4 (06/21/2024 10:24 AM EDT) TSH reflex Free T4 0.04(L) 0.32 - 4.0 uIU/mL [facility] Blood 06/21/2024 10:2 4 AM EDT 06/21/2024 11:17 AM EDT us Deedee Mc MD LAB BLOOD ORDERABLES Final Resul t [facility] [address] [place] [address] [phone] documented in this encounter Visit Diagnoses Diagnosis Hypothyroidism due to medication- Primary Hematuria, unspecified type Family history of renal cancer Family history of malignant neoplasm of kidney documented in this encounter Additional Health Concerns Assessment Noted Time PHQ-9 Depression Total Score: 13 025 1:35 PM EST documented as of this encounter Care Teams Armhole Raiser Lockstitch Relationship Specialty Start Date End Date Deedee Mc MD [address] [place] [address] PCP - General Family Medicine 09/09/19 Daniel Clancy, PharmD [address] [place] [phone] Pharmacist Internal Medicine 10/14/23 12/13/24 documented as of this encounter
--- OUTSIDE RECORDS SUMMARY | 2025-02-09 02:39 | XMS_ITS | Encounter Summary ---
Author Organization [employer] Address [address] [facility] 7t [place] [address] Care Team Providers Care School Childcare Attendant Name Role Phone Deedee Mc MD Primary Care Provider [phone] Daniel Clancy PharmD Unavailable [phone] Reason for Visit * Reason Comments Med Refill Encounter Details Date Type Department Care Team (Late st Contact Info) Description 10/13/2023 Refill [facility] 230 [place], [place] [phone] Deedee Mc MD [address] [place], [place] [phone] Hypothyroidism due to medication Social History Tobacco [...] Description 05/31/2025 11:00 AM EDT Office Visit [facility] OPTOMETRY [address] [place] [address] Clayton, Janell, OD 230 [place] [address] documented as of this encounter Goals Goal [...] documented as of this encounter Care Teams School Childcare Attendant Relationship Specialty Start Date End Date Deedee Mc MD [address] [place] [address] PCP - General Family Medicine 09/09/19 Daniel Clancy, MassimoD [address] [place] [address] Pharmacist Internal Medicine 10/14/23 12/13/24 documented as of this encounter
--- OUTSIDE RECORDS SUMMARY | 2025-02-09 02:39 | XMS_ITS | Clinical Summary ---
Author Organization [facility] Address [address] [place] [phone] Phone Care Team Providers Care Glassie Name Role Phone Braeden Galarza MD Unavailable [phone] Ammy Casas MD Unavailable [phone] Deedee Mc MD Primary Care Provider [phone] Allergies Active Allergy Reactions Criticality Noted Date Comments Chlorthalidone 07/31/2011 Other reaction(s): Hyperglycemia Lisinopril 07/30/2010 Medications amLODIPine (NORVASC) 10 MG tablet Take 10 mg by mouth every morning. 3 Active atorvastatin (LIPITOR) 20 MG tablet take 1 tablet by mouth everyday at bedtime 3 Active buPROPion (WELLBUTRIN) 100 MG immediate release tablet Take 100 mg by mouth. Active ergocalciferol (DRISDOL) 50,000 unit capsule Take 1 capsule by mouth once a week. Needs refill 3 Active ketoconazole 2 % cream APPLY BY TOPICAL ROUTE EVERY DAY TO THE AFFECTED AREA(S) ON FINGERS 3 Active levothyroxine (SYNTHROID, LEVOTHROID) 150 MCG tablet TAKE 1 TABLET (150 MCG TOTAL) BY MOUTH EVERY MORNING. ON AN EMPTY STOMACH 3 Active loratadine (CLARITIN) 10 mg tablet Take 10 mg by mouth daily. 2 Active LORazepam (ATIVAN) 0.5 MG tablet Take 0.5 mg by mouth every 8 (eight) hours as needed. 3 Active metFORMIN (GLUCOPHAGE) 500 MG tablet Take 500 mg by mouth daily with breakfast. 4 Active omeprazole (PRILOSEC) 20 MG capsule Take 20 mg by mouth daily. 2 Active polyvinyl alcohol (AKWA TEARS) 1.4 % ophthalmic solution INSTILL 1 DROP IN EACH EYE 3 TIMES A DAY 3 Active terbinafine HCL (LAMISIL) 1 % cream apply by topical route every day to the affected and surrounding areas of nails 2 Active acetaminophen (TYLENOL) 500 MG tablet Take 500 mg by mouth every 6 (six) hours as needed for pain (specific location in comments). Active oxyCODONE 5 MG immediate release tablet Take 1-2 tablets (5-10 mg total) by mouth every 4 (four) hours as needed. Partial fill ok 10 tablet 3 Active levETIRAcetam (KEPPRA) 500 MG tablet Take 1 tablet (500 mg total) by mouth 2 (two) times a day for 12 doses. 12 tablet 3 Active docusate sodium (COLACE) 100 MG capsule Take 1 capsule (100 mg total) by mouth 2 (two) times a day. 3 Active polyethylene glycol (MIRALAX) 17 gram packet Take 17 g by mouth daily as needed for other (free text field) (severe constipation). 3 Active senna (SENOKOT) 8.6 mg tablet Take 2 tablets by mouth nightly at bedtime. 3 Active acetaZOLAMIDE (DIAMOX) 250 MG tablet Take 1 tablet (250 mg total) by mouth 3 (three) times a day. 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 Encounters Date Type Department Care Team Description 11/22/2024 Telephone [facility] [facility] [address] [facility] 9th [place] [address] Ammy Vasquez PA-C 11/19/2024 Orders Only [facility] Department of Neurology [address] [facility], 8th Floor, [address] [place] [address] Mario Cheng MD 11/16/2024 10:45 AM EDT Office Visit [facility] [address]th [place] [address] Ammy Vasquez PA-C Meningoencephalocele (Primary Dx); Cerebrospinal fluid rhinorrhea; Encephalocele from Last 3 Months Social History Tobacco Use Types Packs/Day Years [...] on file Sexual Orientation Not on file Last Filed Vital Signs Vital Sign Reading Time Taken Comments Blood Pressure 132/80 06/20/2024 10:27 AM EDT Pulse 80 06/20/2024 10:27 AM EDT Temperature 36.9 C (98.4 F) 06/20/2024 10:27 AM EDT Respiratory Rate 18 01/19/2023 11:2 5 AM EDT Oxygen Saturation 100% 06/20/2024 10: 27 AM EDT Inhaled Oxygen Concentration - - Weight 107.4 kg (236 lb 12.8 oz) 03/31/ 2025 10:27 AM EDT Height 152 cm (4' 11.84 ) 06/20/2024 10 :27 AM EDT Body Mass Index 46.49 06/20/2024 10:27 AM EDT Plan of Treatment Upcoming Encounters Date Type Department Care Team (Late st Contact Info) Description 03/20/2025 3:30 PM EST Office Visit [facility] [address] [facility], [address] [place] [address] Mario Cheng MD 55 [facility] [address] [place] [address] [email or web address] 11/29/2025 10:00 AM EDT Office Visit [facility] [address] [facility] 9th [place] [address] Tiffany Rod MD [address] [place] [address] [email or web address] Health Maintenance Due Date Last Done Comments DEPRESSION SCREENING 1974 HEPATITIS C SCREENING 1980 HIV ONE-TIME SCREENING (18-65 YEARS) 1980 COLOGUARD 06/17/2007 COLONOSCOPY 06/17/2007 COLORECTAL CANCER SCREENING 06/17/2007 FIT TEST 06/17/2007 FOBT 06/17/2007 SIGMOIDOSCOPY 06/17/2007 VIRTUAL COLONOSCOPY 06/17/2007 RSV VACCINE (1 - Risk 50-74 years 1-dose series) 2012 ZOSTER VACCINES (1 of 2) 2012 PNEUMOCOCCAL VACCINES (50+ years) (2 of 2 - PCV) 03/06/2015 03/06/2014 PAP SMEAR 09/01/2023 08/31/2020 CREATININE LEVEL 12/04/2023 12/03/2022, 02/2023, 11/25/2022 MAMMOGRAM 05/13/2024 05/13/2022, 02/03/2022, 02/25/2018 INFLUENZA VACCINE (#1) 2024 , 03/11/2022, 03/13/2021, Additional history exists COVID-19 VACCINE ( season) 2024 12/23/2022, 03/11/2022, 07/31/2021, Additional history exists TSH LEVEL 10/31/2025 10/31/2024, 07/21, 05/10/2024 SCREENING FOR DIABETES 11/10/2027 , 04/25/2024, 04/07/2023, Additional history exists LIPID PANEL 09/26/2029 09/26/2024 Adult Td,Tdap Booster 09/13/2033 09/14/2023, 012 HEPATITIS A VACCINES Aged Out 12/01/2011, 04/17/19 12 No longer eligible based on patient's age to complete this topic SMOKING STATUS SCREENING (Once After 26 Yrs) Completed 11/16/2024 HIB VACCINES Aged Out No longer eligi ble based on patient's age to complete this topic MENINGOCOCCAL VACCINES (ACWY) Aged Out No longer eligible based on patient's age to complete this topic MENINGOCOCCAL VACCINES (B) Aged Out N o longer eligible based on patient's age to complete this topic Medical Devices Implanted Type Area Application Support Intern Device Identifier Shelf Expiration Date Model / Serial / Lot Graft Tissue 4x12cm Med Human Alloderm Regenerative - [id number] Implanted:Qty: 1 on 12/02/2022 by Avtar Sandoval MD at [facility] N/A: Cranial [employer] 10/20/2024 [id number] / / [id number] Procedures Procedure Name Priority Date/Time Associated Diagnosis Comments BASIC METABOLIC PANEL (BMP) Routine 12/03/2022 3:30 AM EDT from Last 3 Months or Most Recently Relevant to Health Maintenance Results * (ABNORMAL) Basic metabolic panel (12/03/2022 3:30 AM EDT) SODIUM 143 135 - 145 mmol/L [facility] POTASSIUM 3.8 3.4 - 5.0 mmol/L [facility] CHLORIDE 108 98 - 108 mmol/L [facility] CO2 22(L) 23 - 32 mmol/L [facility] BUN 14 8 - 25 mg/dL [facility] CREATININE 0.94 0.60 - 1.50 mg/dL [facility] GLUCOSE 130(H) 70 - 110 mg/dL [facility] CALCIUM 9.1 8.5 - 10.5 mg/dL [facility] EGFR 69 >59 mL/min/1. 73m2 [facility] Comment:Estimated glomerular filtration rate calculated using the CKD-EPI refit equation. ANION GAP 13 3 - 17 mmol/L [facility] Blood 12/03/2022 3:30 AM EDT 12/03/2022 3:36 AM EDT us Avtar Sandoval MD LAB BLOOD BKR ORDERABLES Vero blas Result [address] [address] from Last 3 Months or Most Recently Relevant to Health Maintenance Insurance C3 ACO C3 ACO C3 ACO C3 ACO [place] [place] [address] [place] [address] C3 ACO Advance Directives For more information, please contact: [phone] (9AM - 5PM [facility], Thursday-Thursday) Documents on File Type Date Recorded Patient Operations Inspector Expl anation Healthcare Proxy 12/04/2022 1:44 PM * Full Code (Latest Code Status on File) Date Activated Date Inactivated Comments 12/02/2022 2:11 PM Question Answer Comments Code Status Confirmed With: Other (specify below ) Code Discussion Comments: presumed Healthcare Agents on File Name Relationship Healthcare Agent Relationshi p Communication Jv Ronen Son Other (no proxy form on le) Care Teams Glassie Relationship Specialty Start Date End Date Deedee Mc MD [address] [place] [address] PCP - General Family Medicine 05/27/22 Braeden Galarza MD [address] [place] [phone] [email or web address] Referring Physician Internal Medicine 02/25/16 Ammy Casas MD [address] [place] [phone] [email or web address] Primary Oncologist Pulmonary Disease 02/25/16 Additional Source Comments The information contained in this document represents components of the legal health record. It is not the complete legal health record.[facility]
--- OUTSIDE RECORDS SUMMARY | 2025-02-09 02:39 | XMS_ITS | Encounter Summary ---
Author Organization [employer] Address [address] [facility] 7t [place] [address] Care Team Providers Care Missile And Missile Checkout Technician Name Role Phone Deedee Mc MD Primary Care Provider Daniel Clancy PharmD Unavailable [phone] Encounter Details Date Type Department Care Team ([facility] st Contact Info) Description 09/04/2023 Orders Only [facility] [address] [place], [place] [phone] Deedee Mc MD 230 [place], [place] [phone] Social History Tobacco Use Types Packs/Day Years [...] Description 05/31/2025 11:00 AM EDT Office Visit [facility] OPTOMET[facility] [address] [place] [address] Janell Arnold, OD 230 [place] [address] documented as of this encounter Goals Goal [...] documented as of this encounter Care Teams Missile And Missile Checkout Technician Relationship Specialty Start Date End Date Deedee Mc MD [address] [place] [address] [phone] PCP - General Family Medicine 09/09/19 Daniel Clancy, PharmD [address] [place] [address] [phone] Pharmacist Internal Medicine 10/14/23 12/13/24 documented as of this encounter
--- OUTSIDE RECORDS SUMMARY | 2025-02-09 02:39 | XMS_ITS | Encounter Summary ---
Author Organization [employer] Address [address] [facility] 7t [place] [address] Care Team Providers Care Audio Visual Engineer Name Role Phone Deedee Mc MD Primary Care Provider [phone] Daniel Clancy PharmD Unavailable [phone] Encounter Details Date Type Department Care Team ([facility] st Contact Info) Description 08/03/2023 Orders Only [facility] MEDICINE 230 [place], [place] [phone] Deedee Mc MD [address] [place], [place] [phone] Social History Tobacco Use Types Packs/Day Years [...] Description 05/31/2025 11:00 AM EDT Office Visit [facility] OPTOMETRY [address] [place] [address] Janell Arnold, OD [address] [place] [address] documented as of this encounter Goals Goal [...] documented as of this encounter Care Teams Audio Visual Engineer Relationship Specialty Start Date End Date Deedee Mc MD [address] [place] [address] [phone] PCP - General Family Medicine 09/09/19 Daniel Clancy, PharmD [address] [place] [address] [phone] Pharmacist Internal Medicine 10/14/23 12/13/24 documented as of this encounter
--- OUTSIDE RECORDS SUMMARY | 2025-02-09 02:39 | XMS_ITS | Encounter Summary ---
Author Organization [employer] Address [address] [facility] 7t [place] [address] Care Team Providers Care Patcher Helper Name Role Phone Deedee Mc MD Primary Care Provider [phone] Daniel Clancy PharmD Unavailable [phone] Reason for Visit * Reason Comments Med Refill Encounter Details Date Type Department Care Team ([facility] st Contact Info) Description 09/14/2023 Refill [facility] [address] [place], [place] [phone] Deedee Mc MD 230 [place], [place] [phone] Social History Tobacco Use Types Packs/Day Years [...] Description 05/31/2025 11:00 AM EDT Office Visit [facility] OPTOMETRY [address] [place] [address] Clayton, Janell, OD 230 [place] [address] documented as of this encounter Goals Goal [...] documented as of this encounter Care Teams Patcher Helper Relationship Specialty Start Date End Date Deedee Mc MD [address] [place] [phone] PCP - General Family Medicine 09/09/19 Daniel Clancy, MassimoD [address] [place] [phone] Pharmacist Internal Medicine 10/14/23 12/13/24 documented as of this encounter
--- OUTSIDE RECORDS SUMMARY | 2025-02-09 02:39 | XMS_ITS | Encounter Summary ---
Author Organization [employer] Address [address] [facility] 7t [place] [address] Care Team Providers Care Elevator Examiner And Adjuster Name Role Phone Deedee Mc MD Primary Care Provider [phone] Daniel Clancy PharmD Unavailable [phone] Reason for Referral * Consultation (Routine) - Closed Specialty Diagnoses / Procedures Referred By Contac t Referred To Contact Pharmacy Diagnoses 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) (HCC) Type 2 diabetes mellitus with diabetic polyneuropathy, without long-term current use of insulin (HCC) Renal cell carcinoma of right kidney (CMS/HCC) (HCC) Deedee Mc MD [address] [place] [address] Phone: tel: fax: Referral ID Status Reason Start Date Expiration Date V isits Requested Visits Authorized [id number] Closed Continuity of Care 07/14/2023 07/13/2024 1 1 Scheduling Instructions Sudden increase in TSH. Please reconcile her medications. She was receiving medications from specialists in [facility] after her head surgery, (Levetiracetam and acetazolamide). Thank you. Encounter Details Date Type Department Care Team (Late st Contact Info) Description 07/14/[address] 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); Meningoencephalocele [...] Upcoming Encounters Date Type Department Care Team ([facility] st Contact Info) Description 05/31/2025 11:00 AM EDT Office Visit [facility] [address] [place] [address] Janell Arnold, OD [address] [place] [address] Scheduled Orders Name Type Priority Associated Diagnoses Orde r Schedule TSH Lab Routine Hypothyroidism due to medication Expected: 08/25/2023 (Approximate), Expires: 07/13/2024 Scheduled Referrals Name Type Priority Associated Diagnoses Orde r Schedule Referral to Pharmacy [facility] Outpatient Referral Routine Hypothyroidism due to medication [...] (Free Thyroxine) 0.88 0.71 - 1.85 ng/dL [facility] Blood Venous blood specimen / Unknown 07/14/2023 12:26 PM EDT 07/14/2023 1:10 PM EDT us Deedee Mc MD LAB BLOOD ORDERABLES Final Resul t [facility] [address] [place] [address] [phone] documented in this encounter Visit Diagnoses Diagnosis Hypothyroidism due to medication- Primary Meningoencephalocele (CMS/HCC) (HCC) Encephalocele Type 2 diabetes mellitus with diabetic polyneuropathy, without long-term current use of insulin (HCC) Renal cell carcinoma of right kidney (CMS/HCC) (HCC) documented in this encounter Additional Health Concerns Assessment Noted Time PHQ-9 Depression Total Score: 12 07/07/ 024 11:13 AM EDT documented as of this encounter Care Teams Elevator Examiner And Adjuster Relationship Specialty Start Date End Date Deedee Mc MD [address] [place] [phone] PCP - General Family Medicine 09/09/19 Daniel Clancy, MassimoD [address] [place] [phone] Pharmacist Internal Medicine 10/14/23 12/13/24 documented as of this encounter
--- OUTSIDE RECORDS SUMMARY | 2025-02-09 02:39 | XMS_ITS | Encounter Summary ---
Author Organization [employer] Address [address] [facility] 7t [place] [address] Care Team Providers Care Neurology Epilepsy Physician Name Role Phone Deedee Mc MD Primary Care Provider [phone] Daniel Clancy PharmD Unavailable [phone] Reason for Visit * Reason Comments Med Refill Encounter Details Date Type Department Care Team (Late st Contact Info) Description 09/24/2023 Refill [facility] MEDICINE 230 [place], [place] [phone] Andrae Murillo MD 230 [place], [place] [phone] Primary hypertension Social History Tobacco Use Types [...] Description 05/31/2025 11:00 AM EDT Office Visit [facility] OPTOMETRY [address] [place], [place] [phone] Clayton, Janell, OD 230 [place] [address] documented as of this encounter Goals Goal [...] documented as of this encounter Care Teams Neurology Epilepsy Physician Relationship Specialty Start Date End Date Deedee Mc MD 230 [place] [address] PCP - General Family Medicine 09/09/19 Daniel Clancy, MassimoD 230 [place] [address] Pharmacist Internal Medicine 10/14/23 12/13/24 documented as of this encounter
--- OUTSIDE RECORDS SUMMARY | 2025-02-09 02:39 | XMS_ITS | Encounter Summary ---
Author Organization [employer] Address [address] [facility] 7t [place] [address] Care Team Providers Care Corridor Redevelopment Manager Name Role Phone Deedee Mc MD Primary Care Provider [phone] Daniel Clancy PharmD Unavailable [phone] Encounter Details Date Type Department Care Team ([facility] st Contact Info) Description 03/11/2022 Abstract [facility] MEDICINE 230 [place], [place] [phone] Deedee Mc MD 230 [place], [place] [phone] Social History Tobacco Use Types Packs/Day Years [...] PM EST documented as of this encounter Functional Status * Over the past 2 weeks, how often have you been bothered by any of the following problems? Question Answer Date of Assessment Author Little interest or pleasure in doing things Not at all 03/11/2022 1:36 PM Doug Westbrook MA Feeling down, depressed, or hopeless Not at all 03/11/2022 1:36 PM Doug Westbrook MA Patient Health Questionnaire -2 Score 0 03/11/2022 1:36 PM Doug Westbrook [place] documented as of this encounter Plan of Treatment Upcoming Encounters Date Type Department Care Team (Late st Contact Info) Description 05/31/2025 11:00 AM EDT Office Visit [facility] OPTOMETRY [address] [place] [address] Janell Arnold, OD 230 [place] [address] documented as of this encounter Visit Diagnoses Not on filedocumented in this encounter Care Teams Corridor Redevelopment Manager Relationship Specialty Start Date End Date Deedee Mc MD 230 [place] [address] PCP - General Family Medicine 09/09/19 Daniel Clancy, MassimoD [address] [place] [address] [phone] Pharmacist Internal Medicine 10/14/23 12/13/24 documented as of this encounter
--- OUTSIDE RECORDS SUMMARY | 2025-02-09 02:39 | XMS_ITS | Encounter Summary ---
Author Organization [facility] Address [address] [place] [address] Phone Care Team Providers Care Dry Clipper Tender Name Role Phone Braeden Galarza MD Unavailable + [phone] Precious Lai MD Primary Care Provider + [phone] Ammy Casas MD Unavailable + [phone] Deedee Mc MD Primary Care Provider [phone] Encounter Details Date Type Department Care Team (Late st Contact Info) Description 03/03/2016 Procedure Pass [facility] 75 [place] [address] Social History Tobacco Use Types Packs/Day Years [...] Description 03/20/2025 3:30 PM EST Office Visit [facility] Neurology [address] [facility], [address] [place] [address] Mario Cheng MD [address] [place] [phone] [email or web address] 11/29/2025 10:00 AM EDT Office Visit [facility] [address] [facility] 9th [place] [address] Tiffany Rod MD [address] [place] [phone] [email or web address] documented as of this encounter Visit Diagnoses Not on filedocumented in this encounter Care Teams Dry Clipper Tender Relationship Specialty Start Date End Date Precious Lai MD 230 [facility] 1 [place] [address] PCP - General 02/25/16 05/26/22 Deedee Mc MD 230 [place] [address] PCP - General Family Medicine 05/27/22 Braeden Galarza MD [address] [place] [address] [phone] [email or web address] Referring Physician Internal Medicine 02/25/16 Ammy Casas MD [address] [place] [address] [email or web address] Primary Oncologist Pulmonary Disease 02/25/16 documented as of this encounter Additional Source Comments The information contained in this document represents components of the legal health record. It is not the complete legal health record.[facility]
--- OUTSIDE RECORDS SUMMARY | 2025-02-09 02:39 | XMS_ITS | Encounter Summary ---
Author Organization [facility] Address [address] [place] [address] Phone Care Team Providers Care Crust Sorter Name Role Phone Braeden Galarza MD Unavailable + [phone] Precious Lai MD Primary Care Provider + [phone] Ammy Casas MD Unavailable + [phone] Deedee Mc MD Primary Care Provider [phone] Encounter Details Date Type Department Care Team (Late st Contact Info) Description 03/03/2016 Procedure Pass [facility] 75 [place] [address] Social History Tobacco Use Types Packs/Day Years [...] Description 03/20/2025 3:30 PM EST Office Visit [facility] Neurology [address] [facility], [address] [place] [address] Mario Cheng MD [address] [place] [phone] [email or web address] 11/29/2025 10:00 AM EDT Office Visit [facility] [address] [facility] 9th [place] [address] Tiffany Rod MD [address] [place] [phone] [email or web address] documented as of this encounter Visit Diagnoses Not on filedocumented in this encounter Care Teams Crust Sorter Relationship Specialty Start Date End Date Precious Lai MD 230 [facility] 1 [place] [address] PCP - General 02/25/16 05/26/22 Deedee Mc MD 230 [place] [address] PCP - General Family Medicine 05/27/22 Braeden Galarza MD [address] [place] [address] [phone] [email or web address] Referring Physician Internal Medicine 02/25/16 Ammy Casas MD [address] [place] [phone] [email or web address] Primary Oncologist Pulmonary Disease 02/25/16 documented as of this encounter Additional Source Comments The information contained in this document represents components of the legal health record. It is not the complete legal health record.[facility]
--- OUTSIDE RECORDS SUMMARY | 2025-02-09 02:39 | XMS_ITS | Encounter Summary ---
Author Organization [employer] Address [address] [facility] 7t [place] [address] Care Team Providers Care Detective Name Role Phone Deedee Mc MD Primary Care Provider [phone] Daniel Clancy PharmD Unavailable [phone] Encounter Details Date Type Department Care Team (Late st Contact Info) Description 06/23/2024 Orders Only [facility] 230 [place] [address] Provider, MD Minerva Social History Tobacco Use [...] Description 05/31/2025 11:00 AM EDT Office Visit [facility] OPTOMETRY [address] [place] [address] ClaytonJanell, OD 230 [place] [address] documented as of this encounter Goals Goal Patient Goal Type Associated Problems Recent Progress Patient-Stated? Author Blood Pressure < 140/90 Blood Pressure 140/80(2024 11:15 AM EST) No Benito Padron Hemoglobin A1c < 7 Result Component 6.7( 11:17 AM EST) No Benito Padron documented as of this encounter Procedures Procedure Name Priority Date/Time Associated Diagnosis Comments CT ABDOMEN PELVIS W CONTRAST Routine 06/22/2024 8:54 AM EDT documented in this encounter Results * CT Abdomen Pelvis w/ Contrast (06/22/2024 8:54 AM EDT) Anatomical Region Laterality Modality Body, Pelvis, Abdomen Computed T omography us Historical Provider MD SEGURA CT PROCEDURES Final R esult documented in this encounter Visit Diagnoses Not on filedocumented in this encounter Additional Health Concerns Assessment Noted Time PHQ-9 Depression Total Score: 13 025 1:35 PM EST documented as of this encounter Care Teams Detective Relationship Specialty Start Date End Date Deedee Mc MD 230 [place] [address] PCP - General Family Medicine 09/09/19 Daniel Clancy, MassimoD 230 [place] [address] Pharmacist Internal Medicine 10/14/23 12/13/24 documented as of this encounter
--- OUTSIDE RECORDS SUMMARY | 2025-02-09 02:39 | XMS_ITS | Encounter Summary ---
Author Organization [employer] Address [address] [facility] 7t [place] [address] Care Team Providers Care Manager Application Development Name Role Phone Deedee Mc MD Primary Care Provider [phone] Daniel Clancy PharmD Unavailable [phone] Encounter Details Date Type Department Care Team (Late st Contact Info) Description 07/01/2024 Orders Only [facility] 230 [place] [address] Provider, MD Minerva Social History Tobacco Use [...] Description 05/31/2025 11:00 AM EDT Office Visit [facility] OPTOMETRY [address] [place] [address] ClaytonJanell, OD 230 [place] [address] documented as of this encounter Goals Goal Patient Goal Type Associated Problems Recent Progress Patient-Stated? Author Blood Pressure < 140/90 Blood Pressure 140/80(2024 11:15 AM EST) No Benito Padron Hemoglobin A1c < 7 Result Component 6.7( 11:17 AM EST) No Benito Padron documented as of this encounter Procedures Procedure Name Priority Date/Time Associated Diagnosis Comments CT CHEST WO CONTRAST Routine 06/28/2024 7:23 AM EDT documented in this encounter Results * CT CHEST WO CONTRAST (06/28/2024 7:23 AM EDT) Anatomical Region Laterality Modality Computed Tomogra phy us Historical Provider MD SEGURA CT PROCEDURES Final R esult documented in this encounter Visit Diagnoses Not on filedocumented in this encounter Additional Health Concerns Assessment Noted Time PHQ-9 Depression Total Score: 13 025 1:35 PM EST documented as of this encounter Care Teams Manager Application Development Relationship Specialty Start Date End Date Deedee Mc MD 230 [place] [address] PCP - General Family Medicine 09/09/19 Daniel Clancy, MassimoD 230 [place] [address] Pharmacist Internal Medicine 10/14/23 12/13/24 documented as of this encounter
--- OUTSIDE RECORDS SUMMARY | 2025-02-09 02:39 | XMS_ITS | Encounter Summary ---
Author Organization [facility] Address [address] [place] [address] Phone Care Team Providers Care Pneumatic Tube Repairer Name Role Phone Braeden Galarza MD Unavailable + [phone] Precious Lai MD Primary Care Provider + [phone] Ammy Casas MD Unavailable + [phone] Deedee Mc MD Primary Care Provider [phone] Encounter Details Date Type Department Care Team (Late st Contact Info) Description 03/03/2016 Procedure Pass [facility] 75 [place] [address] Social History Tobacco Use Types Packs/Day Years [...] Description 03/20/2025 3:30 PM EST Office Visit [facility] Neurology [address] [facility], [address] [place] [address] Mario Cheng MD [address] [place] [address] [email or web address] 11/29/2025 10:00 AM EDT Office Visit [facility] [address] [facility] 9th [place] [address] Tiffany Rod MD [address] [place] [phone] [email or web address] documented as of this encounter Visit Diagnoses Not on filedocumented in this encounter Care Teams Pneumatic Tube Repairer Relationship Specialty Start Date End Date Precious Lai MD 230 [facility] 1 [place] [address] PCP - General 02/25/16 05/26/22 Deedee Mc MD 230 [place] [address] PCP - General Family Medicine 05/27/22 Braeden Galarza MD [address] [place] [address] [phone] [email or web address] Referring Physician Internal Medicine 02/25/16 Ammy Casas MD [address] [place] [address] [email or web address] Primary Oncologist Pulmonary Disease 02/25/16 documented as of this encounter Additional Source Comments The information contained in this document represents components of the legal health record. It is not the complete legal health record.[facility]
--- OUTSIDE RECORDS SUMMARY | 2025-02-09 02:39 | XMS_ITS | Encounter Summary ---
Author Organization [facility] Address [address] [address] [place] [address] Phone Care Team Providers Care Novelty Worker Name Role Phone Braeden Galarza MD Unavailable + [phone] Precious Lai MD Primary Care Provider + [phone] Ammy Casas MD Unavailable + [phone] Deedee Mc MD Primary Care Provider [phone] Encounter Details Date Type Department Care Team (Late st Contact Info) Description 03/03/2016 Procedure Pass [facility] 75 [place] [address] Social History Tobacco Use Types Packs/Day Years [...] Description 03/20/2025 3:30 PM EST Office Visit [facility] Neurology [address] [facility], [address] [place] [address] Mario Cheng MD [address] [place] [phone] [email or web address] 11/29/2025 10:00 AM EDT Office Visit [facility] [address] [facility] 9th [place] [address] Tiffany Rod MD [address] [place] [phone] [email or web address] documented as of this encounter Visit Diagnoses Not on filedocumented in this encounter Care Teams Novelty Worker Relationship Specialty Start Date End Date Precious Lai MD [address] [facility] 1 [place] [address] PCP - General 02/25/16 05/26/22 Deedee Mc MD 230 [place] [address] PCP - General Family Medicine 05/27/22 Braeden Galarza MD [address] [place] [address] [phone] [email or web address] Referring Physician Internal Medicine 02/25/16 Ammy Casas MD [address] [place] [phone] [email or web address] Primary Oncologist Pulmonary Disease 02/25/16 documented as of this encounter Additional Source Comments The information contained in this document represents components of the legal health record. It is not the complete legal health record.[facility]
== END 2025-02-08 14:10 | disposition home or self-care (01) ==
LOC: HO.HHCX 14:09
PROVIDERS: PCP Family Medicine; Visit Provider Family Medicine
DX: M25.562 Pain in left knee (principal); M25.511 Pain in right shoulder; G89.29 Other chronic pain; E11.42 Type 2 diabetes mellitus with diabetic polyneuropathy; E03.2 Hypothyroidism due to medicaments and other exogenous substances; I10 Essential (primary) hypertension
CPT/HCPCS: 36415; 73030; 73562; 80053; 82043; 82570; 84439; 84443

== ENCOUNTER → 2025-02-08 14:23 | Outpatient (BNV) | payer MEDICAID, SELFPAY | PROVIDERS: PCP Family Medicine; Visit Provider Radiology Diagnostic Radiology | DX: M17.12 Unilateral primary osteoarthritis, left knee (principal); M19.011 Primary osteoarthritis, right shoulder | CPT/HCPCS: 73030; 73562 ==